=== PATIENT | male | born 1935 | race Caucasian/White ===

== ENCOUNTER 2018-10-20 16:42 | Emergency (ER) | payer MEDICARE ==
[2018-10-20 16:53] VITALS: TEMP 98
[2018-10-20] MEDS ORDERED: SODIUM CHLORIDE 0.9% 500 ML 500 ML IV STA (17:01)
--- NOTE | 2018-10-20 17:05 | ED ---
General Adult HPI - General Chief complaint: Altered Mental Status Stated complaint: ALTERED MENTAL STATUS Time Seen by Provider: 10/20/18 16:54 Source: family, EMS, RN notes reviewed, old records reviewed Mode of arrival: EMS Limitations: altered mental status - History of Present Illness Initial comments: 83-year-old male presents with an episode of unresponsiveness. Patient was at home, eating dinner, he was noted by family members to be slumped in his chair, unresponsive. When EMS arrived patient was found to be hypoxic. He does have history of COPD and emphysema but does not require supplemental oxygen. He denies any preceding shortness of breath or dyspnea. While lying flat his symptoms improved, he regained consciousness. The time my evaluation patient is asymptomatic, feels at baseline. He does have past history of CVA, previous brain cancer status post resection, seizure disorder, CAD status post SC. Patient has no complaints, no headache, no focal weakness or numbness, no vision changes, no chest pain, no palpitations, no shortness of breath, no abdominal pain, nausea vomiting or diarrhea. - Related Data Home Medications Medication Instructions Recorded Confirmed Amiodarone HCl [Pacerone] 200 mg PO DAILY 10/20/18 10/20/18 Aspirin [Adult Low Dose Aspirin EC] 81 mg PO DAILY 10/20/18 10/20/18 Atorvastatin [Lipitor] 40 mg PO HS 10/20/18 10/20/18 Cholecalciferol [Vitamin D3] 1,000 unit PO DAILY 10/20/18 10/20/18 Clopidogrel [Plavix] 75 mg PO DAILY 10/20/18 10/20/18 Enalapril [Vasotec] 10 mg PO DAILY 10/20/18 10/20/18 QUEtiapine [SEROquel] 25 mg PO HS 10/20/18 10/20/18 lamoTRIgine [LaMICtal] 50 mg PO BID 10/20/18 10/20/18 Allergies Allergy/AdvReac Type Severity Reaction Status Date / Time No Known Allergies Allergy Verified 10/20/18 17:14 Review of Systems ROS Statement: Those systems with pertinent positive or pertinent negative responses have been documented in the HPI. ROS Other: All systems not noted in ROS Statement are negative. Past Medical History Past Medical History: Coronary Artery Disease (CAD), Cancer, COPD, CVA/TIA, Dementia, Hearing Disorder / Deafness, Hyperlipidemia, Hypertension, Myocardial Infarction (SC), Renal Disease Additional Past Medical History / Comment(s): Brain cancer History of Any Multi-Drug Resistant Organisms: None Reported Past Surgical History: Heart Catheterization With Stent, Orthopedic Surgery Additional Past Surgical History / Comment(s): brain surgery Past Psychological History: No Psychological Hx Reported Smoking Status: Former smoker Past Alcohol Use History: None Reported Past Drug Use History: None Reported General Exam Limitations: altered mental status General appearance: alert, in no apparent distress Head exam: Present: atraumatic, normocephalic Eye exam: Present: normal appearance, PERRL ENT exam: Present: normal exam Neck exam: Present: normal inspection. Absent: tenderness, meningismus Respiratory exam: Present: normal lung sounds bilaterally. Absent: respiratory distress, wheezes Cardiovascular Exam: Present: regular rate, normal rhythm GI/Abdominal exam: Present: soft. Absent: distended, tenderness, guarding Extremities exam: Present: normal inspection, full ROM Back exam: Present: normal inspection. Absent: full ROM, tenderness Neurological exam: Present: alert, oriented X3, CN II-XII intact. Absent: motor sensory deficit Psychiatric exam: Present: normal affect, normal mood Skin exam: Present: warm, dry, intact. Absent: cyanosis, diaphoretic Course Vital Signs 10/20/18 10/20/18 10/20/18 16:44 16:48 17:00 Temperature 98.0 F Pulse Rate 72 68 Respiratory 20 19 Rate Blood Pressure 127/76 127/76 O2 Sat by Pulse 96 94 L 98 Oximetry 10/20/18 10/20/18 10/20/18 17:30 18:30 19:21 Temperature Pulse Rate 69 67 68 Respiratory 19 20 16 Rate Blood Pressure 138/75 144/74 147/73 O2 Sat by Pulse 96 98 94 L Oximetry EKG Findings - EKG Comments: EKG Findings:: EKG: Sinus rhythm with first-degree AV block, ventricular rate 71 , NH interval 220, QRS duration 88, QTC 458, no ST segment changes Medical Decision Making - Medical Decision Making 83-year-old male presenting with history suggestive of syncopal episode. Patient has multiple medical problems, states several episodes to this in the past. Workup in the emergency department reveals normal CBC, CMP reveals mild creatinine elevation 1.5 with no known baseline. EKG normal sinus rhythm. Patient's vital signs remained stable while in the emergency department. He does have remote history of craniotomy secondary to brain cancer and seizure disorder. Head CT is obtained, negative for intracranial hemorrhage. There is significant chronic changes but no acute intracranial process. Chest x-ray negative for pneumonia, there is pulmonary fibrosis. Patient is very eager for discharge. He does not want observation which was my initial plan for telemetry and further syncopal workup. He refuses and wants to be discharged at this time. Please follow up with primary care physician. - Lab Data Result diagrams: 10/20/18 17:05 10/20/18 17:05 Lab Results 10/20/18 10/20/18 10/20/18 Range/Units 17:05 17:05 17:05 WBC 4.9 (3.8-10.6) k/uL RBC 4.12 L (4.30-5.90) m/uL Hgb 14.1 (13.0-17.5) gm/dL Hct 41.9 (39.0-53.0) % MCV 101.7 H (80.0-100.0) fL MCH 34.1 (25.0-35.0) pg MCHC 33.5 (31.0-37.0) g/dL RDW 13.9 (11.5-15.5) % Plt Count 189 (150-450) k/uL Neutrophils % 73 % Lymphocytes % 20 % Monocytes % 4 % Eosinophils % 1 % Basophils % 0 % Neutrophils # 3.6 (1.3-7.7) k/uL Lymphocytes # 1.0 (1.0-4.8) k/uL Monocytes # 0.2 (0-1.0) k/uL Eosinophils # 0.1 (0-0.7) k/uL Basophils # 0.0 (0-0.2) k/uL Macrocytosis Slight PT (9.0-12.0) sec INR (<1.2) APTT (22.0-30.0) sec Sodium 141 (137-145) mmol/L Potassium 4.9 (3.5-5.1) mmol/L Chloride 108 H (98-107) mmol/L Carbon Dioxide 23 (22-30) mmol/L Anion Gap 10 mmol/L BUN 19 (9-20) mg/dL Creatinine 1.50 H (0.66-1.25) mg/dL Est GFR (CKD-EPI)AfAm 50 (>60 ml/min/1.73 sqM) Est GFR (CKD-EPI)NonAf 43 (>60 ml/min/1.73 sqM) Glucose 167 H (74-99) mg/dL Calcium 9.5 (8.4-10.2) mg/dL Magnesium 2.1 (1.6-2.3) mg/dL Total Bilirubin 1.4 H (0.2-1.3) mg/dL AST 20 (17-59) U/L ALT 21 (21-72) U/L Alkaline Phosphatase 74 (38-126) U/L Total Creatine Kinase 37 L (55-170) U/L CK-MB (CK-2) 0.4 (0.0-2.4) ng/mL CK-MB (CK-2) Rel Index 1.1 Troponin I <0.012 (0.000-0.034) ng/mL Total Protein 7.3 (6.3-8.2) g/dL Albumin 4.2 (3.5-5.0) g/dL 10/20/18 Range/Units 17:05 WBC (3.8-10.6) k/uL RBC (4.30-5.90) m/uL Hgb (13.0-17.5) gm/dL Hct (39.0-53.0) % MCV (80.0-100.0) fL MCH (25.0-35.0) pg MCHC (31.0-37.0) g/dL RDW (11.5-15.5) % Plt Count (150-450) k/uL Neutrophils % % Lymphocytes % % Monocytes % % Eosinophils % % Basophils % % Neutrophils # (1.3-7.7) k/uL Lymphocytes # (1.0-4.8) k/uL Monocytes # (0-1.0) k/uL Eosinophils # (0-0.7) k/uL Basophils # (0-0.2) k/uL Macrocytosis PT 10.3 (9.0-12.0) sec INR 1.1 (<1.2) APTT 22.8 (22.0-30.0) sec Sodium (137-145) mmol/L Potassium (3.5-5.1) mmol/L Chloride (98-107) mmol/L Carbon Dioxide (22-30) mmol/L Anion Gap mmol/L BUN (9-20) mg/dL Creatinine (0.66-1.25) mg/dL Est GFR (CKD-EPI)AfAm (>60 ml/min/1.73 sqM) Est GFR (CKD-EPI)NonAf (>60 ml/min/1.73 sqM) Glucose (74-99) mg/dL Calcium (8.4-10.2) mg/dL Magnesium (1.6-2.3) mg/dL Total Bilirubin (0.2-1.3) mg/dL AST (17-59) U/L ALT (21-72) U/L Alkaline Phosphatase (38-126) U/L Total Creatine Kinase (55-170) U/L CK-MB (CK-2) (0.0-2.4) ng/mL CK-MB (CK-2) Rel Index Troponin I (0.000-0.034) ng/mL Total Protein (6.3-8.2) g/dL Albumin (3.5-5.0) g/dL Disposition Clinical Impression: Syncope Disposition: HOME SELF-CARE Condition: Fair Instructions: Syncope (ED) Is patient prescribed a controlled substance at d/c from ED?: No Referrals: Louis Diaz MD [Primary Care Provider] - 1-2 days Time of Disposition: 19:27
[2018-10-20 17:21] LABS: Basophils % (A) 0 %; Eosinophils # (A) 0.1 k/uL (0-0.7); Eosinophils % (A) 1 %; HCT 41.9 % (39.0-53.0); HGB 14.1 gm/dL (13.0-17.5); Lymphocytes % (A) 20 %; MCH 34.1 pg (25.0-35.0); MCHC 33.5 g/dL (31.0-37.0); MCV 101.7 fL (80.0-100.0); Macrocytosis Slight; Mean Platelet Volume 7.3; Monocytes # (A) 0.2 k/uL (0-1.0); Monocytes % (A) 4 %; Neutrophils # (A) 3.6 k/uL (1.3-7.7); Neutrophils % (A) 73 %; Platelet Count 189 k/uL (150-450); RBC 4.12 m/uL (4.30-5.90); RDW 13.9 % (11.5-15.5); WBC 4.9 k/uL (3.8-10.6)
[2018-10-20 17:28] LABS: Creatine Kinase 37 U/L (55-170)
[2018-10-20 17:31] LABS: Albumin 4.2 g/dL (3.5-5.0); Calcium 9.5 mg/dL (8.4-10.2); INR 1.1 (<1.2); Magnesium 2.1 mg/dL (1.6-2.3); Partial Thromboplastin Time 22.8 sec (22.0-30.0); Potassium 4.9 mmol/L (3.5-5.1); Prothrombin Time 10.3 sec (9.0-12.0); Total Bilirubin 1.4 mg/dL (0.2-1.3); Total Protein 7.3 g/dL (6.3-8.2)
[2018-10-20 17:42] LABS: Creatine Kinase MB 0.4 ng/mL (0.0-2.4); Troponin I <0.012 ng/mL (0.000-0.034)
--- NOTE | 2018-10-20 18:49 | CT ---
EXAMINATION TYPE: CT brain wo con DATE OF EXAM: 10/20/2018 COMPARISON: 06/04/2013 HISTORY: Syncope. CT DLP: 1044.4 mGycm Automated exposure control for dose reduction was used. FINDINGS: There is severe diffuse cerebral atrophy. There is large old left frontal and anterior parietal corti arely infarct. There is large old right temporal lobe infarct. There is no midline shift. There is no s ign of intracranial hemorrhage. The calvarium is intact. 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 NO CHANGE COMPARED TO OLD EXAM.
--- NOTE | 2018-10-20 18:53 | XR ---
EXAMINATION TYPE: XR chest 2V DATE OF EXAM: 10/20/2018 COMPARISON: 06/04/2013 HISTORY: Altered mental status TECHNIQUE: Frontal and lateral views of the chest are obtained. FINDINGS: There is coarsening of the lung markings. There is no heart failure. Heart size is normal. Thoracic aorta is atheromatous. There is mild linear density at the left lung base. There are chest leads. IMPRESSION: Pulmonary fibrosis. Mild subsegmental atelectasis or scarring at the left lung base. No change. No heart failure.
[2018-10-20 19:22] VITALS: RESP 16
[2018-10-20] MEDS ORDERED: SODIUM CHLORIDE 0.9% 1,000 ML IV SCH (19:30)
[2018-10-20 19:31] VITALS: BP 151/78; PULSE 69
== END 2018-10-20 19:35 | disposition home or self-care (01) ==
LOC: EC 16:42
DX: R55 Syncope and collapse (principal); R79.89 Other specified abnormal findings of blood chemistry; G40.909 Epilepsy, unspecified, not intractable, without status epilepticus; Z85.841 Personal history of malignant neoplasm of brain; J84.10 Pulmonary fibrosis, unspecified; I25.10 Atherosclerotic heart disease of native coronary artery without angina pectoris; E78.5 Hyperlipidemia, unspecified; I10 Essential (primary) hypertension; I25.2 Old myocardial infarction; Z86.73 Personal history of transient ischemic attack (TIA), and cerebral infarction without residual deficits; Z87.891 Personal history of nicotine dependence; Z79.01 Long term (current) use of anticoagulants; Z79.899 Other long term (current) drug therapy; Z95.5 Presence of coronary angioplasty implant and graft; Z79.82 Long term (current) use of aspirin; Z98.890 Other specified postprocedural states; Z53.8 Procedure and treatment not carried out for other reasons
CPT/HCPCS: 36415; 70450; 71046; 80053; 82550; 82553; 83735; 84484; 85025; 85610; 85730; 93005; 96360; 96361; 99285

== ENCOUNTER 2021-02-22 17:51 | Inpatient (IN) | payer MEDICARE ==
[2021-02-22] MEDS ORDERED: IPRATROPIUM-ALBUTEROL 3 ML NEB INHALATION STA (18:10)
[2021-02-22] MEDS ORDERED: ALBUTEROL NEBULIZED 2.5 MG/3 ML INHALATION STA (18:12)
[2021-02-22] MEDS ORDERED: SODIUM CHLORIDE 0.9% 2,000 ML IV ONE (18:16)
[2021-02-22 18:25] LABS: Basophils # (A) 0.1 k/uL (0-0.2); Basophils % (A) 1 %; Eosinophils # (A) 0.1 k/uL (0-0.7); Eosinophils % (A) 1 %; HCT 45.5 % (39.0-53.0); HGB 15.1 gm/dL (13.0-17.5); Lymphocytes # (A) 1.7 k/uL (1.0-4.8); Lymphocytes % (A) 20 %; MCH 34.6 pg (25.0-35.0); MCHC 33.2 g/dL (31.0-37.0); MCV 104.3 fL (80.0-100.0); Macrocytosis Moderate; Mean Platelet Volume 7.9; Monocytes # (A) 0.8 k/uL (0-1.0); Monocytes % (A) 10 %; Neutrophils # (A) 5.9 k/uL (1.3-7.7); Neutrophils % (A) 67 %; Platelet Count 303 k/uL (150-450); RBC 4.36 m/uL (4.30-5.90); RDW 14.6 % (11.5-15.5); WBC 8.7 k/uL (3.8-10.6)
[2021-02-22 18:33] LABS: Albumin 3.7 g/dL (3.5-5.0); Calcium 8.5 mg/dL (8.4-10.2); Total Bilirubin 1.4 mg/dL (0.2-1.3); Total Protein 6.6 g/dL (6.3-8.2)
[2021-02-22 18:36] LABS: Potassium 4.4 mmol/L (3.5-5.1)
[2021-02-22 18:45] LABS: Prothrombin Time 10.9 sec (9.0-12.0)
--- NOTE | 2021-02-22 19:11 | XR ---
EXAMINATION TYPE: XR chest 1V portable DATE OF EXAM: 02/22/2021 COMPARISON: 10/20/2018. HISTORY: Altered mental status. TECHNIQUE: Single frontal view of the chest is obtained. FINDINGS: There is bilateral diffuse hazy and streaky opacities. No significant pleural effusion, or pneumothorax seen. The cardiac silhouette size is borderline enlarged. The osseous structures are intact. IMPRESSION: Diffuse opacities, may relate to ARDS, pulmonary edema or infection.
[2021-02-22 19:21] LABS: Cocaine Screen,Urine Not Detected (NotDetected); Opiate Screen,Urine Not Detected (NotDetected); Phencyclidine Screen,Urine Not Detected (NotDetected); Urn Cannabinoid Scrn Not Detected (NotDetected)
[2021-02-22 19:22] LABS: Amphetamine Screen,Urine Not Detected (NotDetected); Barbiturate Screen,Urine Not Detected (NotDetected); Benzodiazepines Screen,Urine Not Detected (NotDetected); Methadone Screen, Urine Not Detected (NotDetected); Oxycodone Screen, Urine Not Detected (NotDetected); Tricyclic Antidepressant,Urine Not Detected (NotDetected)
[2021-02-22] MEDS ORDERED: MORPHINE SULFATE 4 MG/ML SYRINGE IVP STA (19:26)
--- NOTE | 2021-02-22 19:28 | CT ---
EXAM: CT brain wo con CLINICAL HISTORY: Altered mental status. COMPARISON: 10/20/2018. TECHNIQUE: Contiguous axial noncontrast images of the brain were obtained. Coronal and sagittal refor mats were generated and reviewed. Automated dose control was used for this exam. FINDINGS: There is no evidence for intracranial hemorrhage, mass effect or midline shift. There is encephalomal acia of the right temporal and left frontal lobes. There is moderate to severe white matter disease a nd parenchymal volume loss. Ventricular size and configuration is within normal limits for degree of parenchymal volume. The paranasal sinuses are clear. The mastoid air cells are clear. Right frontotemporal craniotomy is seen. No acute osseous abnormality. IMPRESSION: No acute intracranial abnormality. Chronic findings as above.
[2021-02-22] MEDS: DEXAMETHASONE SOD PHOSPHATE 10 MG/ML 1 ML VIAL IV SCH (19:43)
[2021-02-22] MEDS ORDERED: HEPARIN SODIUM,PORCINE 5,000 UNIT/ML 1 ML VIAL IV PRN (19:49)
[2021-02-22] MEDS ORDERED: HEPARIN SODIUM,PORCINE 5,000 UNIT/ML 1 ML VIAL IV ONE (19:49)
--- NOTE | 2021-02-22 20:33 | CT ---
EXAMINATION TYPE: CT chest angio for PE DATE OF EXAM: 02/22/2021 COMPARISON: Same day radiograph. HISTORY: Elevated d-dimer. CT DLP: 411.1 mGycm Automated exposure control for dose reduction was used. CONTRAST: CT Chest for pulmonary embolism performed with with IV Contrast, patient injected with 100 mL of Isov ue 370. FINDINGS: LUNGS: The bilateral diffuse moderate opacities predominantly in the dependent lungs and greater on t he right. There are small bilateral pleural effusions. There is background of moderate centrilobular emphysema. No pneumothorax MEDIASTINUM: There is satisfactory enhancement of the pulmonary artery and its branches, there is no CT evidence for pulmonary embolism. There are no greater than 1 cm hilar or mediastinal lymph nodes. No pericardial effusion is seen. There is moderate thoracic aorta and coronary atherosclerotic di sease. OTHER: No additional significant abnormality is seen. IMPRESSION: No acute PE. Bilateral diffuse dependent opacities, may relate to aspiration pneumonitis and/or pneumonia. Small pleural effusions.
[2021-02-22] MEDS ORDERED: NALOXONE 0.4 MG/ML 1 ML VIAL IV PRN (20:37)
--- NOTE | 2021-02-22 20:37 | ED ---
SOB HPI - General Chief Complaint: Shortness of Breath Stated Complaint: Altered Source: patient Mode of arrival: ambulatory Limitations: no limitations - History of Present Illness Initial Comments: A shows an 85-year-old male with multiple medical conditions presents to the [facility] department in respiratory distress. EMS states the patient's called EMS as he was having difficulty breathing. She states the symptoms started today. He has had a mild cough. Does have a history of COPD. He does not wear any oxygen at home. EMS found the patient to have saturations in the 70s on room air. He is not having fever 102. states he's been eating and drinking. Acting appropriately. Does have history of CVA and has baseline debility. The remainder of the HPI is limited as the patient cannot provide a history - Related Data Home Medications Medication Instructions Recorded Confirmed Amiodarone HCl [Pacerone] 200 mg PO DAILY 10/20/18 02/22/21 Aspirin [Adult Low Dose Aspirin EC] 81 mg PO DAILY 10/20/18 02/22/21 Clopidogrel [Plavix] 75 mg PO DAILY 10/20/18 02/22/21 Enalapril [Vasotec] 10 mg PO DAILY 10/20/18 02/22/21 lamoTRIgine [LaMICtal] 50 mg PO BID 10/20/18 02/22/21 Acetaminophen/Diphenhydramine 1 tab PO HS 02/22/21 02/22/21 [Tylenol PM 500-25mg] Atorvastatin Calcium [Lipitor] 40 mg PO HS 02/22/21 02/22/21 Loratadine [Claritin] 10 mg PO DAILY PRN 02/22/21 02/22/21 Allergies Allergy/AdvReac Type Severity Reaction Status Date / Time No Known Allergies Allergy Verified 02/22/21 18:34 Review of Systems ROS Statement: Those systems with pertinent positive or pertinent negative responses have been documented in the HPI. ROS Other: All systems not noted in ROS Statement are negative. Past Medical History Past Medical History: Coronary Artery Disease (CAD), Cancer, COPD, CVA/TIA, Dementia, Hearing Disorder / Deafness, Hyperlipidemia, Hypertension, Myocardial Infarction ([place]), Renal Disease Additional Past Medical History / Comment(s): Brain cancer History of Any Multi-Drug Resistant Organisms: None Reported Past Surgical History: Heart Catheterization With Stent, Orthopedic Surgery Additional Past Surgical History / Comment(s): brain surgery Past Psychological History: No Psychological Hx Reported Smoking Status: Current every day smoker Past Alcohol Use History: None Reported Past Drug Use History: None Reported General Exam Limitations: altered mental status General appearance: alert, in distress, cachectic Head exam: Present: atraumatic, other (scar right temporal region) Eye exam: Present: normal appearance, PERRL, EOMI. Absent: scleral icterus, conjunctival injection, periorbital swelling ENT exam: Present: mucous membranes dry Respiratory exam: Present: decreased breath sounds, other (tachypnia) Cardiovascular Exam: Present: normal rhythm, tachycardia GI/Abdominal exam: Present: soft, normal bowel sounds. Absent: distended, tenderness, guarding, rebound, rigid Extremities exam: Present: other (lower extremity contractures) Psychiatric exam: Present: agitated Skin exam: Present: diaphoretic, pallor Course Vital Signs 02/22/21 02/22/21 02/22/21 17:58 18:09 18:21 Temperature 102 F H Pulse Rate 122 H 123 H 126 H Respiratory 40 H Rate Blood Pressure 185/123 O2 Sat by Pulse 92 L Oximetry 02/22/21 02/22/21 02/22/21 18:42 19:13 19:46 Temperature Pulse Rate 116 H 128 H 129 H Respiratory 30 H 36 H 40 H Rate Blood Pressure 164/108 146/87 139/90 O2 Sat by Pulse 97 92 L 93 L Oximetry 02/22/21 02/22/21 02/22/21 20:22 21:13 21:29 Temperature Pulse Rate 112 H 104 H Respiratory 28 H 24 Rate Blood Pressure 112/71 115/76 O2 Sat by Pulse 96 94 L 93 L Oximetry Medical Decision Making - Medical Decision Making Upon arrival patient is promptly placed in a trauma 1. A thorough history and physical exam was performed. Patient does remain on a nonrebreather. IV is established. Patient was given a 2 L bolus of normal saline and a DuoNeb breathing treatment. Laboratory studies are conducted. CT the brain and a chest x-rays performed. Laboratory studies reviewed demonstrate lactic acid 2.9. Troponin 0.111. BNP 9000 Covid is detected. Chest x-ray demonstrates diffuse opacities. CT of the brain demonstrates no acute findings. CT of the chest demonstrates no PE with bilateral diffuse dependent opacities. Results are discussed with the . She is informed of his critical nature and does request the patient remain a full code. The patient arrived hypertensive and did have stabilization of his blood pressures to the 110 systolic. No episodes of hypotension in the ED. The patient had improvement in his heart rate and ta chypnia with 2 mg morphine administration. I discussed the case with Dr. Hackett who agreed to admit the patient. Will place pulmonology and cardio on consult. Patient is heparinized. Pt remained in stable condition with a guarded prognosis. - Lab Data Result diagrams: 02/24/21 04:20 02/24/21 04:20 Lab Results 02/22/21 02/22/21 02/22/21 Range/Units 18:11 18:11 18:11 WBC 8.7 (3.8-10.6) k/uL RBC 4.36 (4.30-5.90) m/uL Hgb 15.1 (13.0-17.5) gm/dL Hct 45.5 (39.0-53.0) % MCV 104.3 H (80.0-100.0) fL MCH 34.6 (25.0-35.0) pg MCHC 33.2 (31.0-37.0) g/dL RDW 14.6 (11.5-15.5) % Plt Count 303 (150-450) k/uL MPV 7.9 Neutrophils % 67 % Lymphocytes % 20 % Monocytes % 10 % Eosinophils % 1 % Basophils % 1 % Neutrophils # 5.9 (1.3-7.7) k/uL Lymphocytes # 1.7 (1.0-4.8) k/uL Monocytes # 0.8 (0-1.0) k/uL Eosinophils # 0.1 (0-0.7) k/uL Basophils # 0.1 (0-0.2) k/uL Macrocytosis Moderate PT 10.9 (9.0-12.0) sec INR 1.0 (<1.2) APTT 23.0 (22.0-30.0) sec D-Dimer 2.52 H (<0.60) mg/L FEU Sodium 139 (137-145) mmol/L Potassium 4.4 (3.5-5.1) mmol/L Chloride 110 H (98-107) mmol/L Carbon Dioxide 18 L (22-30) mmol/L Anion Gap 11 mmol/L BUN 11 (9-20) mg/dL Creatinine 1.25 (0.66-1.25) mg/dL Est GFR (CKD-EPI)AfAm 62 (>60 ml/min/1.73 sqM) Est GFR (CKD-EPI)NonAf 53 (>60 ml/min/1.73 sqM) Glucose 189 H (74-99) mg/dL Lactic Ac Sepsis Rflx Plasma Lactic Acid Eduardo (0.7-2.0) mmol/L Calcium 8.5 (8.4-10.2) mg/dL Total Bilirubin 1.4 H (0.2-1.3) mg/dL AST 23 (17-59) U/L ALT 8 (4-49) U/L Alkaline Phosphatase 79 (38-126) U/L Ammonia (<30) umol/L Creatine Kinase 48 L (55-170) U/L Troponin I (0.000-0.034) ng/mL NT-Pro-B Natriuret Pep pg/mL Total Protein 6.6 (6.3-8.2) g/dL Albumin 3.7 (3.5-5.0) g/dL Urine Opiates Screen (NotDetected) Ur Oxycodone Screen (NotDetected) Urine Methadone Screen (NotDetected) Ur Propoxyphene Screen (NotDetected) Ur Barbiturates Screen (NotDetected) U Tricyclic Antidepress (NotDetected) Ur Phencyclidine Scrn (NotDetected) Ur Amphetamines Screen (NotDetected) U Methamphetamines Scrn (NotDetected) U Benzodiazepines Scrn (NotDetected) Urine Cocaine Screen (NotDetected) U Marijuana (THC) Screen (NotDetected) Coronavirus (PCR) (Not Detectd) 02/22/21 02/22/21 02/22/21 Range/Units 18:11 18:11 18:11 WBC (3.8-10.6) k/uL RBC (4.30-5.90) m/uL Hgb (13.0-17.5) gm/dL Hct (39.0-53.0) % MCV (80.0-100.0) fL MCH (25.0-35.0) pg MCHC (31.0-37.0) g/dL RDW (11.5-15.5) % Plt Count (150-450) k/uL MPV Neutrophils % % Lymphocytes % % Monocytes % % Eosinophils % % Basophils % % Neutrophils # (1.3-7.7) k/uL Lymphocytes # (1.0-4.8) k/uL Monocytes # (0-1.0) k/uL Eosinophils # (0-0.7) k/uL Basophils # (0-0.2) k/uL Macrocytosis PT (9.0-12.0) sec INR (<1.2) APTT (22.0-30.0) sec D-Dimer (<0.60) mg/L FEU Sodium (137-145) mmol/L Potassium (3.5-5.1) mmol/L Chloride (98-107) mmol/L Carbon Dioxide (22-30) mmol/L Anion Gap mmol/L BUN (9-20) mg/dL Creatinine (0.66-1.25) mg/dL Est GFR (CKD-EPI)AfAm (>60 ml/min/1.73 sqM) Est GFR (CKD-EPI)NonAf (>60 ml/min/1.73 sqM) Glucose (74-99) mg/dL Lactic Ac Sepsis Rflx Plasma Lactic Acid Eduardo (0.7-2.0) mmol/L Calcium (8.4-10.2) mg/dL Total Bilirubin (0.2-1.3) mg/dL AST (17-59) U/L ALT (4-49) U/L Alkaline Phosphatase (38-126) U/L Ammonia 13 (<30) umol/L Creatine Kinase (55-170) U/L Troponin I 0.111 H* (0.000-0.034) ng/mL NT-Pro-B Natriuret Pep pg/mL Total Protein (6.3-8.2) g/dL Albumin (3.5-5.0) g/dL Urine Opiates Screen (NotDetected) Ur Oxycodone Screen (NotDetected) Urine Methadone Screen (NotDetected) Ur Propoxyphene Screen (NotDetected) Ur Barbiturates Screen (NotDetected) U Tricyclic Antidepress (NotDetected) Ur Phencyclidine Scrn (NotDetected) Ur Amphetamines Screen (NotDetected) U Methamphetamines Scrn (NotDetected) U Benzodiazepines Scrn (NotDetected) Urine Cocaine Screen (NotDetected) U Marijuana (THC) Screen (NotDetected) Coronavirus (PCR) Detected A (Not Detectd) 02/22/21 02/22/21 02/22/21 Range/Units 18:11 18:11 18:36 WBC (3.8-10.6) k/uL RBC (4.30-5.90) m/uL Hgb (13.0-17.5) gm/dL Hct (39.0-53.0) % MCV (80.0-100.0) fL MCH (25.0-35.0) pg MCHC (31.0-37.0) g/dL RDW (11.5-15.5) % Plt Count (150-450) k/uL MPV Neutrophils % % Lymphocytes % % Monocytes % % Eosinophils % % Basophils % % Neutrophils # (1.3-7.7) k/uL Lymphocytes # (1.0-4.8) k/uL Monocytes # (0-1.0) k/uL Eosinophils # (0-0.7) k/uL Basophils # (0-0.2) k/uL Macrocytosis PT (9.0-12.0) sec INR (<1.2) APTT (22.0-30.0) sec D-Dimer (<0.60) mg/L FEU Sodium (137-145) mmol/L Potassium (3.5-5.1) mmol/L Chloride (98-107) mmol/L Carbon Dioxide (22-30) mmol/L Anion Gap mmol/L BUN (9-20) mg/dL Creatinine (0.66-1.25) mg/dL Est GFR (CKD-EPI)AfAm (>60 ml/min/1.73 sqM) Est GFR (CKD-EPI)NonAf (>60 ml/min/1.73 sqM) Glucose (74-99) mg/dL Lactic Ac Sepsis Rflx Plasma Lactic Acid Eduardo 2.9 H* (0.7-2.0) mmol/L Calcium (8.4-10.2) mg/dL Total Bilirubin (0.2-1.3) mg/dL AST (17-59) U/L ALT (4-49) U/L Alkaline Phosphatase (38-126) U/L Ammonia (<30) umol/L Creatine Kinase (55-170) U/L Troponin I (0.000-0.034) ng/mL NT-Pro-B Natriuret Pep 9010 pg/mL Total Protein (6.3-8.2) g/dL Albumin (3.5-5.0) g/dL Urine Opiates Screen Not Detected (NotDetected) Ur Oxycodone Screen Not Detected (NotDetected) Urine Methadone Screen Not Detected (NotDetected) Ur Propoxyphene Screen Not Detected (NotDetected) Ur Barbiturates Screen Not Detected (NotDetected) U Tricyclic Antidepress Not Detected (NotDetected) Ur Phencyclidine Scrn Not Detected (NotDetected) Ur Amphetamines Screen Not Detected (NotDetected) U Methamphetamines Scrn Not Detected (NotDetected) U Benzodiazepines Scrn Not Detected (NotDetected) Urine Cocaine Screen Not Detected (NotDetected) U Marijuana (THC) Screen Not Detected (NotDetected) Coronavirus (PCR) (Not Detectd) 02/22/21 Range/Units 18:48 WBC (3.8-10.6) k/uL RBC (4.30-5.90) m/uL Hgb (13.0-17.5) gm/dL Hct (39.0-53.0) % MCV (80.0-100.0) fL MCH (25.0-35.0) pg MCHC (31.0-37.0) g/dL RDW (11.5-15.5) % Plt Count (150-450) k/uL MPV Neutrophils % % Lymphocytes % % Monocytes % % Eosinophils % % Basophils % % Neutrophils # (1.3-7.7) k/uL Lymphocytes # (1.0-4.8) k/uL Monocytes # (0-1.0) k/uL Eosinophils # (0-0.7) k/uL Basophils # (0-0.2) k/uL Macrocytosis PT (9.0-12.0) sec INR (<1.2) APTT (22.0-30.0) sec D-Dimer (<0.60) mg/L FEU Sodium (137-145) mmol/L Potassium (3.5-5.1) mmol/L Chloride (98-107) mmol/L Carbon Dioxide (22-30) mmol/L Anion Gap mmol/L BUN (9-20) mg/dL Creatinine (0.66-1.25) mg/dL Est GFR (CKD-EPI)AfAm (>60 ml/min/1.73 sqM) Est GFR (CKD-EPI)NonAf (>60 ml/min/1.73 sqM) Glucose (74-99) mg/dL Lactic Ac Sepsis Rflx Y Plasma Lactic Acid Eduardo (0.7-2.0) mmol/L Calcium (8.4-10.2) mg/dL Total Bilirubin (0.2-1.3) mg/dL AST (17-59) U/L ALT (4-49) U/L Alkaline Phosphatase (38-126) U/L Ammonia (<30) umol/L Creatine Kinase (55-170) U/L Troponin I (0.000-0.034) ng/mL NT-Pro-B Natriuret Pep pg/mL Total Protein (6.3-8.2) g/dL Albumin (3.5-5.0) g/dL Urine Opiates Screen (NotDetected) Ur Oxycodone Screen (NotDetected) Urine Methadone Screen (NotDetected) Ur Propoxyphene Screen (NotDetected) Ur Barbiturates Screen (NotDetected) U Tricyclic Antidepress (NotDetected) Ur Phencyclidine Scrn (NotDetected) Ur Amphetamines Screen (NotDetected) U Methamphetamines Scrn (NotDetected) U Benzodiazepines Scrn (NotDetected) Urine Cocaine Screen (NotDetected) U Marijuana (THC) Screen (NotDetected) Coronavirus (PCR) (Not Detectd) - EKG Data EKG Comments: EKG at 1901 demonstrates a sinus tachycardia with a first-degree AV block. Rate of 126. MT interval 248. QRS 104. QTC of 379. ST depression in the inferior and lateral leads EKG at 1948 continues to demonstrate a sinus tachycardia with a ventricular rate of 124. MT interval 214. QRS 106. QTC 531. ST depression in the inferior lateral leads. No acute ST segment elevation Critical Care Time Critical Care Time: Yes Critical Care Time: 32 minutes Disposition Clinical Impression: Sepsis with acute hypoxic respiratory failure, COVID-19, Fever, NSTEMI (non-ST elevated myocardial infarction) Disposition: ADMITTED IP TO THIS [facility] Condition: Serious Is patient prescribed a controlled substance at d/c from ED?: No Decision to Admit Reason: Admit from EC Decision Date: 02/22/21 Decision Time: 20:37
[2021-02-22] MEDS: HEPARIN SOD,PORK IN 0.45% NACL 25,000 UNIT in 0.45% NACL 1 250ML.BAG IV SCH (20:44)
[2021-02-22] MEDS: ALBUTEROL HFA INHALER INHALATION PRN (21:11)
[2021-02-23] MEDS: MORPHINE SULFATE 4 MG/ML SYRINGE IV PRN ×2 (02:25→20:08)
[2021-02-23] MEDS: DEXAMETHASONE SOD PHOSPHATE 10 MG/ML 1 ML VIAL IV SCH (07:45)
[2021-02-23] MEDS ORDERED: SODIUM CHLORIDE 0.9% 1,000 ML IV STA (08:12)
[2021-02-23] MEDS ORDERED: LORATADINE 10 MG TAB PO PRN (08:23)
[2021-02-23] MEDS: ALBUTEROL HFA INHALER INHALATION PRN ×4 (08:29→20:00)
[2021-02-23 08:39] LABS: Basophils % (A) 0 %; Eosinophils % (A) 0 %; HCT 35.9 % (39.0-53.0); Hypochromasia Slight; Lymphocytes # (A) 0.4 k/uL (1.0-4.8); Lymphocytes % (A) 6 %; MCH 34.4 pg (25.0-35.0); MCHC 32.3 g/dL (31.0-37.0); MCV 106.4 fL (80.0-100.0); Macrocytosis Moderate; Mean Platelet Volume 7.7; Monocytes # (A) 0.3 k/uL (0-1.0); Monocytes % (A) 5 %; Neutrophils # (A) 6.1 k/uL (1.3-7.7); Platelet Count 224 k/uL (150-450); RBC 3.37 m/uL (4.30-5.90); RDW 15.3 % (11.5-15.5); WBC 6.9 k/uL (3.8-10.6)
[2021-02-23] MEDS: AMIODARONE 200 MG TAB PO SCH (08:40)
[2021-02-23] MEDS: ASPIRIN 81 MG PO SCH (08:55)
[2021-02-23] MEDS: CLOPIDOGREL 75 MG TAB PO SCH (08:56)
[2021-02-23] MEDS ORDERED: lisinopriL 20 MG TAB PO SCH (09:00)
[2021-02-23 09:01] LABS: INR 1.1 (<1.2)
[2021-02-23 09:02] LABS: Prothrombin Time 11.7 sec (9.0-12.0)
[2021-02-23] MEDS: lamoTRIgine 25 MG TAB PO SCH ×2 (09:11→21:26)
--- NOTE | 2021-02-23 09:22 | P.HPIM ---
History of Present Illness H&P Date: 02/23/21 Shai Vaca, is an 85-year-old male who presented to [facility] emergency room with a chief complaint of worsening shortness of breath, patient's called EMS because patient was having difficulty breathing. Patient was evaluated in the emergency room vital examination on presentation revealed a temperature of 102 pulse 122 respiration 14 blood pressure 185/123 and pulse ox 92% on 15 L nonrebreather mask, laboratory data revealed a white blood count of 8.7 hemoglobin 15.1 platelet count 303 d-dimer was elevated at 2.5 to BUN 11 creatinine 1.25 lactic acid was elevated at 3.6 and a troponin level was elevated at 0.11 chest x-ray on presentation revealed diffuse opaciti es possibly related to ARDS pulmonary edema or infection, Cordarone of virus PCR was positive, CT angiogram of the chest was negative for pulmonary embolism however it revealed bilateral diffuse dependent opacities possibly related to pneumonia with a small pleural effusions, EKG was done in the emergency room and revealed sinus tachycardia with first-degree AV block and incomplete left bundle branch block and ST and T-wave abnormalities suggestive of lateral ischemia. Computed tomography scan of the brain done in the emergency room revealed no acute intracranial abnormality. Patient was admitted to telemetry floor he was started on IV heparin, IV dexamethasone, inhaled bronchodilators, and IV fluid, cardiology consultation and pulmonary critical care consultation were requested. His past medical history is significant for history of hypertension, history of hyperlipidemia, history of COPD, history of pulmonary fibrosis, he also has a previous history of brain cancer and history of coronary artery disease with previous history of angioplasty and stent placement. Past Medical History Past Medical History: Coronary Artery Disease (CAD), Cancer, COPD, CVA/TIA, Dementia, Hearing Disorder / Deafness, Hyperlipidemia, Hypertension, Myocardial Infarction ([place]), Renal Disease Additional Past Medical History / Comment(s): Brain cancer Last Myocardial Infarction Date:: unknown History of Any Multi-Drug Resistant Organisms: None Reported Past Surgical History: Heart Catheterization With Stent, Orthopedic Surgery Additional Past Surgical History / Comment(s): brain surgery Date of Last Stent Placement:: unknown Past Psychological History: No Psychological Hx Reported Smoking Status: Unknown if ever smoked Past Alcohol Use History: None Reported Past Drug Use History: None Reported Medications and Allergies Home Medications Medication Instructions Recorded Confirmed Type Amiodarone HCl [Pacerone] 200 mg PO DAILY 10/20/18 02/22/21 History Aspirin [Adult Low Dose Aspirin EC] 81 mg PO DAILY 10/20/18 02/22/21 History Clopidogrel [Plavix] 75 mg PO DAILY 10/20/18 02/22/21 History Enalapril [Vasotec] 10 mg PO DAILY 10/20/18 02/22/21 History lamoTRIgine [LaMICtal] 50 mg PO BID 10/20/18 02/22/21 History Acetaminophen/Diphenhydramine 1 tab PO HS 02/22/21 02/22/21 History [Tylenol PM 500-25mg] Atorvastatin Calcium [Lipitor] 40 mg PO HS 02/22/21 02/22/21 History Loratadine [Claritin] 10 mg PO DAILY PRN 02/22/21 02/22/21 History Allergies Allergy/AdvReac Type Severity Reaction Status Date / Time No Known Allergies Allergy Verified 02/22/21 18:34 Physical Exam Vitals: Vital Signs Temp Pulse Pulse Resp BP BP Pulse Ox 02/23/21 07:55 94/64 02/23/21 07:54 76/49 02/23/21 07:43 97.7 F 73 17 86/53 93 L 02/23/21 04:00 98.4 F 83 20 103/64 92 L 02/22/21 23:29 98.3 F 135 H 24 138/61 90 L 02/22/21 21:29 104 H 24 115/76 93 L 02/22/21 21:13 94 L 02/22/21 20:22 112 H 28 H 112/71 96 02/22/21 19:46 129 H 40 H 139/90 93 L 02/22/21 19:13 128 H 36 H 146/87 92 L 02/22/21 18:42 116 H 30 H 164/108 97 02/22/21 18:21 126 H 02/22/21 18:09 123 H 02/22/21 17:58 102 F H 122 H 40 H 185/123 92 L Intake and Output 02/22/21 02/23/21 02/23/21 22:59 06:59 14:59 Intake Total 527.737 Output Total 200 Balance 327.737 Intake: Intake, IV Titration 47.737 Amount Heparin Sod,Pork in 0.45% 47.737 NaCl 25,000 unit In 0.45 % NaCl 1 250ml.bag @ 12 UNITS/KG/HR 8.137 mls/hr IV .Q24H [facility] Rx#: [id number] Oral 480 Output: Urine 200 Other: Voiding Method Indwelling Catheter Indwelling Catheter # Voids 1 Weight 67.812 kg 71.5 kg In general patient is alert and oriented 3 in no apparent distress HEENT head normocephalic and atraumatic Neck is supple no JVD no goiter no lymphadenopathy Chest exam reveals coarse crackles in both lung thomas with wheezing Cardiac exam reveals regular heart sounds no gallops no murmurs Abdomen is soft nontender no organomegaly with normal bowel sounds Extremity exam reveals no edema no cyanosis or clubbing Neurological examination reveals no gross focal deficit Results CBC & Chem 7: 02/22/21 18:11 02/22/21 18:11 Labs: Abnormal Lab Results - Last 24 Hours (Table) 02/22/21 02/22/21 02/22/21 Range/Units 18:11 18:11 18:11 MCV 104.3 H (80.0-100.0) fL APTT (22.0-30.0) sec D-Dimer 2.52 H (<0.60) mg/L FEU Chloride 110 H (98-107) mmol/L Carbon Dioxide 18 L (22-30) mmol/L Glucose 189 H (74-99) mg/dL Plasma Lactic Acid Eduardo (0.7-2.0) mmol/L Total Bilirubin 1.4 H (0.2-1.3) mg/dL Creatine Kinase 48 L (55-170) U/L Troponin I (0.000-0.034) ng/mL Coronavirus (PCR) (Not Detectd) 02/22/21 02/22/21 02/22/21 Range/Units 18:11 18:11 18:11 MCV (80.0-100.0) fL APTT (22.0-30.0) sec D-Dimer (<0.60) mg/L FEU Chloride (98-107) mmol/L Carbon Dioxide (22-30) mmol/L Glucose (74-99) mg/dL Plasma Lactic Acid Eduardo 2.9 H* (0.7-2.0) mmol/L Total Bilirubin (0.2-1.3) mg/dL Creatine Kinase (55-170) U/L Troponin I 0.111 H* (0.000-0.034) ng/mL Coronavirus (PCR) Detected A (Not Detectd) 02/22/21 02/23/21 02/23/21 Range/Units 21:18 00:03 01:39 MCV (80.0-100.0) fL APTT 77.3 H (22.0-30.0) sec D-Dimer (<0.60) mg/L FEU Chloride (98-107) mmol/L Carbon Dioxide (22-30) mmol/L Glucose (74-99) mg/dL Plasma Lactic Acid Eduardo 3.6 H* 4.2 H* (0.7-2.0) mmol/L Total Bilirubin (0.2-1.3) mg/dL Creatine Kinase (55-170) U/L Troponin I (0.000-0.034) ng/mL Coronavirus (PCR) (Not Detectd) 02/23/21 Range/Units 03:39 MCV (80.0-100.0) fL APTT (22.0-30.0) sec D-Dimer (<0.60) mg/L FEU Chloride (98-107) mmol/L Carbon Dioxide (22-30) mmol/L Glucose (74-99) mg/dL Plasma Lactic Acid Eduardo 5.1 H* (0.7-2.0) mmol/L Total Bilirubin (0.2-1.3) mg/dL Creatine Kinase (55-170) U/L Troponin I (0.000-0.034) ng/mL Coronavirus (PCR) (Not Detectd) Assessment and Plan Plan: Acute Covid 19 infection with pneumonia Non-ST elevation myocardial infarction Worsening shortness of breath multifactorial related to Covid 19 pneumonia and underlying history of COPD and pulmonary fibrosis Underlying history of hypertension Underlying history of hyperlipidemia Underlying history of COPD Underlying history of coronary artery disease Previous history of brain cancer At this time patient is admitted to telemetry floor He was started on IV heparin and IV dexamethasone He was started on IV fluid Pulmonary consultation cardiology consultation and infectious disease consultation are requested Prognosis is guarded due to severity of illness advanced age and multiple underlying comorbidities
[2021-02-23 09:38] LABS: HGB 11.6 gm/dL (13.0-17.5)
--- NOTE | 2021-02-23 10:39 | P.CNPUL ---
History of Present Illness Consult date: 02/23/21 Reason for consult: dyspnea History of present illness: 85-year-old male patient was hospitalized because of worsening shortness of breath. The patient came into the ED, he was febrile, tachycardic and tachypneic and he was quite hypoxic and he was immediately placed on high flow oxygen at 15 L per minute nasal cannula. His chest x-ray showed diffuse bilateral pulmonary infiltrates consistent with COVID 19-related pneumonia. He is checked positive for COVID 19. The patient is extremely demented. The patient is a very poor historian. He cannot provide any history and he has no insight on his condition. Is quite contracted his lower extremities bilaterally. He was found to be significantly hypoxic in the emergency department. He was placed on a nonrebreather and currently is on 15 L of oxygen by nasal cannula and his pulse ox is around 92%. Upon arrival to the floor, he was still hypotensive and he was given a bolus of IV fluid 1 L and his blood pressure improved after that. He had a high lactic acid level which was as high as 5.1 and it started to improve and is down to 3.6. Data troponin level of 0.11. Chest x-ray showed diffuse but the pulmonary infiltrates and edema and pleural effusion. Following that, he was given a CT angiogram in the emergency department, no pulmonary embolism, bilateral pleural effusion, bilateral consolidation airspace disease most on the lung bases bilaterally. EKG showing a sinus rhythm, first-degree AV block, left bundle branch block pattern. His previous cardiac status is not known. Echocardiogram needs to be completed. Based on the history, he has an extensive history of CAD, COPD, pulmonary fibrosis and previous history of brain cancer in addition to CAD, angioplasty, stenting. As far as the exact timing of his symptoms related to Covid 19 is not known. He is a very poor historian. He is currently on Decadron. He is resting comfortably in bed for now. His creatinine is at 1.25 Review of Systems ROS unobtainable: due to mental status Past Medical History Past Medical History: Coronary Artery Disease (CAD), Cancer, COPD, CVA/TIA, Dementia, Hearing Disorder / Deafness, Hyperlipidemia, Hypertension, Myocardial Infarction ([place]), Renal Disease Additional Past Medical History / Comment(s): Brain cancer Last Myocardial Infarction Date:: unknown History of Any Multi-Drug Resistant Organisms: None Reported Past Surgical History: Heart Catheterization With Stent, Orthopedic Surgery Additional Past Surgical History / Comment(s): brain surgery Date of Last Stent Placement:: unknown Past Psychological History: No Psychological Hx Reported Smoking Status: Unknown if ever smoked Past Alcohol Use History: None Reported Past Drug Use History: None Reported Medications and Allergies Home Medications Medication Instructions Recorded Confirmed Type Amiodarone HCl [Pacerone] 200 mg PO DAILY 10/20/18 02/22/21 History Aspirin [Adult Low Dose Aspirin EC] 81 mg PO DAILY 10/20/18 02/22/21 History Clopidogrel [Plavix] 75 mg PO DAILY 10/20/18 02/22/21 History Enalapril [Vasotec] 10 mg PO DAILY 10/20/18 02/22/21 History lamoTRIgine [LaMICtal] 50 mg PO BID 10/20/18 02/22/21 History Acetaminophen/Diphenhydramine 1 tab PO HS 02/22/21 02/22/21 History [Tylenol PM 500-25mg] Atorvastatin Calcium [Lipitor] 40 mg PO HS 02/22/21 02/22/21 History Loratadine [Claritin] 10 mg PO DAILY PRN 02/22/21 02/22/21 History Allergies Allergy/AdvReac Type Severity Reaction Status Date / Time No Known Allergies Allergy Verified 02/22/21 18:34 Physical Exam Vitals: Vital Signs Temp Pulse Pulse Resp BP BP Pulse Ox 02/23/21 09:08 77 18 112/67 91 L 02/23/21 08:56 107/68 02/23/21 08:32 94 L 02/23/21 07:55 94/64 02/23/21 07:54 76/49 02/23/21 07:43 97.7 F 73 17 86/53 93 L 02/23/21 04:00 98.4 F 83 20 103/64 92 L 02/22/21 23:29 98.3 F 135 H 24 138/61 90 L 02/22/21 21:29 104 H 24 115/76 93 L 02/22/21 21:13 94 L 02/22/21 20:22 112 H 28 H 112/71 96 02/22/21 19:46 129 H 40 H 139/90 93 L 02/22/21 19:13 128 H 36 H 146/87 92 L 02/22/21 18:42 116 H 30 H 164/108 97 02/22/21 18:21 126 H 02/22/21 18:09 123 H 02/22/21 17:58 102 F H 122 H 40 H 185/123 92 L Intake and Output 02/22/21 02/23/21 02/23/21 22:59 06:59 14:59 Intake Total 527.737 44.642 Output Total 200 Balance 327.737 44.642 Intake: Intake, IV Titration 47.737 44.642 Amount Heparin Sod,Pork in 0.45% 47.737 44.642 NaCl 25,000 unit In 0.45 % NaCl 1 250ml.bag @ 12 UNITS/KG/HR 8.137 mls/hr IV .Q24H [facility] Rx#: [id number] Oral 480 0 Output: Urine 200 Other: Voiding Method Indwelling Catheter Indwelling Catheter # Voids 1 Weight 67.812 kg 71.5 kg In general patient is confused and he has no insight of his condition. He is not aware of his place and is not aware of the people around him at all. Head exam was generally normal. There was no scleral icterus or corneal arcus. Mucous membranes were moist. Neck was supple and without jugular venous distension, thyromegaly, or carotid bruits. Carotids were easily palpable bilaterally. There was no adenopathy. Chest exam reveals coarse crackles in both lung thomas with wheezing along with diminished breath sounds in lung bases bilaterally. He does have some coarse crackles. Cardiac exam reveals regular heart sounds no gallops no murmurs Abdomen is soft nontender no organomegaly with normal bowel sounds Extremity exam reveals no edema no cyanosis or clubbing Neurological examination reveals no gross focal deficit contracted and lower extremities, quite debilitated, there is generalized motor weakness in all 4 extremities. I'm not sure the patient can ambulate. This was not tried. Pupils are equal and reactive to light. He responds to simple commands and moves all 4 extremities. Results - Laboratory Findings CBC and BMP: 02/23/21 08:20 02/22/21 18:11 ABG WBC 6.9 k/uL (3.8-10.6) 02/23/21 08:20 RBC 3.37 m/uL (4.30-5.90) L 02/23/21 08:20 Hgb 11.6 gm/dL (13.0-17.5) L D 02/23/21 08:20 Hct 35.9 % (39.0-53.0) L 02/23/21 08:20 MCV 106.4 fL (80.0-100.0) H 02/23/21 08:20 MCH 34.4 pg (25.0-35.0) 02/23/21 08:20 MCHC 32.3 g/dL (31.0-37.0) 02/23/21 08:20 RDW 15.3 % (11.5-15.5) 02/23/21 08:20 Plt Count 224 k/uL (150-450) 02/23/21 08:20 MPV 7.7 02/23/21 08:20 Neutrophils % 67 % 02/22/21 18:11 Lymphocytes % 6 % 02/23/21 08:20 Monocytes % 5 % 02/23/21 08:20 Eosinophils % 0 % 02/23/21 08:20 Basophils % 0 % 02/23/21 08:20 Neutrophils # 6.1 k/uL (1.3-7.7) 02/23/21 08:20 Lymphocytes # 0.4 k/uL (1.0-4.8) L 02/23/21 08:20 Monocytes # 0.3 k/uL (0-1.0) 02/23/21 08:20 Eosinophils # 0.0 k/uL (0-0.7) 02/23/21 08:20 Basophils # 0.0 k/uL (0-0.2) 02/23/21 08:20 Hypochromasia Slight 02/23/21 08:20 Macrocytosis Moderate 02/23/21 08:20 PT 11.7 sec (9.0-12.0) 02/23/21 08:20 INR 1.1 (<1.2) 02/23/21 08:20 APTT 74.5 sec (22.0-30.0) H 02/23/21 08:20 D-Dimer 2.52 mg/L FEU (<0.60) H 02/22/21 18:11 Sodium 139 mmol/L (137-145) 02/22/21 18:11 Potassium 4.4 mmol/L (3.5-5.1) 02/22/21 18:11 Chloride 110 mmol/L (98-107) H 02/22/21 18:11 Carbon Dioxide 18 mmol/L (22-30) L 02/22/21 18:11 Anion Gap 11 mmol/L 02/22/21 18:11 BUN 11 mg/dL (9-20) 02/22/21 18:11 Creatinine 1.25 mg/dL (0.66-1.25) 02/22/21 18:11 Est GFR (CKD-EPI)AfAm 62 (>60 ml/min/1.73 sqM) 02/22/21 18:11 Est GFR (CKD-EPI)NonAf 53 (>60 ml/min/1.73 sqM) 02/22/21 18:11 Glucose 189 mg/dL (74-99) H 02/22/21 18:11 Lactic Ac Sepsis Rflx Y 02/23/21 05:02 Plasma Lactic Acid Eduardo 3.4 mmol/L (0.7-2.0) H* 02/23/21 08:20 Calcium 8.5 mg/dL (8.4-10.2) 02/22/21 18:11 Total Bilirubin 1.4 mg/dL (0.2-1.3) H 02/22/21 18:11 AST 23 U/L (17-59) 02/22/21 18:11 ALT 8 U/L (4-49) 02/22/21 18:11 Alkaline Phosphatase 79 U/L (38-126) 02/22/21 18:11 Ammonia 13 umol/L (<30) 02/22/21 18:11 Creatine Kinase 48 U/L (55-170) L 02/22/21 18:11 Troponin I 0.111 ng/mL (0.000-0.034) H* 02/22/21 18:11 NT-Pro-B Natriuret Pep 9010 pg/mL 02/22/21 18:11 Total Protein 6.6 g/dL (6.3-8.2) 02/22/21 18:11 Albumin 3.7 g/dL (3.5-5.0) 02/22/21 18:11 Urine Opiates Screen Not Detected (NotDetected) 02/22/21 18:36 Ur Oxycodone Screen Not Detected (NotDetected) 02/22/21 18:36 Urine Methadone Screen Not Detected (NotDetected) 02/22/21 18:36 Ur Propoxyphene Screen Not Detected (NotDetected) 02/22/21 18:36 Ur Barbiturates Screen Not Detected (NotDetected) 02/22/21 18:36 U Tricyclic Antidepress Not Detected (NotDetected) 02/22/21 18:36 Ur Phencyclidine Scrn Not Detected (NotDetected) 02/22/21 18:36 Ur Amphetamines Screen Not Detected (NotDetected) 02/22/21 18:36 U Methamphetamines Scrn Not Detected (NotDetected) 02/22/21 18:36 U Benzodiazepines Scrn Not Detected (NotDetected) 02/22/21 18:36 Urine Cocaine Screen Not Detected (NotDetected) 02/22/21 18:36 U Marijuana (THC) Screen Not Detected (NotDetected) 02/22/21 18:36 Coronavirus (PCR) Detected (Not Detectd) A 02/22/21 18:11 PT/INR, D-dimer PT 11.7 sec (9.0-12.0) 02/23/21 08:20 INR 1.1 (<1.2) 02/23/21 08:20 D-Dimer 2.52 mg/L FEU (<0.60) H 02/22/21 18:11 Abnormal lab findings: Abnormal Labs 02/22/21 02/22/21 02/22/21 18:11 18:11 18:11 RBC Hgb Hct MCV 104.3 H Lymphocytes # APTT D-Dimer 2.52 H Chloride 110 H Carbon Dioxide 18 L Glucose 189 H Plasma Lactic Acid Eduardo Total Bilirubin 1.4 H Creatine Kinase 48 L Troponin I Coronavirus (PCR) 02/22/21 02/22/21 02/22/21 18:11 18:11 18:11 RBC Hgb Hct MCV Lymphocytes # APTT D-Dimer Chloride Carbon Dioxide Glucose Plasma Lactic Acid Eduardo 2.9 H* Total Bilirubin Creatine Kinase Troponin I 0.111 H* Coronavirus (PCR) Detected A 02/22/21 02/23/21 02/23/21 21:18 00:03 01:39 RBC Hgb Hct MCV Lymphocytes # APTT 77.3 H D-Dimer Chloride Carbon Dioxide Glucose Plasma Lactic Acid Eduardo 3.6 H* 4.2 H* Total Bilirubin Creatine Kinase Troponin I Coronavirus (PCR) 02/23/21 02/23/21 02/23/21 03:39 08:20 08:20 RBC 3.37 L Hgb 11.6 L D Hct 35.9 L MCV 106.4 H Lymphocytes # 0.4 L APTT 74.5 H D-Dimer Chloride Carbon Dioxide Glucose Plasma Lactic Acid Eduardo 5.1 H* Total Bilirubin Creatine Kinase Troponin I Coronavirus (PCR) 02/23/21 08:20 RBC Hgb Hct MCV Lymphocytes # APTT D-Dimer Chloride Carbon Dioxide Glucose Plasma Lactic Acid Eduardo 3.4 H* Total Bilirubin Creatine Kinase Troponin I Coronavirus (PCR) - Diagnostic Findings Chest x-ray: image reviewed CT scan - chest: image reviewed Assessment and Plan Plan: 1 acute hypoxic respiratory failure on that investigation. Currently on 15 L of oxygen by nasal cannula. His respiratory failure is obviously multifactorial. 2 acute COVID infection with possibility of a COVID 19 related pneumonia, started on Decadron 3 COPD 4 possible pulmonary fibrosis 5 CHF with bilateral pleural effusions and the patient has increased consolidation of the lung bases bilaterally 6 coronary artery disease with a possibility of non-STEMI 7 dementia with impaired cognition and very poor memory, poor insight and poor ability to provide any information 8 history of CVA 9 extreme debility and inability to walk and perform activities of daily today life 10 mild lactic acidosis, improving 11 hypotension improving 12 acute kidney injury, improving and the creatinine is down to 1.25 13 non-anion gap metabolic acidosis with a serum bicarb of 18 14 history of brain cancer, exact type is unknown and 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 Prognosis poor baseline above-mentioned comorbidities. Strongly urge establishing a CODE STATUS and changing into a DNR/DNI as the patient is quite demented and his underlying performance and functional status and hypercarbic the functions are markedly impaired.
[2021-02-23] MEDS: PIPERACILLIN-TAZOBACTAM 3.375 GM in SODIUM CHLORIDE 0.9% 100 ML IVPB SCH ×2 (10:54→20:09)
--- NOTE | 2021-02-23 11:42 | P.CRDCN ---
History of Present Illness Consult date: 02/23/21 History of present illness: CHIEF COMPLAINT: Elevated troponins HISTORY OF PRESENT ILLNESS: This is a 85-year-old male with a past medical history significant for coronary artery disease with previous stent placement, hypertension, hyperlipidemia, CVA/TIA, COPD, and dementia. It is unknown if the patient follows with a airline pilot/first officer. We have been asked to see the patient in consultation for elevated troponins. The patient presented to the hospital with a chief complaint of shortness of breath. Patient was found to be positive for Covid. Patient was febrile upon presentation to the emergency room with a temperature of 102F. He was tachycardic with a heart rate in the 120s. Per nursing, patient's blood pressure was running 70s/40s. His cardiac medications were held this morning and the patient is receiving an IV fluid bolus. Patient is currently on 15 L high flow nasal cannula. DIAGNOSTICS: EKG reveals sinus tachycardia rate heart rate 124. Incomplete left bundle branch block. ST depression in lateral leads. Chest xray diffuse opacities, may relate to ARDS, pulmonary edema, or infection Laboratory data: WBC 6.9. Hemoglobin 11.6. Platelet count 224. Sodium 139. Potassium 4.4. BUN 11. Creatinine 1.25. Lactic acid 3.4. Troponin 0.111. BNP 9010. Current home cardiac medications include Vasotec 10 mg daily, Plavix 75 mg daily, aspirin 81 mg daily, Lipitor 40 mg daily, and amiodarone 200 mg daily REVIEW OF SYSTEMS: Thorough review of systems not completed secondary to limited evaluation/examination and due to Covid19 PHYSICAL EXAM: Thorough physical exam not completed secondary to limited evaluation/examination and due to Covid19 ASSESSMENT: Acute Covid 19 Acute hypoxic respiratory failure Lactic acidosis Hypotension requiring IV fluid bolus Abnormal troponin Coronary artery disease with previous PCI, exact details unclear Hypertension Hyperlipidemia CVA/TIA COPD Dementia PLAN: Continue plavix and aspirin Continue IV heparin for now Resume additional home cardiac medications. Hold vasotec due to hypotension. Trend troponins Obtain 2D echo to assess cardiac structure and function Patient receiving IV fluids currently. Monitor blood pressure. Further recommendations pending patient course Nurse practitioner note has been reviewed by physician. Signing provider agrees with the documented findings, assessment, and plan of care. Past Medical History Past Medical History: Coronary Artery Disease (CAD), Cancer, COPD, CVA/TIA, Dementia, Hearing Disorder / Deafness, Hyperlipidemia, Hypertension, Myocardial Infarction ([place]), Renal Disease Additional Past Medical History / Comment(s): Brain cancer Last Myocardial Infarction Date:: unknown History of Any Multi-Drug Resistant Organisms: None Reported Past Surgical History: Heart Catheterization With Stent, Orthopedic Surgery Additional Past Surgical History / Comment(s): brain surgery Date of Last Stent Placement:: unknown Past Psychological History: No Psychological Hx Reported Smoking Status: Unknown if ever smoked Past Alcohol Use History: None Reported Past Drug Use History: None Reported Medications and Allergies Home Medications Medication Instructions Recorded Confirmed Type Amiodarone HCl [Pacerone] 200 mg PO DAILY 10/20/18 02/22/21 History Aspirin [Adult Low Dose Aspirin EC] 81 mg PO DAILY 10/20/18 02/22/21 History Clopidogrel [Plavix] 75 mg PO DAILY 10/20/18 02/22/21 History Enalapril [Vasotec] 10 mg PO DAILY 10/20/18 02/22/21 History lamoTRIgine [LaMICtal] 50 mg PO BID 10/20/18 02/22/21 History Acetaminophen/Diphenhydramine 1 tab PO HS 02/22/21 02/22/21 History [Tylenol PM 500-25mg] Atorvastatin Calcium [Lipitor] 40 mg PO HS 02/22/21 02/22/21 History Loratadine [Claritin] 10 mg PO DAILY PRN 02/22/21 02/22/21 History Allergies Allergy/AdvReac Type Severity Reaction Status Date / Time No Known Allergies Allergy Verified 02/22/21 18:34 Physical Exam Vitals: Vital Signs Temp Pulse Pulse Resp BP BP Pulse Ox 02/23/21 09:08 77 18 112/67 91 L 02/23/21 08:56 107/68 02/23/21 08:32 94 L 02/23/21 07:55 94/64 02/23/21 07:54 76/49 02/23/21 07:43 97.7 F 73 17 86/53 93 L 02/23/21 04:00 98.4 F 83 20 103/64 92 L 02/22/21 23:29 98.3 F 135 H 24 138/61 90 L 02/22/21 21:29 104 H 24 115/76 93 L 02/22/21 21:13 94 L 02/22/21 20:22 112 H 28 H 112/71 96 02/22/21 19:46 129 H 40 H 139/90 93 L 02/22/21 19:13 128 H 36 H 146/87 92 L 02/22/21 18:42 116 H 30 H 164/108 97 02/22/21 18:21 126 H 02/22/21 18:09 123 H 02/22/21 17:58 102 F H 122 H 40 H 185/123 92 L Intake and Output 02/22/21 02/23/21 02/23/21 22:59 06:59 14:59 Intake Total 527.737 44.642 Output Total 200 Balance 327.737 44.642 Intake: Intake, IV Titration 47.737 44.642 Amount Heparin Sod,Pork in 0.45% 47.737 44.642 NaCl 25,000 unit In 0.45 % NaCl 1 250ml.bag @ 12 UNITS/KG/HR 8.137 mls/hr IV .Q24H [facility] Rx#: [id number] Oral 480 0 Output: Urine 200 Other: Voiding Method Indwelling Catheter Indwelling Catheter # Voids 1 Weight 67.812 kg 71.5 kg Results 02/23/21 08:20 02/22/21 18:11 Cardiac Enzymes 02/22/21 02/22/21 Range/Units 18:11 18:11 AST 23 (17-59) U/L Troponin I 0.111 H* (0.000-0.034) ng/mL Coagulation 02/22/21 02/23/21 02/23/21 Range/Units 18:11 01:39 08:20 PT 10.9 11.7 (9.0-12.0) sec APTT 23.0 77.3 H (22.0-30.0) sec 02/23/21 Range/Units 08:20 PT (9.0-12.0) sec APTT 74.5 H (22.0-30.0) sec CBC 02/22/21 02/23/21 Range/Units 18:11 08:20 WBC 8.7 6.9 (3.8-10.6) k/uL RBC 4.36 3.37 L (4.30-5.90) m/uL Hgb 15.1 11.6 L D (13.0-17.5) gm/dL Hct 45.5 35.9 L (39.0-53.0) % Plt Count 303 224 (150-450) k/uL Comprehensive Metabolic Panel 02/22/21 Range/Units 18:11 Sodium 139 (137-145) mmol/L Potassium 4.4 (3.5-5.1) mmol/L Chloride 110 H (98-107) mmol/L Carbon Dioxide 18 L (22-30) mmol/L BUN 11 (9-20) mg/dL Creatinine 1.25 (0.66-1.25) mg/dL Glucose 189 H (74-99) mg/dL Calcium 8.5 (8.4-10.2) mg/dL AST 23 (17-59) U/L ALT 8 (4-49) U/L Alkaline Phosphatase 79 (38-126) U/L Total Protein 6.6 (6.3-8.2) g/dL Albumin 3.7 (3.5-5.0) g/dL Current Medications Generic Name Dose Route Start Last Admin Trade Name Freq PRN Reason Stop Dose Admin Acetaminophen 650 mg 02/22/21 21:19 Acetaminophen Tab 325 Mg Tab PO Q6HR PRN Fever and/ or Pain Albuterol Sulfate 2 puff 02/22/21 20:39 02/23/21 08:29 Albuterol Hfa Inhaler INHALATION 2 puff RT-QID PRN Administration Shortness Of Breath Or Wheezing Amiodarone HCl 200 mg 02/23/21 09:00 02/23/21 08:40 Amiodarone 200 Mg Tab PO Not Given DAILY JULIANA Aspirin 81 mg 02/23/21 09:00 02/23/21 08:55 Aspirin 81 Mg PO Not Given DAILY JULIANA Atorvastatin Calcium 40 mg 02/23/21 21:00 Atorvastatin 40 Mg Tab PO HS JULIANA Clopidogrel Bisulfate 75 mg 02/23/21 09:00 02/23/21 08:56 Clopidogrel 75 Mg Tab PO Not Given DAILY JULIANA Dexamethasone Sodium Phosphate 6 mg 02/22/21 19:30 02/23/21 07:45 Dexamethasone Sod Phosphate 10 Mg/Ml 1 Ml Vial IV 6 mg DAILY JULIANA Administration Heparin Sodium (Porcine) 0 unit 02/22/21 19:49 Heparin Sodium,Porcine 5,000 Unit/Ml 1 Ml Vial IV PER PROTOCOL PRN Low PTT Protocol Heparin Sodium/Sodium Chloride 250 mls @ 8.137 mls/hr 02/22/21 20:00 02/23/21 09:11 25,000 unit/ Sodium Chloride IV 8 units/kg/hr .Q24H JULIANA 5.425 mls/hr Titration Protocol 12 UNITS/KG/HR Sodium Chloride 1,000 mls @ 100 mls/hr 02/23/21 08:12 02/23/21 08:55 Saline 0.9% IV 02/23/21 18:11 100 mls/hr .Q10H STA Administration Piperacillin Sod/Tazobactam 100 mls @ 25 mls/hr 02/23/21 12:00 02/23/21 10:54 Sod 3.375 gm/ Sodium Chloride IVPB 25 mls/hr Q8H JULIANA Administration Lamotrigine 50 mg 02/23/21 09:00 02/23/21 09:11 Lamotrigine 25 Mg Tab PO Not Given BID JULIANA Lisinopril 20 mg 02/23/21 09:00 02/23/21 08:41 Lisinopril 20 Mg Tab PO Not Given DAILY JULIANA Loratadine 10 mg 02/23/21 08:23 Loratadine 10 Mg Tab PO DAILY PRN Allergy Symptoms Morphine Sulfate 4 mg 02/22/21 20:37 02/23/21 02:25 Morphine Sulfate 4 Mg/Ml Syringe IV 4 mg Q4HR PRN Administration Severe Pain Naloxone HCl 0.2 mg 02/22/21 20:37 Naloxone 0.4 Mg/Ml 1 Ml Vial IV Q2M PRN Opioid Reversal Intake and Output 02/22/21 02/23/21 02/23/21 22:59 06:59 14:59 Intake Total 527.737 44.642 Output Total 200 Balance 327.737 44.642 Intake: Intake, IV Titration 47.737 44.642 Amount Heparin Sod,Pork in 0.45% 47.737 44.642 NaCl 25,000 unit In 0.45 % NaCl 1 250ml.bag @ 12 UNITS/KG/HR 8.137 mls/hr IV .Q24H [facility] Rx#: [id number] Oral 480 0 Output: Urine 200 Other: Voiding Method Indwelling Catheter Indwelling Catheter # Voids 1 Weight 67.812 kg 71.5 kg 02/23/21 08:20 02/22/21 18:11
[2021-02-23 12:28] LABS: Glucose,Whole Blood 158 mg/dL (75-99)
[2021-02-23 17:01] LABS: Glucose,Whole Blood 133 mg/dL (75-99)
[2021-02-23] MEDS ORDERED: FUROSEMIDE 10 MG/ML 2 ML VIAL IV ONE (18:04)
[2021-02-23] MEDS ORDERED: FUROSEMIDE 10 MG/ML 4 ML VIAL IV ONE (18:04)
[2021-02-23] MEDS ORDERED: FUROSEMIDE 10 MG/ML 4 ML VIAL ONE (18:06)
[2021-02-23 18:29] LABS: Glucose,Whole Blood 202 mg/dL (75-99)
--- NOTE | 2021-02-23 18:43 | XR ---
EXAMINATION TYPE: XR chest 1V portable DATE OF EXAM: 02/23/2021 COMPARISON: 02/22/2021 HISTORY: Follow-up shortness of breath TECHNIQUE: Single frontal view of the chest is obtained. FINDINGS: There is redemonstration of bilateral diffuse marked patchy interstitial and airspace opac ities, unchanged to mildly progressed compared to the prior study. No pleural effusion, or pneumothor ax seen. The cardiac silhouette size is borderline enlarged. The osseous structures are intact. IMPRESSION: Persistent diffuse infiltrates, unchanged to mildly progressed compared to the prior tom dy..
--- NOTE | 2021-02-23 18:50 | P.PN ---
Progress Note - Text Progress Note Date: 02/23/21 Rapid response called due to hypoxia, sats dropping despite 100% NRB and 15 NC. He seems to be in moderate respiratory distress but not able to give hx due to confusion. He is here for COVID pneumonia and TN. Recommend transferring to ICU, BIBAP, lasix 40mg IV times one.
[2021-02-23 21:05] LABS: Glucose,Whole Blood 125 mg/dL (75-99)
[2021-02-23] MEDS: ATORVASTATIN 40 MG TAB PO SCH (21:27)
[2021-02-24] MEDS: HEPARIN SOD,PORK IN 0.45% NACL 25,000 UNIT in 0.45% NACL 1 250ML.BAG IV SCH ×2 (02:07→15:23)
[2021-02-24] MEDS: MORPHINE SULFATE 4 MG/ML SYRINGE IV PRN (02:19)
[2021-02-24 04:37] LABS: Basophils % (A) 0 %; Eosinophils # (A) 0.1 k/uL (0-0.7); Eosinophils % (A) 0 %; HCT 38.1 % (39.0-53.0); HGB 12.7 gm/dL (13.0-17.5); Hypochromasia Slight; Lymphocytes # (A) 0.6 k/uL (1.0-4.8); Lymphocytes % (A) 4 %; MCH 35.2 pg (25.0-35.0); MCHC 33.2 g/dL (31.0-37.0); MCV 106.1 fL (80.0-100.0); Macrocytosis Moderate; Mean Platelet Volume 7.8; Monocytes # (A) 0.7 k/uL (0-1.0); Monocytes % (A) 4 %; Neutrophils # (A) 16.4 k/uL (1.3-7.7); Neutrophils % (A) 91 %; Platelet Count 233 k/uL (150-450); RBC 3.59 m/uL (4.30-5.90); RDW 14.8 % (11.5-15.5); WBC 17.9 k/uL (3.8-10.6)
[2021-02-24 04:50] LABS: Prothrombin Time 10.6 sec (9.0-12.0)
[2021-02-24 05:48] LABS: Albumin 3.2 g/dL (3.5-5.0); Calcium 8.3 mg/dL (8.4-10.2); Potassium 4.6 mmol/L (3.5-5.1); Total Bilirubin 0.9 mg/dL (0.2-1.3); Total Protein 5.7 g/dL (6.3-8.2)
--- NOTE | 2021-02-24 05:54 | CONS ---
CONSULTATION DATE OF SERVICE: 02/23/2021 REASON FOR CONSULTATION: Pneumonia. HISTORY OF PRESENT ILLNESS: The patient is an 85-year-old male with a past medical history significant for MARKETING ADMIN lymphoma, status post resection in this patient who did have chronic debilitated condition, also with history of diabetes and hypertension. The patient has been brought into the ER by EMS yesterday after EMS was called for the patient having shortness of breath, not acting himself. On arrival of EMS, the patient was noticed to be hypoxic, lethargic, subsequently brought to the ER. On arrival to the ER the patient did have fever of 102 degrees Fahrenheit. The patient also noted to be hypoxic and has been placed on a non-rebreather, however, the patient keeps pulling his non- rebreather off. He did have elevated lactic acid. His white count was normal. Did have lymphopenia. D-dimer was elevated 2.52, creatinine was 1.25. Urine tox screen was negative. COVID PCR came back positive. The patient did have a CT angiogram of the chest that was negative for PE however did shows diffuse bilateral opacity, maybe aspiration or COVID pneumonia. The patient has been admitted to the hospital. Infectious Disease was consulted for further management. The patient is not sure exactly when his symptoms started. The patient denies any headache. Denies any chest pain. He did have a cough, not bringing any sputum. No vomiting or diarrhea reported by nursing staff. Overall history remains to be limited. REVIEW OF SYSTEMS: Positive points have been mentioned in HPI. Complete review could not be obtained because of underlying mental status. PAST MEDICAL HISTORY: Coronary artery disease, COPD, CVA, TIA, dementia, hearing disorder, hyperlipidemia, hypertension, [place], renal insufficiency, and history of MARKETING ADMIN lymphoma. PAST SURGICAL HISTORY: PTCA with stent and craniotomy with resection of the MARKETING ADMIN lymphoma. SOCIAL HISTORY: Current everyday smoker. No drinking or drug use. FAMILY HISTORY: No pertinent findings noticed. PHYSICAL EXAMINATION: VITAL SIGNS: Blood pressure 164/104 with a pulse of 85, temperature 96.7, T-max 102, he is 93% on BIPAP. GENERAL DESCRIPTION: Patient is an elderly male lying in bed in no distress. No tachypnea or accessory muscles of respiration use. HEENT: Examination shows no pallor or scleral icterus. Oral mucous membrane is dry. NECK: Trachea central, no thyromegaly. LUNGS: Unlabored breathing, coarse breath sounds bilaterally. No wheeze. HEART: S1-S2, regular rate and rhythm. ABDOMEN: Soft, no tenderness. No guarding or rigidity. EXTREMITIES: No edema of the feet. SKIN: No rash or mass palpable. NEUROLOGICAL: Patient is awake, alert, oriented times one. Mood and affect normal. LABS: Hemoglobin 11.1, white count 6.9, BUN of 11, creatinine is 1.25, lactic acid is elevate. Inflammatory markers were not checked. COVID PCR was positive. ALT and AST were normal. CT angiogram report as mentioned above. DIAGNOSTIC IMPRESSION: Patient admitted to the hospital with fever, hypoxemia with evidence of multifocal pneumonia, highly suspicious for COVID-19 infection. Unfortunately the exact timing of his symptom onset is not clear because of underlying dementia. No clear history. At the same time, the patient is currently in respiratory distress requiring high- flow oxygen and BiPAP. Remdesivir has not shown to be of any significant benefit in this pt subgroup. Underlying aspiration pneumonia less likely but not entirely excluded. PLAN: 1. We will obtain a CRP, LDH, and a procalcitonin level. 2. The patient to continue with dexamethasone, heparin per protocol, zinc and ascorbic acid. 3. Droplet isolation and respiratory support. 4. We will follow on clinical condition and investigations to further adjust medication if needed. Thank you for this consultation. Will follow this patient along with you. CHAPINCITOL / MIRYAMN: [id number] / MTDD
[2021-02-24] MEDS: PIPERACILLIN-TAZOBACTAM 3.375 GM in SODIUM CHLORIDE 0.9% 100 ML IVPB SCH ×3 (06:00→20:53)
[2021-02-24] MEDS: ALBUTEROL HFA INHALER INHALATION PRN ×5 (07:11→23:36)
--- NOTE | 2021-02-24 07:45 | XR ---
EXAMINATION TYPE: XR chest 1V portable DATE OF EXAM: 02/24/2021 Comparison: 02/15/2021 Clinical History: 85-year-old male SOB Findings: Heart upper limits of normal in size. Hyperinflation. Interstitial and patchy bilateral opacities, ri ght greater than left, are becoming less confluent from prior exam. Suspect trace effusions. Impression: Findings suspected to represent COPD with superimposed pulmonary edema, showing some improvement from prior exam.
--- NOTE | 2021-02-24 10:00 | ECHOF ---
Referral Reason:LV function, elevated trops, + covid MEASUREMENTS -------- HEIGHT: 188.0 cm WEIGHT: 70.8 kg BP: 110/72 RVIDd: 2.4 cm (< 3.3) IVSd: 0.8 cm (0.6 - 1.1) LVIDd: 6.1 cm (3.9 - 5.3) LVPWd: 1.0 cm (0.6 - 1.1) IVSs: 1.2 cm LVIDs: 5.3 cm LVPWs: 1.4 cm LA Diam: 3.9 cm (2.7 - 3.8) LAESV Index (A-L): 37.90 ml/m Ao Diam: 3.8 cm (2.0 - 3.7) AV Cusp: 2.2 cm (1.5 - 2.6) MV EXCURSION: 9.761 mm (> 18.000) MV EF SLOPE: 50 mm/s (70 - 150) EPSS: 2.3 cm MV E Pierre: 0.97 m/s MV DecT: 195 ms MV A Pierre: 0.43 m/s MV E/A Ratio: 2.26 RAP: 5.00 mmHg RVSP: 38.04 mmHg FINDINGS -------- Sinus rhythm. This was a technically adequate study. The left ventricle is mildly dilated. Left ventricular wall thickness is normal. Overall left rogelio tricular systolic function is severely impaired with, an EF between 20 - 25 %. The right ventricle is normal in size. LA is moderately dilated 34-39 ml/m2 The right atrium is normal in size. Interatrial and interventricular septum intact. There is mild aortic valve sclerosis. Mild mitral annular calcification present. Mild mitral regurgitation is present. Mild tricuspid regurgitation present. There is mild pulmonary hypertension. The right ventricular systolic pressure, as measured by Doppler, is 38.04mmHg. Trace/mild (physiologic) pulmonic regurgitation. The aortic root size is normal. Normal inferior vena cava with normal inspiratory collapse consistent with estimated right atrial pre ssure of 5 mmHg. There is no pericardial effusion. CONCLUSIONS -------- 1. The left ventricle is mildly dilated. 2. Left ventricular wall thickness is normal. 3. Overall left ventricular systolic function is severely impaired with, an EF between 20 - 25 %. 4. LA is moderately dilated 34-39 ml/m2 5. There is mild aortic valve sclerosis. 6. Mild mitral annular calcification present. 7. Mild mitral regurgitation is present. 8. Mild tricuspid regurgitation present. 9. There is mild pulmonary hypertension. 10. The right ventricular systolic pressure, as measured by Doppler, is 38.04mmHg. 11. Trace/mild (physiologic) pulmonic regurgitation. 12. There is no pericardial effusion. SLOT FLOOR SUPERVISOR: Roxy Joel RDCS
[2021-02-24] MEDS: lisinopriL 10 MG TAB PO SCH (10:02)
[2021-02-24] MEDS: AMIODARONE 200 MG TAB PO SCH (10:02)
[2021-02-24] MEDS: METOPROLOL SUCCINATE (ER) 25 MG TAB.ER.24H PO SCH (10:02)
[2021-02-24] MEDS: DEXAMETHASONE SOD PHOSPHATE 10 MG/ML 1 ML VIAL IV SCH (10:02)
[2021-02-24] MEDS: FUROSEMIDE 10 MG/ML 4 ML VIAL IV SCH ×2 (10:03→21:20)
[2021-02-24] MEDS: ASPIRIN 81 MG PO SCH (10:03)
[2021-02-24] MEDS: CLOPIDOGREL 75 MG TAB PO SCH (10:03)
--- NOTE | 2021-02-24 11:41 | P.PN ---
Subjective Progress Note Date: 02/24/21 Principal diagnosis: Acute hypoxic respiratory failure, multifactorial, secondary to covid 19 pneumonia, along with COPD and underlying pulmonary fibrosis as well as acute systolic congestive heart failure, ejection fraction of 20% 85-year-old male patient was hospitalized because of worsening shortness of breath. The patient came into the ED, he was febrile, tachycardic and t achypneic and he was quite hypoxic and he was immediately placed on high flow oxygen at 15 L per minute nasal cannula. His chest x-ray showed diffuse bilateral pulmonary infiltrates consistent with COVID 19-related pneumonia. He is checked positive for COVID 19. The patient is extremely demented. The patient is a very poor historian. He cannot provide any history and he has no insight on his condition. Is quite contracted his lower extremities bilaterally. He was found to be significantly hypoxic in the emergency department. He was placed on a nonrebreather and currently is on 15 L of oxygen by nasal cannula and his pulse ox is around 92%. Upon arrival to the floor, he was still hypotensive and he was given a bolus of IV fluid 1 L and his blood pressure improved after that. He had a high lactic acid level which was as high as 5.1 and it started to improve and is down to 3.6. Data troponin level of 0.11. Chest x-ray showed diffuse but the pulmonary infiltrates and edema and pleural effusion. Following that, he was given a CT angiogram in the emergency department, no pulmonary embolism, bilateral pleural effusion, bilateral consolidation airspace disease most on the lung bases bilaterally. EKG showing a sinus rhythm, first-degree AV block, left bundle branch block pattern. His previous cardiac status is not known. Echocardiogram needs to be completed. Based on the history, he has an extensive history of CAD, COPD, pulmonary fibrosis and previous history of brain cancer in addition to CAD, angioplasty, stenting. As far as the exact timing of his symptoms related to Covid 19 is not known. He is a very poor historian. He is currently on Decadron. He is res ting comfortably in bed for now. His creatinine is at 1.25 Patient was reevaluated today on 02/24/2021, remains in the intensive care unit, he is on BiPAP with IPAP of 12 and EPAP of 500% FiO2, seems to be comfortable, not in any distress, had difficulty with communication mostly because his previo us history of brain surgery/craniotomy. Apparently the patient has a multifactorial reason for his acute hypoxic respiratory failure, he has severe LV dysfunction with ejection fraction of 20%, possible myocarditis. He is out of the window for remdesivir, he has underlying COPD, and he had a non-ST elevation myocardial infarction there is also questionable sepsis on admission. Hence we are holding on giving the patient actemra for now. Sugars are pending WBC count today is 17.9 electrolytes are normal renal profile showed BUN of 21 creatinine 1.37 C-reactive protein is 58 LDH is 831. Pro-calcitonin is 3.12, quite elevated. Blood cultures remain negative so far. Objective - Vital Signs Vital signs: Vital Signs Temp 96.8 F L 02/24/21 08:00 Pulse 82 02/24/21 11:00 Resp 15 02/24/21 11:00 BP 126/96 02/24/21 11:00 Pulse Ox 90 L 02/24/21 11:00 Intake & Output 02/23/21 02/24/21 02/24/21 18:59 06:59 18:59 Intake Total 364.642 310 150 Output Total 1175 195 Balance 364.642 -865 -45 Weight 71.2 kg 71.2 kg Intake: IV 80 310 150 Heparin Sod,Pork in 0.45% 80 NaCl 25,000 unit In 0.45 % NaCl 1 250ml.bag @ 12 UNITS/KG/HR 8.137 mls/hr IV .Q24H JULIANA Rx#: [id number] Piperacillin-Tazobactam 3 150 50 .375 gm In Sodium Chloride 0.9% 100 ml @ 25 mls/hr IVPB Q8H JULIANA Rx#: [id number] Sodium Chloride 0.9% 1, 160 100 000 ml @ 20 mls/hr IV . Q24H STA Rx#:[id number] Intake, IV Titration 44.642 Amount Heparin Sod,Pork in 0.45% 44.642 NaCl 25,000 unit In 0.45 % NaCl 1 250ml.bag @ 12 UNITS/KG/HR 8.137 mls/hr IV .Q24H JULIANA Rx#: [id number] Oral 240 Output: Urine 1175 195 Other: Voiding Method Indwelling Catheter Indwelling Catheter Indwelling Catheter - Exam General: Revealed a 85-year-old white male, seems confused, in no distress. He is on BiPAP. IPAP of 12 and EPAP of 500% FiO2. Head atraumatic, normocephalic. HEENT: PERRLA, EOMI, nonicteric. BiPAP is in place. Neck is supple no neck masses no JVD no stridor. Chest symmetrical chest expansion, crackles or rhonchi and wheezes noted bilaterally. Cardiac normal S1 and S2, no S3 gallop. 2/6 systolic murmur thought the precordium. Abdomen soft nontender no megaly no rebound no guarding. Extremity evidence of contraction deformities in upper and lower extremities, most likely related to his previous craniotomy. Neurological examination reveals no gross focal deficit contracted and lower extremities, quite debilitated, there is generalized motor weakness in all 4 extremities. Follows simple instructions. Psychiatric: Normal mood, affect, seems to be confused Skin: No rashes. - Labs CBC & Chem 7: 02/24/21 04:20 02/24/21 04:20 Labs: Abnormal Lab Results - Last 24 Hours (Table) 02/23/21 02/23/21 02/23/21 Range/Units 11:17 11:17 12:10 WBC (3.8-10.6) k/uL RBC (4.30-5.90) m/uL Hgb (13.0-17.5) gm/dL Hct (39.0-53.0) % MCV (80.0-100.0) fL MCH (25.0-35.0) pg Neutrophils # (1.3-7.7) k/uL Lymphocytes # (1.0-4.8) k/uL APTT (22.0-30.0) sec D-Dimer (<0.60) mg/L FEU Chloride (98-107) mmol/L BUN (9-20) mg/dL Creatinine (0.66-1.25) mg/dL Glucose (74-99) mg/dL POC Glucose (mg/dL) 158 H (75-99) mg/dL Plasma Lactic Acid Eduardo 3.2 H* (0.7-2.0) mmol/L Calcium (8.4-10.2) mg/dL Lactate Dehydrogenase (313-618) U/L Troponin I 6.430 H* (0.000-0.034) ng/mL C-Reactive Protein (<10.0) mg/L Total Protein (6.3-8.2) g/dL Albumin (3.5-5.0) g/dL Procalcitonin (0.02-0.09) ng/mL 02/23/21 02/23/21 02/23/21 Range/Units 14:55 14:55 15:15 WBC (3.8-10.6) k/uL RBC (4.30-5.90) m/uL Hgb (13.0-17.5) gm/dL Hct (39.0-53.0) % MCV (80.0-100.0) fL MCH (25.0-35.0) pg Neutrophils # (1.3-7.7) k/uL Lymphocytes # (1.0-4.8) k/uL APTT 51.3 H (22.0-30.0) sec D-Dimer (<0.60) mg/L FEU Chloride (98-107) mmol/L BUN (9-20) mg/dL Creatinine (0.66-1.25) mg/dL Glucose (74-99) mg/dL POC Glucose (mg/dL) (75-99) mg/dL Plasma Lactic Acid Eduardo 2.5 H* (0.7-2.0) mmol/L Calcium (8.4-10.2) mg/dL Lactate Dehydrogenase (313-618) U/L Troponin I 4.630 H* (0.000-0.034) ng/mL C-Reactive Protein (<10.0) mg/L Total Protein (6.3-8.2) g/dL Albumin (3.5-5.0) g/dL Procalcitonin (0.02-0.09) ng/mL 02/23/21 02/23/21 02/23/21 Range/Units 15:15 16:59 18:27 WBC (3.8-10.6) k/uL RBC (4.30-5.90) m/uL Hgb (13.0-17.5) gm/dL Hct (39.0-53.0) % MCV (80.0-100.0) fL MCH (25.0-35.0) pg Neutrophils # (1.3-7.7) k/uL Lymphocytes # (1.0-4.8) k/uL APTT (22.0-30.0) sec D-Dimer (<0.60) mg/L FEU Chloride (98-107) mmol/L BUN (9-20) mg/dL Creatinine (0.66-1.25) mg/dL Glucose (74-99) mg/dL POC Glucose (mg/dL) 133 H 202 H (75-99) mg/dL Plasma Lactic Acid Eduardo (0.7-2.0) mmol/L Calcium (8.4-10.2) mg/dL Lactate Dehydrogenase (313-618) U/L Troponin I (0.000-0.034) ng/mL C-Reactive Protein (<10.0) mg/L Total Protein (6.3-8.2) g/dL Albumin (3.5-5.0) g/dL Procalcitonin 3.01 H (0.02-0.09) ng/mL 02/23/21 02/23/21 02/23/21 Range/Units 18:37 21:03 21:11 WBC (3.8-10.6) k/uL RBC (4.30-5.90) m/uL Hgb (13.0-17.5) gm/dL Hct (39.0-53.0) % MCV (80.0-100.0) fL MCH (25.0-35.0) pg Neutrophils # (1.3-7.7) k/uL Lymphocytes # (1.0-4.8) k/uL APTT (22.0-30.0) sec D-Dimer (<0.60) mg/L FEU Chloride (98-107) mmol/L BUN (9-20) mg/dL Creatinine (0.66-1.25) mg/dL Glucose (74-99) mg/dL POC Glucose (mg/dL) 125 H (75-99) mg/dL Plasma Lactic Acid Eduardo 2.8 H* 2.5 H* (0.7-2.0) mmol/L Calcium (8.4-10.2) mg/dL Lactate Dehydrogenase (313-618) U/L Troponin I (0.000-0.034) ng/mL C-Reactive Protein (<10.0) mg/L Total Protein (6.3-8.2) g/dL Albumin (3.5-5.0) g/dL Procalcitonin (0.02-0.09) ng/mL 02/24/21 02/24/21 02/24/21 Range/Units 04:20 04:20 04:20 WBC 17.9 H (3.8-10.6) k/uL RBC 3.59 L (4.30-5.90) m/uL Hgb 12.7 L (13.0-17.5) gm/dL Hct 38.1 L (39.0-53.0) % MCV 106.1 H (80.0-100.0) fL MCH 35.2 H (25.0-35.0) pg Neutrophils # 16.4 H (1.3-7.7) k/uL Lymphocytes # 0.6 L (1.0-4.8) k/uL APTT 45.0 H (22.0-30.0) sec D-Dimer 1.11 H (<0.60) mg/L FEU Chloride 112 H (98-107) mmol/L BUN 21 H (9-20) mg/dL Creatinine 1.37 H (0.66-1.25) mg/dL Glucose 121 H (74-99) mg/dL POC Glucose (mg/dL) (75-99) mg/dL Plasma Lactic Acid Eduardo (0.7-2.0) mmol/L Calcium 8.3 L (8.4-10.2) mg/dL Lactate Dehydrogenase 831 H (313-618) U/L Troponin I (0.000-0.034) ng/mL C-Reactive Protein 58.0 H (<10.0) mg/L Total Protein 5.7 L (6.3-8.2) g/dL Albumin 3.2 L (3.5-5.0) g/dL Procalcitonin (0.02-0.09) ng/mL 02/24/21 Range/Units 04:20 WBC (3.8-10.6) k/uL RBC (4.30-5.90) m/uL Hgb (13.0-17.5) gm/dL Hct (39.0-53.0) % MCV (80.0-100.0) fL MCH (25.0-35.0) pg Neutrophils # (1.3-7.7) k/uL Lymphocytes # (1.0-4.8) k/uL APTT (22.0-30.0) sec D-Dimer (<0.60) mg/L FEU Chloride (98-107) mmol/L BUN (9-20) mg/dL Creatinine (0.66-1.25) mg/dL Glucose (74-99) mg/dL POC Glucose (mg/dL) (75-99) mg/dL Plasma Lactic Acid Eduardo (0.7-2.0) mmol/L Calcium (8.4-10.2) mg/dL Lactate Dehydrogenase (313-618) U/L Troponin I (0.000-0.034) ng/mL C-Reactive Protein (<10.0) mg/L Total Protein (6.3-8.2) g/dL Albumin (3.5-5.0) g/dL Procalcitonin 3.12 H (0.02-0.09) ng/mL Microbiology - Last 24 Hours (Table) 02/22/21 18:35 Blood Culture - Preliminary Blood No Growth after 24 hours 02/22/21 18:20 Blood Culture - Preliminary Blood No Growth after 24 hours Assessment and Plan Assessment: Impression: Acute hypoxic respiratory failure, multifactorial. Acute covid 19 pneumonitis. Acute exacerbation of COPD. Possible underlying interstitial lung disease/pulmonary fibrosis. Acute systolic congestive heart failure with ejection fraction of 20%. Acute non-ST elevation myocardial infarction. History of dementia. History of craniotomy Extreme medical debility. Non aniron gap metabolic acidosis History of brain tumor and previous craniotomy. Acute kidney injury, creatinine 1.25. Recommendation: Continue BiPAP and titrate FiO2 accordingly. Maintaining O2 saturation above 90%. Continue Decadron 6 mg IV push every 24 hours. Diurese the patient, at least give the patient is diuretics trial patient has severe LV function and the chest x-ray is suspicious for possible underlying interstitial edema. Continue heparin for now. Continue to monitor hemodynamics. Continue to monitor renal profile. Continue empiric coverage with antibiotics/Zosyn especially with the pro- calcitonin level elevated. Avoid actemra Patient does not qualify for remdesivir Should establish CODE STATUS, and I believe the patient should be DO NOT R ESUSCITATE, Prognosis extremely poor and guarded. Critical care time is over 30 minutes. Time with Patient: Greater than 30
[2021-02-24 12:01] LABS: Glucose,Whole Blood 112 mg/dL (75-99)
[2021-02-24] MEDS: lamoTRIgine 25 MG TAB PO SCH ×2 (12:17→21:23)
--- NOTE | 2021-02-24 12:22 | P.PN ---
Subjective Progress Note Date: 02/24/21 CHIEF COMPLAINT: Elevated troponins HISTORY OF PRESENT ILLNESS: 02/23/2021 This is a 85-year-old male with a past medical history significant for coronary artery disease with previous stent placement, hypertension, hyperlipidemia, CVA/TIA, COPD, and dementia. 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 We have been asked to see the patient in consultation for elevated troponins. The patient presented to the hospital with a chief complaint of shortness of breath. Patient was found to be positive for Covid. Patient was febrile upon presentation to the emergency room with a temperature of 102F. He was tachycardic with a heart rate in the 120s. Per nursing, patient's blood pressure was running 70s/40s. His cardiac medications were held this morning and the patient is receiving an IV fluid bolus. Patient is currently on 15 L high flow nasal cannula. EKG reveals sinus tachycardia rate heart rate 124. Incomplete left bundle branc h block. ST depression in lateral leads. Chest xray diffuse opacities, may relate to ARDS, pulmonary edema, or infection Laboratory data: WBC 6.9. Hemoglobin 11.6. Platelet count 224. Sodium 139. Potassium 4.4. BUN 11. Creatinine 1.25. Lactic acid 3.4. Troponin 0.111. BNP 9010. Current home cardiac medications include Vasotec 10 mg daily, Plavix 75 mg daily, aspirin 81 mg daily, Lipitor 40 mg daily, and amiodarone 200 mg daily 02/24/2021 Patient remains in the intensive care unit. He remains on BiPAP. He remains on IV heparin for elevated troponins. Blood pressure 119/78. Heart rate in the 80s. Echocardiogram completed revealed ejection fraction 20-25%, mild mitral regurgitation, mild tricuspid regurgitation, and mild pulmonary hypertension. Chest x-ray this morning reveals findings suspected to represent COPD with superimposed pulmonary edema, showing some improvement from prior exam. PHYSICAL EXAM: Thorough physical exam not completed secondary to limited evaluation/examination and due to Covid19 ASSESSMENT: Acute Covid 19 Acute hypoxic respiratory failure Lactic acidosis Hypotension requiring IV fluid bolus NSTEMI, possible myocarditis Acute systolic congestive heart failure, ejection fraction 20% Coronary artery disease with previous PCI, exact details unclear Hypertension Hyperlipidemia CVA/TIA COPD Dementia PLAN: Continue plavix and aspirin Continue IV heparin for an additional 24 hours Continue Lipitor Decrease lisinopril to 10 mg daily Begin metoprolol succinate 25 mg daily Patient has been started on IV Lasix 40 mg every 12 hours per pulmonary Further recommendations pending patient course Nurse practitioner note has been reviewed by physician. Signing provider agrees with the documented findings, assessment, and plan of care. Objective - Vital Signs Vital signs: Vital Signs Temp 96.8 F L 02/24/21 08:00 Pulse 82 02/24/21 11:00 Resp 15 02/24/21 11:00 BP 126/96 02/24/21 11:00 Pulse Ox 90 L 02/24/21 11:00 Intake & Output 02/23/21 02/24/21 02/24/21 18:59 06:59 18:59 Intake Total 364.642 310 150 Output Total 1175 195 Balance 364.642 -865 -45 Weight 71.2 kg 71.2 kg Intake: IV 80 310 150 Heparin Sod,Pork in 0.45% 80 NaCl 25,000 unit In 0.45 % NaCl 1 250ml.bag @ 12 UNITS/KG/HR 8.137 mls/hr IV .Q24H [facility] Rx#: [id number] Piperacillin-Tazobactam 3 150 50 .375 gm In Sodium Chloride 0.9% 100 ml @ 25 mls/hr IVPB Q8H [facility] Rx#: [id number] Sodium Chloride 0.9% 1, 160 100 000 ml @ 20 mls/hr IV . Q24H [facility] Rx#:[id number] Intake, IV Titration 44.642 Amount Heparin Sod,Pork in 0.45% 44.642 NaCl 25,000 unit In 0.45 % NaCl 1 250ml.bag @ 12 UNITS/KG/HR 8.137 mls/hr IV .Q24H [facility] Rx#: [id number] Oral 240 Output: Urine 1175 195 Other: Voiding Method Indwelling Catheter Indwelling Catheter Indwelling Catheter - Labs CBC & Chem 7: 02/24/21 04:20 02/24/21 04:20 Labs: Abnormal Lab Results - Last 24 Hours (Table) 02/23/21 02/23/21 02/23/21 Range/Units 11:17 11:17 12:10 WBC (3.8-10.6) k/uL RBC (4.30-5.90) m/uL Hgb (13.0-17.5) gm/dL Hct (39.0-53.0) % MCV (80.0-100.0) fL MCH (25.0-35.0) pg Neutrophils # (1.3-7.7) k/uL Lymphocytes # (1.0-4.8) k/uL APTT (22.0-30.0) sec D-Dimer (<0.60) mg/L FEU Chloride (98-107) mmol/L BUN (9-20) mg/dL Creatinine (0.66-1.25) mg/dL Glucose (74-99) mg/dL POC Glucose (mg/dL) 158 H (75-99) mg/dL Plasma Lactic Acid Eduardo 3.2 H* (0.7-2.0) mmol/L Calcium (8.4-10.2) mg/dL Lactate Dehydrogenase (313-618) U/L Troponin I 6.430 H* (0.000-0.034) ng/mL C-Reactive Protein (<10.0) mg/L Total Protein (6.3-8.2) g/dL Albumin (3.5-5.0) g/dL Procalcitonin (0.02-0.09) ng/mL 02/23/21 02/23/21 02/23/21 Range/Units 14:55 14:55 15:15 WBC (3.8-10.6) k/uL RBC (4.30-5.90) m/uL Hgb (13.0-17.5) gm/dL Hct (39.0-53.0) % MCV (80.0-100.0) fL MCH (25.0-35.0) pg Neutrophils # (1.3-7.7) k/uL Lymphocytes # (1.0-4.8) k/uL APTT 51.3 H (22.0-30.0) sec D-Dimer (<0.60) mg/L FEU Chloride (98-107) mmol/L BUN (9-20) mg/dL Creatinine (0.66-1.25) mg/dL Glucose (74-99) mg/dL POC Glucose (mg/dL) (75-99) mg/dL Plasma Lactic Acid Eduardo 2.5 H* (0.7-2.0) mmol/L Calcium (8.4-10.2) mg/dL Lactate Dehydrogenase (313-618) U/L Troponin I 4.630 H* (0.000-0.034) ng/mL C-Reactive Protein (<10.0) mg/L Total Protein (6.3-8.2) g/dL Albumin (3.5-5.0) g/dL Procalcitonin (0.02-0.09) ng/mL 02/23/21 02/23/21 02/23/21 Range/Units 15:15 16:59 18:27 WBC (3.8-10.6) k/uL RBC (4.30-5.90) m/uL Hgb (13.0-17.5) gm/dL Hct (39.0-53.0) % MCV (80.0-100.0) fL MCH (25.0-35.0) pg Neutrophils # (1.3-7.7) k/uL Lymphocytes # (1.0-4.8) k/uL APTT (22.0-30.0) sec D-Dimer (<0.60) mg/L FEU Chloride (98-107) mmol/L BUN (9-20) mg/dL Creatinine (0.66-1.25) mg/dL Glucose (74-99) mg/dL POC Glucose (mg/dL) 133 H 202 H (75-99) mg/dL Plasma Lactic Acid Eduardo (0.7-2.0) mmol/L Calcium (8.4-10.2) mg/dL Lactate Dehydrogenase (313-618) U/L Troponin I (0.000-0.034) ng/mL C-Reactive Protein (<10.0) mg/L Total Protein (6.3-8.2) g/dL Albumin (3.5-5.0) g/dL Procalcitonin 3.01 H (0.02-0.09) ng/mL 02/23/21 02/23/21 02/23/21 Range/Units 18:37 21:03 21:11 WBC (3.8-10.6) k/uL RBC (4.30-5.90) m/uL Hgb (13.0-17.5) gm/dL Hct (39.0-53.0) % MCV (80.0-100.0) fL MCH (25.0-35.0) pg Neutrophils # (1.3-7.7) k/uL Lymphocytes # (1.0-4.8) k/uL APTT (22.0-30.0) sec D-Dimer (<0.60) mg/L FEU Chloride (98-107) mmol/L BUN (9-20) mg/dL Creatinine (0.66-1.25) mg/dL Glucose (74-99) mg/dL POC Glucose (mg/dL) 125 H (75-99) mg/dL Plasma Lactic Acid Eduardo 2.8 H* 2.5 H* (0.7-2.0) mmol/L Calcium (8.4-10.2) mg/dL Lactate Dehydrogenase (313-618) U/L Troponin I (0.000-0.034) ng/mL C-Reactive Protein (<10.0) mg/L Total Protein (6.3-8.2) g/dL Albumin (3.5-5.0) g/dL Procalcitonin (0.02-0.09) ng/mL 02/24/21 02/24/21 02/24/21 Range/Units 04:20 04:20 04:20 WBC 17.9 H (3.8-10.6) k/uL RBC 3.59 L (4.30-5.90) m/uL Hgb 12.7 L (13.0-17.5) gm/dL Hct 38.1 L (39.0-53.0) % MCV 106.1 H (80.0-100.0) fL MCH 35.2 H (25.0-35.0) pg Neutrophils # 16.4 H (1.3-7.7) k/uL Lymphocytes # 0.6 L (1.0-4.8) k/uL APTT 45.0 H (22.0-30.0) sec D-Dimer 1.11 H (<0.60) mg/L FEU Chloride 112 H (98-107) mmol/L BUN 21 H (9-20) mg/dL Creatinine 1.37 H (0.66-1.25) mg/dL Glucose 121 H (74-99) mg/dL POC Glucose (mg/dL) (75-99) mg/dL Plasma Lactic Acid Eduardo (0.7-2.0) mmol/L Calcium 8.3 L (8.4-10.2) mg/dL Lactate Dehydrogenase 831 H (313-618) U/L Troponin I (0.000-0.034) ng/mL C-Reactive Protein 58.0 H (<10.0) mg/L Total Protein 5.7 L (6.3-8.2) g/dL Albumin 3.2 L (3.5-5.0) g/dL Procalcitonin (0.02-0.09) ng/mL 02/24/21 02/24/21 Range/Units 04:20 11:49 WBC (3.8-10.6) k/uL RBC (4.30-5.90) m/uL Hgb (13.0-17.5) gm/dL Hct (39.0-53.0) % MCV (80.0-100.0) fL MCH (25.0-35.0) pg Neutrophils # (1.3-7.7) k/uL Lymphocytes # (1.0-4.8) k/uL APTT (22.0-30.0) sec D-Dimer (<0.60) mg/L FEU Chloride (98-107) mmol/L BUN (9-20) mg/dL Creatinine (0.66-1.25) mg/dL Glucose (74-99) mg/dL POC Glucose (mg/dL) 112 H (75-99) mg/dL Plasma Lactic Acid Eduardo (0.7-2.0) mmol/L Calcium (8.4-10.2) mg/dL Lactate Dehydrogenase (313-618) U/L Troponin I (0.000-0.034) ng/mL C-Reactive Protein (<10.0) mg/L Total Protein (6.3-8.2) g/dL Albumin (3.5-5.0) g/dL Procalcitonin 3.12 H (0.02-0.09) ng/mL Microbiology - Last 24 Hours (Table) 02/22/21 18:35 Blood Culture - Preliminary Blood No Growth after 24 hours 02/22/21 18:20 Blood Culture - Preliminary Blood No Growth after 24 hours
--- NOTE | 2021-02-24 13:12 | P.PN ---
Subjective Progress Note Date: 02/24/21 Shai Vaca, is an 85-year-old male who presented to [facility] emergency room with a chief complaint of worsening shortness of breath, patient's called EMS because patient was having difficulty breathing. Patient was evaluated in the emergency room vital examination on presentation revealed a temperature of 102 pulse 122 respiration 14 blood pressure 185/123 and pulse ox 92% on 15 L nonrebreather mask, laboratory data revealed a white blood count of 8.7 hemoglobin 15.1 platelet count 303 d-dimer was elevated at 2.5 to BUN 11 creatinine 1.25 lactic acid was elevated at 3.6 and a troponin level was elevated at 0.11 chest x-ray on presentation revealed diffuse opacities possibly related to ARDS pulmonary edema or infection, Cordarone of virus PCR was positive, CT angiogram of the chest was negative for pulmonary embolism however it revealed bilateral diffuse dependent opacities possibly related to pneumonia with a small pleural effusions, EKG was done in the emergency room and revealed sinus tachycardia with first-degree AV block and incomplete left bundle branch block and ST and T-wave abnormalities suggestive of lateral ischemia. Computed tomography scan of the brain done in the emergency room revealed no acute intracranial abnormality. Patient was admitted to telemetry floor he was started on IV heparin, IV dexamethasone, inhaled bronchodilators, and IV fluid, cardiology consultation and pulmonary critical care consultation were requested. His past medical history is significant for history of hypertension, history of hyperlipidemia, history of COPD, history of pulmonary fibrosis, he also has a previous history of brain cancer and history of coronary artery disease with previous history of angioplasty and stent placement. On 02/24/2021 patient was seen and examined in the ICU, earlier this morning he had an episode of severe shortness of breath with decreased O2 sat duration, 18 was called, patient was transferred to ICU and was started on BiPAP. Currently he has improved, he is maintained on high flow oxygen he is alert responsive in no apparent distress he was evaluated by pulmonary and critical care his vital exam reveals a temperature of 98 pulse 84 respiration 23 blood pressure 135/89 pulse ox 93% on high flow cannula with FiO2 60% Objective - Vital Signs Vital signs: Vital Signs Temp 96.8 F L 02/24/21 08:00 Pulse 85 02/24/21 10:00 Resp 25 H 02/24/21 10:00 BP 124/76 02/24/21 10:00 Pulse Ox 98 02/24/21 10:00 Intake & Output 02/23/21 02/24/21 02/24/21 18:59 06:59 18:59 Intake Total 364.642 310 70 Output Total 1175 50 Balance 364.642 -865 20 Weight 71.2 kg Intake: IV 80 310 70 Heparin Sod,Pork in 0.45% 80 NaCl 25,000 unit In 0.45 % NaCl 1 250ml.bag @ 12 UNITS/KG/HR 8.137 mls/hr IV .Q24H [facility] Rx#: [id number] Piperacillin-Tazobactam 3 150 50 .375 gm In Sodium Chloride 0.9% 100 ml @ 25 mls/hr IVPB Q8H [facility] Rx#: [id number] Sodium Chloride 0.9% 1, 160 20 000 ml @ 20 mls/hr IV . Q24H [facility] Rx#:[id number] Intake, IV Titration 44.642 Amount Heparin Sod,Pork in 0.45% 44.642 NaCl 25,000 unit In 0.45 % NaCl 1 250ml.bag @ 12 UNITS/KG/HR 8.137 mls/hr IV .Q24H [facility] Rx#: [id number] Oral 240 Output: Urine 1175 50 Other: Voiding Method Indwelling Catheter Indwelling Catheter - Exam In general patient is alert and oriented 3 in no apparent distress HEENT head normocephalic and atraumatic Neck is supple no JVD no goiter no lymphadenopathy Chest exam reveals coarse crackles in both lung thomas with wheezing Cardiac exam reveals regular heart sounds no gallops no murmurs Abdomen is soft nontender no organomegaly with normal bowel sounds Extremity exam reveals no edema no cyanosis or clubbing Neurological examination reveals no gross focal deficit - Labs CBC & Chem 7: 02/24/21 04:20 02/24/21 04:20 Labs: Abnormal Lab Results - Last 24 Hours (Table) 02/23/21 02/23/21 02/23/21 Range/Units 11:17 11:17 12:10 WBC (3.8-10.6) k/uL RBC (4.30-5.90) m/uL Hgb (13.0-17.5) gm/dL Hct (39.0-53.0) % MCV (80.0-100.0) fL MCH (25.0-35.0) pg Neutrophils # (1.3-7.7) k/uL Lymphocytes # (1.0-4.8) k/uL APTT (22.0-30.0) sec D-Dimer (<0.60) mg/L FEU Chloride (98-107) mmol/L BUN (9-20) mg/dL Creatinine (0.66-1.25) mg/dL Glucose (74-99) mg/dL POC Glucose (mg/dL) 158 H (75-99) mg/dL Plasma Lactic Acid Eduardo 3.2 H* (0.7-2.0) mmol/L Calcium (8.4-10.2) mg/dL Lactate Dehydrogenase (313-618) U/L Troponin I 6.430 H* (0.000-0.034) ng/mL C-Reactive Protein (<10.0) mg/L Total Protein (6.3-8.2) g/dL Albumin (3.5-5.0) g/dL Procalcitonin (0.02-0.09) ng/mL 02/23/21 02/23/21 02/23/21 Range/Units 14:55 14:55 15:15 WBC (3.8-10.6) k/uL RBC (4.30-5.90) m/uL Hgb (13.0-17.5) gm/dL Hct (39.0-53.0) % MCV (80.0-100.0) fL MCH (25.0-35.0) pg Neutrophils # (1.3-7.7) k/uL Lymphocytes # (1.0-4.8) k/uL APTT 51.3 H (22.0-30.0) sec D-Dimer (<0.60) mg/L FEU Chloride (98-107) mmol/L BUN (9-20) mg/dL Creatinine (0.66-1.25) mg/dL Glucose (74-99) mg/dL POC Glucose (mg/dL) (75-99) mg/dL Plasma Lactic Acid Eduardo 2.5 H* (0.7-2.0) mmol/L Calcium (8.4-10.2) mg/dL Lactate Dehydrogenase (313-618) U/L Troponin I 4.630 H* (0.000-0.034) ng/mL C-Reactive Protein (<10.0) mg/L Total Protein (6.3-8.2) g/dL Albumin (3.5-5.0) g/dL Procalcitonin (0.02-0.09) ng/mL 02/23/21 02/23/21 02/23/21 Range/Units 15:15 16:59 18:27 WBC (3.8-10.6) k/uL RBC (4.30-5.90) m/uL Hgb (13.0-17.5) gm/dL Hct (39.0-53.0) % MCV (80.0-100.0) fL MCH (25.0-35.0) pg Neutrophils # (1.3-7.7) k/uL Lymphocytes # (1.0-4.8) k/uL APTT (22.0-30.0) sec D-Dimer (<0.60) mg/L FEU Chloride (98-107) mmol/L BUN (9-20) mg/dL Creatinine (0.66-1.25) mg/dL Glucose (74-99) mg/dL POC Glucose (mg/dL) 133 H 202 H (75-99) mg/dL Plasma Lactic Acid Eduardo (0.7-2.0) mmol/L Calcium (8.4-10.2) mg/dL Lactate Dehydrogenase (313-618) U/L Troponin I (0.000-0.034) ng/mL C-Reactive Protein (<10.0) mg/L Total Protein (6.3-8.2) g/dL Albumin (3.5-5.0) g/dL Procalcitonin 3.01 H (0.02-0.09) ng/mL 02/23/21 02/23/21 02/23/21 Range/Units 18:37 21:03 21:11 WBC (3.8-10.6) k/uL RBC (4.30-5.90) m/uL Hgb (13.0-17.5) gm/dL Hct (39.0-53.0) % MCV (80.0-100.0) fL MCH (25.0-35.0) pg Neutrophils # (1.3-7.7) k/uL Lymphocytes # (1.0-4.8) k/uL APTT (22.0-30.0) sec D-Dimer (<0.60) mg/L FEU Chloride (98-107) mmol/L BUN (9-20) mg/dL Creatinine (0.66-1.25) mg/dL Glucose (74-99) mg/dL POC Glucose (mg/dL) 125 H (75-99) mg/dL Plasma Lactic Acid Eduardo 2.8 H* 2.5 H* (0.7-2.0) mmol/L Calcium (8.4-10.2) mg/dL Lactate Dehydrogenase (313-618) U/L Troponin I (0.000-0.034) ng/mL C-Reactive Protein (<10.0) mg/L Total Protein (6.3-8.2) g/dL Albumin (3.5-5.0) g/dL Procalcitonin (0.02-0.09) ng/mL 02/24/21 02/24/21 02/24/21 Range/Units 04:20 04:20 04:20 WBC 17.9 H (3.8-10.6) k/uL RBC 3.59 L (4.30-5.90) m/uL Hgb 12.7 L (13.0-17.5) gm/dL Hct 38.1 L (39.0-53.0) % MCV 106.1 H (80.0-100.0) fL MCH 35.2 H (25.0-35.0) pg Neutrophils # 16.4 H (1.3-7.7) k/uL Lymphocytes # 0.6 L (1.0-4.8) k/uL APTT 45.0 H (22.0-30.0) sec D-Dimer 1.11 H (<0.60) mg/L FEU Chloride 112 H (98-107) mmol/L BUN 21 H (9-20) mg/dL Creatinine 1.37 H (0.66-1.25) mg/dL Glucose 121 H (74-99) mg/dL POC Glucose (mg/dL) (75-99) mg/dL Plasma Lactic Acid Eduardo (0.7-2.0) mmol/L Calcium 8.3 L (8.4-10.2) mg/dL Lactate Dehydrogenase 831 H (313-618) U/L Troponin I (0.000-0.034) ng/mL C-Reactive Protein 58.0 H (<10.0) mg/L Total Protein 5.7 L (6.3-8.2) g/dL Albumin 3.2 L (3.5-5.0) g/dL Procalcitonin (0.02-0.09) ng/mL 02/24/21 Range/Units 04:20 WBC (3.8-10.6) k/uL RBC (4.30-5.90) m/uL Hgb (13.0-17.5) gm/dL Hct (39.0-53.0) % MCV (80.0-100.0) fL MCH (25.0-35.0) pg Neutrophils # (1.3-7.7) k/uL Lymphocytes # (1.0-4.8) k/uL APTT (22.0-30.0) sec D-Dimer (<0.60) mg/L FEU Chloride (98-107) mmol/L BUN (9-20) mg/dL Creatinine (0.66-1.25) mg/dL Glucose (74-99) mg/dL POC Glucose (mg/dL) (75-99) mg/dL Plasma Lactic Acid Eduardo (0.7-2.0) mmol/L Calcium (8.4-10.2) mg/dL Lactate Dehydrogenase (313-618) U/L Troponin I (0.000-0.034) ng/mL C-Reactive Protein (<10.0) mg/L Total Protein (6.3-8.2) g/dL Albumin (3.5-5.0) g/dL Procalcitonin 3.12 H (0.02-0.09) ng/mL Microbiology - Last 24 Hours (Table) 02/22/21 18:35 Blood Culture - Preliminary Blood No Growth after 24 hours 02/22/21 18:20 Blood Culture - Preliminary Blood No Growth after 24 hours Assessment and Plan Plan: Acute Covid 19 infection with pneumonia Non-ST elevation myocardial infarction Worsening shortness of breath multifactorial related to Covid 19 pneumonia and underlying history of COPD and pulmonary fibrosis Underlying history of hypertension Underlying history of hyperlipidemia Underlying history of COPD Underlying history of coronary artery disease Previous history of brain cancer At this time patient is admitted to telemetry floor He was started on IV heparin and IV dexamethasone He was started on IV fluid Pulmonary consultation cardiology consultation and infectious disease consultation are requested Prognosis is guarded due to severity of illness advanced age and multiple underlying comorbidities
[2021-02-24 16:30] LABS: Glucose,Whole Blood 149 mg/dL (75-99)
[2021-02-24] MEDS: ATORVASTATIN 40 MG TAB PO SCH (21:19)
--- NOTE | 2021-02-24 23:01 | PN ---
PROGRESS NOTE DATE OF SERVICE: 02/24/2021 REASON FOR FOLLOWUP: Pneumonia. INTERVAL HISTORY: The patient is currently afebrile. The patient is breathing comfortably compared to yesterday. Slightly more awake and alert. The patient denies having any chest pain, shortness of breath. Did have some cough, not bringing up any sputum. No abdominal pain or diarrhea. PHYSICAL EXAMINATION: Blood pressure is 95/63, pulse of 59, temperature 98.6. He is 93% on 90% FiO2. General description is an elderly male lying in bed in no distress. RESPIRATORY SYSTEM: Unlabored breathing with decreased intensity of breath sounds. No wheeze. HEART: S1, S2. Regular rate and rhythm. ABDOMEN: Soft. No tenderness. LABS: Hemoglobin is 12.7, white count of 17.9, BUN of 21, creatinine 1.37. Procalcitonin is 3.12. DIAGNOSTIC IMPRESSION AND PLAN: Patient with acute respiratory failure and pneumonia, likely a combination of both COVID-19 plus/minus bacterial component, as the patient did have elevated procalcitonin. Patient is covered with Zosyn; to continue while monitoring his clinical course closely. Continue supportive care. MMODL / IJN: [id number] /
[2021-02-25] MEDS: ACETAMINOPHEN TAB 325 MG TAB PO PRN ×2 (00:41→23:08)
[2021-02-25] MEDS: PIPERACILLIN-TAZOBACTAM 3.375 GM in SODIUM CHLORIDE 0.9% 100 ML IVPB SCH ×3 (03:27→20:13)
[2021-02-25 05:00] LABS: Basophils % (A) 0 %; Eosinophils % (A) 0 %; HCT 35.2 % (39.0-53.0); HGB 11.3 gm/dL (13.0-17.5); Lymphocytes # (A) 0.5 k/uL (1.0-4.8); Lymphocytes % (A) 3 %; MCHC 32.1 g/dL (31.0-37.0); MCV 105.8 fL (80.0-100.0); Macrocytosis Moderate; Mean Platelet Volume 8.7; Monocytes # (A) 0.5 k/uL (0-1.0); Monocytes % (A) 3 %; Neutrophils # (A) 13.6 k/uL (1.3-7.7); Neutrophils % (A) 93 %; Platelet Count 198 k/uL (150-450); RBC 3.33 m/uL (4.30-5.90); RDW 15.4 % (11.5-15.5); WBC 14.6 k/uL (3.8-10.6)
[2021-02-25 05:14] LABS: Prothrombin Time 10.4 sec (9.0-12.0)
[2021-02-25 05:44] LABS: C Reactive Protein 78.1 mg/L (<10.0); Calcium 8.4 mg/dL (8.4-10.2); Potassium 3.8 mmol/L (3.5-5.1); Total Bilirubin 1.1 mg/dL (0.2-1.3); Total Protein 5.4 g/dL (6.3-8.2)
[2021-02-25] MEDS ORDERED: POTASSIUM CHLORIDE ER 20 MEQ TAB.ER PO SCH (06:00)
[2021-02-25 07:29] LABS: Glucose,Whole Blood 120 mg/dL (75-99)
[2021-02-25] MEDS: ALBUTEROL HFA INHALER INHALATION PRN ×4 (07:35→16:24)
--- NOTE | 2021-02-25 07:57 | XR ---
EXAMINATION TYPE: XR chest 1V portable DATE OF EXAM: 02/25/2021 Comparison: 02/24/2021 Clinical History: 85-year-old male SOB Findings: Heart upper limits of normal in size. Continued hyperinflation, diffuse interstitial opacities, and p atchy confluent areas of airspace opacity, right greater than left. Densities are increased on the le ft and show some shifting opacity on the right. Trace effusion suspected. Impression: COPD with superimposed bilateral interstitial lung disease and patchy areas of airspace disease, righ t greater than left. There is some worsening on the left and shifting opacities on the right which wo uld favor pulmonary edema rather than multifocal or atypical pneumonias. Clinically correlate.
[2021-02-25] MEDS: FUROSEMIDE 10 MG/ML 4 ML VIAL IV SCH ×2 (08:19→20:13)
[2021-02-25] MEDS: DEXAMETHASONE SOD PHOSPHATE 10 MG/ML 1 ML VIAL IV SCH (08:19)
[2021-02-25] MEDS: lisinopriL 10 MG TAB PO SCH (08:20)
[2021-02-25] MEDS: METOPROLOL SUCCINATE (ER) 25 MG TAB.ER.24H PO SCH (08:20)
[2021-02-25] MEDS: AMIODARONE 200 MG TAB PO SCH (08:20)
[2021-02-25] MEDS: ASPIRIN 81 MG PO SCH (08:20)
[2021-02-25] MEDS: HEPARIN SODIUM,PORCINE 5,000 UNIT/ML 1 ML VIAL SQ SCH ×3 (08:20→23:06)
[2021-02-25] MEDS: CLOPIDOGREL 75 MG TAB PO SCH (08:20)
[2021-02-25] MEDS: lamoTRIgine 25 MG TAB PO SCH ×2 (08:24→20:13)
[2021-02-25 10:22] LABS: Ferritin 306.9 ng/mL (22.0-322.0)
[2021-02-25 11:14] LABS: Glucose,Whole Blood 143 mg/dL (75-99)
--- NOTE | 2021-02-25 11:32 | P.PN ---
Subjective Progress Note Date: 02/25/21 CHIEF COMPLAINT: Elevated troponins HISTORY OF PRESENT ILLNESS: 02/23/2021 This is a 85-year-old male with a past medical history significant for coronary artery disease with previous stent placement, hypertension, hyperlipidemia, CVA/TIA, COPD, and dementia. It is unknown if the patient follows with a top collar maker. We have been asked to see the patient in consultation for elevated troponins. The patient presented to the hospital with a chief complaint of shortness of breath. Patient was found to be positive for Covid. Patient was febrile upon presentation to the emergency room with a temperature of 102F. He was tachycardic with a heart rate in the 120s. Per nursing, patient's blood pressure was running 70s/40s. His cardiac medications were held this morning and the patient is receiving an IV fluid bolus. Patient is currently on 15 L high flow nasal cannula. EKG reveals sinus tachycardia rate heart rate 124. Incomplete left bundle branc h block. ST depression in lateral leads. Chest xray diffuse opacities, may relate to ARDS, pulmonary edema, or infection Laboratory data: WBC 6.9. Hemoglobin 11.6. Platelet count 224. Sodium 139. Potassium 4.4. BUN 11. Creatinine 1.25. Lactic acid 3.4. Troponin 0.111. BNP 9010. Current home cardiac medications include Vasotec 10 mg daily, Plavix 75 mg daily, aspirin 81 mg daily, Lipitor 40 mg daily, and amiodarone 200 mg daily 02/24/2021 Patient remains in the intensive care unit. He remains on BiPAP. He remains on IV heparin for elevated troponins. Blood pressure 119/78. Heart rate in the 80s. Echocardiogram completed revealed ejection fraction 20-25%, mild mitral regurgitation, mild tricuspid regurgitation, and mild pulmonary hypertension. Chest x-ray this morning reveals findings suspected to represent COPD with superimposed pulmonary edema, showing some improvement from prior exam. 02/25/2021 Patient remains in the ICU. He is on Airvo. Blood pressure this morning running on the low side with a recent reading of 90/58 and 89/48. Patients IV heparin has been discontinued. He is maintaining sinus mechanism on telemetry. PHYSICAL EXAM: Thorough physical exam not completed secondary to limited evaluation/examination and due to Covid19 ASSESSMENT: Acute Covid 19 Acute hypoxic respiratory failure Lactic acidosis Hypotension requiring IV fluid bolus NSTEMI, possible myocarditis Acute systolic congestive heart failure, ejection fraction 20% Coronary artery disease with previous PCI, exact details unclear Hypertension Hyperlipidemia CVA/TIA COPD Dementia PLAN: Continue plavix and aspirin Continue Lipitor and metoprolol Decrease lisinopril to 5 mg daily Monitor blood pressure Continue IV lasix per pulmonary Further recommendations pending patient course Nurse practitioner note has been reviewed by physician. Signing provider agrees with the documented findings, assessment, and plan of care. Objective - Vital Signs Vital signs: Vital Signs Temp 97.9 F 02/25/21 08:00 Pulse 81 02/25/21 09:00 Resp 28 H 02/25/21 11:13 BP 118/75 02/25/21 09:00 Pulse Ox 90 L 02/25/21 09:00 Intake & Output 02/24/21 02/25/21 02/25/21 18:59 06:59 18:59 Intake Total 937.621 304.449 170 Output Total 1055 1225 275 Balance -117.379 -920.551 -105 Weight 71.2 kg 70.1 kg Intake: IV 300 120 50 Piperacillin-Tazobactam 3 150 .375 gm In Sodium Chloride 0.9% 100 ml @ 25 mls/hr IVPB Q8H [facility] Rx#: [id number] Sodium Chloride 0.9% 1, 150 120 50 000 ml @ 20 mls/hr IV . Q24H [facility] Rx#:[id number] Intake, IV Titration 157.621 184.449 Amount Heparin Sod,Pork in 0.45% 157.621 84.449 NaCl 25,000 unit In 0.45 % NaCl 1 250ml.bag @ 12 UNITS/KG/HR 8.137 mls/hr IV .Q24H [facility] Rx#: [id number] Piperacillin-Tazobactam 3 100 .375 gm In Sodium Chloride 0.9% 100 ml @ 25 mls/hr IVPB Q8H [facility] Rx#: [id number] Oral 480 120 Output: Urine 1055 1225 275 Other: Voiding Method Indwelling Catheter Indwelling Catheter Indwelling Catheter # Voids 1 - Labs CBC & Chem 7: 02/25/21 04:07 02/25/21 04:07 Labs: Abnormal Lab Results - Last 24 Hours (Table) 03/29/21 03/29/21 03/30/21 Range/Units 11:49 16:18 04:07 WBC 14.6 H (3.8-10.6) k/uL RBC 3.33 L (4.30-5.90) m/uL Hgb 11.3 L (13.0-17.5) gm/dL Hct 35.2 L (39.0-53.0) % MCV 105.8 H (80.0-100.0) fL Neutrophils # 13.6 H (1.3-7.7) k/uL Lymphocytes # 0.5 L (1.0-4.8) k/uL D-Dimer (<0.60) mg/L FEU Chloride (98-107) mmol/L BUN (9-20) mg/dL Creatinine (0.66-1.25) mg/dL Glucose (74-99) mg/dL POC Glucose (mg/dL) 112 H 149 H (75-99) mg/dL Lactate Dehydrogenase (313-618) U/L Creatine Kinase (55-170) U/L C-Reactive Protein (<10.0) mg/L Total Protein (6.3-8.2) g/dL Albumin (3.5-5.0) g/dL 02/25/21 02/25/21 02/25/21 Range/Units 04:07 04:07 07:28 WBC (3.8-10.6) k/uL RBC (4.30-5.90) m/uL Hgb (13.0-17.5) gm/dL Hct (39.0-53.0) % MCV (80.0-100.0) fL Neutrophils # (1.3-7.7) k/uL Lymphocytes # (1.0-4.8) k/uL D-Dimer 0.91 H (<0.60) mg/L FEU Chloride 110 H (98-107) mmol/L BUN 31 H (9-20) mg/dL Creatinine 1.47 H (0.66-1.25) mg/dL Glucose 134 H (74-99) mg/dL POC Glucose (mg/dL) 120 H (75-99) mg/dL Lactate Dehydrogenase 776 H (313-618) U/L Creatine Kinase 396 H (55-170) U/L C-Reactive Protein 78.1 H (<10.0) mg/L Total Protein 5.4 L (6.3-8.2) g/dL Albumin 3.0 L (3.5-5.0) g/dL 02/25/21 Range/Units 11:12 WBC (3.8-10.6) k/uL RBC (4.30-5.90) m/uL Hgb (13.0-17.5) gm/dL Hct (39.0-53.0) % MCV (80.0-100.0) fL Neutrophils # (1.3-7.7) k/uL Lymphocytes # (1.0-4.8) k/uL D-Dimer (<0.60) mg/L FEU Chloride (98-107) mmol/L BUN (9-20) mg/dL Creatinine (0.66-1.25) mg/dL Glucose (74-99) mg/dL POC Glucose (mg/dL) 143 H (75-99) mg/dL Lactate Dehydrogenase (313-618) U/L Creatine Kinase (55-170) U/L C-Reactive Protein (<10.0) mg/L Total Protein (6.3-8.2) g/dL Albumin (3.5-5.0) g/dL Microbiology - Last 24 Hours (Table) 02/22/21 18:35 Blood Culture - Preliminary Blood No Growth after 48 hours 02/22/21 18:20 Blood Culture - Preliminary Blood No Growth after 48 hours
--- NOTE | 2021-02-25 11:54 | P.PN ---
Subjective Progress Note Date: 02/25/21 Principal diagnosis: Acute hypoxic respiratory failure, multifactorial, secondary to covid 19 pneumonia, along with COPD and underlying pulmonary fibrosis as well as acute systolic congestive heart failure, ejection fraction of 20% 85-year-old male patient was hospitalized because of worsening shortness of breath. The patient came into the ED, he was febrile, tachycardic and t achypneic and he was quite hypoxic and he was immediately placed on high flow oxygen at 15 L per minute nasal cannula. His chest x-ray showed diffuse bilateral pulmonary infiltrates consistent with COVID 19-related pneumonia. He is checked positive for COVID 19. The patient is extremely demented. The patient is a very poor historian. He cannot provide any history and he has no insight on his condition. Is quite contracted his lower extremities bilaterally. He was found to be significantly hypoxic in the emergency department. He was placed on a nonrebreather and currently is on 15 L of oxygen by nasal cannula and his pulse ox is around 92%. Upon arrival to the floor, he was still hypotensive and he was given a bolus of IV fluid 1 L and his blood pressure improved after that. He had a high lactic acid level which was as high as 5.1 and it started to improve and is down to 3.6. Data troponin level of 0.11. Chest x-ray showed diffuse but the pulmonary infiltrates and edema and pleural effusion. Following that, he was given a CT angiogram in the emergency department, no pulmonary embolism, bilateral pleural effusion, bilateral consolidation airspace disease most on the lung bases bilaterally. EKG showing a sinus rhythm, first-degree AV block, left bundle branch block pattern. His previous cardiac status is not known. Echocardiogram needs to be completed. Based on the history, he has an extensive history of CAD, COPD, pulmonary fibrosis and previous history of brain cancer in addition to CAD, angioplasty, stenting. As far as the exact timing of his symptoms related to Covid 19 is not known. He is a very poor historian. He is currently on Decadron. He is res ting comfortably in bed for now. His creatinine is at 1.25 Patient was reevaluated today on 02/24/2021, remains in the intensive care unit, he is on BiPAP with IPAP of 12 and EPAP of 500% FiO2, seems to be comfortable, not in any distress, had difficulty with communication mostly because his previo us history of brain surgery/craniotomy. Apparently the patient has a multifactorial reason for his acute hypoxic respiratory failure, he has severe LV dysfunction with ejection fraction of 20%, possible myocarditis. He is out of the window for remdesivir, he has underlying COPD, and he had a non-ST elevation myocardial infarction there is also questionable sepsis on admission. Hence we are holding on giving the patient actemra for now. Sugars are pending WBC count today is 17.9 electrolytes are normal renal profile showed BUN of 21 creatinine 1.37 C-reactive protein is 58 LDH is 831. Pro-calcitonin is 3.12, quite elevated. Blood cultures remain negative so far. Patient was reevaluated today on , remains in the ICU, remains on 15 L flow and 80% FiO2, surprisingly the patient does not seem to be in any distress, chest x-ray continues to show diffuse interstitial infiltrates with underlying pulmonary fibrosis and possibly some component of pneumonia and pulmonary edema. Patient remains on Lasix remains on Decadron and Zosyn was added. Surprisingly the patient seems to be quite comfortable on the present FiO2 settings, hence I plan to transfer the patient today out of the ICU to a cardiac floor. CBC count today is 14.6 hemoglobin is 11.3 left lites are normal renal profile showed slight worsening of his creatinine up to 1.47 BUN is 31. Chest x-ray as noted above. Inflammatory markers are trending down LDH is 776 and C-reactive protein is 78. Objective - Vital Signs Vital signs: Vital Signs Temp 97.9 F 02/25/21 08:00 Pulse 81 02/25/21 09:00 Resp 28 H 02/25/21 11:13 BP 118/75 02/25/21 09:00 Pulse Ox 90 L 02/25/21 09:00 Intake & Output 02/24/21 02/25/21 02/25/21 18:59 06:59 18:59 Intake Total 937.621 304.449 170 Output Total 1055 1225 275 Balance -117.379 -920.551 -105 Weight 71.2 kg 70.1 kg Intake: IV 300 120 50 Piperacillin-Tazobactam 3 150 .375 gm In Sodium Chloride 0.9% 100 ml @ 25 mls/hr IVPB Q8H [facility] Rx#: [id number] Sodium Chloride 0.9% 1, 150 120 50 000 ml @ 20 mls/hr IV . Q24H [facility] Rx#:[id number] Intake, IV Titration 157.621 184.449 Amount Heparin Sod,Pork in 0.45% 157.621 84.449 NaCl 25,000 unit In 0.45 % NaCl 1 250ml.bag @ 12 UNITS/KG/HR 8.137 mls/hr IV .Q24H [facility] Rx#: [id number] Piperacillin-Tazobactam 3 100 .375 gm In Sodium Chloride 0.9% 100 ml @ 25 mls/hr IVPB Q8H [facility] Rx#: [id number] Oral 480 120 Output: Urine 1055 1225 275 Other: Voiding Method Indwelling Catheter Indwelling Catheter Indwelling Catheter # Voids 1 - Exam General: Revealed a 85-year-old white male,in no distress. He is on airvo at 50 L and 80% FiO2. Head atraumatic, normocephalic. HEENT: PERRLA, EOMI, nonicteric. BiPAP is in place. Neck is supple no neck masses no JVD no stridor. Chest symmetrical chest expansion, crackles or rhonchi and wheezes noted bilaterally. Cardiac normal S1 and S2, no S3 gallop. 2/6 systolic murmur thought the precordium. Abdomen soft nontender no megaly no rebound no guarding. Extremity evidence of contraction deformities in upper and lower extremities, most likely related to his previous craniotomy. Neurological examination reveals no gross focal deficit contracted and lower extremities, quite debilitated, there is generalized motor weakness in all 4 extremities. Follows simple instructions. Psychiatric: Normal mood, affect, seems to be confused Skin: No rashes. - Labs CBC & Chem 7: 02/25/21 04:07 02/25/21 04:07 Labs: Abnormal Lab Results - Last 24 Hours (Table) 02/24/21 02/24/21 02/25/21 Range/Units 11:49 16:18 04:07 WBC 14.6 H (3.8-10.6) k/uL RBC 3.33 L (4.30-5.90) m/uL Hgb 11.3 L (13.0-17.5) gm/dL Hct 35.2 L (39.0-53.0) % MCV 105.8 H (80.0-100.0) fL Neutrophils # 13.6 H (1.3-7.7) k/uL Lymphocytes # 0.5 L (1.0-4.8) k/uL D-Dimer (<0.60) mg/L FEU Chloride (98-107) mmol/L BUN (9-20) mg/dL Creatinine (0.66-1.25) mg/dL Glucose (74-99) mg/dL POC Glucose (mg/dL) 112 H 149 H (75-99) mg/dL Lactate Dehydrogenase (313-618) U/L Creatine Kinase (55-170) U/L C-Reactive Protein (<10.0) mg/L Total Protein (6.3-8.2) g/dL Albumin (3.5-5.0) g/dL 02/25/21 02/25/21 02/25/21 Range/Units 04:07 04:07 07:28 WBC (3.8-10.6) k/uL RBC (4.30-5.90) m/uL Hgb (13.0-17.5) gm/dL Hct (39.0-53.0) % MCV (80.0-100.0) fL Neutrophils # (1.3-7.7) k/uL Lymphocytes # (1.0-4.8) k/uL D-Dimer 0.91 H (<0.60) mg/L FEU Chloride 110 H (98-107) mmol/L BUN 31 H (9-20) mg/dL Creatinine 1.47 H (0.66-1.25) mg/dL Glucose 134 H (74-99) mg/dL POC Glucose (mg/dL) 120 H (75-99) mg/dL Lactate Dehydrogenase 776 H (313-618) U/L Creatine Kinase 396 H (55-170) U/L C-Reactive Protein 78.1 H (<10.0) mg/L Total Protein 5.4 L (6.3-8.2) g/dL Albumin 3.0 L (3.5-5.0) g/dL 02/25/21 Range/Units 11:12 WBC (3.8-10.6) k/uL RBC (4.30-5.90) m/uL Hgb (13.0-17.5) gm/dL Hct (39.0-53.0) % MCV (80.0-100.0) fL Neutrophils # (1.3-7.7) k/uL Lymphocytes # (1.0-4.8) k/uL D-Dimer (<0.60) mg/L FEU Chloride (98-107) mmol/L BUN (9-20) mg/dL Creatinine (0.66-1.25) mg/dL Glucose (74-99) mg/dL POC Glucose (mg/dL) 143 H (75-99) mg/dL Lactate Dehydrogenase (313-618) U/L Creatine Kinase (55-170) U/L C-Reactive Protein (<10.0) mg/L Total Protein (6.3-8.2) g/dL Albumin (3.5-5.0) g/dL Microbiology - Last 24 Hours (Table) 02/22/21 18:35 Blood Culture - Preliminary Blood No Growth after 48 hours 02/22/21 18:20 Blood Culture - Preliminary Blood No Growth after 48 hours Assessment and Plan Assessment: Impression: Acute hypoxic respiratory failure, multifactorial. Acute covid 19 pneumonitis. Acute exacerbation of COPD. Possible underlying interstitial lung disease/pulmonary fibrosis. Acute systolic congestive heart failure with ejection fraction of 20%. Acute non-ST elevation myocardial infarction. History of dementia. History of craniotomy Extreme medical debility. Non aniron gap metabolic acidosis History of brain tumor and previous craniotomy. Acute kidney injury, creatinine is 1.47 today. Recommendation: Continue airvo Continue Decadron 6 mg IV push every 24 hours. Cut down on diuretics Continue heparin for now. Continue to monitor hemodynamics. Continue to monitor renal profile. Continue empiric coverage with antibiotics/Zosyn especially with the pro- calcitonin level elevated. Patient does not qualify for remdesivir Should establish CODE STATUS, and I believe the patient should be DO NOT RE SUSCITATE, Prognosis extremely poor and guarded. Will transfer to a cardiac floor today. Time with Patient: Less than 30
[2021-02-25 16:32] LABS: Glucose,Whole Blood 207 mg/dL (75-99)
--- NOTE | 2021-02-25 17:53 | P.PN ---
Subjective Progress Note Date: 02/25/21 Shai Vaca, is an 85-year-old male who presented to [facility] emergency room with a chief complaint of worsening shortness of breath, patient's called EMS because patient was having difficulty breathing. Patient was evaluated in the emergency room vital examination on presentation revealed a temperature of 102 pulse 122 respiration 14 blood pressure 185/123 and pulse ox 92% on 15 L nonrebreather mask, laboratory data revealed a white blood count of 8.7 hemoglobin 15.1 platelet count 303 d-dimer was elevated at 2.5 to BUN 11 creatinine 1.25 lactic acid was elevated at 3.6 and a troponin level was elevated at 0.11 chest x-ray on presentation revealed diffuse opacities possibly related to ARDS pulmonary edema or infection, Cordarone of virus PCR was positive, CT angiogram of the chest was negative for pulmonary embolism however it revealed bilateral diffuse dependent opacities possibly related to pneumonia with a small pleural effusions, EKG was done in the emergency room and revealed sinus tachycardia with first-degree AV block and incomplete left bundle branch block and ST and T-wave abnormalities suggestive of lateral ischemia. Computed tomography scan of the brain done in the emergency room revealed no acute intracranial abnormality. Patient was admitted to telemetry floor he was started on IV heparin, IV dexamethasone, inhaled bronchodilators, and IV fluid, cardiology consultation and pulmonary critical care consultation were requested. His past medical history is significant for history of hypertension, history of hyperlipidemia, history of COPD, history of pulmonary fibrosis, he also has a previous history of brain cancer and history of coronary artery disease with previous history of angioplasty and stent placement. On 02/24/2021 patient was seen and examined in the ICU, earlier this morning he had an episode of severe shortness of breath with decreased O2 sat duration, 18 was called, patient was transferred to ICU and was started on BiPAP. Currently he has improved, he is maintained on high flow oxygen he is alert responsive in no apparent distress he was evaluated by pulmonary and critical care his vital exam reveals a temperature of 98 pulse 84 respiration 23 blood pressure 135/89 pulse ox 93% on high flow cannula with FiO2 60% On 02/25/2021 patient was seen and examined in the ICU he is alert and oriented in no apparent distress vital examination reveals a temperature of 97.9 pulse 75 respiration 26 blood pressure 115/69 pulse ox 92% on high flow cannula with FiO2 of 80% his white blood count is 14.6 hemoglobin 11.3 platelet count 198 sodium 142 potassium 3.8 chloride 110 BUN 31 creatinine 1.47 LDH 776 C-reactive protein 78.1 d-dimer 0.91 Objective - Vital Signs Vital signs: Vital Signs Temp 97.9 F 02/25/21 08:00 Pulse 81 02/25/21 09:00 Resp 28 H 02/25/21 09:00 BP 118/75 02/25/21 09:00 Pulse Ox 90 L 02/25/21 09:00 Intake & Output 02/24/21 02/25/21 02/25/21 18:59 06:59 18:59 Intake Total 937.621 304.449 170 Output Total 1055 1225 275 Balance -117.379 -920.551 -105 Weight 71.2 kg 70.1 kg Intake: IV 300 120 50 Piperacillin-Tazobactam 3 150 .375 gm In Sodium Chloride 0.9% 100 ml @ 25 mls/hr IVPB Q8H [facility] Rx#: [id number] Sodium Chloride 0.9% 1, 150 120 50 000 ml @ 20 mls/hr IV . Q24H [facility] Rx#:[id number] Intake, IV Titration 157.621 184.449 Amount Heparin Sod,Pork in 0.45% 157.621 84.449 NaCl 25,000 unit In 0.45 % NaCl 1 250ml.bag @ 12 UNITS/KG/HR 8.137 mls/hr IV .Q24H [facility] Rx#: [id number] Piperacillin-Tazobactam 3 100 .375 gm In Sodium Chloride 0.9% 100 ml @ 25 mls/hr IVPB Q8H [facility] Rx#: [id number] Oral 480 120 Output: Urine 1055 1225 275 Other: Voiding Method Indwelling Catheter Indwelling Catheter Indwelling Catheter # Voids 1 - Exam In general patient is alert and oriented 3 in no apparent distress HEENT head normocephalic and atraumatic Neck is supple no JVD no goiter no lymphadenopathy Chest exam reveals coarse crackles in both lung thomas with wheezing Cardiac exam reveals regular heart sounds no gallops no murmurs Abdomen is soft nontender no organomegaly with normal bowel sounds Extremity exam reveals no edema no cyanosis or clubbing Neurological examination reveals no gross focal deficit - Labs CBC & Chem 7: 02/25/21 04:07 02/25/21 04:07 Labs: Abnormal Lab Results - Last 24 Hours (Table) 02/24/21 02/24/21 02/25/21 Range/Units 11:49 16:18 04:07 WBC 14.6 H (3.8-10.6) k/uL RBC 3.33 L (4.30-5.90) m/uL Hgb 11.3 L (13.0-17.5) gm/dL Hct 35.2 L (39.0-53.0) % MCV 105.8 H (80.0-100.0) fL Neutrophils # 13.6 H (1.3-7.7) k/uL Lymphocytes # 0.5 L (1.0-4.8) k/uL D-Dimer (<0.60) mg/L FEU Chloride (98-107) mmol/L BUN (9-20) mg/dL Creatinine (0.66-1.25) mg/dL Glucose (74-99) mg/dL POC Glucose (mg/dL) 112 H 149 H (75-99) mg/dL Lactate Dehydrogenase (313-618) U/L Creatine Kinase (55-170) U/L C-Reactive Protein (<10.0) mg/L Total Protein (6.3-8.2) g/dL Albumin (3.5-5.0) g/dL 02/25/21 02/25/21 02/25/21 Range/Units 04:07 04:07 07:28 WBC (3.8-10.6) k/uL RBC (4.30-5.90) m/uL Hgb (13.0-17.5) gm/dL Hct (39.0-53.0) % MCV (80.0-100.0) fL Neutrophils # (1.3-7.7) k/uL Lymphocytes # (1.0-4.8) k/uL D-Dimer 0.91 H (<0.60) mg/L FEU Chloride 110 H (98-107) mmol/L BUN 31 H (9-20) mg/dL Creatinine 1.47 H (0.66-1.25) mg/dL Glucose 134 H (74-99) mg/dL POC Glucose (mg/dL) 120 H (75-99) mg/dL Lactate Dehydrogenase 776 H (313-618) U/L Creatine Kinase 396 H (55-170) U/L C-Reactive Protein 78.1 H (<10.0) mg/L Total Protein 5.4 L (6.3-8.2) g/dL Albumin 3.0 L (3.5-5.0) g/dL Microbiology - Last 24 Hours (Table) 02/22/21 18:35 Blood Culture - Preliminary Blood No Growth after 48 hours 02/22/21 18:20 Blood Culture - Preliminary Blood No Growth after 48 hours Assessment and Plan Plan: Acute Covid 19 infection with pneumonia Non-ST elevation myocardial infarction Worsening shortness of breath multifactorial related to Covid 19 pneumonia and underlying history of COPD and pulmonary fibrosis Underlying history of hypertension Underlying history of hyperlipidemia Underlying history of COPD Underlying history of coronary artery disease Previous history of brain cancer At this time patient is admitted to telemetry floor He was started on IV heparin and IV dexamethasone He was started on IV fluid Pulmonary consultation cardiology consultation and infectious disease consultation are requested Prognosis is guarded due to severity of illness advanced age and multiple underlying comorbidities
[2021-02-25] MEDS: ATORVASTATIN 40 MG TAB PO SCH (20:13)
[2021-02-25 20:16] LABS: Glucose,Whole Blood 133 mg/dL (75-99)
--- NOTE | 2021-02-25 20:24 | PN ---
PROGRESS NOTE DATE OF SERVICE: 02/25/2021 REASON FOR FOLLOWUP: Pneumonia. INTERVAL HISTORY: The patient has been transferred out of the ICU. The patient has been breathing comfortably. Currently on AIRVO. The patient denies any chest pain. He did have a cough, not bringing up any sputum. No nausea, no vomiting, no abdominal pain or diarrhea has been reported. PHYSICAL EXAMINATION: Blood pressure 118/69 with a pulse of 85, temperature 98. He is 95% on high-flow oxygen. General description is an elderly male lying in bed in no distress. RESPIRATORY SYSTEM: Unlabored breathing with decreased intensity of breath sounds. No wheeze. HEART: S1, S2. Regular rate and rhythm. ABDOMEN: Soft. No tenderness. LABS: Hemoglobin is 11.3, white count 14.6, BUN of 31, creatinine 1.47. Blood culture has been negative. DIAGNOSTIC IMPRESSION AND PLAN: Patient with acute respiratory failure secondary to COVID-19 plus/minus a component of aspiration pneumonia in this patient who seems to have shown overall clinical improvement on current treatment protocol, including Zosyn, dexamethasone, Lovenox, zinc and ascorbic acid; to continue along with respiratory support, and monitor his clinical course closely. MMODL / IJN: [id number] /
[2021-02-26] MEDS: PIPERACILLIN-TAZOBACTAM 3.375 GM in SODIUM CHLORIDE 0.9% 100 ML IVPB SCH ×3 (04:44→20:29)
[2021-02-26 06:07] LABS: Glucose,Whole Blood 122 mg/dL (75-99)
[2021-02-26] MEDS: AMIODARONE 200 MG TAB PO SCH (08:20)
[2021-02-26] MEDS: DEXAMETHASONE SOD PHOSPHATE 10 MG/ML 1 ML VIAL IV SCH (08:20)
[2021-02-26] MEDS: FUROSEMIDE 10 MG/ML 4 ML VIAL IV SCH ×2 (08:20→20:29)
[2021-02-26] MEDS: METOPROLOL SUCCINATE (ER) 25 MG TAB.ER.24H PO SCH (08:20)
[2021-02-26] MEDS: CLOPIDOGREL 75 MG TAB PO SCH (08:20)
[2021-02-26] MEDS: ASPIRIN 81 MG PO SCH (08:20)
[2021-02-26] MEDS: lisinopriL 5 MG TAB PO SCH (08:20)
[2021-02-26] MEDS: lamoTRIgine 25 MG TAB PO SCH ×2 (08:20→20:29)
[2021-02-26] MEDS: HEPARIN SODIUM,PORCINE 5,000 UNIT/ML 1 ML VIAL SQ SCH ×3 (08:21→23:12)
--- NOTE | 2021-02-26 11:13 | XR ---
EXAMINATION TYPE: XR chest 1V portable DATE OF EXAM: 02/26/2021 COMPARISON: 02/25/2021 INDICATION: Short of breath TECHNIQUE: Single frontal view of the chest is obtained. FINDINGS: The heart size is normal. The pulmonary vasculature is normal. Diffuse increased lung markings are present bilaterally. This has some improvement over the interval. IMPRESSION: 1. Diffuse increased lung markings can be compatible with atypical pneumonia.
[2021-02-26] MEDS ORDERED: METOPROLOL SUCCINATE (ER) 25 MG TAB.ER.24H PO ONE (12:02)
--- NOTE | 2021-02-26 12:07 | P.PN ---
Subjective This is a pleasant 85-year-old male past medical history significant for coronary artery disease, paroxysmal atrial fibrillation, hypertension, dyslipidemia, CVA, dementia and COPD. He used to follow in the office with Dr. Kaminski, however has not been to the office since 2010. He is currently being treated for new onset systolic heart failure in the setting of acute covid 19. Review of office records indicate he had a normal echo in the office in 2011 with EF 50%. Today he went into atrial fibrillation with heart rates in the 90-1 00 range. Chest xray this morning reveals diffuse increased lung markings compatible with atypical pneumonia. Blood pressure 109/66 heart rate 79 afebrile maintaining oxygen saturation on airvo. GENERAL: Well-appearing, well-nourished and in no acute distress. Thorough physical exam neck and later secondary to limited evaluation due to Covid 19 ASSESSMENT Acute covid 19 Acute hypoxic respiratory failure NSTEMI, possible myocarditis Paroxysmal atrial fibrillation not on anti-coagulation due to unsteady gait and history of falls Coronary artery disease s/p angioplasty of RCA 2002 Hypertension Dyslipidemia COPD Dementia PLAN Continue amiodarone, aspirin, plavix, atorvastatin and lisinopril as previously ordered. Diuretics per pulmonology. Increase toprol to 50 mg daily. Further recommendations to follow based on clinical course. Nurse Practitioner note has been reviewed, I agree with a documented findings and plan of care. Patient was seen and examined. Objective - Vital Signs Vital signs: Vital Signs Temp 98.8 F 02/26/21 08:18 Pulse 79 02/26/21 08:18 Resp 28 H 02/26/21 08:18 BP 109/66 02/26/21 08:18 Pulse Ox 96 02/26/21 08:18 Intake & Output 02/25/21 02/26/21 02/26/21 18:59 06:59 18:59 Intake Total 670 Output Total 1375 700 Balance -705 -700 Weight 70.2 kg Intake: IV 310 Piperacillin-Tazobactam 3 100 .375 gm In Sodium Chloride 0.9% 100 ml @ 25 mls/hr IVPB Q8H JULIANA Rx#: [id number] Sodium Chloride 0.9% 1, 210 000 ml @ 20 mls/hr IV . Q24H STA Rx#:[id number] Oral 360 Output: Urine 1375 700 Other: Voiding Method Indwelling Catheter Indwelling Catheter Indwelling Catheter # Voids 1 - Labs CBC & Chem 7: 02/25/21 04:07 02/25/21 04:07 Labs: Abnormal Lab Results - Last 24 Hours (Table) 02/25/21 02/25/21 02/26/21 Range/Units 16:31 20:15 06:06 POC Glucose (mg/dL) 207 H 133 H 122 H (75-99) mg/dL Microbiology - Last 24 Hours (Table) 02/22/21 18:35 Blood Culture - Preliminary Blood No Growth after 72 hours 02/22/21 18:20 Blood Culture - Preliminary Blood No Growth after 72 hours
[2021-02-26 12:24] LABS: Glucose,Whole Blood 158 mg/dL (75-99)
[2021-02-26] MEDS: ALBUTEROL HFA INHALER INHALATION PRN ×3 (12:54→19:58)
[2021-02-26] MEDS: ACETAMINOPHEN TAB 325 MG TAB PO PRN (15:14)
[2021-02-26 16:50] LABS: Glucose,Whole Blood 164 mg/dL (75-99)
--- NOTE | 2021-02-26 17:53 | P.PN ---
Subjective Progress Note Date: 02/26/21 Shai Vaca, is an 85-year-old male who presented to [facility] emergency room with a chief complaint of worsening shortness of breath, patient's called EMS because patient was having difficulty breathing. Patient was evaluated in the emergency room vital examination on presentation revealed a temperature of 102 pulse 122 respiration 14 blood pressure 185/123 and pulse ox 92% on 15 L nonrebreather mask, laboratory data revealed a white blood count of 8.7 hemoglobin 15.1 platelet count 303 d-dimer was elevated at 2.5 to BUN 11 creatinine 1.25 lactic acid was elevated at 3.6 and a troponin level was elevated at 0.11 chest x-ray on presentation revealed diffuse opacities possibly related to ARDS pulmonary edema or infection, Cordarone of virus PCR was positive, CT angiogram of the chest was negative for pulmonary embolism however it revealed bilateral diffuse dependent opacities possibly related to pneumonia with a small pleural effusions, EKG was done in the emergency room and revealed sinus tachycardia with first-degree AV block and incomplete left bundle branch block and ST and T-wave abnormalities suggestive of lateral ischemia. Computed tomography scan of the brain done in the emergency room revealed no acute intracranial abnormality. Patient was admitted to telemetry floor he was started on IV heparin, IV dexamethasone, inhaled bronchodilators, and IV fluid, cardiology consultation and pulmonary critical care consultation were requested. His past medical history is significant for history of hypertension, history of hyperlipidemia, history of COPD, history of pulmonary fibrosis, he also has a previous history of brain cancer and history of coronary artery disease with previous history of angioplasty and stent placement. On 02/24/2021 patient was seen and examined in the ICU, earlier this morning he had an episode of severe shortness of breath with decreased O2 sat duration, 18 was called, patient was transferred to ICU and was started on BiPAP. Currently he has improved, he is maintained on high flow oxygen he is alert responsive in no apparent distress he was evaluated by pulmonary and critical care his vital exam reveals a temperature of 98 pulse 84 respiration 23 blood pressure 135/89 pulse ox 93% on high flow cannula with FiO2 60% On 02/25/2021 patient was seen and examined in the ICU he is alert and oriented in no apparent distress vital examination reveals a temperature of 97.9 pulse 75 respiration 26 blood pressure 115/69 pulse ox 92% on high flow cannula with FiO2 of 80% his white blood count is 14.6 hemoglobin 11.3 platelet count 198 sodium 142 potassium 3.8 chloride 110 BUN 31 creatinine 1.47 LDH 776 C-reactive protein 78.1 d-dimer 0.91 On 02/26/2021 patient was seen and examined on the medical floor he is alert and oriented in no apparent distress vital examination reveals a temperature of 97.9 pulse 75 respiration 26 blood pressure 115/69 pulse ox 92% on high flow cannula with FiO2 of 80% his white blood count is 14.6 hemoglobin 11.3 platelet count 198 sodium 142 potassium 3.8 chloride 110 BUN 31 creatinine 1.47 LDH 776 C- reactive protein 78.1 d-dimer 0.91 Objective - Vital Signs Vital signs: Vital Signs Temp 98.8 F 02/26/21 08:18 Pulse 79 02/26/21 08:18 Resp 28 H 02/26/21 08:18 BP 109/66 02/26/21 08:18 Pulse Ox 96 02/26/21 08:18 Intake & Output 02/25/21 02/26/21 02/26/21 18:59 06:59 18:59 Intake Total 670 Output Total 1375 700 Balance -705 -700 Weight 70.2 kg Intake: IV 310 Piperacillin-Tazobactam 3 100 .375 gm In Sodium Chloride 0.9% 100 ml @ 25 mls/hr IVPB Q8H JULIANA Rx#: [id number] Sodium Chloride 0.9% 1, 210 000 ml @ 20 mls/hr IV . Q24H STA Rx#:[id number] Oral 360 Output: Urine 1375 700 Other: Voiding Method Indwelling Catheter Indwelling Catheter Indwelling Catheter # Voids 1 - Exam In general patient is alert and oriented 3 in no apparent distress HEENT head normocephalic and atraumatic Neck is supple no JVD no goiter no lymphadenopathy Chest exam reveals coarse crackles in both lung thomas with wheezing Cardiac exam reveals regular heart sounds no gallops no murmurs Abdomen is soft nontender no organomegaly with normal bowel sounds Extremity exam reveals no edema no cyanosis or clubbing Neurological examination reveals no gross focal deficit - Labs CBC & Chem 7: 02/25/21 04:07 02/25/21 04:07 Labs: Abnormal Lab Results - Last 24 Hours (Table) 02/25/21 02/25/21 02/25/21 Range/Units 11:12 16:31 20:15 POC Glucose (mg/dL) 143 H 207 H 133 H (75-99) mg/dL 02/26/21 Range/Units 06:06 POC Glucose (mg/dL) 122 H (75-99) mg/dL Microbiology - Last 24 Hours (Table) 02/22/21 18:35 Blood Culture - Preliminary Blood No Growth after 72 hours 02/22/21 18:20 Blood Culture - Preliminary Blood No Growth after 72 hours Assessment and Plan Plan: Acute Covid 19 infection with pneumonia Non-ST elevation myocardial infarction Worsening shortness of breath multifactorial related to Covid 19 pneumonia and underlying history of COPD and pulmonary fibrosis Underlying history of hypertension Underlying history of hyperlipidemia Underlying history of COPD Underlying history of coronary artery disease Previous history of brain cancer At this time patient is admitted to telemetry floor He was started on IV heparin and IV dexamethasone He was started on IV fluid Pulmonary consultation cardiology consultation and infectious disease consult ation are requested Prognosis is guarded due to severity of illness advanced age and multiple underl rose comorbidities
--- NOTE | 2021-02-26 19:29 | P.PN ---
Subjective Progress Note Date: 02/26/21 Principal diagnosis: Acute hypoxic respiratory failure, multifactorial, secondary to covid 19 pneumonia, along with COPD and underlying pulmonary fibrosis as well as acute systolic congestive heart failure, ejection fraction of 20% 85-year-old male patient was hospitalized because of worsening shortness of breath. The patient came into the ED, he was febrile, tachycardic and t achypneic and he was quite hypoxic and he was immediately placed on high flow oxygen at 15 L per minute nasal cannula. His chest x-ray showed diffuse bilateral pulmonary infiltrates consistent with COVID 19-related pneumonia. He is checked positive for COVID 19. The patient is extremely demented. The patient is a very poor historian. He cannot provide any history and he has no insight on his condition. Is quite contracted his lower extremities bilaterally. He was found to be significantly hypoxic in the emergency department. He was placed on a nonrebreather and currently is on 15 L of oxygen by nasal cannula and his pulse ox is around 92%. Upon arrival to the floor, he was still hypotensive and he was given a bolus of IV fluid 1 L and his blood pressure improved after that. He had a high lactic acid level which was as high as 5.1 and it started to improve and is down to 3.6. Data troponin level of 0.11. Chest x-ray showed diffuse but the pulmonary infiltrates and edema and pleural effusion. Following that, he was given a CT angiogram in the emergency department, no pulmonary embolism, bilateral pleural effusion, bilateral consolidation airspace disease most on the lung bases bilaterally. EKG showing a sinus rhythm, first-degree AV block, left bundle branch block pattern. His previous cardiac status is not known. Echocardiogram needs to be completed. Based on the history, he has an extensive history of CAD, COPD, pulmonary fibrosis and previous history of brain cancer in addition to CAD, angioplasty, stenting. As far as the exact timing of his symptoms related to Covid 19 is not known. He is a very poor historian. He is currently on Decadron. He is res ting comfortably in bed for now. His creatinine is at 1.25 Patient was reevaluated today on 02/24/2021, remains in the intensive care unit, he is on BiPAP with IPAP of 12 and EPAP of 500% FiO2, seems to be comfortable, not in any distress, had difficulty with communication mostly because his previo us history of brain surgery/craniotomy. Apparently the patient has a multifactorial reason for his acute hypoxic respiratory failure, he has severe LV dysfunction with ejection fraction of 20%, possible myocarditis. He is out of the window for remdesivir, he has underlying COPD, and he had a non-ST elevation myocardial infarction there is also questionable sepsis on admission. Hence we are holding on giving the patient actemra for now. Sugars are pending WBC count today is 17.9 electrolytes are normal renal profile showed BUN of 21 creatinine 1.37 C-reactive protein is 58 LDH is 831. Pro-calcitonin is 3.12, quite elevated. Blood cultures remain negative so far. Patient was reevaluated today on 02/25/2021, remains in the ICU, remains on 15 L flow and 80% FiO2, surprisingly the patient does not seem to be in any distress, chest x-ray continues to show diffuse interstitial infiltrates with underlying pulmonary fibrosis and possibly some component of pneumonia and pulmonary edema. Patient remains on Lasix remains on Decadron and Zosyn was added. Surprisingly the patient seems to be quite comfortable on the present FiO2 settings, hence I plan to transfer the patient today out of the ICU to a cardiac floor. CBC count today is 14.6 hemoglobin is 11.3 left lites are normal renal profile showed slight worsening of his creatinine up to 1.47 BUN is 31. Chest x-ray as noted above. Inflammatory markers are trending down LDH is 776 and C-reactive protein is 78. Patient was reevaluated today on 02/26/2021, he is presently on the cardiac floor, does not seem to be in any distress, patient is a poor historian, seems to be confused. Her main is on high flow at 70% FiO2 and 60 L flow of oxygen. His O2 saturations 90%. Patient again cannot tell me how [place] except he tells me he is doing better. WBC count today is 14.6 hemoglobin is 11.3. Intellect lites are normal renal profile is slightly worse with a BUN of 31 creatinine 1.47. Inflammatory markers were noted yesterday to remain elevated with LDH of 776, and his C-reactive protein 78. Rest x-ray today shows diffuse increased lung markings compatible with atypical pneumonia. Underlying bacterial pneumonia and underlying CHF is not entirely ruled out Objective - Vital Signs Vital signs: Vital Signs Temp 98.2 F 02/26/21 16:00 Pulse 83 02/26/21 16:00 Resp 20 02/26/21 16:00 BP 116/64 02/26/21 16:00 Pulse Ox 90 L 02/26/21 16:54 Intake & Output 02/26/21 02/26/21 02/27/21 06:59 18:59 06:59 Output Total 700 1000 Balance -700 -1000 Weight 70.2 kg Output: Urine 700 1000 Other: Voiding Method Indwelling Catheter Indwelling Catheter - Exam General: Revealed a 85-year-old white male,in no distress. He is on airvo Head atraumatic, normocephalic. HEENT: PERRLA, EOMI, nonicteric. BiPAP is in place. Neck is supple no neck masses no JVD no stridor. Chest symmetrical chest expansion, crackles or rhonchi and wheezes noted bilaterally. Cardiac normal S1 and S2, no S3 gallop. 2/6 systolic murmur thought the precordium. Abdomen soft nontender no megaly no rebound no guarding. Extremity evidence of contraction deformities in upper and lower extremities, most likely related to his previous craniotomy. Neurological examination reveals no gross focal deficit contracted and lower extremities, quite debilitated, there is generalized motor weakness in all 4 extremities. Follows simple instructions. Psychiatric: Normal mood, affect, seems to be confused Skin: No rashes. - Labs CBC & Chem 7: 02/25/21 04:07 02/25/21 04:07 Labs: Abnormal Lab Results - Last 24 Hours (Table) 02/25/21 02/26/21 02/26/21 Range/Units 20:15 06:06 12:22 POC Glucose (mg/dL) 133 H 122 H 158 H (75-99) mg/dL 02/26/21 Range/Units 16:49 POC Glucose (mg/dL) 164 H (75-99) mg/dL Microbiology - Last 24 Hours (Table) 02/22/21 18:35 Blood Culture - Preliminary Blood No Growth after 72 hours 02/22/21 18:20 Blood Culture - Preliminary Blood No Growth after 72 hours Assessment and Plan Assessment: Impression: Acute hypoxic respiratory failure, multifactorial. Acute covid 19 pneumonitis. Acute exacerbation of COPD. Possible underlying interstitial lung disease/pulmonary fibrosis. Acute systolic congestive heart failure with ejection fraction of 20%. Acute non-ST elevation myocardial infarction. History of dementia. History of craniotomy Extreme medical debility. Non aniron gap metabolic acidosis History of brain tumor and previous craniotomy. Acute kidney injury, creatinine is 1.47 today. Recommendation: Continue airvo , titrate oxygen accordingly and maintain O2 saturation above 90% if possible. Continue Decadron 6 mg IV push every 24 hours. 2 new diuretics. Continue heparin for now.. Continue to monitor renal profile. Continue empiric coverage with antibiotics/Zosyn especially with the pro- calcitonin level elevated. Patient does not qualify for remdesivir Should establish CODE STATUS, and I believe the patient should be DO NOT RESUSCITATE, Prognosis extremely poor and guarded. Will transfer to a cardiac floor today. Time with Patient: Less than 30
[2021-02-26 19:56] LABS: Glucose,Whole Blood 203 mg/dL (75-99)
[2021-02-26] MEDS: ATORVASTATIN 40 MG TAB PO SCH (20:29)
--- NOTE | 2021-02-26 23:22 | PN ---
PROGRESS NOTE DATE OF SERVICE: DATE OF SERVICE: 02/26/2021. REASON FOR FOLLOWUP: Aspiration pneumonia. INTERVAL HISTORY: Patient is currently afebrile. The patient is breathing comfortably. Still requiring high-flow oxygen. No chest pain. He did have a congested cough, not bringing any sputum. No abdominal pain and no diarrhea has been reported. PHYSICAL EXAMINATION: Blood pressure 110/60 with a pulse of 78, temperature 98.7. She is 90% on 70% FiO2. General description is an elderly male lying in bed in no distress. Respiratory system: Unlabored breathing, decreased with breath sounds. No wheeze. Heart S1, S2. Regular rate and rhythm. Abdomen soft, no tenderness. LABS: No new labs have been obtained today. Blood culture has been negative. DIAGNOSTIC IMPRESSION AND PLAN: Patient with acute COVID-19 pneumonia, possible component of aspiration etiology. This patient has been covered with Zosyn in addition to the dexamethasone, Lovenox, to continue along with respiratory support and monitor clinical course closely. MMODL / IJN: [id number] / MTDYusuf
[2021-02-27] MEDS: PIPERACILLIN-TAZOBACTAM 3.375 GM in SODIUM CHLORIDE 0.9% 100 ML IVPB SCH ×3 (04:47→20:38)
[2021-02-27 06:27] LABS: Glucose,Whole Blood 116 mg/dL (75-99)
[2021-02-27] MEDS: FUROSEMIDE 10 MG/ML 4 ML VIAL IV SCH ×2 (07:50→20:38)
[2021-02-27 08:01] LABS: Glucose,Whole Blood 186 mg/dL (75-99)
--- NOTE | 2021-02-27 08:23 | XR ---
EXAMINATION TYPE: XR chest 1V DATE OF EXAM: 02/27/2021 COMPARISON: 02/26/2021 INDICATION: Shortness of breath TECHNIQUE: Single frontal view of the chest is obtained. FINDINGS: The heart size is normal. The pulmonary vasculature is normal. Diffuse increased lung markings are present similar to prior exam. Findings are nonspecific and can b e related to atypical pneumonia IMPRESSION: 1. Diffuse extensive increased lung markings bilaterally, stable from comparison
[2021-02-27] MEDS: DEXAMETHASONE SOD PHOSPHATE 10 MG/ML 1 ML VIAL IV SCH (08:26)
[2021-02-27 08:31] LABS: ABG Base Excess 0.7 mmol/L; ABG HCO3 25 mmol/L (21-25); ABG Oxygen Saturation 87.4 % (94-97); ABG PCO2 37 mmHg (35-45); ABG PH 7.44 (7.35-7.45); ABG TCO2 26 mmol/L (19-24); Allen Test Performed? Yes
[2021-02-27 08:32] LABS: ABG PO2 56 mmHg (83-108)
[2021-02-27 09:03] LABS: Glucose,Whole Blood 161 mg/dL (75-99)
[2021-02-27 09:42] LABS: Basophils % (A) 0 %; Eosinophils % (A) 0 %; HCT 41.3 % (39.0-53.0); HGB 13.3 gm/dL (13.0-17.5); Lymphocytes # (A) 0.4 k/uL (1.0-4.8); Lymphocytes % (A) 3 %; MCH 34.2 pg (25.0-35.0); MCHC 32.2 g/dL (31.0-37.0); Macrocytosis Moderate; Mean Platelet Volume 8.6; Monocytes # (A) 0.5 k/uL (0-1.0); Monocytes % (A) 3 %; Neutrophils # (A) 13.7 k/uL (1.3-7.7); Neutrophils % (A) 93 %; Platelet Count 155 k/uL (150-450); RBC 3.89 m/uL (4.30-5.90); RDW 15.6 % (11.5-15.5); WBC 14.7 k/uL (3.8-10.6)
--- NOTE | 2021-02-27 09:42 | P.PN ---
Progress Note - Text Progress Note Date: 02/27/21 Rapid response was called due to patient suddenly losing consciousness while trying to sit up. Examination revealed a blood pressure 170/90. The oxygen saturation were in the low 90s on high flow nasal cannula as well as BiPAP. ABG and chest x-ray were ordered. Recommend transfer to ICU. Critical care time 32 minutes.
[2021-02-27] MEDS ORDERED: propofoL 100 ML IV ONE (09:56)
[2021-02-27 09:58] LABS: Calcium 8.7 mg/dL (8.4-10.2); Potassium 3.7 mmol/L (3.5-5.1)
[2021-02-27] MEDS ORDERED: MIDAZOLAM 1 MG/ML 5 ML VIAL ONE (10:00)
[2021-02-27] MEDS ORDERED: PROPOFOL 10 MG/ML 20 ML VIAL IV ONE (10:00)
[2021-02-27] MEDS ORDERED: SUCCINYLCHOLINE CHLORIDE VIAL 200 MG/10 ML VIAL IV ONE (10:00)
[2021-02-27] MEDS: lamoTRIgine 25 MG TAB PO SCH ×2 (10:30→21:58)
[2021-02-27] MEDS ORDERED: CHLORHEXIDINE GLUCONATE 15 ML CUP MUCOUS MEM ONE (10:33)
[2021-02-27] MEDS ORDERED: NOREPINEPHRIN 4 MG-0.9% NS PMX 4 MG/250 ML ML IV ONE (10:39)
[2021-02-27 11:04] LABS: ABG Base Excess 3.6 mmol/L; ABG HCO3 28 mmol/L (21-25); ABG Oxygen Saturation 99.5 % (94-97); ABG PCO2 43 mmHg (35-45); ABG PH 7.43 (7.35-7.45); ABG PO2 257 mmHg (83-108); ABG TCO2 29 mmol/L (19-24); Allen Test Performed? Yes
--- NOTE | 2021-02-27 11:06 | XR ---
EXAMINATION TYPE: XR chest 1V portable DATE OF EXAM: 02/27/2021 COMPARISON: 02/27/2021 INDICATION: Tube placement TECHNIQUE: Single frontal view of the chest is obtained. FINDINGS: The heart size is normal. The pulmonary vasculature is normal. There is extensive infiltrate throughout the bilateral lung thomas can be compatible atypical pneumon ia. Endotracheal tube tip is 2 cm above the tanya. Nasogastric tube transverses the thorax with tip in t he left upper quadrant of the abdomen. IMPRESSION: 1. Diffuse scattered infiltrates bilaterally worsening from comparison. 2. Lines and catheters discussed above
[2021-02-27] MEDS: ALBUTEROL HFA INHALER INHALATION PRN ×3 (11:39→20:59)
--- NOTE | 2021-02-27 11:49 | US ---
EXAMINATION TYPE: US carotid duplex BILAT DATE OF EXAM: 02/27/2021 COMPARISON: None CLINICAL HISTORY: syncope. ICU patient. Covid +. Intubated. EXAM MEASUREMENTS: RIGHT: Peak Systolic Velocity (PSV) cm/sec ----- Right CCA: 43.5 ----- Right ICA: 53.1 ----- Right ECA: 54.9 ICA/CCA ratio: 1.2 RIGHT: End Diastole cm/sec ----- Right CCA: 0.0 ----- Right ICA: 17.4 ----- Right ECA: 54.9 LEFT: Peak Systolic Velocity (PSV) cm/sec ----- Left CCA: 37.4 ----- Left ICA: 122.6 ----- Left ECA: 0.0 ICA/CCA ratio: 3.3 LEFT: End Diastole cm/sec ----- Left CCA: 0.0 ----- Left ICA: 9.5 ----- Left ECA: 0.0 VERTEBRALS (direction of flow): Right Vertebral: Unable to visualized due to intubation tube Left Vertebral: Antegrade Rhythm: Normal Bilateral wall thickening. Left significant stenosis. Plaque in bilateral bulbs. Left ECA appears small in size and no doppler flow visualized. IMPRESSION: 1. Atheromatous plaque present bilaterally. This is contributing to mild narrowing on the left approa gelacio 50%. 2. Significant stenosis by velocities is not evident on the right within the [id number]. A signif icant stenosis proximal to the visualized carotid system with more distal drop off of velocities coul d be considered in the proper clinical setting. 3. There may be left external carotid artery Criteria for Assigning % of Stenosis / Diameter reduction (Estimation based on the indirect measurements of the internal carotid artery velocities (ICA PSV). 1. Normal (no stenosis)=ICA PSV < 125 cm/s: ratio < 2.0: ICA EDV<40 cm/s. 2. Less than 50% stenosis=ICA PSV < 125 cm/s: ratio < 2.0: ICA EDV<40 cm/s. 3. 50 to 69% stenosis=ICA PSV of 125 to 230 cm/s: ration 2.0 ? 4.0: ICA EDV 40-100 cm/s. 4. Greater than 70% stenosis to near occlusion= ICA PSV > 230 cm/s: ratio > 4.0: ICA EDV > 100 cm/s. 5. Near occlusion= ICA PSV velocities may be low or undetectable: variable ratio and ICA EDV. 6. Total occlusion=unable to detect flow.
--- NOTE | 2021-02-27 12:06 | P.PN ---
Subjective Progress Note Date: 02/27/21 Principal diagnosis: Acute hypoxemic respiratory failure secondary to CoVID 19 pneumonia, COPD, underlying pulmonary fibrosis, systolic congestive heart failure with ejection fraction 20% 85-year-old male patient was hospitalized because of worsening shortness of breath. The patient came into the ED, he was febrile, tachycardic and tachypneic and he was quite hypoxic and he was immediately placed on high flow oxygen at 15 L per minute nasal cannula. His chest x-ray showed diffuse bilateral pulmonary infiltrates consistent with COVID 19-related pneumonia. He is checked positive for COVID 19. The patient is extremely demented. The patient is a very poor historian. He cannot provide any history and he has no insight on his condition. Is quite contracted his lower extremities bilaterally. He was found to be significantly hypoxic in the emergency department. He was placed on a nonrebreather and currently is on 15 L of oxygen by nasal cannula and his pulse ox is around 92%. Upon arrival to the floor, he was still hypotensive and he was given a bolus of IV fluid 1 L and his blood pressure improved after that. He had a high lactic acid level which was as high as 5.1 and it started to improve and is down to 3.6. Data troponin level of 0.11. Chest x-ray showed diffuse but the pulmonary infiltrates and edema and pleural effusion. Following that, he was given a CT angiogram in the emergency department, no pulmonary embolism, bilateral pleural effusion, bilateral consolidation airspace disease most on the lung bases bilaterally. EKG showing a sinus rhythm, first-degree AV block, left bundle branch block pattern. His previous cardiac status is not known. Echocardiogram needs to be completed. Based on the history, he has an extensive history of CAD, COPD, pulmonary fibrosis and previous history of brain cancer in addition to CAD, angioplasty, s tenting. As far as the exact timing of his symptoms related to Covid 19 is not known. He is a very poor historian. He is currently on Decadron. He is resting comfortably in bed for now. His creatinine is at 1.25 Patient was reevaluated today on 02/24/2021, remains in the intensive care unit, he is on BiPAP with IPAP of 12 and EPAP of 500% FiO2, seems to be comfortable, not in any distress, had difficulty with communication mostly because his previous history of brain surgery/craniotomy. Apparently the patient has a multifactorial reason for his acute hypoxic respiratory failure, he has severe LV dysfunction with ejection fraction of 20%, possible myocarditis. He is out of the window for remdesivir, he has underlying COPD, and he had a non-ST elevation myocardial infarction there is also questionable sepsis on admission. Hence we are holding on giving the patient actemra for now. Sugars are pending WBC count today is 17.9 electrolytes are normal renal profile showed BUN of 21 creatinine 1.37 C-reactive protein is 58 LDH is 831. Pro-calcitonin is 3.12, quite elevated. Blood cultures remain negative so far. Patient was reevaluated today on 02/25/2021, remains in the ICU, remains on 15 L flow and 80% FiO2, surprisingly the patient does not seem to be in any distress, chest x-ray continues to show diffuse interstitial infiltrates with underlying pulmonary fibrosis and possibly some component of pneumonia and pulmonary edema. Patient remains on Lasix remains on Decadron and Zosyn was added. Surprisingly the patient seems to be quite comfortable on the present FiO2 settings, hence I plan to transfer the patient today out of the ICU to a cardiac floor. CBC count today is 14.6 hemoglobin is 11.3 left lites are normal renal profile showed slight worsening of his creatinine up to 1.47 BUN is 31. Chest x-ray as noted above. Inflammatory markers are trending down LDH is 776 and C-reactive protein is 78. Patient was reevaluated today on 02/26/2021, he is presently on the cardiac floor, does not seem to be in any distress, patient is a poor historian, seems to be confused. Her main is on high flow at 70% FiO2 and 60 L flow of oxygen. His O2 saturations 90%. Patient again cannot tell me how [place] except he tells me he is doing better. WBC count today is 14.6 hemoglobin is 11.3. Intellect lites are normal renal profile is slightly worse with a BUN of 31 creatinine 1.47. Inflammatory markers were noted yesterday to remain elevated with LDH of 776, and his C-reactive protein 78. Rest x-ray today shows diffuse increased lung markings compatible with atypical pneumonia. Underlying bacterial pneumonia and underlying CHF is not entirely ruled out The patient was seen today 02/27/2021 in follow-up in the intensive care unit. Earlier this morning he continued to decompensate with worsening hypoxemia despite being on BiPAP 12/5 and 90% FiO2 was transferred to the ICU. Blood gases revealed a PaO2 of 56, pCO2 37, pH 7.44. He was in significant respiratory distress. Staff had spoken to the patient and his who both in agreement to be on life support if necessary. He remains a full code. Chest x- ray continues to revealed diffuse scattered infiltrates bilaterally worsening needing compared to previous. The cultures reveal no growth. White count 14.7. Hemoglobin 13.3. Lymphocytes 0.4. Sodium 145. Potassium 3.7. Creatinine 1 .66. He did require intubation and mechanical ventilatory support. Currently on assist control mode at a rate of 20, tidal volume 400, FiO2 100% and a PEEP of 10. Low blood gases revealed a pO2 of 257, pCO2 43 pH 7.43 and his FiO2 was decreased to 50%. He remains on Lasix 40 mg IV every 12 hours, dexamethasone, performed for DVT prophylaxis. Antibiotics in the form of Zosyn. Objective - Vital Signs Vital signs: Vital Signs Temp 97.1 F L 02/27/21 07:45 Pulse 85 02/27/21 11:32 Resp 32 H 02/27/21 11:00 BP 117/68 02/27/21 10:30 Pulse Ox 99 02/27/21 11:00 Intake & Output 02/26/21 02/27/21 02/27/21 18:59 06:59 18:59 Intake Total 40 Output Total 1000 700 170 Balance -1000 -700 -130 Weight 69.5 kg 69.5 kg Intake: IV 40 Sodium Chloride 0.9% 1, 40 000 ml @ 20 mls/hr IV . Q24H STA Rx#:[id number] Output: Urine 1000 700 170 Other: Voiding Method Indwelling Catheter Indwelling Catheter Indwelling Catheter # Voids 1 ABP, PAP, CO, CI - Last Documented Arterial Blood Pressure 99/48 - Exam GENERAL EXAM: Intubated, sedated, frail, cachectic 85-year-old gentleman, comfortable in no apparent distress. HEAD: Normocephalic. EYES: Normal reaction of pupils, equal size. NOSE: Clear with pink turbinates. THROAT: No erythema or exudates. NECK: No masses, no JVD. CHEST: No chest wall deformity. LUNGS: Equal air entry with lateral scattered rhonchi, coarse crackles.. CVS: S1 and S2 normal with no audible murmur, regular rhythm. ABDOMEN: No hepatosplenomegaly, normal bowel sounds, no guarding or rigidity. SPINE: No scoliosis or deformity SKIN: No rashes CENTRAL NERVOUS SYSTEM: Sedated, tone is normal in all 4 extremities. EXTREMITIES: There is no peripheral edema. No clubbing, no cyanosis. Peripheral pulses are intact. - Labs CBC & Chem 7: 02/27/21 09:13 02/27/21 09:13 Labs: Abnormal Lab Results - Last 24 Hours (Table) 02/26/21 02/26/21 02/26/21 Range/Units 12:22 16:49 19:55 WBC (3.8-10.6) k/uL RBC (4.30-5.90) m/uL MCV (80.0-100.0) fL RDW (11.5-15.5) % Neutrophils # (1.3-7.7) k/uL Lymphocytes # (1.0-4.8) k/uL ABG pO2 (83-108) mmHg ABG HCO3 (21-25) mmol/L ABG Total CO2 (19-24) mmol/L ABG O2 Saturation (94-97) % BUN (9-20) mg/dL Creatinine (0.66-1.25) mg/dL Glucose (74-99) mg/dL POC Glucose (mg/dL) 158 H 164 H 203 H (75-99) mg/dL 02/27/21 02/27/21 02/27/21 Range/Units 06:26 07:50 08:08 WBC (3.8-10.6) k/uL RBC (4.30-5.90) m/uL MCV (80.0-100.0) fL RDW (11.5-15.5) % Neutrophils # (1.3-7.7) k/uL Lymphocytes # (1.0-4.8) k/uL ABG pO2 56 L* (83-108) mmHg ABG HCO3 (21-25) mmol/L ABG Total CO2 26 H (19-24) mmol/L ABG O2 Saturation 87.4 L (94-97) % BUN (9-20) mg/dL Creatinine (0.66-1.25) mg/dL Glucose (74-99) mg/dL POC Glucose (mg/dL) 116 H 186 H (75-99) mg/dL 02/27/21 02/27/21 02/27/21 Range/Units 08:51 09:13 09:13 WBC 14.7 H (3.8-10.6) k/uL RBC 3.89 L (4.30-5.90) m/uL MCV 106.0 H (80.0-100.0) fL RDW 15.6 H (11.5-15.5) % Neutrophils # 13.7 H (1.3-7.7) k/uL Lymphocytes # 0.4 L (1.0-4.8) k/uL ABG pO2 (83-108) mmHg ABG HCO3 (21-25) mmol/L ABG Total CO2 (19-24) mmol/L ABG O2 Saturation (94-97) % BUN 43 H (9-20) mg/dL Creatinine 1.66 H (0.66-1.25) mg/dL Glucose 150 H (74-99) mg/dL POC Glucose (mg/dL) 161 H (75-99) mg/dL 02/27/21 Range/Units 10:59 WBC (3.8-10.6) k/uL RBC (4.30-5.90) m/uL MCV (80.0-100.0) fL RDW (11.5-15.5) % Neutrophils # (1.3-7.7) k/uL Lymphocytes # (1.0-4.8) k/uL ABG pO2 257 H (83-108) mmHg ABG HCO3 28 H (21-25) mmol/L ABG Total CO2 29 H (19-24) mmol/L ABG O2 Saturation 99.5 H (94-97) % BUN (9-20) mg/dL Creatinine (0.66-1.25) mg/dL Glucose (74-99) mg/dL POC Glucose (mg/dL) (75-99) mg/dL Microbiology - Last 24 Hours (Table) 02/22/21 18:35 Blood Culture - Preliminary Blood No Growth after 96 hours 02/22/21 18:20 Blood Culture - Preliminary Blood No Growth after 96 hours Assessment and Plan Assessment: 1 Acute hypoxic respiratory failure, multifactorial with progression and subsequent intubation mechanical ventilation on 02/27/2001. 2 Acute covid 19 pneumonitis. 3 Acute exacerbation of COPD. 4 Possible underlying interstitial lung disease/pulmonary fibrosis. 5 Acute systolic congestive heart failure with ejection fraction of 20%. 6 Acute non-ST elevation myocardial infarction. 7 History of dementia. 8 History of craniotomy 9 Extreme medical debility. 10 Non aniron gap metabolic acidosis 11 History of brain tumor and previous craniotomy. 12 Acute kidney injury, creatinine is 1.66 today. Yamilet: The patient was seen and evaluated by Dr. Arias The patient was intubated and placed on mechanical ventilator Follow-up will be initiated, norepinephrine if needed Continue Zosyn, bronchodilators Continue IV diuretics Discontinue Decadron, initiate IV Solu-Medrol For DVT prophylaxis Repeat chest x-ray and ABGs in the a.m. Prognosis is guarded and poor We'll continue to follow and make further recommendations based on his clinical status Critical care time 40 minutes I, the cosigning physician, performed a history & physical examination of the patient. Lungs sounds I lateral scattered rhonchi, crackles. Maintaining good O2 saturations in the 90s on 50% FiO2 via the mechanical ventilator. I discussed the assessment and plan of care with my nurse practitioner, Herminia Millard. I attest to the above note as dictated by her.
--- NOTE | 2021-02-27 12:33 | PN ---
PROGRESS NOTE Shai is an 85-year-old gentleman who is admitted to the hospital with COVID infection, has known coronary artery disease, paroxysmal atrial fibrillation, hypertension, dyslipidemia, and dementia. His echocardiogram on this admission revealed LV systolic dysfunction. He was on the floor. He was initially in the ICU, came to the floor and early this morning became suddenly unresponsive. He had to be transferred to ICU where he subsequently got intubated and is currently on vent. He is on pressors. Remains in sinus rhythm. Hemodynamically, he is stable and intubated. PHYSICAL EXAMINATION: Heart rate is 80 beats per minute. Blood pressure is 99/48. Respiratory rate is 30. He is mechanically ventilated with a FiO2 of 100%. Physical exam is limited secondary to COVID concerns. Labs show potassium of 3.7, BUN is 43, creatinine is 1.6, hemoglobin is 13.3. ASSESSMENT: 1. Paroxysmal atrial fibrillation. 2. Coronary artery disease. 3. Cardiomyopathy. 4. Vent requiring respiratory failure. 5. COVID pneumonia. PLAN: Patient will continue current medical therapy. Prognosis guarded. MMODL / IJN: [id number] /
[2021-02-27] MEDS ORDERED: CISATRACURIUM 2 MG/ML 5 ML VIAL IV ONE (12:37)
[2021-02-27] MEDS: NOREPINEPHRINE 4 MG in SODIUM CHLORIDE 0.9% 250 ML IV SCH (12:41)
[2021-02-27 12:51] LABS: Glucose,Whole Blood 156 mg/dL (75-99)
--- NOTE | 2021-02-27 13:57 | XR ---
EXAMINATION TYPE: XR chest 1V confirm line [facility] DATE OF EXAM: 02/27/2021 COMPARISON: 02/27/2021 INDICATION: Confirm central line placement TECHNIQUE: Single frontal view of the chest is obtained. FINDINGS: The heart size is normal. The pulmonary vasculature is normal. Diffuse bilateral lung infiltrates are present. Endotracheal tube tip is above the tanya. Nasogastric tube transverses the thorax with tip in left u pper quadrant of the abdomen. There is interval placement of a left central venous catheter with tip in the proximal right atrium. No pneumothorax is evident IMPRESSION: 1. No pneumothorax post left venous catheter placement. Tip is in the proximal right atrium. 2. Additional lines and catheters discussed above. 3. Diffuse increased lung markings bilaterally
[2021-02-27] MEDS: HEPARIN SODIUM,PORCINE/PF 5,000 UNIT/0.5 ML SYRINGE SQ SCH ×3 (15:17→23:56)
[2021-02-27] MEDS: METOPROLOL SUCCINATE (ER) 50 MG TAB.ER.24H PO SCH (15:18)
[2021-02-27] MEDS: lisinopriL 5 MG TAB PO SCH (15:18)
[2021-02-27] MEDS: AMIODARONE 200 MG TAB PO SCH (15:20)
[2021-02-27] MEDS: ASPIRIN 81 MG PO SCH (15:22)
[2021-02-27] MEDS: CLOPIDOGREL 75 MG TAB PO SCH (15:22)
[2021-02-27] MEDS ORDERED: IPRATROPIUM-ALBUTEROL 3 ML NEB INHALATION SCH (16:00)
[2021-02-27] MEDS: methylPREDNISolone SOD SUCCI 125 MG/2 ML VIAL IV SCH ×2 (17:09→23:56)
[2021-02-27 18:31] LABS: Glucose,Whole Blood 194 mg/dL (75-99)
[2021-02-27] MEDS: INSULIN ASPART (NovoLOG) 100 UNIT/ML VIAL SQ SCH ×2 (18:55→23:55)
--- NOTE | 2021-02-27 18:58 | PCN ---
PROCEDURE NOTE PROCEDURE PERFORMED: A left subclavian triple-lumen catheter. PREOP DIAGNOSIS: Administration of fluids and pressors. POSTOP DIAGNOSIS: Administration of fluids and pressors. PHARMACY ANALYST: Dr. Lozano. There was informed consent and universal timeout. TRIPLE LUMEN CATHETER PLACEMENT: Indication: Hemodynamic monitoring/Intravenous access. A time-out was completed verifying correct patient, procedure, site, positioning, and implant(s) or special equipment if applicable. The patient was placed in a dependent position appropriate for triple lumen catheter placement based on the vein to be cannulated. The patient's left shoulder was prepped and draped in sterile fashion. 1% Lidocaine was used to anesthetize the surrounding skin area. A triple lumen 9F Cordis catheter was introduced into the subclavian vein using Seldinger technique. The catheter was threaded smoothly over the guide wire and appropriate blood return was obtained. Each lumen of the catheter was evacuated of air and flushed with sterile saline. The catheter was then sutured in place to the skin and a sterile dressing applied. Perfusion to the extremity distal to the point of catheter insertion was checked and found to be adequate. There was no immediate complication. There was good blood return from all 3 ports. The patient tolerated procedure well. The catheter was sutured in place. Sterile dressing applied by the nurse. The tip of the catheter was seen in the right atrium. Chest x- ray was ordered. There was no immediate complication. The patient tolerated the procedure well. MMODL / IJN: [id number] /
--- NOTE | 2021-02-27 20:00 | P.PN ---
Subjective Progress Note Date: 02/27/21 Shai Vaca, is an 85-year-old male who presented to [facility] emergency room with a chief complaint of worsening shortness of breath, patient's called EMS because patient was having difficulty breathing. Patient was evaluated in the emergency room vital examination on presentation revealed a temperature of 102 pulse 122 respiration 14 blood pressure 185/123 and pulse ox 92% on 15 L nonrebreather mask, laboratory data revealed a white blood count of 8.7 hemoglobin 15.1 platelet count 303 d-dimer was elevated at 2.5 to BUN 11 creatinine 1.25 lactic acid was elevated at 3.6 and a troponin level was elevated at 0.11 chest x-ray on presentation revealed diffuse opacities possibly related to ARDS pulmonary edema or infection, Cordarone of virus PCR was positive, CT angiogram of the chest was negative for pulmonary embolism however it revealed bilateral diffuse dependent opacities possibly related to pneumonia with a small pleural effusions, EKG was done in the emergency room and revealed sinus tachycardia with first-degree AV block and incomplete left bundle branch block and ST and T-wave abnormalities suggestive of lateral ischemia. Computed tomography scan of the brain done in the emergency room revealed no acute intracranial abnormality. Patient was admitted to telemetry floor he was started on IV heparin, IV dexamethasone, inhaled bronchodilators, and IV fluid, cardiology consultation and pulmonary critical care consultation were requested. His past medical history is significant for history of hypertension, history of hyperlipidemia, history of COPD, history of pulmonary fibrosis, he also has a previous history of brain cancer and history of coronary artery disease with previous history of angioplasty and stent placement. On 02/24/2021 patient was seen and examined in the ICU, earlier this morning he had an episode of severe shortness of breath with decreased O2 sat duration, 18 was called, patient was transferred to ICU and was started on BiPAP. Currently he has improved, he is maintained on high flow oxygen he is alert responsive in no apparent distress he was evaluated by pulmonary and critical care his vital exam reveals a temperature of 98 pulse 84 respiration 23 blood pressure 135/89 pulse ox 93% on high flow cannula with FiO2 60% On 02/25/2021 patient was seen and examined in the ICU he is alert and oriented in no apparent distress vital examination reveals a temperature of 97.9 pulse 75 respiration 26 blood pressure 115/69 pulse ox 92% on high flow cannula with FiO2 of 80% his white blood count is 14.6 hemoglobin 11.3 platelet count 198 sodium 142 potassium 3.8 chloride 110 BUN 31 creatinine 1.47 LDH 776 C-reactive protein 78.1 d-dimer 0.91 On 02/26/2021 patient was seen and examined on the medical floor he is alert and oriented in no apparent distress vital examination reveals a temperature of 97.9 pulse 75 respiration 26 blood pressure 115/69 pulse ox 92% on high flow cannula with FiO2 of 80% his white blood count is 14.6 hemoglobin 11.3 platelet count 198 sodium 142 potassium 3.8 chloride 110 BUN 31 creatinine 1.47 LDH 776 C- reactive protein 78.1 d-dimer 0.91 On 02/27/2021 patient was seen and examined in the ICU he was transferred earlier this morning after he suddenly lost consciousness while trying to sit up. Patient is having more shortness of breath and worsening hypoxemia currently he is maintained on BiPAP 11/02 Fi 02 50% temperature is 97.6 pulse 55 respiration 31 blood pressure 123/61 also ox 96% patient condition is declining cardiology and pulmonary critical care are following Objective - Vital Signs Vital signs: Vital Signs Temp 98.0 F 02/27/21 04:01 Pulse 65 02/27/21 04:01 Resp 16 02/27/21 04:01 BP 112/67 02/27/21 04:01 Pulse Ox 99 02/27/21 04:01 Intake & Output 02/26/21 02/27/21 02/27/21 18:59 06:59 18:59 Output Total 1000 700 Balance -1000 -700 Weight 69.5 kg Output: Urine 1000 700 Other: Voiding Method Indwelling Catheter Indwelling Catheter # Voids 1 - Exam In general patient is alert and oriented 3 in no apparent distress HEENT head normocephalic and atraumatic Neck is supple no JVD no goiter no lymphadenopathy Chest exam reveals coarse crackles in both lung thomas with wheezing Cardiac exam reveals regular heart sounds no gallops no murmurs Abdomen is soft nontender no organomegaly with normal bowel sounds Extremity exam reveals no edema no cyanosis or clubbing Neurological examination reveals no gross focal deficit - Labs CBC & Chem 7: 02/27/21 09:13 02/27/21 09:13 Labs: Abnormal Lab Results - Last 24 Hours (Table) 02/26/21 02/26/21 02/26/21 Range/Units 12:22 16:49 19:55 POC Glucose (mg/dL) 158 H 164 H 203 H (75-99) mg/dL 02/27/21 Range/Units 06:26 POC Glucose (mg/dL) 116 H (75-99) mg/dL Microbiology - Last 24 Hours (Table) 02/22/21 18:35 Blood Culture - Preliminary Blood No Growth after 96 hours 02/22/21 18:20 Blood Culture - Preliminary Blood No Growth after 96 hours Assessment and Plan Plan: Acute Covid 19 infection with pneumonia Non-ST elevation myocardial infarction Worsening shortness of breath multifactorial related to Covid 19 pneumonia and underlying history of COPD and pulmonary fibrosis Underlying history of hypertension Underlying history of hyperlipidemia Underlying history of COPD Underlying history of coronary artery disease Previous history of brain cancer At this time patient is admitted to telemetry floor He was started on IV heparin and IV dexamethasone He was started on IV fluid Pulmonary consultation cardiology consultation and infectious disease consultation are requested Prognosis is guarded due to severity of illness advanced age and multiple underlying comorbidities
[2021-02-27] MEDS: ATORVASTATIN 40 MG TAB PO SCH (20:38)
[2021-02-27] MEDS: CHLORHEXIDINE GLUCONATE 15 ML CUP MUCOUS MEM SCH (20:38)
--- NOTE | 2021-02-27 23:04 | PN ---
PROGRESS NOTE DATE OF SERVICE: 02/27/2021 REASON FOR FOLLOWUP: Pneumonia. INTERVAL HISTORY: The patient did go into respiratory distress. Now the patient intubated. The patient did have some purulent secretions through the ET at the time of intubation per the nursing staff. The patient is currently on low-dose pressor support. FiO2 is currently 50%. No diarrhea has been reported. EXAMINATION: Blood pressure 105/53, pulse of 81, temperature 98, she is 97% on 50% FiO2. General description is an elderly male lying in bed in no distress. Respiratory system: Unlabored breathing, decreased breath sounds in the base. No wheeze. Heart S1, S2. Regular rate and rhythm. ABDOMEN: Soft, no tenderness. LABS: Hemoglobin is 13.5, white count 14.7, BUN of 43, creatinine 1.66. DIAGNOSTIC IMPRESSION AND PLAN: Patient with acute respiratory failure which is multifactorial in this patient with component of COVID-19 pneumonia also has possible aspiration. Sputum culture has been requested. Patient is covered with Zosyn to continue while monitoring his clinical course closely. Continue supportive care. MMODL / IJN: [id number] /
[2021-02-27 23:43] LABS: Glucose,Whole Blood 184 mg/dL (75-99)
[2021-02-28 03:50] LABS: Glucose,Whole Blood 179 mg/dL (75-99)
[2021-02-28] MEDS: INSULIN ASPART (NovoLOG) 100 UNIT/ML VIAL SQ SCH ×6 (03:53→23:55)
[2021-02-28] MEDS: PIPERACILLIN-TAZOBACTAM 3.375 GM in SODIUM CHLORIDE 0.9% 100 ML IVPB SCH ×3 (03:53→20:05)
[2021-02-28 04:02] LABS: Basophils % (A) 0 %; Eosinophils % (A) 0 %; Lymphocytes # (A) 0.2 k/uL (1.0-4.8); Lymphocytes % (A) 2 %; MCH 35.8 pg (25.0-35.0); MCHC 34.4 g/dL (31.0-37.0); MCV 104.3 fL (80.0-100.0); Macrocytosis Moderate; Mean Platelet Volume 9.6; Monocytes # (A) 0.3 k/uL (0-1.0); Monocytes % (A) 4 %; Neutrophils # (A) 8.2 k/uL (1.3-7.7); Neutrophils % (A) 94 %; Platelet Count 151 k/uL (150-450); RBC 3.06 m/uL (4.30-5.90); RDW 15.1 % (11.5-15.5); WBC 8.7 k/uL (3.8-10.6)
[2021-02-28 04:54] LABS: Albumin 2.8 g/dL (3.5-5.0); Calcium 8.1 mg/dL (8.4-10.2); Potassium 3.2 mmol/L (3.5-5.1); Total Bilirubin 1.3 mg/dL (0.2-1.3); Total Protein 5.2 g/dL (6.3-8.2)
[2021-02-28] MEDS: NOREPINEPHRINE 4 MG in SODIUM CHLORIDE 0.9% 250 ML IV SCH ×2 (04:58→18:55)
[2021-02-28 05:10] LABS: C Reactive Protein 212.3 mg/L (<10.0)
[2021-02-28] MEDS ORDERED: Potassium Replacement Protocol 1 EACH MISC MISCELLANE PRN (05:18)
[2021-02-28] MEDS: methylPREDNISolone SOD SUCCI 125 MG/2 ML VIAL IV SCH ×4 (05:51→23:55)
[2021-02-28 05:52] LABS: Allen Test Performed? Yes
[2021-02-28] MEDS: POTASSIUM BICARBONATE/CIT AC 20 MEQ TABLET.EFF NG-TUBE SCH ×5 (05:52→21:33)
[2021-02-28 05:53] LABS: ABG Base Excess 0.7 mmol/L; ABG HCO3 26 mmol/L (21-25); ABG PCO2 42 mmHg (35-45); ABG PH 7.39 (7.35-7.45); ABG PO2 94 mmHg (83-108); ABG TCO2 27 mmol/L (19-24)
[2021-02-28] MEDS: ALBUTEROL HFA INHALER INHALATION PRN ×4 (07:51→19:21)
[2021-02-28 08:04] LABS: Glucose,Whole Blood 259 mg/dL (75-99)
--- NOTE | 2021-02-28 09:13 | XR ---
EXAMINATION TYPE: XR chest 1V portable DATE OF EXAM: 02/28/2021 Comparison: 02/27/2021 Clinical History: 85-year-old male Tube placement Findings: ET tube satisfactory. NG tube sidehole at or just below the GE junction. Left subclavian CVC tip at t he cavoatrial junction. Patient is rotated toward the left. Heart normal size. Hyperinflation. Diffus e interstitial and patchy airspace opacities persist without significant change. No pleural effusion. Impression: COPD with continued diffuse bilateral interstitial lung disease and patchy infiltrates. Note that the NG tube sidehole is at or just below the GE junction. Consider further advancement into the stomach.
[2021-02-28] MEDS: CHLORHEXIDINE GLUCONATE 15 ML CUP MUCOUS MEM SCH ×2 (09:30→20:31)
[2021-02-28] MEDS: CLOPIDOGREL 75 MG TAB PO SCH (09:31)
[2021-02-28] MEDS: ASPIRIN 81 MG PO SCH (09:31)
[2021-02-28] MEDS: lamoTRIgine 25 MG TAB PO SCH ×2 (09:31→20:35)
[2021-02-28] MEDS: HEPARIN SODIUM,PORCINE/PF 5,000 UNIT/0.5 ML SYRINGE SQ SCH (09:31)
[2021-02-28] MEDS: AMIODARONE 200 MG TAB PO SCH (09:31)
[2021-02-28] MEDS: FUROSEMIDE 10 MG/ML 4 ML VIAL IV SCH ×2 (09:31→20:32)
[2021-02-28] MEDS: METOPROLOL SUCCINATE (ER) 50 MG TAB.ER.24H PO SCH (09:32)
[2021-02-28] MEDS: lisinopriL 5 MG TAB PO SCH (09:32)
--- NOTE | 2021-02-28 09:47 | PN ---
PROGRESS NOTE Shai is an 85-year-old gentleman who is admitted to hospital with COVID pneumonia. He has known coronary artery disease, paroxysmal atrial fibrillation, hypertension, dyslipidemia and dementia. He has LV systolic dysfunction. Following the sudden deterioration, he was transferred to ICU and subsequently had been intubated and is currently on a vent. At the time of my evaluation this morning, he is intubated on vent. Heart rate is 50 beats per minute, blood pressure is 125/65, respiratory rate is 30. This is a limited physical exam secondary to COVID. LABS: Labs showed a hemoglobin of 11, platelet count is 150. Blood gases show a pH of 7.4, pCO2 of 42, pO2 of 94. Potassium is low at 3.2. BUN is 53, creatinine is 1.58. ASSESSMENT: 1. COVID pneumonia with vent requiring respiratory failure. 2. Paroxysmal atrial fibrillation. 3. Coronary artery disease. 4. Cardiomyopathy. PLAN: Patient will continue the current medications including aspirin, Lipitor, Plavix, IV Lasix, Zestril, Toprol-XL, along with the antibiotics. MMODL / IJN: [id number] /
[2021-02-28 12:00] LABS: Glucose,Whole Blood 249 mg/dL (75-99)
--- NOTE | 2021-02-28 13:09 | P.PN ---
Subjective Progress Note Date: 02/28/21 Principal diagnosis: Acute hypoxemic respiratory failure secondary to CoVID 19 pneumonia, COPD, underlying pulmonary fibrosis, systolic congestive heart failure with ejection fraction 20% 85-year-old male patient was hospitalized because of worsening shortness of breath. The patient came into the ED, he was febrile, tachycardic and tachypneic and he was quite hypoxic and he was immediately placed on high flow oxygen at 15 L per minute nasal cannula. His chest x-ray showed diffuse bilateral pulmonary infiltrates consistent with COVID 19-related pneumonia. He is checked positive for COVID 19. The patient is extremely demented. The patient is a very poor historian. He cannot provide any history and he has no insight on his condition. Is quite contracted his lower extremities bilaterally. He was found to be significantly hypoxic in the emergency department. He was placed on a nonrebreather and currently is on 15 L of oxygen by nasal cannula and his pulse ox is around 92%. Upon arrival to the floor, he was still hypotensive and he was given a bolus of IV fluid 1 L and his blood pressure improved after that. He had a high lactic acid level which was as high as 5.1 and it started to improve and is down to 3.6. Data troponin level of 0.11. Chest x-ray showed diffuse but the pulmonary infiltrates and edema and pleural effusion. Following that, he was given a CT angiogram in the emergency department, no pulmonary embolism, bilateral pleural effusion, bilateral consolidation airspace disease most on the lung bases bilaterally. EKG showing a sinus rhythm, first-degree AV block, left bundle branch block pattern. His previous cardiac status is not known. Echocardiogram needs to be completed. Based on the history, he has an extensive history of CAD, COPD, pulmonary fibrosis and previous history of brain cancer in addition to CAD, angioplasty, s tenting. As far as the exact timing of his symptoms related to Covid 19 is not known. He is a very poor historian. He is currently on Decadron. He is resting comfortably in bed for now. His creatinine is at 1.25 Patient was reevaluated today on 02/24/2021, remains in the intensive care unit, he is on BiPAP with IPAP of 12 and EPAP of 500% FiO2, seems to be comfortable, not in any distress, had difficulty with communication mostly because his previous history of brain surgery/craniotomy. Apparently the patient has a multifactorial reason for his acute hypoxic respiratory failure, he has severe LV dysfunction with ejection fraction of 20%, possible myocarditis. He is out of the window for remdesivir, he has underlying COPD, and he had a non-ST elevation myocardial infarction there is also questionable sepsis on admission. Hence we are holding on giving the patient actemra for now. Sugars are pending WBC count today is 17.9 electrolytes are normal renal profile showed BUN of 21 creatinine 1.37 C-reactive protein is 58 LDH is 831. Pro-calcitonin is 3.12, quite elevated. Blood cultures remain negative so far. Patient was reevaluated today on 02/25/2021, remains in the ICU, remains on 15 L flow and 80% FiO2, surprisingly the patient does not seem to be in any distress, chest x-ray continues to show diffuse interstitial infiltrates with underlying pulmonary fibrosis and possibly some component of pneumonia and pulmonary edema. Patient remains on Lasix remains on Decadron and Zosyn was added. Surprisingly the patient seems to be quite comfortable on the present FiO2 settings, hence I plan to transfer the patient today out of the ICU to a cardiac floor. CBC count today is 14.6 hemoglobin is 11.3 left lites are normal renal profile showed slight worsening of his creatinine up to 1.47 BUN is 31. Chest x-ray as noted above. Inflammatory markers are trending down LDH is 776 and C-reactive protein is 78. Patient was reevaluated today on 02/26/2021, he is presently on the cardiac floor, does not seem to be in any distress, patient is a poor historian, seems to be confused. Her main is on high flow at 70% FiO2 and 60 L flow of oxygen. His O2 saturations 90%. Patient again cannot tell me how [place] except he tells me he is doing better. WBC count today is 14.6 hemoglobin is 11.3. Intellect lites are normal renal profile is slightly worse with a BUN of 31 creatinine 1.47. Inflammatory markers were noted yesterday to remain elevated with LDH of 776, and his C-reactive protein 78. Rest x-ray today shows diffuse increased lung markings compatible with atypical pneumonia. Underlying bacterial pneumonia and underlying CHF is not entirely ruled out The patient was seen today 02/27/2021 in follow-up in the intensive care unit. Earlier this morning he continued to decompensate with worsening hypoxemia despite being on BiPAP / and 90% FiO2 was transferred to the ICU. Blood gases revealed a PaO2 of 56, pCO2 37, pH 7.44. He was in significant respiratory distress. Staff had spoken to the patient and his who both in agreement to be on life support if necessary. He remains a full code. Chest x- ray continues to revealed diffuse scattered infiltrates bilaterally worsening needing compared to previous. The cultures reveal no growth. White count 14.7. Hemoglobin 13.3. Lymphocytes 0.4. Sodium 145. Potassium 3.7. Creatinine 1 .66. He did require intubation and mechanical ventilatory support. Currently on assist control mode at a rate of 20, tidal volume 400, FiO2 100% and a PEEP of 10. Low blood gases revealed a pO2 of 257, pCO2 43 pH 7.43 and his FiO2 was decreased to 50%. He remains on Lasix 40 mg IV every 12 hours, dexamethasone, performed for DVT prophylaxis. Antibiotics in the form of Zosyn. The patient is seen today 02/28/2021 in follow-up in the intensive care unit. He remains intubated on the mechanical ventilator and assist control mode. Rate of 20, tidal volume 400, FiO2 50%, PEEP of 10. He is sedated on propofol 50 mcg/kg/m, norepinephrine at 0.06 mg/kg/m, 0.9 normal saline at 50 MLS per hour. He is being nourished with Vital HP at 30 ML's per hour. Currently on IV Solu- Medrol, subcu heparin, Zosyn. This x-ray continue reveals evidence of COPD with continued diffuse bilateral interstitial disease and patchy infiltrates. Blood culture reveals no growth. Sputum culture pending. White count 8.7. Hemoglobin 11.0. Platelets 151. D-dimer 3.98. Sodium 144. Potassium 3.2. Creatinine 1.58. LDH 1104. C-reactive protein 212. Objective - Vital Signs Vital signs: Vital Signs Temp 98 F 02/28/21 12:00 Pulse 56 L 02/28/21 12:30 Resp 31 H 02/28/21 12:30 BP 75/47 02/28/21 12:30 Pulse Ox 93 L 02/28/21 12:30 Intake & Output 02/27/21 02/28/21 02/28/21 18:59 06:59 18:59 Intake Total 363 1311.845 719.082 Output Total 440 590 215 Balance -77 721.845 504.082 Weight 69.5 kg 70 kg 70 kg Intake: IV 183 376 195 0.9 JELANI 3 36 15 Piperacillin-Tazobactam 3 100 .375 gm In Sodium Chloride 0.9% 100 ml @ 25 mls/hr IVPB Q8H [facility] Rx#: [id number] Sodium Chloride 0.9% 1, 180 240 180 000 ml @ 20 mls/hr IV . Q24H [facility] Rx#:[id number] Intake, IV Titration 100 535.845 344.082 Amount Norepinephrine 4 mg In 256.118 185.492 Sodium Chloride 0.9% 250 ml @ 0.05 MCG/KG/MIN 13. 24 mls/hr IV .[id number] [facility] Rx#:[id number] propofoL 1,000 mg In 100 279.727 158.59 Empty Bag 1 bag @ Titrate IV .Q0M [facility] Rx#: [id number] Tube Feeding 80 310 150 Other 90 30 Output: Urine 440 590 215 Other: Voiding Method Indwelling Catheter Indwelling Catheter Indwelling Catheter ABP, PAP, CO, CI - Last Documented Arterial Blood Pressure 115/49 - Exam GENERAL EXAM: Intubated, sedated, frail, cachectic 85-year-old gentleman, comf ortable in no apparent distress. HEAD: Normocephalic. EYES: Normal reaction of pupils, equal size. NOSE: Clear with pink turbinates. THROAT: No erythema or exudates. NECK: No masses, no JVD. CHEST: No chest wall deformity. LUNGS: Equal air entry with lateral scattered rhonchi, coarse crackles.. CVS: S1 and S2 normal with no audible murmur, regular rhythm. ABDOMEN: No hepatosplenomegaly, normal bowel sounds, no guarding or rigidity. SPINE: No scoliosis or deformity SKIN: No rashes CENTRAL NERVOUS SYSTEM: Sedated, tone is normal in all 4 extremities. EXTREMITIES: There is no peripheral edema. No clubbing, no cyanosis. Peripheral pulses are intact. - Labs CBC & Chem 7: 02/28/21 03:40 02/28/21 03:40 Labs: Abnormal Lab Results - Last 24 Hours (Table) 02/27/21 02/27/21 02/28/21 Range/Units 18:30 23:40 03:40 RBC 3.06 L (4.30-5.90) m/uL Hgb 11.0 L (13.0-17.5) gm/dL Hct 32.0 L (39.0-53.0) % MCV 104.3 H (80.0-100.0) fL MCH 35.8 H (25.0-35.0) pg Neutrophils # 8.2 H (1.3-7.7) k/uL Lymphocytes # 0.2 L (1.0-4.8) k/uL D-Dimer (<0.60) mg/L FEU ABG HCO3 (21-25) mmol/L ABG Total CO2 (19-24) mmol/L Potassium (3.5-5.1) mmol/L Chloride (98-107) mmol/L BUN (9-20) mg/dL Creatinine (0.66-1.25) mg/dL Glucose (74-99) mg/dL POC Glucose (mg/dL) 194 H 184 H (75-99) mg/dL Calcium (8.4-10.2) mg/dL Lactate Dehydrogenase (313-618) U/L C-Reactive Protein (<10.0) mg/L Total Protein (6.3-8.2) g/dL Albumin (3.5-5.0) g/dL 02/28/21 02/28/21 02/28/21 Range/Units 03:40 03:40 03:48 RBC (4.30-5.90) m/uL Hgb (13.0-17.5) gm/dL Hct (39.0-53.0) % MCV (80.0-100.0) fL MCH (25.0-35.0) pg Neutrophils # (1.3-7.7) k/uL Lymphocytes # (1.0-4.8) k/uL D-Dimer 3.98 H (<0.60) mg/L FEU ABG HCO3 (21-25) mmol/L ABG Total CO2 (19-24) mmol/L Potassium 3.2 L (3.5-5.1) mmol/L Chloride 109 H (98-107) mmol/L BUN 53 H (9-20) mg/dL Creatinine 1.58 H (0.66-1.25) mg/dL Glucose 189 H (74-99) mg/dL POC Glucose (mg/dL) 179 H (75-99) mg/dL Calcium 8.1 L (8.4-10.2) mg/dL Lactate Dehydrogenase 1104 H (313-618) U/L C-Reactive Protein 212.3 H (<10.0) mg/L Total Protein 5.2 L (6.3-8.2) g/dL Albumin 2.8 L (3.5-5.0) g/dL 02/28/21 02/28/21 02/28/21 Range/Units 05:40 08:02 11:59 RBC (4.30-5.90) m/uL Hgb (13.0-17.5) gm/dL Hct (39.0-53.0) % MCV (80.0-100.0) fL MCH (25.0-35.0) pg Neutrophils # (1.3-7.7) k/uL Lymphocytes # (1.0-4.8) k/uL D-Dimer (<0.60) mg/L FEU ABG HCO3 26 H (21-25) mmol/L ABG Total CO2 27 H (19-24) mmol/L Potassium (3.5-5.1) mmol/L Chloride (98-107) mmol/L BUN (9-20) mg/dL Creatinine (0.66-1.25) mg/dL Glucose (74-99) mg/dL POC Glucose (mg/dL) 259 H 249 H (75-99) mg/dL Calcium (8.4-10.2) mg/dL Lactate Dehydrogenase (313-618) U/L C-Reactive Protein (<10.0) mg/L Total Protein (6.3-8.2) g/dL Albumin (3.5-5.0) g/dL Microbiology - Last 24 Hours (Table) 02/27/21 21:25 Gram Stain - Preliminary Sputum Sputum Culture - Preliminary 02/22/21 18:20 Blood Culture - Preliminary Blood No Growth after 120 hours 02/22/21 18:35 Blood Culture - Preliminary Blood No Growth after 120 hours Assessment and Plan Assessment: 1 Acute hypoxic respiratory failure, multifactorial with progression and subse quent intubation mechanical ventilation on 02/27/2001. 2 Acute covid 19 pneumonitis. 3 Acute exacerbation of COPD. 4 Possible underlying interstitial lung disease/pulmonary fibrosis. 5 Acute systolic congestive heart failure with ejection fraction of 20%. 6 Acute non-ST elevation myocardial infarction. 7 History of dementia. 8 History of craniotomy 9 Extreme medical debility. 10 Non aniron gap metabolic acidosis 11 History of brain tumor and previous craniotomy. 12 Acute kidney injury, creatinine is 1.66 today. Yamilet: The patient was seen and evaluated by Dr. Arias Chest x-ray, ABGs and labs reviewed PEEP decreased 8. Flow increased to 70. Continue Zosyn, bronchodilators Continue IV diuretics Continue IV Solu-Medrol Discontinue subcu heparin and initiated Lovenox Prognosis is guarded and poor We'll continue to follow and make further recommendations based on his clinical status Critical care time 38 minutes I, the cosigning physician, performed a history & physical examination of the patient. Lungs sounds I lateral scattered rhonchi, crackles. Maintaining good O2 saturations in the 90s on 50% FiO2 via the mechanical ventilator. I discussed the assessment and plan of care with my nurse practitioner, Herminia Millard. I attest to the above note as dictated by her.
--- NOTE | 2021-02-28 14:34 | P.PN ---
Subjective Progress Note Date: 02/28/21 Shai Vaca, is an 85-year-old male who presented to [facility] emergency room with a chief complaint of worsening shortness of breath, patient's called EMS because patient was having difficulty breathing. Patient was evaluated in the emergency room vital examination on presentation revealed a temperature of 102 pulse 122 respiration 14 blood pressure 185/123 and pulse ox 92% on 15 L nonrebreather mask, laboratory data revealed a white blood count of 8.7 hemoglobin 15.1 platelet count 303 d-dimer was elevated at 2.5 to BUN 11 creatinine 1.25 lactic acid was elevated at 3.6 and a troponin level was elevated at 0.11 chest x-ray on presentation revealed diffuse opacities possibly related to ARDS pulmonary edema or infection, [place] of virus PCR was positive, CT angiogram of the chest was negative for pulmonary embolism however it revealed bilateral diffuse dependent opacities possibly related to pneumonia with a small pleural effusions, EKG was done in the emergency room and revealed sinus tachycardia with first-degree AV block and incomplete left bundle branch block and ST and T-wave abnormalities suggestive of lateral ischemia. Computed tomography scan of the brain done in the emergency room revealed no acute intracranial abnormality. Patient was admitted to telemetry floor he was started on IV heparin, IV dexamethasone, inhaled bronchodilators, and IV fluid, cardiology consultation and pulmonary critical care consultation were requested. His past medical history is significant for history of hypertension, history of hyperlipidemia, history of COPD, history of pulmonary fibrosis, he also has a previous history of brain cancer and history of coronary artery disease with previous history of angioplasty and stent placement. On 02/24/2021 patient was seen and examined in the ICU, earlier this morning he had an episode of severe shortness of breath with decreased O2 sat duration, 18 was called, patient was transferred to ICU and was started on BiPAP. Currently he has improved, he is maintained on high flow oxygen he is alert responsive in no apparent distress he was evaluated by pulmonary and critical care his vital exam reveals a temperature of 98 pulse 84 respiration 23 blood pressure 135/89 pulse ox 93% on high flow cannula with FiO2 60% On 02/25/2021 patient was seen and examined in the ICU he is alert and oriented in no apparent distress vital examination reveals a temperature of 97.9 pulse 75 respiration 26 blood pressure 115/69 pulse ox 92% on high flow cannula with FiO2 of 80% his white blood count is 14.6 hemoglobin 11.3 platelet count 198 sodium 142 potassium 3.8 chloride 110 BUN 31 creatinine 1.47 LDH 776 C-reactive protein 78.1 d-dimer 0.91 On 02/26/2021 patient was seen and examined on the medical floor he is alert and oriented in no apparent distress vital examination reveals a temperature of 97.9 pulse 75 respiration 26 blood pressure 115/69 pulse ox 92% on high flow cannula with FiO2 of 80% his white blood count is 14.6 hemoglobin 11.3 platelet count 198 sodium 142 potassium 3.8 chloride 110 BUN 31 creatinine 1.47 LDH 776 C- reactive protein 78.1 d-dimer 0.91 On 02/27/2021 patient was seen and examined in the ICU he was transferred earlier this morning after he suddenly lost consciousness while trying to sit up. Patient is having more shortness of breath and worsening hypoxemia currently he is maintained on BiPAP 11/02 Fi 02 50% temperature is 97.6 pulse 55 respiration 31 blood pressure 123/61 also ox 96% patient condition is declining cardiology and pulmonary critical care are following. On 02/28/2021 patient was seen and examined in the ICU he is intubated sedated maintained on mechanical ventilation currently he is on FiO2 of 50% with a PEEP of 8 he is on the low dose vasopressors, white blood count today is 8.7 hemoglobin 11.1 platelet count 151 arterial blood gas reveals a pH of 7.39 pCO2 42 PO2 94 Objective - Vital Signs Vital signs: Vital Signs Temp 97.5 F L 02/28/21 00:00 Pulse 50 L 02/28/21 07:00 Resp 31 H 02/28/21 07:00 BP 125/65 02/28/21 07:00 Pulse Ox 96 02/28/21 06:30 Intake & Output 02/27/21 02/28/21 02/28/21 18:59 06:59 18:59 Intake Total 363 1311.845 53 Output Total 440 590 35 Balance -77 721.845 18 Weight 69.5 kg 70 kg Intake: IV 183 376 23 0.9 JELANI 3 36 3 Piperacillin-Tazobactam 3 100 .375 gm In Sodium Chloride 0.9% 100 ml @ 25 mls/hr IVPB Q8H [facility] Rx#: [id number] Sodium Chloride 0.9% 1, 180 240 20 000 ml @ 20 mls/hr IV . Q24H [facility] Rx#:[id number] Intake, IV Titration 100 535.845 Amount Norepinephrine 4 mg In 256.118 Sodium Chloride 0.9% 250 ml @ 0.05 MCG/KG/MIN 13. 24 mls/hr IV .[id number] [facility] Rx#:[id number] propofoL 1,000 mg In 100 279.727 Empty Bag 1 bag @ Titrate IV .Q0M [facility] Rx#: [id number] Tube Feeding 80 310 30 Other 90 Output: Urine 440 590 35 Other: Voiding Method Indwelling Catheter Indwelling Catheter Indwelling Catheter ABP, PAP, CO, CI - Last Documented Arterial Blood Pressure 129/55 - Exam In general patient is intubated sedated maintained on mechanical ventilation HEENT head normocephalic and atraumatic Neck is supple no JVD no goiter no lymphadenopathy Chest exam reveals coarse crackles in both lung thomas with wheezing Cardiac exam reveals regular heart sounds no gallops no murmurs Abdomen is soft nontender no organomegaly with normal bowel sounds Extremity exam reveals no edema no cyanosis or clubbing Neurological examination reveals no gross focal deficit - Labs CBC & Chem 7: 02/28/21 03:40 02/28/21 03:40 Labs: Abnormal Lab Results - Last 24 Hours (Table) 02/27/21 02/27/21 02/27/21 Range/Units 10:59 12:50 18:30 RBC (4.30-5.90) m/uL Hgb (13.0-17.5) gm/dL Hct (39.0-53.0) % MCV (80.0-100.0) fL MCH (25.0-35.0) pg Neutrophils # (1.3-7.7) k/uL Lymphocytes # (1.0-4.8) k/uL D-Dimer (<0.60) mg/L FEU ABG pO2 257 H (83-108) mmHg ABG HCO3 28 H (21-25) mmol/L ABG Total CO2 29 H (19-24) mmol/L ABG O2 Saturation 99.5 H (94-97) % Potassium (3.5-5.1) mmol/L Chloride (98-107) mmol/L BUN (9-20) mg/dL Creatinine (0.66-1.25) mg/dL Glucose (74-99) mg/dL POC Glucose (mg/dL) 156 H 194 H (75-99) mg/dL Calcium (8.4-10.2) mg/dL Lactate Dehydrogenase (313-618) U/L C-Reactive Protein (<10.0) mg/L Total Protein (6.3-8.2) g/dL Albumin (3.5-5.0) g/dL 02/27/21 02/28/21 02/28/21 Range/Units 23:40 03:40 03:40 RBC 3.06 L (4.30-5.90) m/uL Hgb 11.0 L (13.0-17.5) gm/dL Hct 32.0 L (39.0-53.0) % MCV 104.3 H (80.0-100.0) fL MCH 35.8 H (25.0-35.0) pg Neutrophils # 8.2 H (1.3-7.7) k/uL Lymphocytes # 0.2 L (1.0-4.8) k/uL D-Dimer 3.98 H (<0.60) mg/L FEU ABG pO2 (83-108) mmHg ABG HCO3 (21-25) mmol/L ABG Total CO2 (19-24) mmol/L ABG O2 Saturation (94-97) % Potassium (3.5-5.1) mmol/L Chloride (98-107) mmol/L BUN (9-20) mg/dL Creatinine (0.66-1.25) mg/dL Glucose (74-99) mg/dL POC Glucose (mg/dL) 184 H (75-99) mg/dL Calcium (8.4-10.2) mg/dL Lactate Dehydrogenase (313-618) U/L C-Reactive Protein (<10.0) mg/L Total Protein (6.3-8.2) g/dL Albumin (3.5-5.0) g/dL 02/28/21 02/28/21 02/28/21 Range/Units 03:40 03:48 05:40 RBC (4.30-5.90) m/uL Hgb (13.0-17.5) gm/dL Hct (39.0-53.0) % MCV (80.0-100.0) fL MCH (25.0-35.0) pg Neutrophils # (1.3-7.7) k/uL Lymphocytes # (1.0-4.8) k/uL D-Dimer (<0.60) mg/L FEU ABG pO2 (83-108) mmHg ABG HCO3 26 H (21-25) mmol/L ABG Total CO2 27 H (19-24) mmol/L ABG O2 Saturation (94-97) % Potassium 3.2 L (3.5-5.1) mmol/L Chloride 109 H (98-107) mmol/L BUN 53 H (9-20) mg/dL Creatinine 1.58 H (0.66-1.25) mg/dL Glucose 189 H (74-99) mg/dL POC Glucose (mg/dL) 179 H (75-99) mg/dL Calcium 8.1 L (8.4-10.2) mg/dL Lactate Dehydrogenase 1104 H (313-618) U/L C-Reactive Protein 212.3 H (<10.0) mg/L Total Protein 5.2 L (6.3-8.2) g/dL Albumin 2.8 L (3.5-5.0) g/dL 02/28/21 Range/Units 08:02 RBC (4.30-5.90) m/uL Hgb (13.0-17.5) gm/dL Hct (39.0-53.0) % MCV (80.0-100.0) fL MCH (25.0-35.0) pg Neutrophils # (1.3-7.7) k/uL Lymphocytes # (1.0-4.8) k/uL D-Dimer (<0.60) mg/L FEU ABG pO2 (83-108) mmHg ABG HCO3 (21-25) mmol/L ABG Total CO2 (19-24) mmol/L ABG O2 Saturation (94-97) % Potassium (3.5-5.1) mmol/L Chloride (98-107) mmol/L BUN (9-20) mg/dL Creatinine (0.66-1.25) mg/dL Glucose (74-99) mg/dL POC Glucose (mg/dL) 259 H (75-99) mg/dL Calcium (8.4-10.2) mg/dL Lactate Dehydrogenase (313-618) U/L C-Reactive Protein (<10.0) mg/L Total Protein (6.3-8.2) g/dL Albumin (3.5-5.0) g/dL Microbiology - Last 24 Hours (Table) 02/27/21 21:25 Sputum Culture - Preliminary Sputum 02/22/21 18:20 Blood Culture - Preliminary Blood No Growth after 120 hours 02/22/21 18:35 Blood Culture - Preliminary Blood No Growth after 120 hours Assessment and Plan Plan: Acute Covid 19 infection with pneumonia Non-ST elevation myocardial infarction Worsening shortness of breath multifactorial related to Covid 19 pneumonia and underlying history of COPD and pulmonary fibrosis Underlying history of hypertension Underlying history of hyperlipidemia Underlying history of COPD Underlying history of coronary artery disease Previous history of brain cancer At this time patient is admitted to telemetry floor He was started on IV heparin and IV dexamethasone He was started on IV fluid Pulmonary consultation cardiology consultation and infectious disease consultation are requested Prognosis is guarded due to severity of illness advanced age and multiple underlying comorbidities
[2021-02-28 16:01] LABS: Glucose,Whole Blood 171 mg/dL (75-99)
[2021-02-28] MEDS: CHOLECALCIFEROL 25 MCG (1000 IU) TABLET PO SCH (16:54)
[2021-02-28] MEDS: ASCORBIC ACID 500 MG TAB PO SCH (16:54)
[2021-02-28] MEDS: ZINC SULFATE 220 MG CAP PO SCH (16:58)
--- NOTE | 2021-02-28 17:16 | PN ---
PROGRESS NOTE DATE OF SERVICE: 02/28/2021 REASON FOR FOLLOWUP: Pneumonia. INTERVAL HISTORY: The patient remains afebrile. The patient is hemodynamically stable, not on any pressor support. The patient remains on the vent. FiO2 is currently 50%. No significant purulent secretions in the ET or any diarrhea reported by the nursing staff. PHYSICAL EXAMINATION: Blood pressure 113/67, pulse of 53, temperature 98. He is 94% on 50% FiO2. General description is an elderly male lying in bed in no distress. RESPIRATORY SYSTEM: Unlabored breathing with decreased breath sounds at the base. No wheeze. HEART: S1, S2. Regular rate and rhythm. ABDOMEN: Soft. No tenderness. LABS: Hemoglobin is 11, white count 8.7, BUN of 53, creatinine 1.58. LDH, CRP remain elevated. Sputum culture is pending. Blood culture is pending. DIAGNOSTIC IMPRESSION AND PLAN: Patient with acute respiratory failure which is multifactorial in this patient with a possible component of aspiration pneumonia and is currently covered with Zosyn in addition to the Solu-Medrol, Lovenox, zinc for possible COVID pneumonia. Overall prognosis remains guarded. Sputum culture will be followed and antibiotic adjusted further if needed. MMODL / IJN: [id number] / WANDER
[2021-02-28 20:10] LABS: Glucose,Whole Blood 125 mg/dL (75-99)
[2021-02-28] MEDS: ATORVASTATIN 40 MG TAB PO SCH (20:31)
[2021-02-28] MEDS: INSULIN DETEMIR (LEVEMIR) 100 UNIT/ML SYR SQ SCH (20:35)
[2021-02-28 23:48] LABS: Glucose,Whole Blood 162 mg/dL (75-99)
[2021-03-01] MEDS: NOREPINEPHRINE 4 MG in SODIUM CHLORIDE 0.9% 250 ML IV SCH (02:57)
[2021-03-01] MEDS: PIPERACILLIN-TAZOBACTAM 3.375 GM in SODIUM CHLORIDE 0.9% 100 ML IVPB SCH ×3 (03:40→20:59)
[2021-03-01 03:46] LABS: Glucose,Whole Blood 184 mg/dL (75-99)
[2021-03-01] MEDS: INSULIN ASPART (NovoLOG) 100 UNIT/ML VIAL SQ SCH ×5 (04:07→20:59)
[2021-03-01 04:11] LABS: Basophils % (A) 0 %; Eosinophils % (A) 0 %; HCT 32.7 % (39.0-53.0); HGB 11.1 gm/dL (13.0-17.5); Lymphocytes # (A) 0.1 k/uL (1.0-4.8); Lymphocytes % (A) 1 %; MCH 35.5 pg (25.0-35.0); MCHC 33.9 g/dL (31.0-37.0); MCV 104.7 fL (80.0-100.0); Macrocytosis Moderate; Mean Platelet Volume 9.8; Monocytes # (A) 0.6 k/uL (0-1.0); Monocytes % (A) 4 %; Neutrophils # (A) 15.8 k/uL (1.3-7.7); Neutrophils % (A) 95 %; Platelet Count 159 k/uL (150-450); RBC 3.12 m/uL (4.30-5.90); WBC 16.6 k/uL (3.8-10.6)
[2021-03-01 04:29] LABS: Albumin 2.7 g/dL (3.5-5.0); Calcium 7.9 mg/dL (8.4-10.2); Total Bilirubin 0.9 mg/dL (0.2-1.3)
[2021-03-01 04:52] LABS: C Reactive Protein 148.5 mg/L (<10.0)
[2021-03-01 05:14] LABS: ABG Base Excess 4.7 mmol/L; ABG HCO3 29 mmol/L (21-25); ABG PCO2 44 mmHg (35-45); ABG PH 7.43 (7.35-7.45); ABG PO2 73 mmHg (83-108); ABG TCO2 30 mmol/L (19-24); Allen Test Performed? Yes
[2021-03-01] MEDS: methylPREDNISolone SOD SUCCI 125 MG/2 ML VIAL IV SCH ×3 (06:35→17:21)
--- NOTE | 2021-03-01 06:48 | XR ---
EXAMINATION TYPE: XR chest 1V portable DATE OF EXAM: 03/01/2021 COMPARISON: 02/28/2021 HISTORY: Tube placement TECHNIQUE: Single frontal view of the chest is obtained. FINDINGS: There is an ET tube approximately 5.7 cm above the tanya. There is an NG tube in stomach. There is a central line in the SVC/RA junction. The diffuse marked interstitial opacity is again seen and is unchanged consistent with acute edema an d vascular congestion. There is no pneumothorax or large pleural effusion. Heart size is normal. IMPRESSION: 1. ET tube 5.7 cm above the tanya. No change in the NG tube or left central line catheter. 2. No change in the diffuse interstitial opacity.
[2021-03-01] MEDS: ALBUTEROL HFA INHALER INHALATION PRN ×4 (07:37→19:32)
[2021-03-01] MEDS: ASPIRIN 81 MG PO SCH (08:02)
[2021-03-01] MEDS: ZINC SULFATE 220 MG CAP PO SCH (08:03)
[2021-03-01] MEDS: ENOXAPARIN 40 MG/0.4 ML SYRINGE SQ SCH (08:03)
[2021-03-01] MEDS: CHLORHEXIDINE GLUCONATE 15 ML CUP MUCOUS MEM SCH ×2 (08:03→20:58)
[2021-03-01] MEDS: CLOPIDOGREL 75 MG TAB PO SCH (08:03)
[2021-03-01] MEDS: AMIODARONE 200 MG TAB PO SCH (08:03)
[2021-03-01] MEDS: ASCORBIC ACID 500 MG TAB PO SCH (08:03)
[2021-03-01] MEDS: FUROSEMIDE 10 MG/ML 4 ML VIAL IV SCH ×2 (08:03→20:59)
[2021-03-01] MEDS: CHOLECALCIFEROL 25 MCG (1000 IU) TABLET PO SCH (08:03)
[2021-03-01] MEDS: METOPROLOL SUCCINATE (ER) 50 MG TAB.ER.24H PO SCH (08:06)
[2021-03-01] MEDS: lisinopriL 5 MG TAB PO SCH (08:06)
[2021-03-01] MEDS: lamoTRIgine 25 MG TAB PO SCH ×2 (08:06→21:30)
[2021-03-01 08:28] LABS: Glucose,Whole Blood 178 mg/dL (75-99)
[2021-03-01 11:50] LABS: Glucose,Whole Blood 224 mg/dL (75-99)
--- NOTE | 2021-03-01 12:14 | P.PN ---
Subjective Progress Note Date: 03/01/21 This is an 85-year-old gentleman was admitted to the hospital with copious pneumonia. As a known history of CAD, paroxysmal atrial fibrillation, hypertension, dyslipidemia and dementia. He has known LV systolic dysfunction. Troponins were elevated and peaked at 6.4. Patient remains in the intensive car e unit intubated and on mechanical ventilator. He is maintaining sinus mechanism. He remains on a small dose of Levophed. Objective - Vital Signs Vital signs: Vital Signs Temp 98.4 F 03/01/21 08:00 Pulse 62 03/01/21 10:30 Resp 35 H 03/01/21 10:30 BP 104/59 03/01/21 10:30 Pulse Ox 95 03/01/21 10:30 Intake & Output 02/28/21 03/01/21 03/01/21 18:59 06:59 18:59 Intake Total 6070.126 0244.330 619 Output Total 485 710 580 Balance 1044.052 912.330 39 Weight 70 kg 72.3 kg Intake: IV 496 616 258 0.9 JELANI 36 36 18 Piperacillin-Tazobactam 3 100 .375 gm In Sodium Chloride 0.9% 100 ml @ 25 mls/hr IVPB Q8H [facility] Rx#: [id number] Sodium Chloride 0.9% 1, 460 480 240 000 ml @ 20 mls/hr IV . Q24H [facility] Rx#:[id number] Intake, IV Titration 557.052 357.330 Amount Norepinephrine 4 mg In 251.882 145.330 Sodium Chloride 0.9% 250 ml @ 0.05 MCG/KG/MIN 13. 24 mls/hr IV .[id number] [facility] Rx#:[id number] propofoL 1,000 mg In 305.17 212 Empty Bag 1 bag @ Titrate IV .Q0M [facility] Rx#: [id number] Tube Feeding 416 559 301 Other 60 90 60 Output: Urine 485 710 580 Other: Voiding Method Indwelling Catheter Indwelling Catheter Indwelling Catheter ABP, PAP, CO, CI - Last Documented Arterial Blood Pressure 117/44 - Exam Physical examination was deferred secondary to COVID-19 - Labs CBC & Chem 7: 03/01/21 03:40 03/01/21 03:40 Labs: Abnormal Lab Results - Last 24 Hours (Table) 02/28/21 02/28/21 02/28/21 Range/Units 15:49 17:31 20:08 WBC (3.8-10.6) k/uL RBC (4.30-5.90) m/uL Hgb (13.0-17.5) gm/dL Hct (39.0-53.0) % MCV (80.0-100.0) fL MCH (25.0-35.0) pg Neutrophils # (1.3-7.7) k/uL Lymphocytes # (1.0-4.8) k/uL D-Dimer (<0.60) mg/L FEU ABG pO2 (83-108) mmHg ABG HCO3 (21-25) mmol/L ABG Total CO2 (19-24) mmol/L Sodium (137-145) mmol/L Potassium 2.9 L (3.5-5.1) mmol/L Chloride (98-107) mmol/L BUN (9-20) mg/dL Creatinine (0.66-1.25) mg/dL Glucose (74-99) mg/dL POC Glucose (mg/dL) 171 H 125 H (75-99) mg/dL Calcium (8.4-10.2) mg/dL Lactate Dehydrogenase (313-618) U/L C-Reactive Protein (<10.0) mg/L Total Protein (6.3-8.2) g/dL Albumin (3.5-5.0) g/dL 02/28/21 03/01/21 03/01/21 Range/Units 23:47 03:40 03:40 WBC 16.6 H (3.8-10.6) k/uL RBC 3.12 L (4.30-5.90) m/uL Hgb 11.1 L (13.0-17.5) gm/dL Hct 32.7 L (39.0-53.0) % MCV 104.7 H (80.0-100.0) fL MCH 35.5 H (25.0-35.0) pg Neutrophils # 15.8 H (1.3-7.7) k/uL Lymphocytes # 0.1 L (1.0-4.8) k/uL D-Dimer (<0.60) mg/L FEU ABG pO2 (83-108) mmHg ABG HCO3 (21-25) mmol/L ABG Total CO2 (19-24) mmol/L Sodium 146 H (137-145) mmol/L Potassium (3.5-5.1) mmol/L Chloride 108 H (98-107) mmol/L BUN 65 H (9-20) mg/dL Creatinine 1.58 H (0.66-1.25) mg/dL Glucose 188 H (74-99) mg/dL POC Glucose (mg/dL) 162 H (75-99) mg/dL Calcium 7.9 L (8.4-10.2) mg/dL Lactate Dehydrogenase 1078 H (313-618) U/L C-Reactive Protein 148.5 H (<10.0) mg/L Total Protein 5.0 L (6.3-8.2) g/dL Albumin 2.7 L (3.5-5.0) g/dL 03/01/21 03/01/21 03/01/21 Range/Units 03:40 03:44 05:09 WBC (3.8-10.6) k/uL RBC (4.30-5.90) m/uL Hgb (13.0-17.5) gm/dL Hct (39.0-53.0) % MCV (80.0-100.0) fL MCH (25.0-35.0) pg Neutrophils # (1.3-7.7) k/uL Lymphocytes # (1.0-4.8) k/uL D-Dimer 2.68 H (<0.60) mg/L FEU ABG pO2 73 L (83-108) mmHg ABG HCO3 29 H (21-25) mmol/L ABG Total CO2 30 H (19-24) mmol/L Sodium (137-145) mmol/L Potassium (3.5-5.1) mmol/L Chloride (98-107) mmol/L BUN (9-20) mg/dL Creatinine (0.66-1.25) mg/dL Glucose (74-99) mg/dL POC Glucose (mg/dL) 184 H (75-99) mg/dL Calcium (8.4-10.2) mg/dL Lactate Dehydrogenase (313-618) U/L C-Reactive Protein (<10.0) mg/L Total Protein (6.3-8.2) g/dL Albumin (3.5-5.0) g/dL 03/01/21 03/01/21 Range/Units 08:26 11:49 WBC (3.8-10.6) k/uL RBC (4.30-5.90) m/uL Hgb (13.0-17.5) gm/dL Hct (39.0-53.0) % MCV (80.0-100.0) fL MCH (25.0-35.0) pg Neutrophils # (1.3-7.7) k/uL Lymphocytes # (1.0-4.8) k/uL D-Dimer (<0.60) mg/L FEU ABG pO2 (83-108) mmHg ABG HCO3 (21-25) mmol/L ABG Total CO2 (19-24) mmol/L Sodium (137-145) mmol/L Potassium (3.5-5.1) mmol/L Chloride (98-107) mmol/L BUN (9-20) mg/dL Creatinine (0.66-1.25) mg/dL Glucose (74-99) mg/dL POC Glucose (mg/dL) 178 H 224 H (75-99) mg/dL Calcium (8.4-10.2) mg/dL Lactate Dehydrogenase (313-618) U/L C-Reactive Protein (<10.0) mg/L Total Protein (6.3-8.2) g/dL Albumin (3.5-5.0) g/dL Microbiology - Last 24 Hours (Table) 02/22/21 18:20 Blood Culture - Final Blood No Growth after 144 hours 02/22/21 18:35 Blood Culture - Final Blood No Growth after 144 hours 02/27/21 21:25 Gram Stain - Preliminary Sputum Sputum Culture - Preliminary Assessment and Plan Assessment: 1 COVID pneumonia with respiratory failure requiring intubation and mechanical ventilation 2 paroxysmal atrial fibrillation 3 coronary artery disease 4 cardiomyopathy Plan: From cardiology's perspective medications were reviewed we will continue aspirin, Lipitor, Lasix, lisinopril and Plavix. We will continue to follow the patient for further recommendations accordingly. The above dictated assessment and findings were discussed with signing physician. The impression and plan of care have been directed as dictated. Elaine Roman, Nurse Practitioner, acting as scribe for signing physician.
--- NOTE | 2021-03-01 13:42 | P.PN ---
Subjective Progress Note Date: 03/01/21 Principal diagnosis: Acute hypoxemic respiratory failure secondary to CoVID 19 pneumonia, COPD, underlying pulmonary fibrosis, systolic congestive heart failure with ejection fraction 20% 85-year-old male patient was hospitalized because of worsening shortness of breath. The patient came into the ED, he was febrile, tachycardic and tachypneic and he was quite hypoxic and he was immediately placed on high flow oxygen at 15 L per minute nasal cannula. His chest x-ray showed diffuse bilateral pulmonary infiltrates consistent with COVID 19-related pneumonia. He is checked positive for COVID 19. The patient is extremely demented. The patient is a very poor historian. He cannot provide any history and he has no insight on his condition. Is quite contracted his lower extremities bilaterally. He was found to be significantly hypoxic in the emergency department. He was placed on a nonrebreather and currently is on 15 L of oxygen by nasal cannula and his pulse ox is around 92%. Upon arrival to the floor, he was still hypotensive and he was given a bolus of IV fluid 1 L and his blood pressure improved after that. He had a high lactic acid level which was as high as 5.1 and it started to improve and is down to 3.6. Data troponin level of 0.11. Chest x-ray showed diffuse but the pulmonary infiltrates and edema and pleural effusion. Following that, he was given a CT angiogram in the emergency department, no pulmonary embolism, bilateral pleural effusion, bilateral consolidation airspace disease most on the lung bases bilaterally. EKG showing a sinus rhythm, first-degree AV block, left bundle branch block pattern. His previous cardiac status is not known. Echocardiogram needs to be completed. Based on the history, he has an extensive history of CAD, COPD, pulmonary fibrosis and previous history of brain cancer in addition to CAD, angioplasty, s tenting. As far as the exact timing of his symptoms related to Covid 19 is not known. He is a very poor historian. He is currently on Decadron. He is resting comfortably in bed for now. His creatinine is at 1.25 Patient was reevaluated today on 02/24/2021, remains in the intensive care unit, he is on BiPAP with IPAP of 12 and EPAP of 500% FiO2, seems to be comfortable, not in any distress, had difficulty with communication mostly because his previous history of brain surgery/craniotomy. Apparently the patient has a multifactorial reason for his acute hypoxic respiratory failure, he has severe LV dysfunction with ejection fraction of 20%, possible myocarditis. He is out of the window for remdesivir, he has underlying COPD, and he had a non-ST elevation myocardial infarction there is also questionable sepsis on admission. Hence we are holding on giving the patient actemra for now. Sugars are pending WBC count today is 17.9 electrolytes are normal renal profile showed BUN of 21 creatinine 1.37 C-reactive protein is 58 LDH is 831. Pro-calcitonin is 3.12, quite elevated. Blood cultures remain negative so far. Patient was reevaluated today on 02/25/2021, remains in the ICU, remains on 15 L flow and 80% FiO2, surprisingly the patient does not seem to be in any distress, chest x-ray continues to show diffuse interstitial infiltrates with underlying pulmonary fibrosis and possibly some component of pneumonia and pulmonary edema. Patient remains on Lasix remains on Decadron and Zosyn was added. Surprisingly the patient seems to be quite comfortable on the present FiO2 settings, hence I plan to transfer the patient today out of the ICU to a cardiac floor. CBC count today is 14.6 hemoglobin is 11.3 left lites are normal renal profile showed slight worsening of his creatinine up to 1.47 BUN is 31. Chest x-ray as noted above. Inflammatory markers are trending down LDH is 776 and C-reactive protein is 78. Patient was reevaluated today on 02/26/2021, he is presently on the cardiac floor, does not seem to be in any distress, patient is a poor historian, seems to be confused. Her main is on high flow at 70% FiO2 and 60 L flow of oxygen. His O2 saturations 90%. Patient again cannot tell me how [place] except he tells me he is doing better. WBC count today is 14.6 hemoglobin is 11.3. Intellect lites are normal renal profile is slightly worse with a BUN of 31 creatinine 1.47. Inflammatory markers were noted yesterday to remain elevated with LDH of 776, and his C-reactive protein 78. Rest x-ray today shows diffuse increased lung markings compatible with atypical pneumonia. Underlying bacterial pneumonia and underlying CHF is not entirely ruled out The patient was seen today 02/27/2021 in follow-up in the intensive care unit. Earlier this morning he continued to decompensate with worsening hypoxemia despite being on BiPAP 12/5 and 90% FiO2 was transferred to the ICU. Blood gases revealed a PaO2 of 56, pCO2 37, pH 7.44. He was in significant respiratory distress. Staff had spoken to the patient and his who both in agreement to be on life support if necessary. He remains a full code. Chest x- ray continues to revealed diffuse scattered infiltrates bilaterally worsening needing compared to previous. The cultures reveal no growth. White count 14.7. Hemoglobin 13.3. Lymphocytes 0.4. Sodium 145. Potassium 3.7. Creatinine 1 .66. He did require intubation and mechanical ventilatory support. Currently on assist control mode at a rate of 20, tidal volume 400, FiO2 100% and a PEEP of 10. Low blood gases revealed a pO2 of 257, pCO2 43 pH 7.43 and his FiO2 was decreased to 50%. He remains on Lasix 40 mg IV every 12 hours, dexamethasone, performed for DVT prophylaxis. Antibiotics in the form of Zosyn. The patient is seen today 02/28/2021 in follow-up in the intensive care unit. He remains intubated on the mechanical ventilator and assist control mode. Rate of 20, tidal volume 400, FiO2 50%, PEEP of 10. He is sedated on propofol 50 mcg/kg/m, norepinephrine at 0.06 mg/kg/m, 0.9 normal saline at 50 MLS per hour. He is being nourished with Vital HP at 30 ML's per hour. Currently on IV Solu- Medrol, subcu heparin, Zosyn. This x-ray continue reveals evidence of COPD with continued diffuse bilateral interstitial disease and patchy infiltrates. Blood culture reveals no growth. Sputum culture pending. White count 8.7. Hemoglobin 11.0. Platelets 151. D-dimer 3.98. Sodium 144. Potassium 3.2. Creatinine 1.58. LDH 1104. C-reactive protein 212. The patient is seen today 03/01/2021 follow-up in the intensive care unit. He remains intubated, sedated and on the mechanical ventilator. Current settings assist-control mode. Rate of 20, tidal volume 400, FiO2 50% and a PEEP of 8. Morning blood gases revealed a pO2 of 73, pCO2 44, pH 7.43. He is sedated on propofol at 55 mcg/kg/m. Pressors in the form of norepinephrine at 0.06 mg/kg/m. 0.9 normal saline at 30 MLS per hour. He remains on Lovenox, IV Solu- Medrol IV Lasix. White count 16.6. Hemoglobin 11.1. Lymphocytes 0.1. D-dimer 2.68. Sodium 14 6. Potassium 4.0. Creatinine 1.58. LDH 1078. C-reactive protein 148.5. Remains on Zosyn. Objective - Vital Signs Vital signs: Vital Signs Temp 98.1 F 03/01/21 12:00 Pulse 62 03/01/21 12:30 Resp 35 H 03/01/21 12:30 BP 116/59 03/01/21 12:30 Pulse Ox 96 03/01/21 12:30 Intake & Output 02/28/21 03/01/21 03/01/21 18:59 06:59 18:59 Intake Total 5819.905 8733.330 719 Output Total 485 710 580 Balance 1044.052 912.330 139 Weight 70 kg 72.3 kg 72.3 kg Intake: IV 496 616 258 0.9 JELANI 36 36 18 Piperacillin-Tazobactam 3 100 .375 gm In Sodium Chloride 0.9% 100 ml @ 25 mls/hr IVPB Q8H [facility] Rx#: [id number] Sodium Chloride 0.9% 1, 460 480 240 000 ml @ 20 mls/hr IV . Q24H [facility] Rx#:[id number] Intake, IV Titration 557.052 357.330 100 Amount Norepinephrine 4 mg In 251.882 145.330 Sodium Chloride 0.9% 250 ml @ 0.05 MCG/KG/MIN 13. 24 mls/hr IV .[id number] [facility] Rx#:[id number] propofoL 1,000 mg In 305.17 212 100 Empty Bag 1 bag @ Titrate IV .Q0M [facility] Rx#: [id number] Tube Feeding 416 559 301 Other 60 90 60 Output: Urine 485 710 580 Other: Voiding Method Indwelling Catheter Indwelling Catheter Indwelling Catheter ABP, PAP, CO, CI - Last Documented Arterial Blood Pressure 125/51 - Exam GENERAL EXAM: Intubated, sedated, frail, cachectic 85-year-old gentleman, comfortable in no apparent distress. HEAD: Normocephalic. EYES: Normal reaction of pupils, equal size. NOSE: Clear with pink turbinates. THROAT: No erythema or exudates. NECK: No masses, no JVD. CHEST: No chest wall deformity. LUNGS: Equal air entry with lateral scattered rhonchi, coarse crackles.. CVS: S1 and S2 normal with no audible murmur, regular rhythm. ABDOMEN: No hepatosplenomegaly, normal bowel sounds, no guarding or rigidity. SPINE: No scoliosis or deformity SKIN: No rashes CENTRAL NERVOUS SYSTEM: Sedated, tone is normal in all 4 extremities. EXTREMITIES: There is no peripheral edema. No clubbing, no cyanosis. Peripher al pulses are intact. - Labs CBC & Chem 7: 03/01/21 03:40 03/01/21 03:40 Labs: Abnormal Lab Results - Last 24 Hours (Table) 02/28/21 02/28/21 02/28/21 Range/Units 15:49 17:31 20:08 WBC (3.8-10.6) k/uL RBC (4.30-5.90) m/uL Hgb (13.0-17.5) gm/dL Hct (39.0-53.0) % MCV (80.0-100.0) fL MCH (25.0-35.0) pg Neutrophils # (1.3-7.7) k/uL Lymphocytes # (1.0-4.8) k/uL D-Dimer (<0.60) mg/L FEU ABG pO2 (83-108) mmHg ABG HCO3 (21-25) mmol/L ABG Total CO2 (19-24) mmol/L Sodium (137-145) mmol/L Potassium 2.9 L (3.5-5.1) mmol/L Chloride (98-107) mmol/L BUN (9-20) mg/dL Creatinine (0.66-1.25) mg/dL Glucose (74-99) mg/dL POC Glucose (mg/dL) 171 H 125 H (75-99) mg/dL Calcium (8.4-10.2) mg/dL Lactate Dehydrogenase (313-618) U/L C-Reactive Protein (<10.0) mg/L Total Protein (6.3-8.2) g/dL Albumin (3.5-5.0) g/dL 0403/01/21 03/01/21 Range/Units 23:47 03:40 03:40 WBC 16.6 H (3.8-10.6) k/uL RBC 3.12 L (4.30-5.90) m/uL Hgb 11.1 L (13.0-17.5) gm/dL Hct 32.7 L (39.0-53.0) % MCV 104.7 H (80.0-100.0) fL MCH 35.5 H (25.0-35.0) pg Neutrophils # 15.8 H (1.3-7.7) k/uL Lymphocytes # 0.1 L (1.0-4.8) k/uL D-Dimer (<0.60) mg/L FEU ABG pO2 (83-108) mmHg ABG HCO3 (21-25) mmol/L ABG Total CO2 (19-24) mmol/L Sodium 146 H (137-145) mmol/L Potassium (3.5-5.1) mmol/L Chloride 108 H (98-107) mmol/L BUN 65 H (9-20) mg/dL Creatinine 1.58 H (0.66-1.25) mg/dL Glucose 188 H (74-99) mg/dL POC Glucose (mg/dL) 162 H (75-99) mg/dL Calcium 7.9 L (8.4-10.2) mg/dL Lactate Dehydrogenase 1078 H (313-618) U/L C-Reactive Protein 148.5 H (<10.0) mg/L Total Protein 5.0 L (6.3-8.2) g/dL Albumin 2.7 L (3.5-5.0) g/dL 03/01/21 03/01/21 03/01/21 Range/Units 03:40 03:44 05:09 WBC (3.8-10.6) k/uL RBC (4.30-5.90) m/uL Hgb (13.0-17.5) gm/dL Hct (39.0-53.0) % MCV (80.0-100.0) fL MCH (25.0-35.0) pg Neutrophils # (1.3-7.7) k/uL Lymphocytes # (1.0-4.8) k/uL D-Dimer 2.68 H (<0.60) mg/L FEU ABG pO2 73 L (83-108) mmHg ABG HCO3 29 H (21-25) mmol/L ABG Total CO2 30 H (19-24) mmol/L Sodium (137-145) mmol/L Potassium (3.5-5.1) mmol/L Chloride (98-107) mmol/L BUN (9-20) mg/dL Creatinine (0.66-1.25) mg/dL Glucose (74-99) mg/dL POC Glucose (mg/dL) 184 H (75-99) mg/dL Calcium (8.4-10.2) mg/dL Lactate Dehydrogenase (313-618) U/L C-Reactive Protein (<10.0) mg/L Total Protein (6.3-8.2) g/dL Albumin (3.5-5.0) g/dL 03/01/21 03/01/21 Range/Units 08:26 11:49 WBC (3.8-10.6) k/uL RBC (4.30-5.90) m/uL Hgb (13.0-17.5) gm/dL Hct (39.0-53.0) % MCV (80.0-100.0) fL MCH (25.0-35.0) pg Neutrophils # (1.3-7.7) k/uL Lymphocytes # (1.0-4.8) k/uL D-Dimer (<0.60) mg/L FEU ABG pO2 (83-108) mmHg ABG HCO3 (21-25) mmol/L ABG Total CO2 (19-24) mmol/L Sodium (137-145) mmol/L Potassium (3.5-5.1) mmol/L Chloride (98-107) mmol/L BUN (9-20) mg/dL Creatinine (0.66-1.25) mg/dL Glucose (74-99) mg/dL POC Glucose (mg/dL) 178 H 224 H (75-99) mg/dL Calcium (8.4-10.2) mg/dL Lactate Dehydrogenase (313-618) U/L C-Reactive Protein (<10.0) mg/L Total Protein (6.3-8.2) g/dL Albumin (3.5-5.0) g/dL Microbiology - Last 24 Hours (Table) 02/22/21 18:20 Blood Culture - Final Blood No Growth after 144 hours 02/22/21 18:35 Blood Culture - Final Blood No Growth after 144 hours 02/27/21 21:25 Gram Stain - Preliminary Sputum Sputum Culture - Preliminary Assessment and Plan Assessment: 1 Acute hypoxic respiratory failure, multifactorial with progression and subsequent intubation mechanical ventilation on 02/27/2001. 2 Acute covid 19 pneumonitis. 3 Acute exacerbation of COPD. 4 Possible underlying interstitial lung disease/pulmonary fibrosis. 5 Acute systolic congestive heart failure with ejection fraction of 20%. 6 Acute non-ST elevation myocardial infarction. 7 History of dementia. 8 History of craniotomy 9 Extreme medical debility. 10 Non aniron gap metabolic acidosis 11 History of brain tumor and previous craniotomy. 12 Acute kidney injury, creatinine is 1.66 today. Yamilet: The patient was seen and evaluated by Dr. Arias Chest x-ray, ABGs and labs reviewed Continue Zosyn, bronchodilators Continue IV diuretics Continue IV Solu-Medrol Anticoagulated with Lovenox Prognosis is guarded and poor We'll continue to follow and make further recommendations based on his clinical status Critical care time 36 minutes I, the cosigning physician, performed a history & physical examination of the patient. Lungs sounds I lateral scattered rhonchi, crackles. Maintaining good O2 saturations in the 90s on 50% FiO2 via the mechanical ventilator. I discussed the assessment and plan of care with my nurse practitioner, Herminia Millard. I attest to the above note as dictated by her.
--- NOTE | 2021-03-01 16:15 | P.PN ---
Subjective Progress Note Date: 03/01/21 Shai Vaca, is an 85-year-old male who presented to [facility] emergency room with a chief complaint of worsening shortness of breath, patient's called EMS because patient was having difficulty breathing. Patient was evaluated in the emergency room vital examination on presentation revealed a temperature of 102 pulse 122 respiration 14 blood pressure 185/123 and pulse ox 92% on 15 L nonrebreather mask, laboratory data revealed a white blood count of 8.7 hemoglobin 15.1 platelet count 303 d-dimer was elevated at 2.5 to BUN 11 creatinine 1.25 lactic acid was elevated at 3.6 and a troponin level was elevated at 0.11 chest x-ray on presentation revealed diffuse opacities possibly related to ARDS pulmonary edema or infection, Cordarone of virus PCR was positive, CT angiogram of the chest was negative for pulmonary embolism however it revealed bilateral diffuse dependent opacities possibly related to pneumonia with a small pleural effusions, EKG was done in the emergency room and revealed sinus tachycardia with first-degree AV block and incomplete left bundle branch block and ST and T-wave abnormalities suggestive of lateral ischemia. Computed tomography scan of the brain done in the emergency room revealed no acute intracranial abnormality. Patient was admitted to telemetry floor he was started on IV heparin, IV dexamethasone, inhaled bronchodilators, and IV fluid, cardiology consultation and pulmonary critical care consultation were requested. His past medical history is significant for history of hypertension, history of hyperlipidemia, history of COPD, history of pulmonary fibrosis, he also has a previous history of brain cancer and history of coronary artery disease with previous history of angioplasty and stent placement. On 02/24/2021 patient was seen and examined in the ICU, earlier this morning he had an episode of severe shortness of breath with decreased O2 sat duration, 18 was called, patient was transferred to ICU and was started on BiPAP. Currently he has improved, he is maintained on high flow oxygen he is alert responsive in no apparent distress he was evaluated by pulmonary and critical care his vital exam reveals a temperature of 98 pulse 84 respiration 23 blood pressure 135/89 pulse ox 93% on high flow cannula with FiO2 60% On 02/25/2021 patient was seen and examined in the ICU he is alert and oriented in no apparent distress vital examination reveals a temperature of 97.9 pulse 75 respiration 26 blood pressure 115/69 pulse ox 92% on high flow cannula with FiO2 of 80% his white blood count is 14.6 hemoglobin 11.3 platelet count 198 sodium 142 potassium 3.8 chloride 110 BUN 31 creatinine 1.47 LDH 776 C-reactive protein 78.1 d-dimer 0.91 On 02/26/2021 patient was seen and examined on the medical floor he is alert and oriented in no apparent distress vital examination reveals a temperature of 97.9 pulse 75 respiration 26 blood pressure 115/69 pulse ox 92% on high flow cannula with FiO2 of 80% his white blood count is 14.6 hemoglobin 11.3 platelet count 198 sodium 142 potassium 3.8 chloride 110 BUN 31 creatinine 1.47 LDH 776 C- reactive protein 78.1 d-dimer 0.91 On 02/27/2021 patient was seen and examined in the ICU he was transferred earlier this morning after he suddenly lost consciousness while trying to sit up. Patient is having more shortness of breath and worsening hypoxemia currently he is maintained on BiPAP / Fi 02 50% temperature is 97.6 pulse 55 respiration 31 blood pressure 123/61 also ox 96% patient condition is declining cardiology and pulmonary critical care are following. On 02/28/2021 patient was seen and examined in the ICU he is intubated sedated maintained on mechanical ventilation currently he is on FiO2 of 50% with a PEEP of 8 he is on the low dose vasopressors, white blood count today is 8.7 hemoglobin 11.1 platelet count 151 arterial blood gas reveals a pH of 7.39 pCO2 42 PO2 94 On 03/01/2021 patient was seen and examined in the ICU he is intubated sedated maintained on mechanical ventilation no change in his ventilation setting he is maintained on FiO2 of 50% and a PEEP of 8 white blood count today is 16.6 hemoglobin 11.1 platelet count 159 arterial blood gas reveals a pH of 7.43 pCO2 44 PO2 73, no significant change in condition since yesterday Objective - Vital Signs Vital signs: Vital Signs Temp 98.4 F 03/01/21 08:00 Pulse 59 L 03/01/21 08:30 Resp 34 H 03/01/21 08:30 BP 126/67 03/01/21 08:30 Pulse Ox 97 03/01/21 08:30 Intake & Output 02/28/21 03/01/21 03/01/21 18:59 06:59 18:59 Intake Total 9011.362 8875.330 331 Output Total 485 710 230 Balance 1044.052 912.330 101 Weight 70 kg 72.3 kg Intake: IV 496 616 129 0.9 JELANI 36 36 9 Piperacillin-Tazobactam 3 100 .375 gm In Sodium Chloride 0.9% 100 ml @ 25 mls/hr IVPB Q8H JULIANA Rx#: [id number] Sodium Chloride 0.9% 1, 460 480 120 000 ml @ 20 mls/hr IV . Q24H STA Rx#:[id number] Intake, IV Titration 557.052 357.330 Amount Norepinephrine 4 mg In 251.882 145.330 Sodium Chloride 0.9% 250 ml @ 0.05 MCG/KG/MIN 13. 24 mls/hr IV .[id number] JULIANA Rx#:[id number] propofoL 1,000 mg In 305.17 212 Empty Bag 1 bag @ Titrate IV .Q0M [facility] Rx#: [id number] Tube Feeding 416 559 172 Other 60 90 30 Output: Urine 485 710 230 Other: Voiding Method Indwelling Catheter Indwelling Catheter Indwelling Catheter ABP, PAP, CO, CI - Last Documented Arterial Blood Pressure 135/56 - Exam In general patient is intubated sedated maintained on mechanical ventilation HEENT head normocephalic and atraumatic Neck is supple no JVD no goiter no lymphadenopathy Chest exam reveals coarse crackles in both lung thomas with wheezing Cardiac exam reveals regular heart sounds no gallops no murmurs Abdomen is soft nontender no organomegaly with normal bowel sounds Extremity exam reveals no edema no cyanosis or clubbing Neurological examination reveals no gross focal deficit - Labs CBC & Chem 7: 03/01/21 03:40 03/01/21 03:40 Labs: Abnormal Lab Results - Last 24 Hours (Table) 02/28/21 02/28/21 02/28/21 Range/Units 11:59 15:49 17:31 WBC (3.8-10.6) k/uL RBC (4.30-5.90) m/uL Hgb (13.0-17.5) gm/dL Hct (39.0-53.0) % MCV (80.0-100.0) fL MCH (25.0-35.0) pg Neutrophils # (1.3-7.7) k/uL Lymphocytes # (1.0-4.8) k/uL D-Dimer (<0.60) mg/L FEU ABG pO2 (83-108) mmHg ABG HCO3 (21-25) mmol/L ABG Total CO2 (19-24) mmol/L Sodium (137-145) mmol/L Potassium 2.9 L (3.5-5.1) mmol/L Chloride (98-107) mmol/L BUN (9-20) mg/dL Creatinine (0.66-1.25) mg/dL Glucose (74-99) mg/dL POC Glucose (mg/dL) 249 H 171 H (75-99) mg/dL Calcium (8.4-10.2) mg/dL Lactate Dehydrogenase (313-618) U/L C-Reactive Protein (<10.0) mg/L Total Protein (6.3-8.2) g/dL Albumin (3.5-5.0) g/dL 02/28/21 02/28/21 03/01/21 Range/Units 20:08 23:47 03:40 WBC 16.6 H (3.8-10.6) k/uL RBC 3.12 L (4.30-5.90) m/uL Hgb 11.1 L (13.0-17.5) gm/dL Hct 32.7 L (39.0-53.0) % MCV 104.7 H (80.0-100.0) fL MCH 35.5 H (25.0-35.0) pg Neutrophils # 15.8 H (1.3-7.7) k/uL Lymphocytes # 0.1 L (1.0-4.8) k/uL D-Dimer (<0.60) mg/L FEU ABG pO2 (83-108) mmHg ABG HCO3 (21-25) mmol/L ABG Total CO2 (19-24) mmol/L Sodium (137-145) mmol/L Potassium (3.5-5.1) mmol/L Chloride (98-107) mmol/L BUN (9-20) mg/dL Creatinine (0.66-1.25) mg/dL Glucose (74-99) mg/dL POC Glucose (mg/dL) 125 H 162 H (75-99) mg/dL Calcium (8.4-10.2) mg/dL Lactate Dehydrogenase (313-618) U/L C-Reactive Protein (<10.0) mg/L Total Protein (6.3-8.2) g/dL Albumin (3.5-5.0) g/dL 03/01/21 03/01/21 03/01/21 Range/Units 03:40 03:40 03:44 WBC (3.8-10.6) k/uL RBC (4.30-5.90) m/uL Hgb (13.0-17.5) gm/dL Hct (39.0-53.0) % MCV (80.0-100.0) fL MCH (25.0-35.0) pg Neutrophils # (1.3-7.7) k/uL Lymphocytes # (1.0-4.8) k/uL D-Dimer 2.68 H (<0.60) mg/L FEU ABG pO2 (83-108) mmHg ABG HCO3 (21-25) mmol/L ABG Total CO2 (19-24) mmol/L Sodium 146 H (137-145) mmol/L Potassium (3.5-5.1) mmol/L Chloride 108 H (98-107) mmol/L BUN 65 H (9-20) mg/dL Creatinine 1.58 H (0.66-1.25) mg/dL Glucose 188 H (74-99) mg/dL POC Glucose (mg/dL) 184 H (75-99) mg/dL Calcium 7.9 L (8.4-10.2) mg/dL Lactate Dehydrogenase 1078 H (313-618) U/L C-Reactive Protein 148.5 H (<10.0) mg/L Total Protein 5.0 L (6.3-8.2) g/dL Albumin 2.7 L (3.5-5.0) g/dL 03/01/21 03/01/21 Range/Units 05:09 08:26 WBC (3.8-10.6) k/uL RBC (4.30-5.90) m/uL Hgb (13.0-17.5) gm/dL Hct (39.0-53.0) % MCV (80.0-100.0) fL MCH (25.0-35.0) pg Neutrophils # (1.3-7.7) k/uL Lymphocytes # (1.0-4.8) k/uL D-Dimer (<0.60) mg/L FEU ABG pO2 73 L (83-108) mmHg ABG HCO3 29 H (21-25) mmol/L ABG Total CO2 30 H (19-24) mmol/L Sodium (137-145) mmol/L Potassium (3.5-5.1) mmol/L Chloride (98-107) mmol/L BUN (9-20) mg/dL Creatinine (0.66-1.25) mg/dL Glucose (74-99) mg/dL POC Glucose (mg/dL) 178 H (75-99) mg/dL Calcium (8.4-10.2) mg/dL Lactate Dehydrogenase (313-618) U/L C-Reactive Protein (<10.0) mg/L Total Protein (6.3-8.2) g/dL Albumin (3.5-5.0) g/dL Microbiology - Last 24 Hours (Table) 02/22/21 18:20 Blood Culture - Final Blood No Growth after 144 hours 02/22/21 18:35 Blood Culture - Final Blood No Growth after 144 hours 02/27/21 21:25 Gram Stain - Preliminary Sputum Sputum Culture - Preliminary Assessment and Plan Plan: Acute Covid 19 infection with pneumonia Non-ST elevation myocardial infarction Worsening shortness of breath multifactorial related to Covid 19 pneumonia and underlying history of COPD and pulmonary fibrosis Underlying history of hypertension Underlying history of hyperlipidemia Underlying history of COPD Underlying history of coronary artery disease Previous history of brain cancer At this time patient is admitted to telemetry floor He was started on IV heparin and IV dexamethasone He was started on IV fluid Pulmonary consultation cardiology consultation and infectious disease consultation are requested Prognosis is guarded due to severity of illness advanced age and multiple underlying comorbidities
[2021-03-01 17:28] LABS: Glucose,Whole Blood 150 mg/dL (75-99)
--- NOTE | 2021-03-01 19:18 | PN ---
PROGRESS NOTE DATE OF SERVICE: 03/01/2021 REASON FOR FOLLOWUP: Pneumonia. INTERVAL HISTORY: The patient remains to be intubated on the vent. The patient is hemodynamically stable on a minimal amount of pressors. FIO2 is currently stable at 50%. No significant purulent secretions through the ET tube. He was noted to have diarrhea for which the fecal management system has been applied. PHYSICAL EXAMINATION: Blood pressure 107/50 with a pulse of 73, temperature 98. He is 94% on 50% FiO2. General description is an elderly male lying in bed in no distress. Respiratory system: Unlabored breathing. decreased breath sounds at base. No wheeze. Heart S1, S2. Regular rate and rhythm. Abdomen soft, no tenderness. LABS: Hemoglobin 11.8, white count 16.6, BUN of 65, creatinine 1.58. Sputum culture currently pending. Blood culture so far negative. DIAGNOSTIC IMPRESSION AND PLAN: Patient with acute respiratory failure which is multifactorial in this patient who did have COVID-19 pneumonia +/- aspiration in this patient now with significant diarrhea and did have worsening of the white count. We will check a stool for C difficile. Patient is covered with Zosyn to continue while waiting for the culture to finalize and monitor clinical course closely. Prognosis remains to be guarded. MMODL / IJN: [id number] / WANDER
[2021-03-01 20:04] LABS: Glucose,Whole Blood 134 mg/dL (75-99)
[2021-03-01] MEDS: INSULIN DETEMIR (LEVEMIR) 100 UNIT/ML SYR SQ SCH (20:58)
[2021-03-01] MEDS: ATORVASTATIN 40 MG TAB PO SCH (20:59)
[2021-03-01 23:57] LABS: Glucose,Whole Blood 179 mg/dL (75-99)
[2021-03-02] MEDS: INSULIN ASPART (NovoLOG) 100 UNIT/ML VIAL SQ SCH ×6 (00:35→20:29)
[2021-03-02] MEDS: methylPREDNISolone SOD SUCCI 125 MG/2 ML VIAL IV SCH ×4 (00:35→17:44)
[2021-03-02 00:46] LABS: Glucose,Whole Blood 171 mg/dL (75-99)
[2021-03-02 04:44] LABS: Glucose,Whole Blood 189 mg/dL (75-99)
[2021-03-02] MEDS: PIPERACILLIN-TAZOBACTAM 3.375 GM in SODIUM CHLORIDE 0.9% 100 ML IVPB SCH ×3 (04:52→20:28)
[2021-03-02 05:06] LABS: Basophils % (A) 0 %; Eosinophils % (A) 0 %; HCT 31.7 % (39.0-53.0); HGB 10.5 gm/dL (13.0-17.5); Lymphocytes # (A) 0.1 k/uL (1.0-4.8); Lymphocytes % (A) 1 %; MCH 35.2 pg (25.0-35.0); MCHC 33.2 g/dL (31.0-37.0); Macrocytosis Moderate; Mean Platelet Volume 9.6; Monocytes # (A) 0.5 k/uL (0-1.0); Monocytes % (A) 4 %; Neutrophils # (A) 10.8 k/uL (1.3-7.7); Neutrophils % (A) 94 %; Platelet Count 119 k/uL (150-450); RBC 2.99 m/uL (4.30-5.90); RDW 15.2 % (11.5-15.5); WBC 11.4 k/uL (3.8-10.6)
[2021-03-02 05:20] LABS: Albumin 2.5 g/dL (3.5-5.0); Calcium 7.6 mg/dL (8.4-10.2); Potassium 3.9 mmol/L (3.5-5.1); Total Bilirubin 0.7 mg/dL (0.2-1.3); Total Protein 4.8 g/dL (6.3-8.2)
[2021-03-02 05:40] LABS: C Reactive Protein 73.6 mg/L (<10.0)
--- NOTE | 2021-03-02 07:42 | XR ---
EXAMINATION TYPE: XR chest 1V portable DATE OF EXAM: 03/02/2021 COMPARISON: 03/01/2021 HISTORY: 2 placement TECHNIQUE: Single frontal view of the chest is obtained. FINDINGS: Stable lines and tubes. There is slight decrease of interstitial opacities in the upper darin ngs. There is persistent moderate interstitial opacities in the mid to lower lungs. No pleural effusi on, or pneumothorax seen. The cardiac silhouette size is within normal limits. The osseous structu res are intact. IMPRESSION: Persistent interstitial opacities, with slight decrease in the upper lungs.
[2021-03-02 08:10] LABS: ABG Base Excess 2.7 mmol/L; ABG HCO3 28 mmol/L (21-25); ABG PCO2 45 mmHg (35-45); ABG PO2 80 mmHg (83-108); ABG TCO2 29 mmol/L (19-24); Allen Test Performed? no
[2021-03-02] MEDS: ALBUTEROL HFA INHALER INHALATION PRN ×4 (08:51→20:13)
[2021-03-02 09:31] LABS: Glucose,Whole Blood 200 mg/dL (75-99)
[2021-03-02] MEDS: DEXTROSE 5% IN WATER 1,000 ML IV SCH ×2 (09:40→16:05)
[2021-03-02] MEDS: CHLORHEXIDINE GLUCONATE 15 ML CUP MUCOUS MEM SCH ×2 (09:41→20:28)
[2021-03-02] MEDS: ASCORBIC ACID 500 MG TAB PO SCH (09:41)
[2021-03-02] MEDS: ASPIRIN 81 MG PO SCH (09:41)
[2021-03-02] MEDS: CLOPIDOGREL 75 MG TAB PO SCH (09:41)
[2021-03-02] MEDS: AMIODARONE 200 MG TAB PO SCH (09:41)
[2021-03-02] MEDS: ZINC SULFATE 220 MG CAP PO SCH (09:41)
[2021-03-02] MEDS: CHOLECALCIFEROL 25 MCG (1000 IU) TABLET PO SCH (09:41)
[2021-03-02] MEDS: lamoTRIgine 25 MG TAB PO SCH ×2 (09:42→20:28)
[2021-03-02] MEDS: ENOXAPARIN 40 MG/0.4 ML SYRINGE SQ SCH (09:42)
[2021-03-02] MEDS: METOPROLOL SUCCINATE (ER) 50 MG TAB.ER.24H PO SCH (09:43)
[2021-03-02] MEDS: lisinopriL 5 MG TAB PO SCH (09:43)
--- NOTE | 2021-03-02 11:17 | P.PN ---
Subjective Progress Note Date: 03/02/21 This is an 85-year-old gentleman was admitted to the hospital with copious pneumonia. As a known history of CAD, paroxysmal atrial fibrillation, hypertension, dyslipidemia and dementia. He has known LV systolic dysfunction. Troponins were elevated and peaked at 6.4. Patient remains in the intensive car e unit intubated and on mechanical ventilator. He is maintaining sinus mechanism. He remains on a small dose of Levophed. 03/02/2021 Patient remains intubated on a mechanical ventilator. He has gone into atrial fibrillation with a controlled ventricular response. He remains on a small dose of Levophed. Objective - Vital Signs Vital signs: Vital Signs Temp 97.8 F 03/02/21 04:00 Pulse 79 03/02/21 07:00 Resp 34 H 03/02/21 07:00 BP 104/56 03/02/21 07:00 Pulse Ox 95 03/02/21 07:00 Intake & Output 03/01/21 03/02/21 03/02/21 18:59 06:59 18:59 Intake Total 1542 867.298 277 Output Total 915 490 190 Balance 627 377.298 87 Weight 72.3 kg Intake: IV 396 276 177 0.9 JELANI 36 36 12 Dextrose 5% in Water 1, 125 000 ml @ 125 mls/hr IV . Q8H JULIANA Rx#:[id number] Sodium Chloride 0.9% 1, 360 240 40 000 ml @ 20 mls/hr IV . Q24H STA Rx#:[id number] Intake, IV Titration 454 260.298 100 Amount Norepinephrine 4 mg In 254 Sodium Chloride 0.9% 250 ml @ 0.05 MCG/KG/MIN 13. 24 mls/hr IV .[id number] JULIANA Rx#:[id number] propofoL 1,000 mg In 200 260.298 100 Empty Bag 1 bag @ Titrate IV .Q0M JULIANA Rx#: [id number] Tube Feeding 602 301 Other 90 30 Output: Urine 915 490 190 Other: Voiding Method Indwelling Catheter Indwelling Catheter Indwelling Catheter ABP, PAP, CO, CI - Last Documented Arterial Blood Pressure 123/61 - Exam Physical examination was deferred secondary to COVID-19 - Labs CBC & Chem 7: 03/02/21 04:40 03/02/21 04:40 Labs: Abnormal Lab Results - Last 24 Hours (Table) 03/01/21 03/01/21 03/01/21 Range/Units 11:49 17:26 20:02 WBC (3.8-10.6) k/uL RBC (4.30-5.90) m/uL Hgb (13.0-17.5) gm/dL Hct (39.0-53.0) % MCV (80.0-100.0) fL MCH (25.0-35.0) pg Plt Count (150-450) k/uL Neutrophils # (1.3-7.7) k/uL Lymphocytes # (1.0-4.8) k/uL D-Dimer (<0.60) mg/L FEU ABG pO2 (83-108) mmHg ABG HCO3 (21-25) mmol/L ABG Total CO2 (19-24) mmol/L Sodium (137-145) mmol/L Chloride (98-107) mmol/L BUN (9-20) mg/dL Creatinine (0.66-1.25) mg/dL Glucose (74-99) mg/dL POC Glucose (mg/dL) 224 H 150 H 134 H (75-99) mg/dL Calcium (8.4-10.2) mg/dL C-Reactive Protein (<10.0) mg/L Total Protein (6.3-8.2) g/dL Albumin (3.5-5.0) g/dL 03/01/21 03/02/21 03/02/21 Range/Units 23:55 00:34 04:40 WBC 11.4 H (3.8-10.6) k/uL RBC 2.99 L (4.30-5.90) m/uL Hgb 10.5 L (13.0-17.5) gm/dL Hct 31.7 L (39.0-53.0) % MCV 106.0 H (80.0-100.0) fL MCH 35.2 H (25.0-35.0) pg Plt Count 119 L (150-450) k/uL Neutrophils # 10.8 H (1.3-7.7) k/uL Lymphocytes # 0.1 L (1.0-4.8) k/uL D-Dimer (<0.60) mg/L FEU ABG pO2 (83-108) mmHg ABG HCO3 (21-25) mmol/L ABG Total CO2 (19-24) mmol/L Sodium (137-145) mmol/L Chloride (98-107) mmol/L BUN (9-20) mg/dL Creatinine (0.66-1.25) mg/dL Glucose (74-99) mg/dL POC Glucose (mg/dL) 179 H 171 H (75-99) mg/dL Calcium (8.4-10.2) mg/dL C-Reactive Protein (<10.0) mg/L Total Protein (6.3-8.2) g/dL Albumin (3.5-5.0) g/dL 03/02/21 03/02/21 03/02/21 Range/Units 04:40 04:40 04:42 WBC (3.8-10.6) k/uL RBC (4.30-5.90) m/uL Hgb (13.0-17.5) gm/dL Hct (39.0-53.0) % MCV (80.0-100.0) fL MCH (25.0-35.0) pg Plt Count (150-450) k/uL Neutrophils # (1.3-7.7) k/uL Lymphocytes # (1.0-4.8) k/uL D-Dimer 1.86 H (<0.60) mg/L FEU ABG pO2 (83-108) mmHg ABG HCO3 (21-25) mmol/L ABG Total CO2 (19-24) mmol/L Sodium 148 H (137-145) mmol/L Chloride 111 H (98-107) mmol/L BUN 83 H (9-20) mg/dL Creatinine 1.81 H (0.66-1.25) mg/dL Glucose 196 H (74-99) mg/dL POC Glucose (mg/dL) 189 H (75-99) mg/dL Calcium 7.6 L (8.4-10.2) mg/dL C-Reactive Protein 73.6 H (<10.0) mg/L Total Protein 4.8 L (6.3-8.2) g/dL Albumin 2.5 L (3.5-5.0) g/dL 03/02/21 03/02/21 Range/Units 08:05 09:30 WBC (3.8-10.6) k/uL RBC (4.30-5.90) m/uL Hgb (13.0-17.5) gm/dL Hct (39.0-53.0) % MCV (80.0-100.0) fL MCH (25.0-35.0) pg Plt Count (150-450) k/uL Neutrophils # (1.3-7.7) k/uL Lymphocytes # (1.0-4.8) k/uL D-Dimer (<0.60) mg/L FEU ABG pO2 80 L (83-108) mmHg ABG HCO3 28 H (21-25) mmol/L ABG Total CO2 29 H (19-24) mmol/L Sodium (137-145) mmol/L Chloride (98-107) mmol/L BUN (9-20) mg/dL Creatinine (0.66-1.25) mg/dL Glucose (74-99) mg/dL POC Glucose (mg/dL) 200 H (75-99) mg/dL Calcium (8.4-10.2) mg/dL C-Reactive Protein (<10.0) mg/L Total Protein (6.3-8.2) g/dL Albumin (3.5-5.0) g/dL Microbiology - Last 24 Hours (Table) 02/27/21 21:25 Gram Stain - Final Sputum Sputum Culture - Final Alyssa albicans Assessment and Plan Assessment: 1 COVID pneumonia with respiratory failure requiring intubation and mechanical ventilation 2 paroxysmal atrial fibrillation 3 coronary artery disease 4 cardiomyopathy Plan: From cardiology's perspective medications were reviewed we will continue aspirin, Lipitor, Lasix, lisinopril and Plavix. We will continue to follow the patient and provide further recommendations accordingly. The above dictated assessment and findings were discussed with signing physician. The impression and plan of care have been directed as dictated. Elaine Roman, Nurse Practitioner, acting as scribe for signing physician.
--- NOTE | 2021-03-02 11:52 | P.PN ---
Subjective Progress Note Date: 03/02/21 Principal diagnosis: Acute hypoxemic respiratory failure secondary to CoVID 19 pneumonia, COPD, underlying pulmonary fibrosis, systolic congestive heart failure with ejection fraction 20% 85-year-old male patient was hospitalized because of worsening shortness of breath. The patient came into the ED, he was febrile, tachycardic and tachypneic and he was quite hypoxic and he was immediately placed on high flow oxygen at 15 L per minute nasal cannula. His chest x-ray showed diffuse bilateral pulmonary infiltrates consistent with COVID 19-related pneumonia. He is checked positive for COVID 19. The patient is extremely demented. The patient is a very poor historian. He cannot provide any history and he has no insight on his condition. Is quite contracted his lower extremities bilaterally. He was found to be significantly hypoxic in the emergency department. He was placed on a nonrebreather and currently is on 15 L of oxygen by nasal cannula and his pulse ox is around 92%. Upon arrival to the floor, he was still hypotensive and he was given a bolus of IV fluid 1 L and his blood pressure improved after that. He had a high lactic acid level which was as high as 5.1 and it started to improve and is down to 3.6. Data troponin level of 0.11. Chest x-ray showed diffuse but the pulmonary infiltrates and edema and pleural effusion. Following that, he was given a CT angiogram in the emergency department, no pulmonary embolism, bilateral pleural effusion, bilateral consolidation airspace disease most on the lung bases bilaterally. EKG showing a sinus rhythm, first-degree AV block, left bundle branch block pattern. His previous cardiac status is not known. Echocardiogram needs to be completed. Based on the history, he has an extensive history of CAD, COPD, pulmonary fibrosis and previous history of brain cancer in addition to CAD, angioplasty, s tenting. As far as the exact timing of his symptoms related to Covid 19 is not known. He is a very poor historian. He is currently on Decadron. He is resting comfortably in bed for now. His creatinine is at 1.25 Patient was reevaluated today on 02/24/2021, remains in the intensive care unit, he is on BiPAP with IPAP of 12 and EPAP of 500% FiO2, seems to be comfortable, not in any distress, had difficulty with communication mostly because his previous history of brain surgery/craniotomy. Apparently the patient has a multifactorial reason for his acute hypoxic respiratory failure, he has severe LV dysfunction with ejection fraction of 20%, possible myocarditis. He is out of the window for remdesivir, he has underlying COPD, and he had a non-ST elevation myocardial infarction there is also questionable sepsis on admission. Hence we are holding on giving the patient actemra for now. Sugars are pending WBC count today is 17.9 electrolytes are normal renal profile showed BUN of 21 creatinine 1.37 C-reactive protein is 58 LDH is 831. Pro-calcitonin is 3.12, quite elevated. Blood cultures remain negative so far. Patient was reevaluated today on 02/25/2021, remains in the ICU, remains on 15 L flow and 80% FiO2, surprisingly the patient does not seem to be in any distress, chest x-ray continues to show diffuse interstitial infiltrates with underlying pulmonary fibrosis and possibly some component of pneumonia and pulmonary edema. Patient remains on Lasix remains on Decadron and Zosyn was added. Surprisingly the patient seems to be quite comfortable on the present FiO2 settings, hence I plan to transfer the patient today out of the ICU to a cardiac floor. CBC count today is 14.6 hemoglobin is 11.3 left lites are normal renal profile showed slight worsening of his creatinine up to 1.47 BUN is 31. Chest x-ray as noted above. Inflammatory markers are trending down LDH is 776 and C-reactive protein is 78. Patient was reevaluated today on 02/26/2021, he is presently on the cardiac floor, does not seem to be in any distress, patient is a poor historian, seems to be confused. Her main is on high flow at 70% FiO2 and 60 L flow of oxygen. His O2 saturations 90%. Patient again cannot tell me how Tabor except he tells me he is doing better. WBC count today is 14.6 hemoglobin is 11.3. Intellect lites are normal renal profile is slightly worse with a BUN of 31 creatinine 1.47. Inflammatory markers were noted yesterday to remain elevated with LDH of 776, and his C-reactive protein 78. Rest x-ray today shows diffuse increased lung markings compatible with atypical pneumonia. Underlying bacterial pneumonia and underlying CHF is not entirely ruled out The patient was seen today 02/27/2021 in follow-up in the intensive care unit. Earlier this morning he continued to decompensate with worsening hypoxemia despite being on BiPAP 12/5 and 90% FiO2 was transferred to the ICU. Blood gases revealed a PaO2 of 56, pCO2 37, pH 7.44. He was in significant respiratory distress. Staff had spoken to the patient and his who both in agreement to be on life support if necessary. He remains a full code. Chest x- ray continues to revealed diffuse scattered infiltrates bilaterally worsening needing compared to previous. The cultures reveal no growth. White count 14.7. Hemoglobin 13.3. Lymphocytes 0.4. Sodium 145. Potassium 3.7. Creatinine 1 .66. He did require intubation and mechanical ventilatory support. Currently on assist control mode at a rate of 20, tidal volume 400, FiO2 100% and a PEEP of 10. Low blood gases revealed a pO2 of 257, pCO2 43 pH 7.43 and his FiO2 was decreased to 50%. He remains on Lasix 40 mg IV every 12 hours, dexamethasone, performed for DVT prophylaxis. Antibiotics in the form of Zosyn. The patient is seen today 02/28/2021 in follow-up in the intensive care unit. He remains intubated on the mechanical ventilator and assist control mode. Rate of 20, tidal volume 400, FiO2 50%, PEEP of 10. He is sedated on propofol 50 mcg/kg/m, norepinephrine at 0.06 mg/kg/m, 0.9 normal saline at 50 MLS per hour. He is being nourished with Vital HP at 30 ML's per hour. Currently on IV Solu- Medrol, subcu heparin, Zosyn. This x-ray continue reveals evidence of COPD with continued diffuse bilateral interstitial disease and patchy infiltrates. Blood culture reveals no growth. Sputum culture pending. White count 8.7. Hemoglobin 11.0. Platelets 151. D-dimer 3.98. Sodium 144. Potassium 3.2. Creatinine 1.58. LDH 1104. C-reactive protein 212. The patient is seen today 03/01/2021 follow-up in the intensive care unit. He remains intubated, sedated and on the mechanical ventilator. Current settings assist-control mode. Rate of 20, tidal volume 400, FiO2 50% and a PEEP of 8. Morning blood gases revealed a pO2 of 73, pCO2 44, pH 7.43. He is sedated on propofol at 55 mcg/kg/m. Pressors in the form of norepinephrine at 0.06 mg/kg/m. 0.9 normal saline at 30 MLS per hour. He remains on Lovenox, IV Solu- Medrol IV Lasix. White count 16.6. Hemoglobin 11.1. Lymphocytes 0.1. D-dimer 2.68. Sodium 14 6. Potassium 4.0. Creatinine 1.58. LDH 1078. C-reactive protein 148.5. Remains on Zosyn. The patient is seen today 03/02/2021 follow-up in the intensive care unit. He remains intubated, sedated on the mechanical ventilator. Current mode assist control of 20, tidal volume 400, FiO2 50% and a PEEP of 8. Morning blood gases reveal a pO2 of 80, pCO2 45, pH 7.39. He is sedated on propofol at 60 mcg/kg/m. Norepinephrine at 0.01 mcg/kg/m. 0.9 normal saline at KVO. Vital HP tube feedings. He remains on Zosyn. Chest x-ray shows persistent interstitial opacities with slight decrease in the upper lungs. White count 11.4. Hemoglobin 10.5. Platelets 119. D-dimer 1.6. Sodium 148. Potassium 3.9. Creatinine 1.81. C-reactive protein 73.6. He remains on vitamin supplements, IV Solu-Medrol, Lovenox. Objective - Vital Signs Vital signs: Vital Signs Temp 97.8 F 03/02/21 04:00 Pulse 79 03/02/21 07:00 Resp 34 H 03/02/21 07:00 BP 104/56 03/02/21 07:00 Pulse Ox 95 03/02/21 07:00 Intake & Output 03/01/21 03/02/21 03/02/21 18:59 06:59 18:59 Intake Total 1542 867.298 277 Output Total 915 490 190 Balance 627 377.298 87 Weight 72.3 kg Intake: IV 396 276 177 0.9 JELANI 36 36 12 Dextrose 5% in Water 1, 125 000 ml @ 125 mls/hr IV . Q8H JULIANA Rx#:[id number] Sodium Chloride 0.9% 1, 360 240 40 000 ml @ 20 mls/hr IV . Q24H STA Rx#:[id number] Intake, IV Titration 454 260.298 100 Amount Norepinephrine 4 mg In 254 Sodium Chloride 0.9% 250 ml @ 0.05 MCG/KG/MIN 13. 24 mls/hr IV .[id number] JULIANA Rx#:[id number] propofoL 1,000 mg In 200 260.298 100 Empty Bag 1 bag @ Titrate IV .Q0M JULIANA Rx#: [id number] Tube Feeding 602 301 Other 90 30 Output: Urine 915 490 190 Other: Voiding Method Indwelling Catheter Indwelling Catheter Indwelling Catheter ABP, PAP, CO, CI - Last Documented Arterial Blood Pressure 123/61 - Exam GENERAL EXAM: Intubated, sedated, frail, cachectic 85-year-old gentleman, comfortable in no apparent distress. HEAD: Normocephalic. EYES: Normal reaction of pupils, equal size. NOSE: Clear with pink turbinates. THROAT: No erythema or exudates. NECK: No masses, no JVD. CHEST: No chest wall deformity. LUNGS: Equal air entry with lateral scattered rhonchi, coarse crackles.. CVS: S1 and S2 normal with no audible murmur, regular rhythm. ABDOMEN: No hepatosplenomegaly, normal bowel sounds, no guarding or rigidity. SPINE: No scoliosis or deformity SKIN: No rashes CENTRAL NERVOUS SYSTEM: Sedated, tone is normal in all 4 extremities. EXTREMITIES: There is no peripheral edema. No clubbing, no cyanosis. Peripheral pulses are intact. - Labs CBC & Chem 7: 03/02/21 04:40 03/02/21 04:40 Labs: Abnormal Lab Results - Last 24 Hours (Table) 03/01/21 03/01/21 03/01/21 Range/Units 11:49 17:26 20:02 WBC (3.8-10.6) k/uL RBC (4.30-5.90) m/uL Hgb (13.0-17.5) gm/dL Hct (39.0-53.0) % MCV (80.0-100.0) fL MCH (25.0-35.0) pg Plt Count (150-450) k/uL Neutrophils # (1.3-7.7) k/uL Lymphocytes # (1.0-4.8) k/uL D-Dimer (<0.60) mg/L FEU ABG pO2 (83-108) mmHg ABG HCO3 (21-25) mmol/L ABG Total CO2 (19-24) mmol/L Sodium (137-145) mmol/L Chloride (98-107) mmol/L BUN (9-20) mg/dL Creatinine (0.66-1.25) mg/dL Glucose (74-99) mg/dL POC Glucose (mg/dL) 224 H 150 H 134 H (75-99) mg/dL Calcium (8.4-10.2) mg/dL C-Reactive Protein (<10.0) mg/L Total Protein (6.3-8.2) g/dL Albumin (3.5-5.0) g/dL 03/01/21 03/02/21 03/02/21 Range/Units 23:55 00:34 04:40 WBC 11.4 H (3.8-10.6) k/uL RBC 2.99 L (4.30-5.90) m/uL Hgb 10.5 L (13.0-17.5) gm/dL Hct 31.7 L (39.0-53.0) % MCV 106.0 H (80.0-100.0) fL MCH 35.2 H (25.0-35.0) pg Plt Count 119 L (150-450) k/uL Neutrophils # 10.8 H (1.3-7.7) k/uL Lymphocytes # 0.1 L (1.0-4.8) k/uL D-Dimer (<0.60) mg/L FEU ABG pO2 (83-108) mmHg ABG HCO3 (21-25) mmol/L ABG Total CO2 (19-24) mmol/L Sodium (137-145) mmol/L Chloride (98-107) mmol/L BUN (9-20) mg/dL Creatinine (0.66-1.25) mg/dL Glucose (74-99) mg/dL POC Glucose (mg/dL) 179 H 171 H (75-99) mg/dL Calcium (8.4-10.2) mg/dL C-Reactive Protein (<10.0) mg/L Total Protein (6.3-8.2) g/dL Albumin (3.5-5.0) g/dL 03/02/21 03/02/21 03/02/21 Range/Units 04:40 04:40 04:42 WBC (3.8-10.6) k/uL RBC (4.30-5.90) m/uL Hgb (13.0-17.5) gm/dL Hct (39.0-53.0) % MCV (80.0-100.0) fL MCH (25.0-35.0) pg Plt Count (150-450) k/uL Neutrophils # (1.3-7.7) k/uL Lymphocytes # (1.0-4.8) k/uL D-Dimer 1.86 H (<0.60) mg/L FEU ABG pO2 (83-108) mmHg ABG HCO3 (21-25) mmol/L ABG Total CO2 (19-24) mmol/L Sodium 148 H (137-145) mmol/L Chloride 111 H (98-107) mmol/L BUN 83 H (9-20) mg/dL Creatinine 1.81 H (0.66-1.25) mg/dL Glucose 196 H (74-99) mg/dL POC Glucose (mg/dL) 189 H (75-99) mg/dL Calcium 7.6 L (8.4-10.2) mg/dL C-Reactive Protein 73.6 H (<10.0) mg/L Total Protein 4.8 L (6.3-8.2) g/dL Albumin 2.5 L (3.5-5.0) g/dL 03/02/21 03/02/21 Range/Units 08:05 09:30 WBC (3.8-10.6) k/uL RBC (4.30-5.90) m/uL Hgb (13.0-17.5) gm/dL Hct (39.0-53.0) % MCV (80.0-100.0) fL MCH (25.0-35.0) pg Plt Count (150-450) k/uL Neutrophils # (1.3-7.7) k/uL Lymphocytes # (1.0-4.8) k/uL D-Dimer (<0.60) mg/L FEU ABG pO2 80 L (83-108) mmHg ABG HCO3 28 H (21-25) mmol/L ABG Total CO2 29 H (19-24) mmol/L Sodium (137-145) mmol/L Chloride (98-107) mmol/L BUN (9-20) mg/dL Creatinine (0.66-1.25) mg/dL Glucose (74-99) mg/dL POC Glucose (mg/dL) 200 H (75-99) mg/dL Calcium (8.4-10.2) mg/dL C-Reactive Protein (<10.0) mg/L Total Protein (6.3-8.2) g/dL Albumin (3.5-5.0) g/dL Microbiology - Last 24 Hours (Table) 02/27/21 21:25 Gram Stain - Final Sputum Sputum Culture - Final Alyssa albicans Assessment and Plan Assessment: 1 Acute hypoxic respiratory failure, multifactorial with progression and subsequent intubation mechanical ventilation on 02/27/2001. 2 Acute covid 19 pneumonitis. 3 Acute exacerbation of COPD. 4 Possible underlying interstitial lung disease/pulmonary fibrosis. 5 Acute systolic congestive heart failure with ejection fraction of 20%. 6 Acute non-ST elevation myocardial infarction. 7 History of dementia. 8 History of craniotomy 9 Extreme medical debility. 10 Non aniron gap metabolic acidosis 11 History of brain tumor and previous craniotomy. 12 Acute kidney injury, creatinine is 1.81 today. Yamilet: The patient was seen and evaluated by Dr. Arias Chest x-ray, ABGs and labs reviewed Discontinue Lasix Change fluids to D5W at 125 ML's per hour Had 200 mL of free water flushes 4 times a day Continue current vent settings Continue Zosyn, bronchodilators Continue IV Solu-Medrol Anticoagulated with Lovenox Prognosis is guarded and poor We'll continue to follow and make further recommendations based on his clinical status Critical care time 38 minutes I, the cosigning physician, performed a history & physical examination of the patient. Lungs sounds I lateral scattered rhonchi, crackles. Maintaining good O2 saturations in the 90s on 50% FiO2 via the mechanical ventilator. I discussed the assessment and plan of care with my nurse practitioner, Herminia Millard. I attest to the above note as dictated by her.
[2021-03-02 12:58] LABS: Glucose,Whole Blood 238 mg/dL (75-99)
--- NOTE | 2021-03-02 15:16 | PN ---
PROGRESS NOTE DATE OF SERVICE: 03/02/2021 I am covering for Dr. Hackett. INTERVAL HISTORY: This 85-year-old gentleman who was admitted with acute bilateral COVID-19 infection also had acute hlz-DR-kwrlesv-elevation myocardial infarction. The patient had shortness with acute respiratory failure. Patient mechanically intubated at this time. Currently the patient is on 8 of PEEP and FiO2 50%. Most recent chest x-ray done today reviewed personally by me showed evidence of bilateral interstitial pneumonia, right more than the left at this time. PAST MEDICAL HISTORY: Reviewed. REVIEW OF SYSTEMS: Could not be taken. The patient is mechanically intubated and sedated. CURRENT MEDICATIONS: Tylenol, Cordarone, vitamin C, Lipitor, Peridex, dextrose, Lovenox, Levemir, Zestril, Solu-Medrol, KCl, norepinephrine, Zosyn IV. Doses reviewed. PHYSICAL EXAM: GENERAL: Patient is mechanically sedated. VITAL SIGNS: Pulse 33, blood pressure 98/64, respirations 20, temperature 98, pulse ox 96% on mechanical ventilation. Vent settings are noted. HEENT: Conjunctivae normal. Oral mucosa moist. NECK: No jugular venous distention. No carotid bruits. No lymph node enlargement. RESPIRATORY: Breath sounds diminished at the bases. Bilateral scattered rhonchi and crackles. Respiratory wheezing is also present. HEART: S1 and S2, muffled. ABDOMEN: Soft, no tenderness. EXTREMITIES: No edema, no swelling. NERVOUS: No focal deficits. LABS: WBC 11, hemoglobin 10.5. ABGs noted. Sodium 148, potassium 3.9, albumin 2.5. ASSESSMENT: 1. Acute COVID-19 infection with bilateral interstitial pneumonia with acute hypoxic respiratory failure on mechanical ventilation. 2. Acute pbq-RW-pkzugof-elevation myocardial infarction. 3. History of chronic obstructive pulmonary disease, pulmonary fibrosis. 4. Hypertension. 5. Hyperlipidemia. 6. History of coronary artery disease. 7. History of brain cancer. 8. Increased WBC. 9. Anemia. 10.Macrocytosis. 11.Hyponatremia. 12.Elevated creatinine. 13.Acute tubular necrosis. 14.Acute renal failure. 15.Hypoalbuminemia with mild protein calorie malnutrition. 16.FULL CODE currently. RECOMMENDATIONS AND DISCUSSION: In this 85-year-old gentleman who presented with multiple complex medical issues, we will monitor the patient closely. Continue the current management. Continue symptomatic treatment. Continue with bronchodilators. Continue with Lovenox. Continue with steroids. IV dextrose has been initiated. We will monitor the patient closely with Dr. Arias. Dr. Arias has recommended either tracheostomy and other weaning parameters or comfort measures because of the severity of the patient disease. We will continue to monitor. Discussed with staff. Further recommendations to follow. Old charts were reviewed. The patient is being closely monitored. MMSAIGE / MIRYAMN: [id number] /
[2021-03-02 15:48] LABS: Glucose,Whole Blood 280 mg/dL (75-99)
[2021-03-02] MEDS: NOREPINEPHRINE 4 MG in SODIUM CHLORIDE 0.9% 250 ML IV SCH (17:43)
--- NOTE | 2021-03-02 18:57 | PN ---
PROGRESS NOTE DATE OF SERVICE: 03/02/2021 REASON FOR FOLLOWUP: Pneumonia. INTERVAL HISTORY: The patient is currently afebrile. The patient remains to be intubated on the vent. FiO2 is currently stable at 50%. No significant purulent secretions through the ET. He did have diarrhea but no worsening output noted. Stool for C difficile came back negative. PHYSICAL EXAMINATION: Blood pressure 120/58 with a pulse of 73, temperature of 98. He is 96% on 50% FIO2. General description is an elderly male lying in bed in no distress. Respiratory system: Unlabored breathing, decreased breath sounds at bases, no wheeze. Heart S1, S2. Regular rate and rhythm. Abdomen soft, no tenderness. Extremities: No edema of the feet. LABS: BUN of 23, creatinine 1.81. Sputum showing Alyssa albicans. DIAGNOSTIC IMPRESSION AND PLAN: Patient with acute respiratory failure. This patient likely has component of pneumonia, possible aspiration / COVID pneumonia as the patient did have elevated procalcitonin, He is currently covered with Zosyn, now with significant diarrhea. Will add Questran for symptomatic relief and monitor clinical course closely. MMODL / IJN: [id number] / WANDER
[2021-03-02 20:05] LABS: Glucose,Whole Blood 231 mg/dL (75-99)
[2021-03-02] MEDS: ATORVASTATIN 40 MG TAB PO SCH (20:28)
[2021-03-02] MEDS: CHOLESTYRAMINE (WITH SUGAR) 4 GM PACKET PO SCH (20:30)
[2021-03-02] MEDS ORDERED: INSULIN DETEMIR (LEVEMIR) 100 UNIT/ML SYR SQ SCH (21:00)
[2021-03-02 23:35] LABS: Glucose,Whole Blood 218 mg/dL (75-99)
[2021-03-03] MEDS: methylPREDNISolone SOD SUCCI 125 MG/2 ML VIAL IV SCH ×4 (00:06→19:09)
[2021-03-03] MEDS: DEXTROSE 5% IN WATER 1,000 ML IV SCH ×3 (00:07→16:19)
[2021-03-03] MEDS: INSULIN ASPART (NovoLOG) 100 UNIT/ML VIAL SQ SCH ×6 (00:07→20:39)
[2021-03-03 04:07] LABS: Glucose,Whole Blood 198 mg/dL (75-99)
[2021-03-03] MEDS: PIPERACILLIN-TAZOBACTAM 3.375 GM in SODIUM CHLORIDE 0.9% 100 ML IVPB SCH ×3 (04:40→20:39)
[2021-03-03 05:50] LABS: Albumin 2.4 g/dL (3.5-5.0); C Reactive Protein 53.4 mg/L (<10.0); Calcium 7.4 mg/dL (8.4-10.2); Potassium 3.5 mmol/L (3.5-5.1); Total Bilirubin 0.6 mg/dL (0.2-1.3); Total Protein 4.5 g/dL (6.3-8.2)
[2021-03-03 05:54] LABS: Basophils % (A) 0 %; Eosinophils % (A) 0 %; HCT 32.5 % (39.0-53.0); HGB 10.8 gm/dL (13.0-17.5); Lymphocytes # (A) 0.1 k/uL (1.0-4.8); Lymphocytes % (A) 1 %; MCH 35.6 pg (25.0-35.0); MCHC 33.2 g/dL (31.0-37.0); Macrocytosis Moderate; Monocytes # (A) 0.4 k/uL (0-1.0); Monocytes % (A) 3 %; Neutrophils # (A) 12.7 k/uL (1.3-7.7); Neutrophils % (A) 96 %; RBC 3.04 m/uL (4.30-5.90); WBC 13.2 k/uL (3.8-10.6)
[2021-03-03 06:09] LABS: ABG HCO3 25 mmol/L (21-25); ABG PCO2 53 mmHg (35-45); ABG PH 7.29 (7.35-7.45); ABG PO2 81 mmHg (83-108); ABG TCO2 27 mmol/L (19-24); Allen Test Performed? Yes
[2021-03-03 06:10] LABS: ABG Base Excess -1.3 mmol/L
[2021-03-03 06:54] LABS: Platelet Count 99 k/uL (150-450)
[2021-03-03 06:58] LABS: Anisocytosis (M) Present; Poikilocytosis (M) Present
--- NOTE | 2021-03-03 07:29 | XR ---
EXAMINATION TYPE: XR chest 1V portable DATE OF EXAM: 03/03/2021 Comparison: 03/02/2021 Clinical History: 85-year-old male Tube placement Findings: ET tube tip at the level of the medial clavicular heads. NG tube courses below the diaphragm. The wally ehole is at the GE junction. Left subclavian CVC tip in the upper right atrium. Heart normal size. Un derlying emphysema and superimposed interstitial and patchy airspace opacities, similar to slightly i ncreased from prior exam. Impression: 1. NG tube side hole at the GE junction. Advance into the stomach. 2. COPD with superimposed acute interstitial lung disease, slightly worsened from prior exam.
--- NOTE | 2021-03-03 07:31 | P.PN ---
Subjective Progress Note Date: 03/03/21 Principal diagnosis: Abnormal cardiac enzymes This is an 85-year-old gentleman with coronary artery disease, heart failure with reduced ejection fraction, paroxysmal atrial fibrillation, as well as hypertension and dyslipidemia was admitted to the hospital with COVID-19 infection and pneumonia. We consulted to see the patient mainly for abnormal cardiac enzymes and elevated troponin. Please note that the patient also does have underlying dementia. The patient currently is in atrial fibrillation was controlled heart rate. He is on metoprolol. For some reasons he is not or he was not on any oral anticoagulation as an outpatient. Currently he is on Lovenox daily. He does have chronic kidney disease. The last echocardiogram showed impaired left ventricular systolic function with EF around 20%. He is on maximize medical treatment for cardiomyopathy. He remains hemodynamically stable at this point. Objective - Vital Signs Vital signs: Vital Signs Temp 97.2 F L 03/03/21 04:00 Pulse 71 03/03/21 07:00 Resp 29 H 03/03/21 07:00 BP 74/49 03/03/21 07:00 Pulse Ox 94 L 03/03/21 07:00 Intake & Output 03/02/21 03/03/21 03/03/21 18:59 06:59 18:59 Intake Total 2247 1622 128 Output Total 620 520 30 Balance 1627 1102 98 Weight 72.8 kg 71.7 kg Intake: IV 1201 1536 128 0.9 JELANI 36 36 3 Dextrose 5% in Water 1, 1125 1500 125 000 ml @ 125 mls/hr IV . Q8H JULIANA Rx#:[id number] Sodium Chloride 0.9% 1, 40 000 ml @ 20 mls/hr IV . Q24H STA Rx#:[id number] Intake, IV Titration 100 Amount propofoL 1,000 mg In 100 Empty Bag 1 bag @ Titrate IV .Q0M JULIANA Rx#: [id number] Tube Feeding 516 86 Other 430 Output: Urine 620 520 30 Other: Voiding Method Indwelling Catheter Indwelling Catheter ABP, PAP, CO, CI - Last Documented Arterial Blood Pressure 99/48 - Labs CBC & Chem 7: 03/03/21 04:25 03/03/21 04:25 Labs: Abnormal Lab Results - Last 24 Hours (Table) 03/02/21 03/02/21 03/02/21 Range/Units 08:05 09:30 12:46 WBC (3.8-10.6) k/uL RBC (4.30-5.90) m/uL Hgb (13.0-17.5) gm/dL Hct (39.0-53.0) % MCV (80.0-100.0) fL MCH (25.0-35.0) pg Plt Count (150-450) k/uL Neutrophils # (1.3-7.7) k/uL Lymphocytes # (1.0-4.8) k/uL D-Dimer (<0.60) mg/L FEU ABG pH (7.35-7.45) ABG pCO2 (35-45) mmHg ABG pO2 80 L (83-108) mmHg ABG HCO3 28 H (21-25) mmol/L ABG Total CO2 29 H (19-24) mmol/L BUN (9-20) mg/dL Creatinine (0.66-1.25) mg/dL Glucose (74-99) mg/dL POC Glucose (mg/dL) 200 H 238 H (75-99) mg/dL Calcium (8.4-10.2) mg/dL Lactate Dehydrogenase (313-618) U/L C-Reactive Protein (<10.0) mg/L Total Protein (6.3-8.2) g/dL Albumin (3.5-5.0) g/dL 03/02/21 03/02/21 03/02/21 Range/Units 15:46 20:04 23:33 WBC (3.8-10.6) k/uL RBC (4.30-5.90) m/uL Hgb (13.0-17.5) gm/dL Hct (39.0-53.0) % MCV (80.0-100.0) fL MCH (25.0-35.0) pg Plt Count (150-450) k/uL Neutrophils # (1.3-7.7) k/uL Lymphocytes # (1.0-4.8) k/uL D-Dimer (<0.60) mg/L FEU ABG pH (7.35-7.45) ABG pCO2 (35-45) mmHg ABG pO2 (83-108) mmHg ABG HCO3 (21-25) mmol/L ABG Total CO2 (19-24) mmol/L BUN (9-20) mg/dL Creatinine (0.66-1.25) mg/dL Glucose (74-99) mg/dL POC Glucose (mg/dL) 280 H 231 H 218 H (75-99) mg/dL Calcium (8.4-10.2) mg/dL Lactate Dehydrogenase (313-618) U/L C-Reactive Protein (<10.0) mg/L Total Protein (6.3-8.2) g/dL Albumin (3.5-5.0) g/dL 03/03/21 03/03/21 03/03/21 Range/Units 04:06 04:25 04:25 WBC 13.2 H (3.8-10.6) k/uL RBC 3.04 L (4.30-5.90) m/uL Hgb 10.8 L (13.0-17.5) gm/dL Hct 32.5 L (39.0-53.0) % MCV 107.0 H (80.0-100.0) fL MCH 35.6 H (25.0-35.0) pg Plt Count 99 L (150-450) k/uL Neutrophils # 12.7 H (1.3-7.7) k/uL Lymphocytes # 0.1 L (1.0-4.8) k/uL D-Dimer 2.12 H (<0.60) mg/L FEU ABG pH (7.35-7.45) ABG pCO2 (35-45) mmHg ABG pO2 (83-108) mmHg ABG HCO3 (21-25) mmol/L ABG Total CO2 (19-24) mmol/L BUN (9-20) mg/dL Creatinine (0.66-1.25) mg/dL Glucose (74-99) mg/dL POC Glucose (mg/dL) 198 H (75-99) mg/dL Calcium (8.4-10.2) mg/dL Lactate Dehydrogenase (313-618) U/L C-Reactive Protein (<10.0) mg/L Total Protein (6.3-8.2) g/dL Albumin (3.5-5.0) g/dL 03/03/21 03/03/21 Range/Units 04:25 06:07 WBC (3.8-10.6) k/uL RBC (4.30-5.90) m/uL Hgb (13.0-17.5) gm/dL Hct (39.0-53.0) % MCV (80.0-100.0) fL MCH (25.0-35.0) pg Plt Count (150-450) k/uL Neutrophils # (1.3-7.7) k/uL Lymphocytes # (1.0-4.8) k/uL D-Dimer (<0.60) mg/L FEU ABG pH 7.29 L (7.35-7.45) ABG pCO2 53 H (35-45) mmHg ABG pO2 81 L (83-108) mmHg ABG HCO3 (21-25) mmol/L ABG Total CO2 27 H (19-24) mmol/L BUN 95 H (9-20) mg/dL Creatinine 1.76 H (0.66-1.25) mg/dL Glucose 190 H (74-99) mg/dL POC Glucose (mg/dL) (75-99) mg/dL Calcium 7.4 L (8.4-10.2) mg/dL Lactate Dehydrogenase 997 H (313-618) U/L C-Reactive Protein 53.4 H (<10.0) mg/L Total Protein 4.5 L (6.3-8.2) g/dL Albumin 2.4 L (3.5-5.0) g/dL Microbiology - Last 24 Hours (Table) 02/27/21 21:25 Gram Stain - Final Sputum Sputum Culture - Final Alyssa albicans Assessment and Plan Assessment: Assessment #1COVID-19 pneumonia #2 paroxysmal atrial fibrillation #3 coronary artery disease #4 heart failure with reduced ejection fraction #5 multiple comorbid conditions including underlying dementia Plan #1 continue the current medical regimen #2 for some reason sedation was not on any oral anticoagulation as an outpatient we will find out why exactly #3 consider only medical treatment for the abnormal troponin #4 follow-up with the patient
[2021-03-03] MEDS: ALBUTEROL HFA INHALER INHALATION PRN (08:03)
[2021-03-03] MEDS: CHOLECALCIFEROL 25 MCG (1000 IU) TABLET PO SCH (08:19)
[2021-03-03] MEDS: AMIODARONE 200 MG TAB PO SCH (08:19)
[2021-03-03] MEDS: ENOXAPARIN 40 MG/0.4 ML SYRINGE SQ SCH (08:19)
[2021-03-03] MEDS: CLOPIDOGREL 75 MG TAB PO SCH (08:19)
[2021-03-03] MEDS: CHLORHEXIDINE GLUCONATE 15 ML CUP MUCOUS MEM SCH ×2 (08:19→20:38)
[2021-03-03] MEDS: ASCORBIC ACID 500 MG TAB PO SCH (08:19)
[2021-03-03] MEDS: ASPIRIN 81 MG PO SCH (08:19)
[2021-03-03] MEDS: lamoTRIgine 25 MG TAB PO SCH ×2 (08:20→20:40)
[2021-03-03] MEDS: ZINC SULFATE 220 MG CAP PO SCH (08:20)
[2021-03-03 08:42] LABS: Glucose,Whole Blood 258 mg/dL (75-99)
[2021-03-03] MEDS ORDERED: SODIUM CHLORIDE 0.9% 1,000 ML IV ONE ×2 (09:52→09:53)
[2021-03-03] MEDS: lisinopriL 5 MG TAB PO SCH (09:53)
[2021-03-03] MEDS: METOPROLOL SUCCINATE (ER) 50 MG TAB.ER.24H PO SCH (09:59)
[2021-03-03 11:49] LABS: Glucose,Whole Blood 254 mg/dL (75-99)
[2021-03-03] MEDS: NOREPINEPHRINE 4 MG in SODIUM CHLORIDE 0.9% 250 ML IV SCH (12:07)
--- NOTE | 2021-03-03 12:41 | P.PN ---
Subjective Progress Note Date: 03/03/21 Principal diagnosis: Hypoxemic respiratory failure. Patient was reevaluated today on 02/25/2021, remains in the ICU, remains on 15 L flow and 80% FiO2, surprisingly the patient does not seem to be in any distress, chest x-ray continues to show diffuse interstitial infiltrates with underlying pulmonary fibrosis and possibly some component of pneumonia and pulmonary edema. Patient remains on Lasix remains on Decadron and Zosyn was added. Surprisingly the patient seems to be quite comfortable on the present FiO2 settings, hence I plan to transfer the patient today out of the ICU to a cardiac floor. CBC count today is 14.6 hemoglobin is 11.3 left lites are normal renal profile showed slight worsening of his creatinine up to 1.47 BUN is 31. Chest x-ray as noted above. Inflammatory markers are trending down LDH is 776 and C-reactive protein is 78. Patient was reevaluated today on 02/26/2021, he is presently on the cardiac floor, does not seem to be in any distress, patient is a poor historian, seems to be confused. Her main is on high flow at 70% FiO2 and 60 L flow of oxygen. His O2 saturations 90%. Patient again cannot tell me how [place] except he tells me he is doing better. WBC count today is 14.6 hemoglobin is 11.3. Intellect lites are normal renal profile is slightly worse with a BUN of 31 creatinine 1.47. Inflammatory markers were noted yesterday to remain elevated with LDH of 776, and his C-reactive protein 78. Rest x-ray today shows diffuse increased lung markings compatible with atypical pneumonia. Underlying bacterial pneumonia and underlying CHF is not entirely ruled out The patient was seen today 02/27/2021 in follow-up in the intensive care unit. Earlier this morning he continued to decompensate with worsening hypoxemia despi te being on BiPAP 12/ and 90% FiO2 was transferred to the ICU. Blood gases revealed a PaO2 of 56, pCO2 37, pH 7.44. He was in significant respiratory distress. Staff had spoken to the patient and his who both in agreement to be on life support if necessary. He remains a full code. Chest x-ray continues to revealed diffuse scattered infiltrates bilaterally worsening needing compared to previous. The cultures reveal no growth. White count 14.7. Hemoglobin 13.3. Lymphocytes 0.4. Sodium 145. Potassium 3.7. Creatinine 1.66. He did require intubation and mechanical ventilatory support. Currently on assist control mode at a rate of 20, tidal volume 400, FiO2 100% and a PEEP of 10. Low blood gases revealed a pO2 of 257, pCO2 43 pH 7.43 and his FiO2 was decreased to 50%. He remains on Lasix 40 mg IV every 12 hours, dexamethasone, performed for DVT prophylaxis. Antibiotics in the form of Zosyn. The patient is seen today 02/28/2021 in follow-up in the intensive care unit. He remains intubated on the mechanical ventilator and assist control mode. Rate of 20, tidal volume 400, FiO2 50%, PEEP of 10. He is sedated on propofol 50 mcg/kg/m, norepinephrine at 0.06 mg/kg/m, 0.9 normal saline at 50 MLS per hour. He is being nourished with Vital HP at 30 ML's per hour. Currently on IV Solu- Medrol, subcu heparin, Zosyn. This x-ray continue reveals evidence of COPD with continued diffuse bilateral interstitial disease and patchy infiltrates. Blood culture reveals no growth. Sputum culture pending. White count 8.7. Hemoglobin 11.0. Platelets 151. D-dimer 3.98. Sodium 144. Potassium 3.2. Creatinine 1.58. LDH 1104. C-reactive protein 212. The patient is seen today 03/01/2021 follow-up in the intensive care unit. He remains intubated, sedated and on the mechanical ventilator. Current settings assist-control mode. Rate of 20, tidal volume 400, FiO2 50% and a PEEP of 8. Morning blood gases revealed a pO2 of 73, pCO2 44, pH 7.43. He is sedated on pr opofol at 55 mcg/kg/m. Pressors in the form of norepinephrine at 0.06 mg/kg/m. 0.9 normal saline at 30 MLS per hour. He remains on Lovenox, IV Solu-Medrol IV Lasix. White count 16.6. Hemoglobin 11.1. Lymphocytes 0.1. D-dimer 2.68. Sodium 14 6. Potassium 4.0. Creatinine 1.58. LDH 1078. C-reactive protein 148.5. Remains on Zosyn. The patient is seen today 03/02/2021 follow-up in the intensive care unit. He remains intubated, sedated on the mechanical ventilator. Current mode assist control of 20, tidal volume 400, FiO2 50% and a PEEP of 8. Morning blood gases reveal a pO2 of 80, pCO2 45, pH 7.39. He is sedated on propofol at 60 mcg/kg/m. Norepinephrine at 0.01 mcg/kg/m. 0.9 normal saline at KVO. Vital HP tube feedings. He remains on Zosyn. Chest x-ray shows persistent interstitial opacities with slight decrease in the upper lungs. White count 11.4. Hemoglobin 10.5. Platelets 119. D-dimer 1.6. Sodium 148. Potassium 3.9. Creatinine 1.81. C-reactive protein 73.6. He remains on vitamin supplements, IV Solu-Medrol, Lovenox. Progress note dated 03/03/2021. 85-year-old male, admitted on February 22, with COVID 19 pneumonia. The patient was moved to the intensive care unit on February 27, and intubated on February 27. He remains on the ventilator, volume assist control mode, rate 20, tidal volume 400, FiO2 40%, PEEP of 8. Blood gases show a PaO2 of 81, PaCO2 of 53, and a pH of 7.29. The propofol is currently on hold for daily interruption of sedation. Normally it is at 55 mcg/kg/m. In addition, the patient's on D5W at 125 mL an hour, and vital high protein at 43 mL an hour which is goal. The patient was given a daily interruption of sedation, but unfortunately failed. This patient did receive TOCI. White count is 13.2, hemoglobin 10.8, hematocrit 32.5, and platelet count of 99,000. D-dimer is 2.12. Sodium 139, potassium 3.5, chloride 103, CO2 25, anion gap 11, BUN is 95, and creatinine is 1.76. LDH 997 and C- reactive protein is 53.4. Chest x-ray continues to show diffuse bilateral infiltrates, slightly worse than prior x-rays. Objective - Vital Signs Vital signs: Vital Signs Temp 97.2 F L 03/03/21 04:00 Pulse 61 03/03/21 10:00 Resp 28 H 03/03/21 10:00 BP 74/49 03/03/21 07:00 Pulse Ox 89 L 03/03/21 10:00 Intake & Output 03/02/21 03/03/21 03/03/21 18:59 06:59 18:59 Intake Total 2347 1622 390.229 Output Total 620 520 115 Balance 1727 1102 275.229 Weight 72.8 kg 71.7 kg Intake: IV 1201 1536 384 0.9 JELANI 36 36 9 Dextrose 5% in Water 1, 1125 1500 375 000 ml @ 125 mls/hr IV . Q8H [facility] Rx#:[id number] Sodium Chloride 0.9% 1, 40 000 ml @ 20 mls/hr IV . Q24H [facility] Rx#:[id number] Intake, IV Titration 200 6.229 Amount Norepinephrine 4 mg In 4.060 Sodium Chloride 0.9% 250 ml @ 0.05 MCG/KG/MIN 13. 24 mls/hr IV .[id number] [facility] Rx#:[id number] propofoL 1,000 mg In 200 2.169 Empty Bag 1 bag @ Titrate IV .Q0M [facility] Rx#: [id number] Tube Feeding 516 86 Other 430 Output: Urine 620 520 115 Other: Voiding Method Indwelling Catheter Indwelling Catheter ABP, PAP, CO, CI - Last Documented Arterial Blood Pressure 88/46 - Exam Currently sedated and intubated on the mechanical ventilator. HEENT examination is grossly unremarkable. Neck supple. Full range of motion. No adenopathy thyromegaly or neck vein distention. Cardiovascular examination reveals regular rhythm rate. S1-S2 normal. No S3 or S4. No discernible murmur noted. Heart rate 83 bpm. Lungs reveal scattered bilateral rhonchi, and coarse crackles. There are no wheezes. Breath sounds are equal bilaterally. Abdomen soft bowel sounds are heard. No masses or tenderness. Extremities are intact. No cyanosis clubbing or edema. Skin is without rash or lesion. Neurologic examination cannot be adequately assessed, as the patient's propofol was back on. - Labs CBC & Chem 7: 03/03/21 04:25 03/03/21 04:25 Labs: Abnormal Lab Results - Last 24 Hours (Table) 03/02/21 03/02/21 03/02/21 Range/Units 12:46 15:46 20:04 WBC (3.8-10.6) k/uL RBC (4.30-5.90) m/uL Hgb (13.0-17.5) gm/dL Hct (39.0-53.0) % MCV (80.0-100.0) fL MCH (25.0-35.0) pg Plt Count (150-450) k/uL Neutrophils # (1.3-7.7) k/uL Lymphocytes # (1.0-4.8) k/uL D-Dimer (<0.60) mg/L FEU ABG pH (7.35-7.45) ABG pCO2 (35-45) mmHg ABG pO2 (83-108) mmHg ABG Total CO2 (19-24) mmol/L BUN (9-20) mg/dL Creatinine (0.66-1.25) mg/dL Glucose (74-99) mg/dL POC Glucose (mg/dL) 238 H 280 H 231 H (75-99) mg/dL Calcium (8.4-10.2) mg/dL Lactate Dehydrogenase (313-618) U/L C-Reactive Protein (<10.0) mg/L Total Protein (6.3-8.2) g/dL Albumin (3.5-5.0) g/dL 03/02/21 03/03/21 03/03/21 Range/Units 23:33 04:06 04:25 WBC 13.2 H (3.8-10.6) k/uL RBC 3.04 L (4.30-5.90) m/uL Hgb 10.8 L (13.0-17.5) gm/dL Hct 32.5 L (39.0-53.0) % MCV 107.0 H (80.0-100.0) fL MCH 35.6 H (25.0-35.0) pg Plt Count 99 L (150-450) k/uL Neutrophils # 12.7 H (1.3-7.7) k/uL Lymphocytes # 0.1 L (1.0-4.8) k/uL D-Dimer (<0.60) mg/L FEU ABG pH (7.35-7.45) ABG pCO2 (35-45) mmHg ABG pO2 (83-108) mmHg ABG Total CO2 (19-24) mmol/L BUN (9-20) mg/dL Creatinine (0.66-1.25) mg/dL Glucose (74-99) mg/dL POC Glucose (mg/dL) 218 H 198 H (75-99) mg/dL Calcium (8.4-10.2) mg/dL Lactate Dehydrogenase (313-618) U/L C-Reactive Protein (<10.0) mg/L Total Protein (6.3-8.2) g/dL Albumin (3.5-5.0) g/dL 03/03/21 03/03/21 03/03/21 Range/Units 04:25 04:25 06:07 WBC (3.8-10.6) k/uL RBC (4.30-5.90) m/uL Hgb (13.0-17.5) gm/dL Hct (39.0-53.0) % MCV (80.0-100.0) fL MCH (25.0-35.0) pg Plt Count (150-450) k/uL Neutrophils # (1.3-7.7) k/uL Lymphocytes # (1.0-4.8) k/uL D-Dimer 2.12 H (<0.60) mg/L FEU ABG pH 7.29 L (7.35-7.45) ABG pCO2 53 H (35-45) mmHg ABG pO2 81 L (83-108) mmHg ABG Total CO2 27 H (19-24) mmol/L BUN 95 H (9-20) mg/dL Creatinine 1.76 H (0.66-1.25) mg/dL Glucose 190 H (74-99) mg/dL POC Glucose (mg/dL) (75-99) mg/dL Calcium 7.4 L (8.4-10.2) mg/dL Lactate Dehydrogenase 997 H (313-618) U/L C-Reactive Protein 53.4 H (<10.0) mg/L Total Protein 4.5 L (6.3-8.2) g/dL Albumin 2.4 L (3.5-5.0) g/dL 03/03/21 03/03/21 Range/Units 08:41 11:48 WBC (3.8-10.6) k/uL RBC (4.30-5.90) m/uL Hgb (13.0-17.5) gm/dL Hct (39.0-53.0) % MCV (80.0-100.0) fL MCH (25.0-35.0) pg Plt Count (150-450) k/uL Neutrophils # (1.3-7.7) k/uL Lymphocytes # (1.0-4.8) k/uL D-Dimer (<0.60) mg/L FEU ABG pH (7.35-7.45) ABG pCO2 (35-45) mmHg ABG pO2 (83-108) mmHg ABG Total CO2 (19-24) mmol/L BUN (9-20) mg/dL Creatinine (0.66-1.25) mg/dL Glucose (74-99) mg/dL POC Glucose (mg/dL) 258 H 254 H (75-99) mg/dL Calcium (8.4-10.2) mg/dL Lactate Dehydrogenase (313-618) U/L C-Reactive Protein (<10.0) mg/L Total Protein (6.3-8.2) g/dL Albumin (3.5-5.0) g/dL Microbiology - Last 24 Hours (Table) 02/27/21 21:25 Gram Stain - Final Sputum Sputum Culture - Final Alyssa albicans Assessment and Plan Assessment: Acute hypoxemic respiratory failure, status post intubation on 02/27/2021, secondary to COVID 19 pneumonitis. Acute exacerbation of COPD. Possible interstitial lung disease/pulmonary fibrosis. Acute systolic congestive heart failure, with an ejection fraction of 20%. Acute non-ST segment elevation myocardial infarction. History of dementia. History of craniotomy secondary to brain tumor. General medical debility. Non-anion gap metabolic acidosis. Acute kidney injury. Plan: Plan dated 03/03/2021. We attempted a daily interruption of sedation. Unfortunately, the patient failed. The patient be placed back on his propofol. Additional recommendations and suggestions are forthcoming. His enteral nutrition is at goal. We will continue to follow make recommendations were appropriate. Overall prognosis is guarded. Labs, x-rays, and medications are all reviewed. Time with Patient: Greater than 30
[2021-03-03] MEDS: CHOLESTYRAMINE (WITH SUGAR) 4 GM PACKET PO SCH ×2 (13:05→19:10)
[2021-03-03 13:16] LABS: Glucose,Whole Blood 305 mg/dL (75-99)
[2021-03-03] MEDS ORDERED: INSULIN DETEMIR (LEVEMIR) 100 UNIT/ML SYR SQ SCH (14:00)
[2021-03-03 16:29] LABS: Glucose,Whole Blood 328 mg/dL (75-99)
[2021-03-03] MEDS: SODIUM CHLORIDE 0.9% 1,000 ML IV SCH (19:09)
[2021-03-03] MEDS: FLUCONAZOLE IN NACL,ISO-OSM 100 MG in SALINE 1 50ML.BAG IVPB SCH (19:34)
[2021-03-03 20:14] LABS: Glucose,Whole Blood 268 mg/dL (75-99)
[2021-03-03] MEDS ORDERED: CISATRACURIUM 2 MG/ML 5 ML VIAL IV ONE (20:19)
[2021-03-03] MEDS ORDERED: ARTIFICIAL TEARS-HYPROMELLOSE DROPS 15 ML BTL BOTH EYES PRN (20:20)
[2021-03-03] MEDS: CISATRACURIUM 200 MG in SODIUM CHLORIDE 0.9% 180 ML IV SCH (20:38)
[2021-03-03] MEDS: ATORVASTATIN 40 MG TAB PO SCH (20:38)
[2021-03-03] MEDS: INSULIN DETEMIR (LEVEMIR) 100 UNIT/ML SYR SQ SCH (20:38)
--- NOTE | 2021-03-03 21:54 | PN ---
PROGRESS NOTE I am covering for Dr. Hackett. DATE OF SERVICE: 03/03/2021 This 85-year-old gentleman who was admitted with bilateral COVID-19 infection as well as acute hypoxic respiratory failure is being closely monitored at this time. The patient is on mechanical ventilation. The patient is currently on PEEP of 12. The patient also had features of acute [id number]-pgxfnzi-elevation myocardial infarction. The most recent chest x-ray, which was personally reviewed by me, showed bilateral persistent interstitial infiltrates throughout the lung thomas. Dr. Lozano is following the patient closely. The blood sugar is elevated at this time, which is being treated with Levemir twice daily injections. WBC 13.2, platelets are 99. Past medical history reviewed. Review of systems could not be taken; the patient is mechanically ventilated and sedated. Alyssa albicans was grown from the sputum culture. CURRENT MEDICATIONS: Reviewed. They include Tylenol, Ventolin, Cordarone, vitamin C, aspirin, Lipitor, Peridex, vitamin D3, Plavix. NovoLog, Lovenox. Doses are reviewed. PHYSICAL EXAMINATION: Patient is mechanically ventilated and sedated. Pulse is 92, blood pressure 103/62, respiration 35, temperature 97.3, pulse ox 88% on 40% FiO2. HEENT: Conjunctivae normal. NECK: No jugular venous distention. CARDIOVASCULAR SYSTEM: S1, S2 muffled. RESPIRATORY SYSTEM: Breath sounds diminished at the bases. Bilateral scattered rhonchi and crackles. ABDOMEN: Soft. NERVOUS SYSTEM: Patient is mechanically ventilated and sedated. LABS: WBC 13.2, hemoglobin 10.8. ABGs noted. ASSESSMENT: 1. Acute COVID-19 infection with bilateral interstitial pneumonia with acute hypoxic respiratory failure, on mechanical ventilation. 2. Acute yul-FF-otkopas-elevation myocardial infarction. 3. Alyssa albicans in the sputum. 4. History of chronic obstructive pulmonary disease with pulmonary fibrosis. 5. Hypertension. 6. Hyperlipidemia. 7. History of coronary artery disease. 8. History of brain cancer. 9. Increased white count. 10.Anemia. 11.Macrocytosis. 12.Hyponatremia. 13.Elevated creatinine. 14.Acute tubular necrosis. 15.Acute renal failure, present on admission. 16.Hypoalbuminemia with mild protein-calorie malnutrition. 17.FULL CODE currently. RECOMMENDATIONS AND DISCUSSION: I recommend to continue current medications, continue with the monitoring, symptomatic treatment. I would recommend adding Diflucan to the current regimen. Dr. Lozano is following the patient closely. The patient has failed weaning at this time. Repeat labs are ordered. Once again, the prognosis is extremely guarded. Further recommendations to follow. I would also increase the dose of Levemir to 30 units subcutaneously b.i.d. and also stop the D5 water because the sodium has come down to 139. Prognosis guarded. Further recommendations to follow. MMODL / IJN: [id number] /
--- NOTE | 2021-03-03 22:18 | XR ---
EXAMINATION TYPE: XR chest 1V portable DATE OF EXAM: 03/03/2021 COMPARISON: Today HISTORY: Respiratory failure. TECHNIQUE: Single view FINDINGS: There is endotracheal tube 4 cm from the tanya. There is nasogastric tube in the stomach. There is pulmonary interstitial and airspace edema. There is left subclavian catheter with tip in the superior vena cava. No pneumothorax. IMPRESSION: Moderate pulmonary edema without change compared to exam this morning. No pneumothorax.
--- NOTE | 2021-03-03 23:18 | PN ---
PROGRESS NOTE DATE OF SERVICE: 03/03/2021. REASON FOR FOLLOW UP: Pneumonia. INTERVAL HISTORY: The patient remains to be intubated on the vent. The patient is hemodynamically stable, not on any pressor support. FiO2 is currently at 40%. No significant purulent secretions thru the ET. He continues to have diarrhea. No worsening amount. PHYSICAL EXAMINATION: Blood pressure 118/66, pulse of 93, temperature 97.3. He is 98% on 40% FiO2. General description is an elderly male intubated on the vent. Respiratory system: Unlabored breathing, decreased breath sounds in the base. No wheeze. Heart S1, S2. Regular rate and rhythm. Abdomen soft, no tenderness. LAB: Hemoglobin 10.1, white count 13.2, BUN of 95, creatinine 1.76. DIAGNOSTIC IMPRESSION AND PLAN: Patient with acute respiratory failure which is multifactorial in this patient who did have a component of pneumonia possible combination of Covid and bacterial pneumonia. The patient is currently on Zosyn, Lovenox, Solu-Medrol, zinc and ascorbic acid to continue. Overall prognosis remains to be guarded. Continue supportive care. MMODL / IJN: [id number] / MTDYusuf
[2021-03-03 23:33] LABS: Calcium 6.9 mg/dL (8.4-10.2); Magnesium 1.9 mg/dL (1.6-2.3); Potassium 4.7 mmol/L (3.5-5.1)
[2021-03-04] MEDS: methylPREDNISolone SOD SUCCI 125 MG/2 ML VIAL IV SCH ×4 (00:40→17:05)
[2021-03-04] MEDS: INSULIN ASPART (NovoLOG) 100 UNIT/ML VIAL SQ SCH ×6 (00:40→20:51)
[2021-03-04 04:43] LABS: ABG Base Excess -10.2 mmol/L; ABG HCO3 20 mmol/L (21-25); ABG Oxygen Saturation 97.3 % (94-97); ABG PO2 124 mmHg (83-108); ABG TCO2 23 mmol/L (19-24); Allen Test Performed? Yes
[2021-03-04 04:47] LABS: ABG PCO2 75 mmHg (35-45); ABG PH 7.04 (7.35-7.45)
[2021-03-04] MEDS: PIPERACILLIN-TAZOBACTAM 3.375 GM in SODIUM CHLORIDE 0.9% 100 ML IVPB SCH ×3 (04:50→20:50)
[2021-03-04 05:01] LABS: Albumin 2.7 g/dL (3.5-5.0); C Reactive Protein 44.4 mg/L (<10.0); Calcium 6.9 mg/dL (8.4-10.2); Potassium 4.9 mmol/L (3.5-5.1); Total Bilirubin 0.6 mg/dL (0.2-1.3); Total Protein 5.1 g/dL (6.3-8.2)
[2021-03-04 05:52] LABS: HCT 36.6 % (39.0-53.0); HGB 11.8 gm/dL (13.0-17.5); Hypochromasia Marked; MCH 35.5 pg (25.0-35.0); MCHC 32.1 g/dL (31.0-37.0); MCV 110.4 fL (80.0-100.0); Macrocytosis Marked; Platelet Count 139 k/uL (150-450); RBC 3.32 m/uL (4.30-5.90); RDW 14.9 % (11.5-15.5); WBC 22.6 k/uL (3.8-10.6)
[2021-03-04] MEDS: NOREPINEPHRINE 4 MG in SODIUM CHLORIDE 0.9% 250 ML IV SCH ×4 (06:33→15:39)
[2021-03-04] MEDS: INSULIN DETEMIR (LEVEMIR) 100 UNIT/ML SYR SQ SCH ×2 (06:34→20:50)
[2021-03-04] MEDS: ALBUTEROL HFA INHALER INHALATION PRN ×3 (07:24→15:38)
[2021-03-04] MEDS: CLOPIDOGREL 75 MG TAB PO SCH (07:57)
[2021-03-04] MEDS: ASCORBIC ACID 500 MG TAB PO SCH (07:57)
[2021-03-04] MEDS: ZINC SULFATE 220 MG CAP PO SCH (07:57)
[2021-03-04] MEDS: ASPIRIN 81 MG PO SCH (07:57)
[2021-03-04] MEDS: CHOLECALCIFEROL 25 MCG (1000 IU) TABLET PO SCH (07:57)
[2021-03-04] MEDS: ENOXAPARIN 40 MG/0.4 ML SYRINGE SQ SCH (07:58)
[2021-03-04] MEDS: CHLORHEXIDINE GLUCONATE 15 ML CUP MUCOUS MEM SCH ×2 (07:58→20:51)
[2021-03-04] MEDS: lamoTRIgine 25 MG TAB PO SCH ×2 (07:58→20:56)
[2021-03-04] MEDS: AMIODARONE 200 MG TAB PO SCH (07:58)
[2021-03-04 08:14] LABS: Glucose,Whole Blood 156 mg/dL (75-99)
[2021-03-04 08:49] LABS: Glucose,Whole Blood 155 mg/dL (75-99)
[2021-03-04] MEDS: lisinopriL 5 MG TAB PO SCH (08:51)
[2021-03-04] MEDS: FLUCONAZOLE IN NACL,ISO-OSM 100 MG in SALINE 1 50ML.BAG IVPB SCH (08:56)
--- NOTE | 2021-03-04 08:56 | P.PN ---
Subjective Progress Note Date: 03/04/21 Principal diagnosis: Abnormal cardiac enzymes This is an 85-year-old gentleman with coronary artery disease, heart failure with reduced ejection fraction, paroxysmal atrial fibrillation, as well as hypertension and dyslipidemia was admitted to the hospital with COVID-19 infection and pneumonia. We consulted to see the patient mainly for abnormal cardiac enzymes and elevated troponin. Please note that the patient also does have underlying dementia. The patient was seen today. Overall he is not doing well. Unfortunately from the pulmonary/critical care standpoint overview, he continues to be intubated and more hypoxic and requiring more PEEP. Hemodynamically he is also unstable and requiring norepinephrine at this point. He has been maintaining normal sinus mechanism. The echocardiogram showed impaired LV function was EF around 20%. The prognosis overall seems to be very poor. Objective - Vital Signs Vital signs: Vital Signs Temp 98.4 F 03/04/21 08:00 Pulse 80 03/04/21 08:00 Resp 30 H 03/04/21 08:00 BP 119/69 03/04/21 07:00 Pulse Ox 97 03/04/21 08:00 Intake & Output 03/03/21 03/04/21 03/04/21 18:59 06:59 18:59 Intake Total 4230.995 1803.005 190.008 Output Total 295 335 20 Balance 3935.995 1468.005 170.008 Weight 73 kg Intake: IV 3508 936 78 0.9 JELANI 33 36 3 Dextrose 5% in Water 1, 1375 000 ml @ 125 mls/hr IV . Q8H [facility] Rx#:[id number] Piperacillin-Tazobactam 3 100 .375 gm In Sodium Chloride 0.9% 100 ml @ 25 mls/hr IVPB Q8H [facility] Rx#: [id number] Sodium Chloride 0.9% 1, 900 75 000 ml @ 75 mls/hr IV . [id number] [facility] Rx#:[id number] Sodium Chloride 0.9% 1, 2000 000 ml @ 999 mls/hr IV . Q1H1M [facility] Rx#:[id number] Intake, IV Titration 149.995 304.005 112.008 Amount Norepinephrine 4 mg In 24.362 229.638 112.008 Sodium Chloride 0.9% 250 ml @ 0.05 MCG/KG/MIN 13. 24 mls/hr IV .[id number] [facility] Rx#:[id number] propofoL 1,000 mg In 125.633 74.367 Empty Bag 1 bag @ Titrate IV .Q0M [facility] Rx#: [id number] Oral 100 Tube Feeding 473 473 Other 90 Output: Urine 295 335 20 Other: Voiding Method Indwelling Catheter Indwelling Catheter ABP, PAP, CO, CI - Last Documented Arterial Blood Pressure 95/52 - Labs CBC & Chem 7: 03/04/21 04:00 03/04/21 04:00 Labs: Abnormal Lab Results - Last 24 Hours (Table) 03/03/21 03/03/21 03/03/21 Range/Units 11:48 13:14 16:27 WBC (3.8-10.6) k/uL RBC (4.30-5.90) m/uL Hgb (13.0-17.5) gm/dL Hct (39.0-53.0) % MCV (80.0-100.0) fL MCH (25.0-35.0) pg Plt Count (150-450) k/uL Macrocytosis D-Dimer (<0.60) mg/L FEU ABG pH (7.35-7.45) ABG pCO2 (35-45) mmHg ABG pO2 (83-108) mmHg ABG HCO3 (21-25) mmol/L ABG O2 Saturation (94-97) % Sodium (137-145) mmol/L Carbon Dioxide (22-30) mmol/L BUN (9-20) mg/dL Creatinine (0.66-1.25) mg/dL Glucose (74-99) mg/dL POC Glucose (mg/dL) 254 H 305 H 328 H (75-99) mg/dL Calcium (8.4-10.2) mg/dL Lactate Dehydrogenase (313-618) U/L C-Reactive Protein (<10.0) mg/L Total Protein (6.3-8.2) g/dL Albumin (3.5-5.0) g/dL 03/03/21 03/03/21 03/04/21 Range/Units 20:12 22:30 04:00 WBC 22.6 H (3.8-10.6) k/uL RBC 3.32 L (4.30-5.90) m/uL Hgb 11.8 L (13.0-17.5) gm/dL Hct 36.6 L (39.0-53.0) % MCV 110.4 H (80.0-100.0) fL MCH 35.5 H (25.0-35.0) pg Plt Count 139 L (150-450) k/uL Macrocytosis Marked A D-Dimer (<0.60) mg/L FEU ABG pH (7.35-7.45) ABG pCO2 (35-45) mmHg ABG pO2 (83-108) mmHg ABG HCO3 (21-25) mmol/L ABG O2 Saturation (94-97) % Sodium 132 L (137-145) mmol/L Carbon Dioxide (22-30) mmol/L BUN 101 H* (9-20) mg/dL Creatinine 2.14 H (0.66-1.25) mg/dL Glucose 258 H (74-99) mg/dL POC Glucose (mg/dL) 268 H (75-99) mg/dL Calcium 6.9 L (8.4-10.2) mg/dL Lactate Dehydrogenase (313-618) U/L C-Reactive Protein (<10.0) mg/L Total Protein (6.3-8.2) g/dL Albumin (3.5-5.0) g/dL 03/04/21 03/04/21 03/04/21 Range/Units 04:00 04:00 04:41 WBC (3.8-10.6) k/uL RBC (4.30-5.90) m/uL Hgb (13.0-17.5) gm/dL Hct (39.0-53.0) % MCV (80.0-100.0) fL MCH (25.0-35.0) pg Plt Count (150-450) k/uL Macrocytosis D-Dimer 2.97 H (<0.60) mg/L FEU ABG pH 7.04 L* (7.35-7.45) ABG pCO2 75 H* (35-45) mmHg ABG pO2 124 H (83-108) mmHg ABG HCO3 20 L (21-25) mmol/L ABG O2 Saturation 97.3 H (94-97) % Sodium 135 L (137-145) mmol/L Carbon Dioxide 21 L (22-30) mmol/L BUN 99 H (9-20) mg/dL Creatinine 2.32 H (0.66-1.25) mg/dL Glucose 168 H (74-99) mg/dL POC Glucose (mg/dL) (75-99) mg/dL Calcium 6.9 L (8.4-10.2) mg/dL Lactate Dehydrogenase 1354 H (313-618) U/L C-Reactive Protein 44.4 H (<10.0) mg/L Total Protein 5.1 L (6.3-8.2) g/dL Albumin 2.7 L (3.5-5.0) g/dL 03/04/21 03/04/21 Range/Units 08:11 08:48 WBC (3.8-10.6) k/uL RBC (4.30-5.90) m/uL Hgb (13.0-17.5) gm/dL Hct (39.0-53.0) % MCV (80.0-100.0) fL MCH (25.0-35.0) pg Plt Count (150-450) k/uL Macrocytosis D-Dimer (<0.60) mg/L FEU ABG pH (7.35-7.45) ABG pCO2 (35-45) mmHg ABG pO2 (83-108) mmHg ABG HCO3 (21-25) mmol/L ABG O2 Saturation (94-97) % Sodium (137-145) mmol/L Carbon Dioxide (22-30) mmol/L BUN (9-20) mg/dL Creatinine (0.66-1.25) mg/dL Glucose (74-99) mg/dL POC Glucose (mg/dL) 156 H 155 H (75-99) mg/dL Calcium (8.4-10.2) mg/dL Lactate Dehydrogenase (313-618) U/L C-Reactive Protein (<10.0) mg/L Total Protein (6.3-8.2) g/dL Albumin (3.5-5.0) g/dL Assessment and Plan Assessment: Assessment #1COVID-19 pneumonia #2 paroxysmal atrial fibrillation #3 coronary artery disease #4 heart failure with reduced ejection fraction #5 acute hypoxic respiratory failure Plan #1 the patient has been maintaining normal sinus mechanism #2 overall the prognosis seems to be very poor with the lung condition
[2021-03-04 09:31] LABS: ABG Base Excess -11.2 mmol/L; ABG HCO3 19 mmol/L (21-25); ABG Oxygen Saturation 96.1 % (94-97); ABG PCO2 63 mmHg (35-45); ABG PO2 99 mmHg (83-108); ABG TCO2 21 mmol/L (19-24); Allen Test Performed? Yes
[2021-03-04 09:35] LABS: ABG PH 7.08 (7.35-7.45)
--- NOTE | 2021-03-04 09:56 | XR ---
EXAMINATION TYPE: XR chest 1V portable DATE OF EXAM: 03/04/2021 COMPARISON: 03/03/2020 oh INDICATION: Tube placement TECHNIQUE: Single frontal view of the chest is obtained. FINDINGS: The heart size is normal. The pulmonary vasculature is indistinct. Diffuse increased lung markings are present bilaterally. This has some improvement over the interval. Very minimal pleural may be at the left costophrenic angle. Endotracheal tube tip is above the tanya. Nasogastric tube transverses the thorax. Left central veno us catheter tip is within the distal superior vena cava region. IMPRESSION: 1. Diffuse increased lung markings be a slight improvement over the interval
[2021-03-04 10:20] VITALS: BMI 20.6
[2021-03-04] MEDS: METOPROLOL SUCCINATE (ER) 50 MG TAB.ER.24H PO SCH (10:38)
[2021-03-04] MEDS: CHOLESTYRAMINE (WITH SUGAR) 4 GM PACKET PO SCH ×2 (10:47→17:05)
[2021-03-04 10:59] LABS: Band Neutrophils % 1 %; Lymphocytes # (M) 0.68 k/uL (1.0-4.8); Monocytes # (M) 1.36 k/uL (0-1.0); Myelocytes # (M) 0.23 k/uL (0); Myelocytes % 1 %; Neutrophils % (M) 89 %; Nucleated Red Blood Cells 0 /100 WBC (0-0); Total Cells Counted 100
[2021-03-04 11:00] LABS: Large Platelets Present; Poikilocytosis (M) Present
--- NOTE | 2021-03-04 11:36 | P.PN ---
Subjective Progress Note Date: 03/04/21 Principal diagnosis: Hypoxemic respiratory failure. Patient was reevaluated today on 02/25/2021, remains in the ICU, remains on 15 L flow and 80% FiO2, surprisingly the patient does not seem to be in any distress, chest x-ray continues to show diffuse interstitial infiltrates with underlying pulmonary fibrosis and possibly some component of pneumonia and pulmonary edema. Patient remains on Lasix remains on Decadron and Zosyn was added. Surprisingly the patient seems to be quite comfortable on the present FiO2 settings, hence I plan to transfer the patient today out of the ICU to a cardiac floor. CBC count today is 14.6 hemoglobin is 11.3 left lites are normal renal profile showed slight worsening of his creatinine up to 1.47 BUN is 31. Chest x-ray as noted above. Inflammatory markers are trending down LDH is 776 and C-reactive protein is 78. Patient was reevaluated today on 02/26/2021, he is presently on the cardiac floor, does not seem to be in any distress, patient is a poor historian, seems to be confused. Her main is on high flow at 70% FiO2 and 60 L flow of oxygen. His O2 saturations 90%. Patient again cannot tell me how [place] except he tells me he is doing better. WBC count today is 14.6 hemoglobin is 11.3. Intellect lites are normal renal profile is slightly worse with a BUN of 31 creatinine 1.47. Inflammatory markers were noted yesterday to remain elevated with LDH of 776, and his C-reactive protein 78. Rest x-ray today shows diffuse increased lung markings compatible with atypical pneumonia. Underlying bacterial pneumonia and underlying CHF is not entirely ruled out The patient was seen today 02/27/2021 in follow-up in the intensive care unit. Earlier this morning he continued to decompensate with worsening hypoxemia despi te being on BiPAP 12/ and 90% FiO2 was transferred to the ICU. Blood gases revealed a PaO2 of 56, pCO2 37, pH 7.44. He was in significant respiratory distress. Staff had spoken to the patient and his who both in agreement to be on life support if necessary. He remains a full code. Chest x-ray continues to revealed diffuse scattered infiltrates bilaterally worsening needing compared to previous. The cultures reveal no growth. White count 14.7. Hemoglobin 13.3. Lymphocytes 0.4. Sodium 145. Potassium 3.7. Creatinine 1.66. He did require intubation and mechanical ventilatory support. Currently on assist control mode at a rate of 20, tidal volume 400, FiO2 100% and a PEEP of 10. Low blood gases revealed a pO2 of 257, pCO2 43 pH 7.43 and his FiO2 was decreased to 50%. He remains on Lasix 40 mg IV every 12 hours, dexamethasone, performed for DVT prophylaxis. Antibiotics in the form of Zosyn. The patient is seen today 02/28/2021 in follow-up in the intensive care unit. He remains intubated on the mechanical ventilator and assist control mode. Rate of 20, tidal volume 400, FiO2 50%, PEEP of 10. He is sedated on propofol 50 mcg/kg/m, norepinephrine at 0.06 mg/kg/m, 0.9 normal saline at 50 MLS per hour. He is being nourished with Vital HP at 30 ML's per hour. Currently on IV Solu- Medrol, subcu heparin, Zosyn. This x-ray continue reveals evidence of COPD with continued diffuse bilateral interstitial disease and patchy infiltrates. Blood culture reveals no growth. Sputum culture pending. White count 8.7. Hemoglobin 11.0. Platelets 151. D-dimer 3.98. Sodium 144. Potassium 3.2. Creatinine 1.58. LDH 1104. C-reactive protein 212. The patient is seen today 03/01/2021 follow-up in the intensive care unit. He remains intubated, sedated and on the mechanical ventilator. Current settings assist-control mode. Rate of 20, tidal volume 400, FiO2 50% and a PEEP of 8. Morning blood gases revealed a pO2 of 73, pCO2 44, pH 7.43. He is sedated on pr opofol at 55 mcg/kg/m. Pressors in the form of norepinephrine at 0.06 mg/kg/m. 0.9 normal saline at 30 MLS per hour. He remains on Lovenox, IV Solu-Medrol IV Lasix. White count 16.6. Hemoglobin 11.1. Lymphocytes 0.1. D-dimer 2.68. Sodium 14 6. Potassium 4.0. Creatinine 1.58. LDH 1078. C-reactive protein 148.5. Remains on Zosyn. The patient is seen today 03/02/2021 follow-up in the intensive care unit. He remains intubated, sedated on the mechanical ventilator. Current mode assist control of 20, tidal volume 400, FiO2 50% and a PEEP of 8. Morning blood gases reveal a pO2 of 80, pCO2 45, pH 7.39. He is sedated on propofol at 60 mcg/kg/m. Norepinephrine at 0.01 mcg/kg/m. 0.9 normal saline at KVO. Vital HP tube feedings. He remains on Zosyn. Chest x-ray shows persistent interstitial opacities with slight decrease in the upper lungs. White count 11.4. Hemoglobin 10.5. Platelets 119. D-dimer 1.6. Sodium 148. Potassium 3.9. Creatinine 1.81. C-reactive protein 73.6. He remains on vitamin supplements, IV Solu-Medrol, Lovenox. Progress note dated 03/03/2021. 85-year-old male, admitted on February 22, with COVID 19 pneumonia. The patient was moved to the intensive care unit on February 27, and intubated on February 27. He remains on the ventilator, volume assist control mode, rate 20, tidal volume 400, FiO2 40%, PEEP of 8. Blood gases show a PaO2 of 81, PaCO2 of 53, and a pH of 7.29. The propofol is currently on hold for daily interruption of sedation. Normally it is at 55 mcg/kg/m. In addition, the patient's on D5W at 125 mL an hour, and vital high protein at 43 mL an hour which is goal. The patient was given a daily interruption of sedation, but unfortunately failed. This patient did receive TOCI. White count is 13.2, hemoglobin 10.8, hematocrit 32.5, and platelet count of 99,000. D-dimer is 2.12. Sodium 139, potassium 3.5, chloride 103, CO2 25, anion gap 11, BUN is 95, and creatinine is 1.76. LDH 997 and C- reactive protein is 53.4. Chest x-ray continues to show diffuse bilateral infiltrates, slightly worse than prior x-rays. Progress note dated 03/04/2021. 85-year-old male, admitted on February 22, with COVID 19 pneumonia. The patient was moved to the intensive care unit on February 27, and intubated on February 27 for respiratory failure. He remains on the ventilator currently, on the volume assist control mode, rate of 30, tidal volume 400, FiO2 60%, and PEEP of 16. Blood gases show a PaO2 of 124, PaCO2 75, and a pH is 7.04. Those blood gases were done on a rate of 20. The rate was increased to 30 after that. The patient's getting saline at 75 mL an hour, Nimbex at 2 mcg/kg/m, and multiple norepinephrine at 17 mcg/m, DIP or van at 50 mcg/kg/m, and vital high protein at 43 mL an hour which is goal. Repeat blood gas will be ordered. We are going to try to discontinue the Nimbex possible. White count is 22.6, hemoglobin 11.8, hematocrit 36.6, and platelet count 139,000. D-dimer 2.97. Sodium 135, potassium 4.9, chlorides 100, CO2 21, anion gap 14, BUN 99, creatinine 2.32. LDH is 1354. C-reactive protein is 44.4. Chest x-ray shows diffuse increased lung markings, with slight improvement over the prior chest x-ray. Objective - Vital Signs Vital signs: Vital Signs Temp 99.7 F H 03/04/21 11:00 Pulse 82 03/04/21 11:00 Resp 36 H 03/04/21 11:00 BP 119/69 03/04/21 07:00 Pulse Ox 96 03/04/21 11:00 Intake & Output 03/03/21 03/04/21 03/04/21 18:59 06:59 18:59 Intake Total 4230.995 1803.005 821.637 Output Total 295 335 35 Balance 3935.995 1468.005 786.637 Weight 73 kg 73 kg Intake: IV 3508 936 362 0.9 JELANI 33 36 12 Dextrose 5% in Water 1, 1375 000 ml @ 125 mls/hr IV . Q8H [facility] Rx#:[id number] Fluconazole in NaCl,Iso- 50 Osm 100 mg In Saline 1 50ml.bag @ 50 mls/hr IVPB DAILY [facility] Rx#:[id number] Piperacillin-Tazobactam 3 100 .375 gm In Sodium Chloride 0.9% 100 ml @ 25 mls/hr IVPB Q8H [facility] Rx#: [id number] Sodium Chloride 0.9% 1, 900 300 000 ml @ 75 mls/hr IV . [id number] [facility] Rx#:[id number] Sodium Chloride 0.9% 1, 2000 000 ml @ 999 mls/hr IV . Q1H1M [facility] Rx#:[id number] Intake, IV Titration 149.995 304.005 230.637 Amount Norepinephrine 4 mg In 24.362 229.638 230.637 Sodium Chloride 0.9% 250 ml @ 0.05 MCG/KG/MIN 13. 24 mls/hr IV .[id number] [facility] Rx#:[id number] propofoL 1,000 mg In 125.633 74.367 Empty Bag 1 bag @ Titrate IV .Q0M [facility] Rx#: [id number] Oral 100 100 Tube Feeding 473 473 129 Other 90 Output: Urine 295 335 35 Other: Voiding Method Indwelling Catheter Indwelling Catheter ABP, PAP, CO, CI - Last Documented Arterial Blood Pressure 119/55 - Exam Currently sedated and intubated on the mechanical ventilator. HEENT examination is grossly unremarkable. Neck supple. Full range of motion. No adenopathy thyromegaly or neck vein distention. Cardiovascular examination reveals regular rhythm rate. S1-S2 normal. No S3 or S4. No discernible murmur noted. Heart rate 82 bpm. Lungs reveal bilateral coarse crackles and rhonchi. No wheezes. Breath sounds equal bilaterally. Abdomen soft bowel sounds are heard. No masses or tenderness. Extremities are intact. No cyanosis clubbing or edema. Skin is without rash or lesion. Neurologic examination cannot be adequately assessed, as the patient is sedated and paralyzed. - Labs CBC & Chem 7: 03/04/21 04:00 03/04/21 04:00 Labs: Abnormal Lab Results - Last 24 Hours (Table) 03/03/21 03/03/21 03/03/21 Range/Units 11:48 13:14 16:27 WBC (3.8-10.6) k/uL RBC (4.30-5.90) m/uL Hgb (13.0-17.5) gm/dL Hct (39.0-53.0) % MCV (80.0-100.0) fL MCH (25.0-35.0) pg Plt Count (150-450) k/uL Neutrophils # (Manual) (1.3-7.7) k/uL Lymphocytes # (Manual) (1.0-4.8) k/uL Monocytes # (Manual) (0-1.0) k/uL Myelocytes # (Manual) (0) k/uL Macrocytosis D-Dimer (<0.60) mg/L FEU ABG pH (7.35-7.45) ABG pCO2 (35-45) mmHg ABG pO2 (83-108) mmHg ABG HCO3 (21-25) mmol/L ABG O2 Saturation (94-97) % Sodium (137-145) mmol/L Carbon Dioxide (22-30) mmol/L BUN (9-20) mg/dL Creatinine (0.66-1.25) mg/dL Glucose (74-99) mg/dL POC Glucose (mg/dL) 254 H 305 H 328 H (75-99) mg/dL Calcium (8.4-10.2) mg/dL Lactate Dehydrogenase (313-618) U/L C-Reactive Protein (<10.0) mg/L Total Protein (6.3-8.2) g/dL Albumin (3.5-5.0) g/dL 03/03/21 03/03/21 03/04/21 Range/Units 20:12 22:30 04:00 WBC 22.6 H (3.8-10.6) k/uL RBC 3.32 L (4.30-5.90) m/uL Hgb 11.8 L (13.0-17.5) gm/dL Hct 36.6 L (39.0-53.0) % MCV 110.4 H (80.0-100.0) fL MCH 35.5 H (25.0-35.0) pg Plt Count 139 L (150-450) k/uL Neutrophils # (Manual) 20.30 H (1.3-7.7) k/uL Lymphocytes # (Manual) 0.68 L (1.0-4.8) k/uL Monocytes # (Manual) 1.36 H (0-1.0) k/uL Myelocytes # (Manual) 0.23 H (0) k/uL Macrocytosis Marked A D-Dimer (<0.60) mg/L FEU ABG pH (7.35-7.45) ABG pCO2 (35-45) mmHg ABG pO2 (83-108) mmHg ABG HCO3 (21-25) mmol/L ABG O2 Saturation (94-97) % Sodium 132 L (137-145) mmol/L Carbon Dioxide (22-30) mmol/L BUN 101 H* (9-20) mg/dL Creatinine 2.14 H (0.66-1.25) mg/dL Glucose 258 H (74-99) mg/dL POC Glucose (mg/dL) 268 H (75-99) mg/dL Calcium 6.9 L (8.4-10.2) mg/dL Lactate Dehydrogenase (313-618) U/L C-Reactive Protein (<10.0) mg/L Total Protein (6.3-8.2) g/dL Albumin (3.5-5.0) g/dL 03/04/21 03/04/21 03/04/21 Range/Units 04:00 04:00 04:41 WBC (3.8-10.6) k/uL RBC (4.30-5.90) m/uL Hgb (13.0-17.5) gm/dL Hct (39.0-53.0) % MCV (80.0-100.0) fL MCH (25.0-35.0) pg Plt Count (150-450) k/uL Neutrophils # (Manual) (1.3-7.7) k/uL Lymphocytes # (Manual) (1.0-4.8) k/uL Monocytes # (Manual) (0-1.0) k/uL Myelocytes # (Manual) (0) k/uL Macrocytosis D-Dimer 2.97 H (<0.60) mg/L FEU ABG pH 7.04 L* (7.35-7.45) ABG pCO2 75 H* (35-45) mmHg ABG pO2 124 H (83-108) mmHg ABG HCO3 20 L (21-25) mmol/L ABG O2 Saturation 97.3 H (94-97) % Sodium 135 L (137-145) mmol/L Carbon Dioxide 21 L (22-30) mmol/L BUN 99 H (9-20) mg/dL Creatinine 2.32 H (0.66-1.25) mg/dL Glucose 168 H (74-99) mg/dL POC Glucose (mg/dL) (75-99) mg/dL Calcium 6.9 L (8.4-10.2) mg/dL Lactate Dehydrogenase 1354 H (313-618) U/L C-Reactive Protein 44.4 H (<10.0) mg/L Total Protein 5.1 L (6.3-8.2) g/dL Albumin 2.7 L (3.5-5.0) g/dL 03/04/21 03/04/21 03/04/21 Range/Units 08:11 08:48 09:28 WBC (3.8-10.6) k/uL RBC (4.30-5.90) m/uL Hgb (13.0-17.5) gm/dL Hct (39.0-53.0) % MCV (80.0-100.0) fL MCH (25.0-35.0) pg Plt Count (150-450) k/uL Neutrophils # (Manual) (1.3-7.7) k/uL Lymphocytes # (Manual) (1.0-4.8) k/uL Monocytes # (Manual) (0-1.0) k/uL Myelocytes # (Manual) (0) k/uL Macrocytosis D-Dimer (<0.60) mg/L FEU ABG pH 7.08 L* (7.35-7.45) ABG pCO2 63 H (35-45) mmHg ABG pO2 (83-108) mmHg ABG HCO3 19 L (21-25) mmol/L ABG O2 Saturation (94-97) % Sodium (137-145) mmol/L Carbon Dioxide (22-30) mmol/L BUN (9-20) mg/dL Creatinine (0.66-1.25) mg/dL Glucose (74-99) mg/dL POC Glucose (mg/dL) 156 H 155 H (75-99) mg/dL Calcium (8.4-10.2) mg/dL Lactate Dehydrogenase (313-618) U/L C-Reactive Protein (<10.0) mg/L Total Protein (6.3-8.2) g/dL Albumin (3.5-5.0) g/dL Assessment and Plan Assessment: Acute hypoxemic respiratory failure, status post intubation on 02/27/2021, secondary to COVID 19 pneumonitis. Combined, respiratory and metabolic acidosis. Acute exacerbation of COPD. Possible interstitial lung disease/pulmonary fibrosis. Acute systolic congestive heart failure, with an ejection fraction of 20%. Acute non-ST segment elevation myocardial infarction. History of dementia. History of craniotomy secondary to brain tumor. General medical debility. Non-anion gap metabolic acidosis. Acute kidney injury. Plan: Plan dated 03/03/2021. We attempted a daily interruption of sedation. Unfortunately, the patient failed. The patient be placed back on his propofol. Additional recommendations and suggestions are forthcoming. His enteral nutrition is at goal. We will continue to follow make recommendations were appropriate. Overall prognosis is guarded. Labs, x-rays, and medications are all reviewed. Plan dated 03/04/2021. The patient is currently now on propofol and Nimbex. He is also on norepinephrine at 17 mcg/m. Blood gases show a combined respiratory and metabolic acidosis. His overall prognosis remains poor. We will continue to follow. He is getting enteral nutrition at goal. We will attempt to discontinue the Nimbex. That may not happen today. We will continue to follow and make recommendations were present. Again, prognosis is very poor. Time with Patient: Greater than 30
[2021-03-04 11:58] LABS: Glucose,Whole Blood 172 mg/dL (75-99)
[2021-03-04] MEDS: CISATRACURIUM 200 MG in SODIUM CHLORIDE 0.9% 180 ML IV SCH (13:10)
--- NOTE | 2021-03-04 15:31 | PN ---
PROGRESS NOTE DATE OF SERVICE: 03/04/2021 This 85-year-old gentleman admitted with acute COVID-19 infection with acute bilateral interstitial pneumonia, acute respiratory failure on mechanical ventilation, patient The patient was hypoxic. Today the vent settings are being adjusted by Dr. Lozano. The patient is on pressor support as the patient is on broad-spectrum IV antibiotics as well. Currently the patient is on rate of 36, tidal volume 400 and 60% FiO2 and 16 of PEEP. The patient is saturating around 95%. The patient is on norepinephrine at [facility] at this time. I discussed at length with Yasmeen, the daughter, at [phone], about the prognosis of which is extremely grave at this time. Dr. Lozano is following the patient as well as multiple consultants. Patient also had significant cardiac involvement, possibly the COVID and acute myocardial infarction. Patient also had renal failure, which is also slightly worsening over the time. PAST MEDICAL HISTORY: Reviewed. REVIEW OF SYSTEM: Could not be taken. CURRENT MEDICATIONS: Current medications are Tylenol, Ventolin, Cordarone, Artificial Tears, Lipitor, vitamin D3, Plavix, Lovenox. Doses are reviewed. PHYSICAL EXAMINATION: Patient is mechanically ventilated. Pulse 80, blood pressure 110/55, respiration 36, temperature 99.5, pulse ox 97% on mechanical ventilation. Vent settings are noted as mentioned earlier. HEENT: Conjunctivae normal. NECK: No jugular venous distention. CARDIOVASCULAR: S1, S2 muffled. RESPIRATORY: Breath sounds diminished at the bases. A few scattered rhonchi and crackles. ABDOMEN: Soft, nontender. LEGS: No edema, no swelling. NERVOUS SYSTEM: Patient is mechanically ventilated and sedated. LABS: WBC 22.6, hemoglobin 11.8, pH of 7.08. ASSESSMENT: 1. Acute COVID-19 infection with acute bilateral interstitial pneumonia with acute hypoxic respiratory failure on mechanical ventilation. 2. Acute mwa-NP-iqueiva-elevation myocardial infarction. 3. Possible cardiomyopathy, ejection fraction 20% to 25%, possibly secondary to COVID- 19. 4. Worsening acidosis, a combination of respiratory and metabolic acidosis. 5. Alyssa albicans in the sputum. 6. 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 7. Hypertension. 8. Hyperlipidemia. 9. History of coronary artery disease. 10.History of brain cancer. 11.History of increased WBC. 12.Anemia. 13.Macrocytosis. 14.Hyponatremia. 15.Elevated creatinine with acute tubular necrosis, acute renal failure, present on admission. 16.Hypoalbuminemia with mild protein calorie malnutrition. 17.FULL CODE, currently. RECOMMENDATIONS AND DISCUSSION: Recommend to continue current medications, continue symptomatic treatment. Otherwise, continue with mechanical ventilation with adjusted changes advised by Dr. Lozano and also continue to follow along with Cardiology and Nephrology. Overall prognosis is extremely guarded because of multiple complex medical issues. Further recommendations to follow. Infectious Disease also has been consulted and as mentioned earlier discussed the case with Yasmeen and informed her of the grave prognosis. Yasmeen requested the possibility of transfer to the [facility]. I have conveyed that to the staff and the case management team. Further recommendations to follow. Prognosis guarded. MMBRETTL / MIRYAMN: [id number] / MTDD
[2021-03-04 16:20] LABS: Glucose,Whole Blood 191 mg/dL (75-99)
[2021-03-04 20:47] LABS: Glucose,Whole Blood 190 mg/dL (75-99)
[2021-03-04] MEDS: ATORVASTATIN 40 MG TAB PO SCH (20:50)
[2021-03-04] MEDS: SODIUM CHLORIDE 0.9% 1,000 ML IV SCH (20:51)
[2021-03-05 00:02] LABS: Glucose,Whole Blood 201 mg/dL (75-99)
[2021-03-05] MEDS: INSULIN ASPART (NovoLOG) 100 UNIT/ML VIAL SQ SCH ×3 (00:30→03:37)
[2021-03-05] MEDS: methylPREDNISolone SOD SUCCI 125 MG/2 ML VIAL IV SCH (00:35)
[2021-03-05] MEDS: NOREPINEPHRINE 4 MG in SODIUM CHLORIDE 0.9% 250 ML IV SCH ×2 (02:24→08:43)
[2021-03-05] MEDS ORDERED: NOREPINEPHRINE 8 MG in SODIUM CHLORIDE 0.9% 250 ML IV SCH (03:30)
[2021-03-05 03:32] LABS: Glucose,Whole Blood 195 mg/dL (75-99)
[2021-03-05] MEDS: PIPERACILLIN-TAZOBACTAM 3.375 GM in SODIUM CHLORIDE 0.9% 100 ML IVPB SCH (03:47)
[2021-03-05 03:52] LABS: Albumin 2.4 g/dL (3.5-5.0); Calcium 6.6 mg/dL (8.4-10.2); Potassium 5.5 mmol/L (3.5-5.1); Total Protein 4.7 g/dL (6.3-8.2)
[2021-03-05 03:54] LABS: Total Bilirubin 0.8 mg/dL (0.2-1.3)
[2021-03-05 04:01] LABS: HCT 32.2 % (39.0-53.0); HGB 10.5 gm/dL (13.0-17.5); Hypochromasia Moderate; MCH 35.6 pg (25.0-35.0); MCHC 32.7 g/dL (31.0-37.0); MCV 108.9 fL (80.0-100.0); Macrocytosis Marked; Mean Platelet Volume 11.2; Platelet Count 111 k/uL (150-450); RBC 2.96 m/uL (4.30-5.90); RDW 15.1 % (11.5-15.5)
[2021-03-05 04:53] LABS: Lymphocytes # (M) 0.48 k/uL (1.0-4.8); Metamyelocytes # (M) 0.24 k/uL (0); Metamyelocytes % 1 %; Monocytes # (M) 0.95 k/uL (0-1.0); Myelocytes # (M) 0.24 k/uL (0); Myelocytes % 1 %; Neutrophils % (M) 92 %; Nucleated Red Blood Cells 1 /100 WBC (0-0); Total Cells Counted 200; WBC 23.8 k/uL (3.8-10.6)
[2021-03-05 04:55] LABS: Anisocytosis (M) Present; Poikilocytosis (M) Present
--- NOTE | 2021-03-05 05:28 | PN ---
PROGRESS NOTE DATE OF SERVICE: 03/04/2021 REASON FOR FOLLOWUP: Pneumonia. INTERVAL HISTORY: The patient remains to be intubated on the vent. The patient is hemodynamically stable not on pressor support. Slight hypothermic this evening. No significant purulent secretions in the ET or worsening diarrhea per the nursing staff. PHYSICAL EXAMINATION: VITAL SIGNS: Blood pressure 133/77 with a pulse of 79, temperature 97, he is 98% on 100% FIO2. GENERAL DESCRIPTION: Patient is an elderly male intubated and on the ventilator. LUNGS: Unlabored breathing, decreased intensity of breath sounds, no wheeze. HEART: S1-S2, regular rate and rhythm. ABDOMEN: Soft, no tenderness. LABS: Hemoglobin 11.1, white count 2.6, BUN of 99, creatinine 2.32. DIAGNOSTIC IMPRESSION AND PLAN: Patient with acute respiratory failure which is multifactorial in this patient with component of COVID-19 pneumonia plus-minus aspiration. Sputum has been negative for resistant pathogen, sameer more like colonizer or oropharyngeal candidiasis. Patient is covered with Zosyn, Solu-Medrol, zinc and ascorbic acid along with respiratory support. Monitor clinical course closely. MMODL / IJN: [id number] / MTDD
[2021-03-05 05:39] LABS: ABG Base Excess -15.2 mmol/L; ABG HCO3 16 mmol/L (21-25); ABG Oxygen Saturation 90.3 % (94-97); ABG PCO2 60 mmHg (35-45); ABG PO2 78 mmHg (83-108); ABG TCO2 18 mmol/L (19-24)
[2021-03-05 06:15] LABS: ABG PH 7.03 (7.35-7.45); Allen Test Performed? no
--- NOTE | 2021-03-05 07:25 | XR ---
EXAMINATION TYPE: XR chest 1V portable DATE OF EXAM: 03/05/2021 COMPARISON: 03/04/2021 HISTORY: SOB, Follow Up FINDINGS: Indwelling tubes and catheters are unchanged. Coarse interstitial infiltrates throughout both lung thomas. Stable appearance of the cardio-mediastinal structures at this time. IMPRESSION: 1. Stable portable chest. Clinical correlation and follow up until resolution is recommended.
--- NOTE | 2021-03-05 08:22 | P.PN ---
Subjective Progress Note Date: 03/05/21 Principal diagnosis: Abnormal cardiac enzymes This is an 85-year-old gentleman with coronary artery disease, heart failure with reduced ejection fraction, paroxysmal atrial fibrillation, as well as hypertension and dyslipidemia was admitted to the hospital with COVID-19 infection and pneumonia. We consulted to see the patient mainly for abnormal cardiac enzymes and elevated troponin. Please note that the patient also does have underlying dementia. The patient was seen today March 05. The patient is not doing well. Unfortunately he continues to be hemodynamically unstable and requiring norepinephrine. The creatinine is worse today. I'm going to DC the lisinopril in view of the worsening kidney function. He continues to be intubated on mechanical ventilation. The echo showed severely impaired LV function with an ejection fraction of 20%. There was discussion with the family and the family request the patient to be transferred to different facility. Intensive care service is on the team and advised the patient not to be transferred at this point in view of the poor prognosis. Objective - Vital Signs Vital signs: Vital Signs Temp 99.5 F 03/05/21 04:00 Pulse 59 L 03/05/21 06:00 Resp 36 H 03/05/21 06:00 BP 108/58 03/05/21 06:00 Pulse Ox 93 L 03/05/21 06:00 Intake & Output 03/04/21 03/05/21 03/05/21 18:59 06:59 18:59 Intake Total 2581.728 1931.774 Output Total 70 50 Balance 2511.728 1881.774 Weight 73 kg 87.3 kg Intake: IV 986 1036 0.9 JELANI 36 36 Fluconazole in NaCl,Iso- 50 Osm 100 mg In Saline 1 50ml.bag @ 50 mls/hr IVPB DAILY [facility] Rx#:[id number] Piperacillin-Tazobactam 3 100 .375 gm In Sodium Chloride 0.9% 100 ml @ 25 mls/hr IVPB Q8H [facility] Rx#: [id number] Sodium Chloride 0.9% 1, 900 900 000 ml @ 75 mls/hr IV . [id number] [facility] Rx#:[id number] Intake, IV Titration 1012.728 448.774 Amount Cisatracurium 200 mg In 137.755 74.532 Sodium Chloride 0.9% 180 ml @ 2 MCG/KG/MIN 8.604 mls/hr IV .[id number] [facility] Rx #:[id number] Norepinephrine 4 mg In 687.499 124.338 Sodium Chloride 0.9% 250 ml @ 0.05 MCG/KG/MIN 13. 24 mls/hr IV .[id number] [facility] Rx#:[id number] Norepinephrine 8 mg In 119.431 Sodium Chloride 0.9% 250 ml @ 0.05 MCG/KG/MIN 7. 063 mls/hr IV .Q24H [facility] Rx#:[id number] propofoL 1,000 mg In 187.474 130.473 Empty Bag 1 bag @ Titrate IV .Q0M [facility] Rx#: [id number] Oral 100 Tube Feeding 483 387 Other 60 Output: Urine 70 50 Other: Voiding Method Indwelling Catheter Indwelling Catheter ABP, PAP, CO, CI - Last Documented Arterial Blood Pressure 75/38 - Labs CBC & Chem 7: 03/05/21 03:30 03/05/21 03:30 Labs: Abnormal Lab Results - Last 24 Hours (Table) 03/04/21 03/04/21 03/04/21 Range/Units 04:00 08:48 09:28 WBC (3.8-10.6) k/uL RBC (4.30-5.90) m/uL Hgb (13.0-17.5) gm/dL Hct (39.0-53.0) % MCV (80.0-100.0) fL MCH (25.0-35.0) pg Plt Count (150-450) k/uL Neutrophils # (Manual) 20.30 H (1.3-7.7) k/uL Lymphocytes # (Manual) 0.68 L (1.0-4.8) k/uL Monocytes # (Manual) 1.36 H (0-1.0) k/uL Metamyelocytes # (Man) (0) k/uL Myelocytes # (Manual) 0.23 H (0) k/uL Nucleated RBCs (0-0) /100 WBC Macrocytosis ABG pH 7.08 L* (7.35-7.45) ABG pCO2 63 H (35-45) mmHg ABG pO2 (83-108) mmHg ABG HCO3 19 L (21-25) mmol/L ABG Total CO2 (19-24) mmol/L ABG O2 Saturation (94-97) % Sodium (137-145) mmol/L Potassium (3.5-5.1) mmol/L Carbon Dioxide (22-30) mmol/L BUN (9-20) mg/dL Creatinine (0.66-1.25) mg/dL Glucose (74-99) mg/dL POC Glucose (mg/dL) 155 H (75-99) mg/dL Calcium (8.4-10.2) mg/dL Total Protein (6.3-8.2) g/dL Albumin (3.5-5.0) g/dL 03/04/21 03/04/21 03/04/21 Range/Units 11:46 16:18 20:46 WBC (3.8-10.6) k/uL RBC (4.30-5.90) m/uL Hgb (13.0-17.5) gm/dL Hct (39.0-53.0) % MCV (80.0-100.0) fL MCH (25.0-35.0) pg Plt Count (150-450) k/uL Neutrophils # (Manual) (1.3-7.7) k/uL Lymphocytes # (Manual) (1.0-4.8) k/uL Monocytes # (Manual) (0-1.0) k/uL Metamyelocytes # (Man) (0) k/uL Myelocytes # (Manual) (0) k/uL Nucleated RBCs (0-0) /100 WBC Macrocytosis ABG pH (7.35-7.45) ABG pCO2 (35-45) mmHg ABG pO2 (83-108) mmHg ABG HCO3 (21-25) mmol/L ABG Total CO2 (19-24) mmol/L ABG O2 Saturation (94-97) % Sodium (137-145) mmol/L Potassium (3.5-5.1) mmol/L Carbon Dioxide (22-30) mmol/L BUN (9-20) mg/dL Creatinine (0.66-1.25) mg/dL Glucose (74-99) mg/dL POC Glucose (mg/dL) 172 H 191 H 190 H (75-99) mg/dL Calcium (8.4-10.2) mg/dL Total Protein (6.3-8.2) g/dL Albumin (3.5-5.0) g/dL 03/05/21 03/05/21 03/05/21 Range/Units 00:00 03:30 03:30 WBC 23.8 H (3.8-10.6) k/uL RBC 2.96 L (4.30-5.90) m/uL Hgb 10.5 L (13.0-17.5) gm/dL Hct 32.2 L (39.0-53.0) % MCV 108.9 H (80.0-100.0) fL MCH 35.6 H (25.0-35.0) pg Plt Count 111 L (150-450) k/uL Neutrophils # (Manual) 21.90 H (1.3-7.7) k/uL Lymphocytes # (Manual) 0.48 L (1.0-4.8) k/uL Monocytes # (Manual) (0-1.0) k/uL Metamyelocytes # (Man) 0.24 H (0) k/uL Myelocytes # (Manual) 0.24 H (0) k/uL Nucleated RBCs 1 H (0-0) /100 WBC Macrocytosis Marked A ABG pH (7.35-7.45) ABG pCO2 (35-45) mmHg ABG pO2 (83-108) mmHg ABG HCO3 (21-25) mmol/L ABG Total CO2 (19-24) mmol/L ABG O2 Saturation (94-97) % Sodium 132 L (137-145) mmol/L Potassium 5.5 H (3.5-5.1) mmol/L Carbon Dioxide 16 L (22-30) mmol/L BUN 119 H* (9-20) mg/dL Creatinine 3.09 H (0.66-1.25) mg/dL Glucose 184 H (74-99) mg/dL POC Glucose (mg/dL) 201 H (75-99) mg/dL Calcium 6.6 L (8.4-10.2) mg/dL Total Protein 4.7 L (6.3-8.2) g/dL Albumin 2.4 L (3.5-5.0) g/dL 03/05/21 03/05/21 Range/Units 03:31 05:37 WBC (3.8-10.6) k/uL RBC (4.30-5.90) m/uL Hgb (13.0-17.5) gm/dL Hct (39.0-53.0) % MCV (80.0-100.0) fL MCH (25.0-35.0) pg Plt Count (150-450) k/uL Neutrophils # (Manual) (1.3-7.7) k/uL Lymphocytes # (Manual) (1.0-4.8) k/uL Monocytes # (Manual) (0-1.0) k/uL Metamyelocytes # (Man) (0) k/uL Myelocytes # (Manual) (0) k/uL Nucleated RBCs (0-0) /100 WBC Macrocytosis ABG pH 7.03 L* (7.35-7.45) ABG pCO2 60 H (35-45) mmHg ABG pO2 78 L (83-108) mmHg ABG HCO3 16 L (21-25) mmol/L ABG Total CO2 18 L (19-24) mmol/L ABG O2 Saturation 90.3 L (94-97) % Sodium (137-145) mmol/L Potassium (3.5-5.1) mmol/L Carbon Dioxide (22-30) mmol/L BUN (9-20) mg/dL Creatinine (0.66-1.25) mg/dL Glucose (74-99) mg/dL POC Glucose (mg/dL) 195 H (75-99) mg/dL Calcium (8.4-10.2) mg/dL Total Protein (6.3-8.2) g/dL Albumin (3.5-5.0) g/dL Assessment and Plan Assessment: Assessment #1COVID-19 pneumonia #2 paroxysmal atrial fibrillation #3 coronary artery disease #4 heart failure with reduced ejection fraction #5 acute hypoxic respiratory failure #6 hypotension requires vasopressors Plan #1 DC lisinopril in view of the worsening kidney function #2 continue support the blood pressure was placed percent #3 follow-up with the patient
[2021-03-05] MEDS: ALBUTEROL HFA INHALER INHALATION PRN (08:30)
[2021-03-05 08:34] LABS: Glucose,Whole Blood 199 mg/dL (75-99)
[2021-03-05] MEDS ORDERED: ENOXAPARIN 30 MG/0.3 ML SYRINGE SQ SCH (09:00)
[2021-03-05] MEDS ORDERED: SODIUM BICARB 8.4% 50 ML SYR (1 MEQ/ML) ONE (10:31)
[2021-03-05] MEDS ORDERED: EPINEPHrine 10 ML SYRINGE (0.1 MG/ML) ONE (10:31)
--- NOTE | 2021-03-05 12:05 | P.PN ---
Subjective Progress Note Date: 03/05/21 Principal diagnosis: Acute hypoxemic respiratory failure secondary to CoVID 19 pneumonia, COPD, underlying pulmonary fibrosis, systolic congestive heart failure with ejection fraction 20% 85-year-old male patient was hospitalized because of worsening shortness of breath. The patient came into the ED, he was febrile, tachycardic and tachypneic and he was quite hypoxic and he was immediately placed on high flow oxygen at 15 L per minute nasal cannula. His chest x-ray showed diffuse bilateral pulmonary infiltrates consistent with COVID 19-related pneumonia. He is checked positive for COVID 19. The patient is extremely demented. The patient is a very poor historian. He cannot provide any history and he has no insight on his condition. Is quite contracted his lower extremities bilaterally. He was found to be significantly hypoxic in the emergency department. He was placed on a nonrebreather and currently is on 15 L of oxygen by nasal cannula and his pulse ox is around 92%. Upon arrival to the floor, he was still hypotensive and he was given a bolus of IV fluid 1 L and his blood pressure improved after that. He had a high lactic acid level which was as high as 5.1 and it started to improve and is down to 3.6. Data troponin level of 0.11. Chest x-ray showed diffuse but the pulmonary infiltrates and edema and pleural effusion. Following that, he was given a CT angiogram in the emergency department, no pulmonary embolism, bilateral pleural effusion, bilateral consolidation airspace disease most on the lung bases bilaterally. EKG showing a sinus rhythm, first-degree AV block, left bundle branch block pattern. His previous cardiac status is not known. Echocardiogram needs to be completed. Based on the history, he has an extensive history of CAD, COPD, pulmonary fibrosis and previous history of brain cancer in addition to CAD, angioplasty, s tenting. As far as the exact timing of his symptoms related to Covid 19 is not known. He is a very poor historian. He is currently on Decadron. He is resting comfortably in bed for now. His creatinine is at 1.25 Patient was reevaluated today on 02/24/2021, remains in the intensive care unit, he is on BiPAP with IPAP of 12 and EPAP of 500% FiO2, seems to be comfortable, not in any distress, had difficulty with communication mostly because his previous history of brain surgery/craniotomy. Apparently the patient has a multifactorial reason for his acute hypoxic respiratory failure, he has severe LV dysfunction with ejection fraction of 20%, possible myocarditis. He is out of the window for remdesivir, he has underlying COPD, and he had a non-ST elevation myocardial infarction there is also questionable sepsis on admission. Hence we are holding on giving the patient actemra for now. Sugars are pending WBC count today is 17.9 electrolytes are normal renal profile showed BUN of 21 creatinine 1.37 C-reactive protein is 58 LDH is 831. Pro-calcitonin is 3.12, quite elevated. Blood cultures remain negative so far. Patient was reevaluated today on 02/25/2021, remains in the ICU, remains on 15 L flow and 80% FiO2, surprisingly the patient does not seem to be in any distress, chest x-ray continues to show diffuse interstitial infiltrates with underlying pulmonary fibrosis and possibly some component of pneumonia and pulmonary edema. Patient remains on Lasix remains on Decadron and Zosyn was added. Surprisingly the patient seems to be quite comfortable on the present FiO2 settings, hence I plan to transfer the patient today out of the ICU to a cardiac floor. CBC count today is 14.6 hemoglobin is 11.3 left lites are normal renal profile showed slight worsening of his creatinine up to 1.47 BUN is 31. Chest x-ray as noted above. Inflammatory markers are trending down LDH is 776 and C-reactive protein is 78. Patient was reevaluated today on 02/26/2021, he is presently on the cardiac floor, does not seem to be in any distress, patient is a poor historian, seems to be confused. Her main is on high flow at 70% FiO2 and 60 L flow of oxygen. His O2 saturations 90%. Patient again cannot tell me how [place] except he tells me he is doing better. WBC count today is 14.6 hemoglobin is 11.3. Intellect lites are normal renal profile is slightly worse with a BUN of 31 creatinine 1.47. Inflammatory markers were noted yesterday to remain elevated with LDH of 776, and his C-reactive protein 78. Rest x-ray today shows diffuse increased lung markings compatible with atypical pneumonia. Underlying bacterial pneumonia and underlying CHF is not entirely ruled out The patient was seen today 02/27/2021 in follow-up in the intensive care unit. Earlier this morning he continued to decompensate with worsening hypoxemia despite being on BiPAP 12/5 and 90% FiO2 was transferred to the ICU. Blood gases revealed a PaO2 of 56, pCO2 37, pH 7.44. He was in significant respiratory distress. Staff had spoken to the patient and his who both in agreement to be on life support if necessary. He remains a full code. Chest x- ray continues to revealed diffuse scattered infiltrates bilaterally worsening needing compared to previous. The cultures reveal no growth. White count 14.7. Hemoglobin 13.3. Lymphocytes 0.4. Sodium 145. Potassium 3.7. Creatinine 1 .66. He did require intubation and mechanical ventilatory support. Currently on assist control mode at a rate of 20, tidal volume 400, FiO2 100% and a PEEP of 10. Low blood gases revealed a pO2 of 257, pCO2 43 pH 7.43 and his FiO2 was decreased to 50%. He remains on Lasix 40 mg IV every 12 hours, dexamethasone, performed for DVT prophylaxis. Antibiotics in the form of Zosyn. The patient is seen today 02/28/2021 in follow-up in the intensive care unit. He remains intubated on the mechanical ventilator and assist control mode. Rate of 20, tidal volume 400, FiO2 50%, PEEP of 10. He is sedated on propofol 50 mcg/kg/m, norepinephrine at 0.06 mg/kg/m, 0.9 normal saline at 50 MLS per hour. He is being nourished with Vital HP at 30 ML's per hour. Currently on IV Solu- Medrol, subcu heparin, Zosyn. This x-ray continue reveals evidence of COPD with continued diffuse bilateral interstitial disease and patchy infiltrates. Blood culture reveals no growth. Sputum culture pending. White count 8.7. Hemoglobin 11.0. Platelets 151. D-dimer 3.98. Sodium 144. Potassium 3.2. Creatinine 1.58. LDH 1104. C-reactive protein 212. The patient is seen today 03/01/2021 follow-up in the intensive care unit. He remains intubated, sedated and on the mechanical ventilator. Current settings assist-control mode. Rate of 20, tidal volume 400, FiO2 50% and a PEEP of 8. Morning blood gases revealed a pO2 of 73, pCO2 44, pH 7.43. He is sedated on propofol at 55 mcg/kg/m. Pressors in the form of norepinephrine at 0.06 mg/kg/m. 0.9 normal saline at 30 MLS per hour. He remains on Lovenox, IV Solu- Medrol IV Lasix. White count 16.6. Hemoglobin 11.1. Lymphocytes 0.1. D-dimer 2.68. Sodium 14 6. Potassium 4.0. Creatinine 1.58. LDH 1078. C-reactive protein 148.5. Remains on Zosyn. The patient is seen today 03/02/2021 follow-up in the intensive care unit. He remains intubated, sedated on the mechanical ventilator. Current mode assist control of 20, tidal volume 400, FiO2 50% and a PEEP of 8. Morning blood gases reveal a pO2 of 80, pCO2 45, pH 7.39. He is sedated on propofol at 60 mcg/kg/m. Norepinephrine at 0.01 mcg/kg/m. 0.9 normal saline at KVO. Vital HP tube feedings. He remains on Zosyn. Chest x-ray shows persistent interstitial opacities with slight decrease in the upper lungs. White count 11.4. Hemoglobin 10.5. Platelets 119. D-dimer 1.6. Sodium 148. Potassium 3.9. Creatinine 1.81. C-reactive protein 73.6. He remains on vitamin supplements, IV Solu-Medrol, Lovenox. Progress note dated 03/03/2021. 85-year-old male, admitted on February 22, with COVID 19 pneumonia. The patient was moved to the intensive care unit on February 27, and intubated on February 27. He remains on the ventilator, volume assist control mode, rate 20, tidal volume 400, FiO2 40%, PEEP of 8. Blood gases show a PaO2 of 81, PaCO2 of 53, and a pH of 7.29. The propofol is currently on hold for daily interruption of sedation. Normally it is at 55 mcg/kg/m. In addition, the patient's on D5W at 125 mL an hour, and vital high protein at 43 mL an hour which is goal. The patient was given a daily interruption of sedation, but unfortunately failed. This patient did receive TOCI. White count is 13.2, hemoglobin 10.8, hematocrit 32.5, and platelet count of 99,000. D-dimer is 2.12. Sodium 139, potassium 3.5, chloride 103, CO2 25, anion gap 11, BUN is 95, and creatinine is 1.76. LDH 997 and C- reactive protein is 53.4. Chest x-ray continues to show diffuse bilateral infiltrates, slightly worse than prior x-rays. Progress note dated 03/04/2021. 85-year-old male, admitted on February 22, with COVID 19 pneumonia. The patient was moved to the intensive care unit on February 27, and intubated on February 27 for respiratory failure. He remains on the ventilator currently, on the volume assist control mode, rate of 30, tidal volume 400, FiO2 60%, and PEEP of 16. Blood gases show a PaO2 of 124, PaCO2 75, and a pH is 7.04. Those blood gases were done on a rate of 20. The rate was increased to 30 after that. The patient's getting saline at 75 mL an hour, Nimbex at 2 mcg/kg/m, and multiple norepinephrine at 17 mcg/m, DIP or van at 50 mcg/kg/m, and vital high protein at 43 mL an hour which is goal. Repeat blood gas will be ordered. We are going to try to discontinue the Nimbex possible. White count is 22.6, hemoglobin 11.8, hematocrit 36.6, and platelet count 139,000. D-dimer 2.97. Sodium 135, potassium 4.9, chlorides 100, CO2 21, anion gap 14, BUN 99, creatinine 2.32. LDH is 1354. C-reactive protein is 44.4. Chest x-ray shows diffuse increased lung markings, with slight improvement over the prior chest x-ray. The patient is seen today 03/05/2021 in follow-up in the intensive care unit. He remains intubated on the mechanical ventilator. Current we an assist-control mode at a rate of 36, tidal volume 400, FiO2 60% and a PEEP of 16. Morning blood gases reveal a pO2 of 78, pCO2 60, pH 7.03. He is currently on propofol at 50 mcg/kg/m, norepinephrine at 32 mg/m, Nimbex at 1 mcg/kg/m. 0.9 normal saline at 75 ML's per hour. Being nourished with vital HP at 43 ML's per hour which is goal. Chest x-ray reveals coarse interstitial infiltrates throughout both lung thomas. Stable compared to previous. Blood cultures reveal no growth. White count 23.8. Hemoglobin 10.5. Platelet count 111. Sodium 132. Potassium 5.5. Bicarb 16. Creatinine 3.09. He remains on bronchodilators, IV Solu-Medrol, Lovenox. Antibiotics in the form of Zosyn. Objective - Vital Signs Vital signs: Vital Signs Temp 99.5 F 03/05/21 04:00 Pulse 59 L 03/05/21 06:00 Resp 36 H 03/05/21 06:00 BP 108/58 03/05/21 06:00 Pulse Ox 93 L 03/05/21 06:00 Intake & Output 03/04/21 03/05/21 03/05/21 18:59 06:59 18:59 Intake Total 2581.728 2185.774 242 Output Total 70 50 15 Balance 2511.728 2135.774 227 Weight 73 kg 87.3 kg Intake: IV 986 1036 242 0.9 JELANI 36 36 12 Fluconazole in NaCl,Iso- 50 Osm 100 mg In Saline 1 50ml.bag @ 50 mls/hr IVPB DAILY [facility] Rx#:[id number] Piperacillin-Tazobactam 3 100 .375 gm In Sodium Chloride 0.9% 100 ml @ 25 mls/hr IVPB Q8H [facility] Rx#: [id number] Sodium Chloride 0.9% 1, 900 900 230 000 ml @ 75 mls/hr IV . [id number] JULINAA Rx#:[id number] Intake, IV Titration 1012.728 702.774 Amount Cisatracurium 200 mg In 137.755 74.532 Sodium Chloride 0.9% 180 ml @ 2 MCG/KG/MIN 8.604 mls/hr IV .[id number] [facility] Rx #:[id number] Norepinephrine 4 mg In 687.499 378.338 Sodium Chloride 0.9% 250 ml @ 0.05 MCG/KG/MIN 13. 24 mls/hr IV .[id number] [facility] Rx#:[id number] Norepinephrine 8 mg In 119.431 Sodium Chloride 0.9% 250 ml @ 0.05 MCG/KG/MIN 7. 063 mls/hr IV .Q24H [facility] Rx#:[id number] propofoL 1,000 mg In 187.474 130.473 Empty Bag 1 bag @ Titrate IV .Q0M [facility] Rx#: [id number] Oral 100 Tube Feeding 483 387 Other 60 Output: Urine 70 50 15 Other: Voiding Method Indwelling Catheter Indwelling Catheter ABP, PAP, CO, CI - Last Documented Arterial Blood Pressure 75/38 - Exam GENERAL EXAM: Intubated, sedated, frail, cachectic 85-year-old gentleman, in no apparent distress. HEAD: Normocephalic. EYES: Normal reaction of pupils, equal size. NOSE: Clear with pink turbinates. THROAT: No erythema or exudates. NECK: No masses, no JVD. CHEST: No chest wall deformity. LUNGS: Equal air entry with bilateral scattered rhonchi, coarse crackles.. CVS: S1 and S2 normal with no audible murmur, regular rhythm. ABDOMEN: No hepatosplenomegaly, normal bowel sounds, no guarding or rigidity. SPINE: No scoliosis or deformity SKIN: No rashes CENTRAL NERVOUS SYSTEM: Sedated, tone is normal in all 4 extremities. EXTREMITIES: There is no peripheral edema. No clubbing, no cyanosis. Peripheral pulses are intact. - Labs CBC & Chem 7: 03/05/21 03:30 03/05/21 03:30 Labs: Abnormal Lab Results - Last 24 Hours (Table) 03/04/21 03/04/21 03/04/21 Range/Units 11:46 16:18 20:46 WBC (3.8-10.6) k/uL RBC (4.30-5.90) m/uL Hgb (13.0-17.5) gm/dL Hct (39.0-53.0) % MCV (80.0-100.0) fL MCH (25.0-35.0) pg Plt Count (150-450) k/uL Neutrophils # (Manual) (1.3-7.7) k/uL Lymphocytes # (Manual) (1.0-4.8) k/uL Metamyelocytes # (Man) (0) k/uL Myelocytes # (Manual) (0) k/uL Nucleated RBCs (0-0) /100 WBC Macrocytosis ABG pH (7.35-7.45) ABG pCO2 (35-45) mmHg ABG pO2 (83-108) mmHg ABG HCO3 (21-25) mmol/L ABG Total CO2 (19-24) mmol/L ABG O2 Saturation (94-97) % Sodium (137-145) mmol/L Potassium (3.5-5.1) mmol/L Carbon Dioxide (22-30) mmol/L BUN (9-20) mg/dL Creatinine (0.66-1.25) mg/dL Glucose (74-99) mg/dL POC Glucose (mg/dL) 172 H 191 H 190 H (75-99) mg/dL Calcium (8.4-10.2) mg/dL Total Protein (6.3-8.2) g/dL Albumin (3.5-5.0) g/dL 03/05/21 03/05/21 03/05/21 Range/Units 00:00 03:30 03:30 WBC 23.8 H (3.8-10.6) k/uL RBC 2.96 L (4.30-5.90) m/uL Hgb 10.5 L (13.0-17.5) gm/dL Hct 32.2 L (39.0-53.0) % MCV 108.9 H (80.0-100.0) fL MCH 35.6 H (25.0-35.0) pg Plt Count 111 L (150-450) k/uL Neutrophils # (Manual) 21.90 H (1.3-7.7) k/uL Lymphocytes # (Manual) 0.48 L (1.0-4.8) k/uL Metamyelocytes # (Man) 0.24 H (0) k/uL Myelocytes # (Manual) 0.24 H (0) k/uL Nucleated RBCs 1 H (0-0) /100 WBC Macrocytosis Marked A ABG pH (7.35-7.45) ABG pCO2 (35-45) mmHg ABG pO2 (83-108) mmHg ABG HCO3 (21-25) mmol/L ABG Total CO2 (19-24) mmol/L ABG O2 Saturation (94-97) % Sodium 132 L (137-145) mmol/L Potassium 5.5 H (3.5-5.1) mmol/L Carbon Dioxide 16 L (22-30) mmol/L BUN 119 H* (9-20) mg/dL Creatinine 3.09 H (0.66-1.25) mg/dL Glucose 184 H (74-99) mg/dL POC Glucose (mg/dL) 201 H (75-99) mg/dL Calcium 6.6 L (8.4-10.2) mg/dL Total Protein 4.7 L (6.3-8.2) g/dL Albumin 2.4 L (3.5-5.0) g/dL 03/05/21 03/05/21 03/05/21 Range/Units 03:31 05:37 08:32 WBC (3.8-10.6) k/uL RBC (4.30-5.90) m/uL Hgb (13.0-17.5) gm/dL Hct (39.0-53.0) % MCV (80.0-100.0) fL MCH (25.0-35.0) pg Plt Count (150-450) k/uL Neutrophils # (Manual) (1.3-7.7) k/uL Lymphocytes # (Manual) (1.0-4.8) k/uL Metamyelocytes # (Man) (0) k/uL Myelocytes # (Manual) (0) k/uL Nucleated RBCs (0-0) /100 WBC Macrocytosis ABG pH 7.03 L* (7.35-7.45) ABG pCO2 60 H (35-45) mmHg ABG pO2 78 L (83-108) mmHg ABG HCO3 16 L (21-25) mmol/L ABG Total CO2 18 L (19-24) mmol/L ABG O2 Saturation 90.3 L (94-97) % Sodium (137-145) mmol/L Potassium (3.5-5.1) mmol/L Carbon Dioxide (22-30) mmol/L BUN (9-20) mg/dL Creatinine (0.66-1.25) mg/dL Glucose (74-99) mg/dL POC Glucose (mg/dL) 195 H 199 H (75-99) mg/dL Calcium (8.4-10.2) mg/dL Total Protein (6.3-8.2) g/dL Albumin (3.5-5.0) g/dL Assessment and Plan Assessment: 1 Acute hypoxic respiratory failure, multifactorial with progression and sub sequent intubation mechanical ventilation on 02/27/2001. 2 Acute covid 19 pneumonitis. 3 Acute exacerbation of COPD. 4 Possible underlying interstitial lung disease/pulmonary fibrosis. 5 Acute systolic congestive heart failure with ejection fraction of 20%. 6 Acute non-ST elevation myocardial infarction. 7 History of dementia. 8 History of craniotomy 9 Extreme medical debility. 10 Non aniron gap metabolic acidosis 11 History of brain tumor and previous craniotomy. 12 Acute kidney injury, creatinine is 1.81 today. Plan: The patient was seen and evaluated by Dr. Lozano Chest x-ray, ABGs and labs reviewed Increased respiratory rate to 40 Added 3 A of bicarb to D5W it 100 ML's per hour Continue Zosyn, bronchodilators Continue IV Solu-Medrol Anticoagulated with Lovenox Prognosis is guarded and poor Family is requesting transfer for possible ECMO, renal case manager are working on transfer We'll continue to follow and make further recommendations based on his clinical status Critical care time 38 minutes I, the cosigning physician, performed a history & physical examination of the patient. Lungs sounds I lateral scattered rhonchi, crackles. Maintaining good O 2 saturations in the 90s on 60% FiO2 via the mechanical ventilator. I discussed the assessment and plan of care with my nurse practitioner, Herminia Millard. I attest to the above note as dictated by her.
[2021-03-05 13:17] VITALS: BP 90/70; PULSE 65; RESP 40; TEMP 98.3
--- NOTE | 2021-03-05 15:39 | P.EN ---
Code Blue Indication: Asystole Arrived to seen to find CPR in progress. Patient was in asystole per nursing. He was given 2 A of epinephrine and bicarbonate and calcium carbonate. We did momentarily achieve ROSC with a blood pressure 79/56. However blood pressure was quickly declining. Patient was already on maximum levophed 0.75 mcg/kg. 1 L bolus was ordered. Patient's family was contacted who would like him to remain a full code. Initial down time was 14 minutes. Chart review was in progress when his blood pressure quickly declined and he again went into asystole. CPR was resumed for 2 minutes. On pulse check it was noted that the patient continues to be in asystole. At that point in time patient had had greater than a 15 minute downtime and CPR was not resumed. He at 1051. Family was on her way to the hospital will be notified by nursing. Dr. Lozano and Dr. Ferrara (covering for Dr. Hacektt) were notified of the patient . DX: Asystole COVID 19, acute hypoxic respiraotry failure Systolic congestive heart failure Acute exaerbation of COPD A Total of 35 minutes of critical care time was spent on the complex care of this patient.
--- NOTE | 2021-03-05 21:12 | P.PN ---
Progress Note - Text Progress Note Date: 03/05/21 REASON FOR FOLLOWUP: Pneumonia. INTERVAL HISTORY: The patient is afebrile , the pt remains to be intubated on the vent. The patient is hemodynamically stable not on pressor support. Slight hypothermic this evening. No significant purulent secretions in the ET or worsening diarrhea per the nursing staff. PHYSICAL EXAMINATION: VITAL SIGNS: Blood pressure 103/57 with a pulse of 79, temperature 97, he is 98% on 100% FIO2. GENERAL DESCRIPTION: Patient is an elderly male intubated and on the ventilator. LUNGS: Unlabored breathing, decreased intensity of breath sounds, no wheeze. HEART: S1-S2, regular rate and rhythm. ABDOMEN: Soft, no tenderness. LABS: Reviewed DIAGNOSTIC IMPRESSION AND PLAN: Patient with acute respiratory failure which is multifactorial in this patient with component of COVID-19 pneumonia plus-minus aspiration. Sputum has been negative for resistant pathogen, sameer more like colonizer or oropharyngeal candidiasis. Patient to continue with Zosyn, Solu-Medrol, zinc and ascorbic acid along with respiratory support and monitor clinical course closely. Over all prognosis remains to be guarded.
--- NOTE | 2021-03-05 21:12 | CONS ---
CONSULTATION REASON FOR CONSULT: Renal failure. HISTORY OF PRESENT ILLNESS: Patient is an 86-year-old male who was admitted on 02/22/2021 with complaints of shortness of breath. Patient had acute hypoxic respiratory failure secondary to COVID- 19 pneumonia. He also had hlf-IS-evonebcuv [place]. Patient was eventually intubated and currently he is hypotensive with poor urine output. Serum creatinine was 3.09 today, up from 2.3 yesterday and 1.2 on initial admission. Urine output has been zero to 5 mL/hour. Patient's blood pressure was significantly low in the 40s and 50s, and his Levophed has just been increased. There is consideration of discussion with family regarding his CODE STATUS. PAST MEDICAL HISTORY: Significant for hypertension, coronary artery disease, dementia, hearing loss, hyperlipidemia, history of [place], coronary artery disease, COPD, history of brain cancer, details not clear. Patient had surgery. PAST SURGICAL HISTORY: Brain surgery; details not known. Cardiac catheterization, coronary stent placement, orthopedic surgery, details not known. SOCIAL HISTORY: Unknown. MEDICATIONS: Medications prior to admission included amiodarone, aspirin, Plavix, Vasotec, Lamictal, Lipitor, Claritin, Tylenol. ALLERGIES: NONE. PHYSICAL EXAMINATION: Patient is on the vent. He is sedated. He is on max dose of Levophed. He has trace edema of lower extremities. He has a warming blanket as well. Lungs and heart are not examined. SPREADER OPERATOR exam cannot be performed. LABS: Sodium 132, potassium 5.5, chloride 102, BUN 119. CO2 is 16, creatinine 3.09, hemoglobin 10.5 g/dL. ASSESSMENT: 1. Acute kidney injury, acute tubular necrosis, currently oliguric secondary to hypotension, sepsis and underlying COVID-19 pneumonia. 2. Hyperkalemia associated with acute kidney injury. 3. Sepsis. 4. COVID-19 pneumonia with acute hypoxic respiratory failure, currently on the vent, maintained on steroids. 5. Alyssa albicans in the sputum, maintained on anti-fungal treatment as well. PLAN: Continue with pressors. Will treat hyperkalemia with IV treatment. Agree with plans for further discussion of CODE STATUS, particularly given the underlying cardiomyopathy as well with ejection fraction of 20%. Continue with the bicarb drip as well. If there are plans to proceed with aggressive medical care, patient will need to receive renal replacement therapy. At this time it is not clear as to how he will tolerate it, since he is so hemodynamically unstable. Thank you for this consultation. LAURA / KAYLYN: [id number] /
--- NOTE | 2021-03-05 23:32 | DS ---
DISCHARGE SUMMARY DATE OF SERVICE: 03/05/2021. PRIMARY CAUSE OF : Acute Covid 19 infection with bilateral interstitial pneumonia with acute hypoxic respiratory failure and mechanical ventilation. OTHER DIAGNOSES: 1. Acute tqy-VM-dofaawn-elevation myocardial infarction. 2. Possible cardiomyopathy, ejection fraction 20 to 25%, possibly secondary to Covid 19. 3. Worsening as well as a combination of respiratory and metabolic acidosis. 4. Alyssa albicans in the sputum. 5. 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 6. Hypertension. 7. Hyperlipidemia. 8. History of coronary artery disease. 9. History of brain cancer. 10.Increased WBC. 11.Anemia macrocytic. 12.Hyponatremia. 13.Elevated creatinine with acute tubular necrosis, acute renal failure present on admission. 14.Hypoalbuminemia with mild protein calorie malnutrition. HISTORY OF PRESENT ILLNESS: This 86-year-old gentleman with a past medical history of multiple medical problems, being followed by Dr. Hackett in the outpatient setting admitted with acute Covid 19 pneumonia with bilateral pneumonia and multiple other complications as mentioned. The patient mechanically sedated and monitored in the ICU for a prolonged time. Patient also had multiple complications as listed above. The prognosis was extremely guarded. The patient treated for multiple medical problems with multiple medications for COVID [address] Lozano and Cardiology saw the patient during hospitalization. Despite intensive treatment, the patient did not improve and the patient suffered a cardiopulmonary arrest and succumbed to the above mentioned illnesses. Please refer to the multiple progress notes, consultations and staff notes for further information. We have discussed the case at length with the family over the phone about the guarded nature of the illness. A copy being forwarded to Dr. Hackett who is the primary physician. MMODL / IJN: [id number] /
[2021-03-06 16:34] LABS: LD Isoenzymes 1 23 % (19-38); LD Isoenzymes 2 40 % (30-43); LD Isoenzymes 3 20 % (16-26); LD Isoenzymes 4 8 % (3-12); LD Isoenzymes 5 9 % (3-14); Lactacte Dehydrogenase(LD) ISO 338 U/L (120-250)
--- NOTE | 2021-03-07 15:31 | CDI ---
Documentation Clarification Form Date: 03/07/2021 03:14:15 PM From: France Jernigan CCS, CCDS Admit Date: 02/22/2021 08:37:00 PM Patient Name: Shai Vaca Visit Number: [id number] Discharge Date: 03/05/2021 03:24:00 PM ATTENTION: The Clinical Documentation Specialists (CDI) and [facility] Coding Staff appreciate your assistance in clarifying documentation. Please respond to the clarification below the line at the bottom and electronically sign. The CDI & [facility] Coding staff will review the response and follow-up if needed. Please note: Queries are made part of the Legal Health Record. If you have any questions, please contact the author of this message via ITS. Dr. Meghan Hackett: Sepsis is documented in the ED note & in the Pulmonary Consult's Progress Notes but not documented further in the medical record. Per the 02/22 ED Note Clinical Impression: "Sepsis with acute hypoxic respiratory failure, COVID-19, Fever, NSTEMI (non-ST elevated myocardial infarction.)" Per the Pulmonary Schedule Maker's Progress Notes starting on 02/24: "Sepsis with acute hypoxic respiratory failure, COVID-19, Fever, NSTEMI (non-ST elevated myocardial infarction.)" History/Risk Factors Per the 02/22 ED Note History of Present Illness: CAD, Brain Cancer status post Craniotomy, COPD, CVA, Dementia, [place], Hyperlipidemia, Hypertension, [place], Renal Disease, Heart Catheterization With Stent, Orthopedic Surgery, Current every day smoker. Clinical Indicators: Presented to the ED via EMS on 02/22 with SOB, mild cough, Fever. ED Clinical Impression: Sepsis with Acute hypoxic respiratory failure, COVID 19, Fever, NSTEMI. 02/22 VS: T 102, P 122, R 40 (SOB, Accessory use, Tachypnea), BP 185/123, PO 92 15L nrb. 02/22 LAB: WBC 8.7, D Dimer 2.52, Cl 110, CO2 18, Glucose 189, Lactic Acid 2.9, 3.6; Total Bili 1.4, Cr Kinase 48, Troponin 0.111. 02/22 COVID POSITIVE. 02/23 Lactic Acid: 5.1, 3.2 02/24 WBC 17.9, Neut 16.4, Lymph 0.6, D Dimer 1.11, Lactic Acid 1.9 02/22 Blood cultures x2: Final: Negative after 144 hrs. 02/27 Sputum Culture: Final: Alyssa Albicans 02/22 CXR: Diffuse opacities, may relate to ARDS, pulmonary edema or infection. 02/22 CT Chest: No acute PE. Bilateral diffuse dependent opacities, may relate to aspiration pneumonitis and/or pneumonia. Small pleural effusions. Treatment 02/22: INH uoneb x1, INH Ventolin x1, IV fluid 2,000 mls @ 999 mls/hr q2H, IV Morphine, IV Decadron, IV Heparin 02/23: IV Zosyn 100 mls @ 25 mls/hr q8H, IV Lasix 40 mg x1. In your professional opinion, please clarify if these findings signify one of the following conditions: [ ] Sepsis POA [ ] Sepsis, Not POA [ ] Sepsis ruled out [ ] Severe Sepsis with organ failure [ ] Septic Shock [ ] Other, please specify [ ] Unable to determine (Template Last Reviewed: December 2020) sepsis POA MTDD
[2021-03-07 19:41] LABS: LD Isoenzymes 1 22 % (19-38); LD Isoenzymes 2 36 % (30-43); LD Isoenzymes 3 21 % (16-26); LD Isoenzymes 4 10 % (3-12); LD Isoenzymes 5 11 % (3-14); Lactacte Dehydrogenase(LD) ISO 474 U/L (120-250)
[2021-03-08 16:37] LABS: LD Isoenzymes 1 22 % (19-38); LD Isoenzymes 2 38 % (30-43); LD Isoenzymes 3 21 % (16-26); LD Isoenzymes 4 10 % (3-12); LD Isoenzymes 5 9 % (3-14); Lactacte Dehydrogenase(LD) ISO 410 U/L (120-250)
== END 2021-03-05 15:24 | disposition expired | DRG 870 ==
LOC: EC 17:51 → 3SCARD 20:37 → 2SICU 02-23 18:17 → 3SCARD 02-25 17:30 → 2SICU 02-27 08:50
PROVIDERS: ADMIT Internal Medicine; ATTEND Internal Medicine
PROC: 5A09357 Assistance with Respiratory Ventilation, Less than 24 Consecutive Hours, Continuous Positive Airway Pressure (ICD-10-PCS; 2021-02-22)
PROC: 5A0945A Assistance with Respiratory Ventilation, 24-96 Consecutive Hours, High Flow/Velocity Cannula (ICD-10-PCS; 2021-02-22)
PROC: 0D9670Z Drainage of Stomach with Drainage Device, Via Natural or Artificial Opening (ICD-10-PCS; principal; 2021-02-27)
PROC: 3E033XZ Introduction of Vasopressor into Peripheral Vein, Percutaneous Approach (ICD-10-PCS; principal; 2021-02-27)
PROC: 5A1955Z Respiratory Ventilation, Greater than 96 Consecutive Hours (ICD-10-PCS; principal; 2021-02-27)
PROC: 02H633Z Insertion of Infusion Device into Right Atrium, Percutaneous Approach (ICD-10-PCS; principal; 2021-02-27)
PROC: 0BH17EZ Insertion of Endotracheal Airway into Trachea, Via Natural or Artificial Opening (ICD-10-PCS; principal; 2021-02-27)
PROC: 5A12012 Performance of Cardiac Output, Single, Manual (ICD-10-PCS; 2021-03-05)
DX: A41.89 Other specified sepsis (principal); U07.1 COVID-19; J12.82 Pneumonia due to coronavirus disease 2019; J80 Acute respiratory distress syndrome; I21.4 Non-ST elevation (NSTEMI) myocardial infarction; N17.0 Acute kidney failure with tubular necrosis; I50.21 Acute systolic (congestive) heart failure; J15.9 Unspecified bacterial pneumonia; J69.0 Pneumonitis due to inhalation of food and vomit; R64 Cachexia; E87.4 Mixed disorder of acid-base balance; I42.9 Cardiomyopathy, unspecified; J44.0 Chronic obstructive pulmonary disease with (acute) lower respiratory infection; J44.1 Chronic obstructive pulmonary disease with (acute) exacerbation; E87.1 Hypo-osmolality and hyponatremia; E44.1 Mild protein-calorie malnutrition; B37.0 Candidal stomatitis; D63.1 Anemia in chronic kidney disease; I11.0 Hypertensive heart disease with heart failure; J84.10 Pulmonary fibrosis, unspecified; I27.20 Pulmonary hypertension, unspecified; F03.90 Unspecified dementia, unspecified severity, without behavioral disturbance, psychotic disturbance, mood disturbance, and anxiety; E11.22 Type 2 diabetes mellitus with diabetic chronic kidney disease; I46.9 Cardiac arrest, cause unspecified; I48.0 Paroxysmal atrial fibrillation; E87.5 Hyperkalemia; D72.810 Lymphocytopenia; I25.10 Atherosclerotic heart disease of native coronary artery without angina pectoris; I44.0 Atrioventricular block, first degree; I44.7 Left bundle-branch block, unspecified; E78.5 Hyperlipidemia, unspecified; I08.1 Rheumatic disorders of both mitral and tricuspid valves; D75.89 Other specified diseases of blood and blood-forming organs; R19.7 Diarrhea, unspecified; R26.81 Unsteadiness on feet; H91.90 Unspecified hearing loss, unspecified ear; I25.2 Old myocardial infarction; Z68.24 Body mass index [BMI] 24.0-24.9, adult; F17.200 Nicotine dependence, unspecified, uncomplicated; Z79.82 Long term (current) use of aspirin; Z79.02 Long term (current) use of antithrombotics/antiplatelets; Z79.899 Other long term (current) drug therapy; Z95.5 Presence of coronary angioplasty implant and graft; Z86.73 Personal history of transient ischemic attack (TIA), and cerebral infarction without residual deficits; Z85.72 Personal history of non-Hodgkin lymphomas; Z91.81 History of falling
CPT/HCPCS: 36415; 36600; 70450; 71045; 71275; 80048; 80053; 80306; 82140; 82550; 82728; 82805; 83605; 83615; 83625; 83735; 83880; 84132; 84145; 84484; 85025; 85379; 85610; 85730; 86140; 87040; 87070; 87205; 87324; 87635; 93005; 93306; 93880; 94002; 94003; 94640; 94660; 94760